=== PATIENT | female | born 1970 | race Caucasian/White ===

== ENCOUNTER 2020-03-24 14:38 | Outpatient (REF) | payer BC, SELFPAY ==
[2020-03-25 08:11] LABS: BV Int Neg Control Negative (Negative); BV Int Pos Control Positive (Positive)
[2020-03-27 08:43] LABS: HPV mRNA E6/E7 rflx Not Detected (Not Detected)
== END 2020-03-24 14:39 | disposition home or self-care (01) ==
LOC: HO.LAB 14:38
PROVIDERS: Visit Provider Advanced Practice Midwife
DX: Z01.419 Encounter for gynecological examination (general) (routine) without abnormal findings (principal); E66.01 Morbid (severe) obesity due to excess calories; I10 Essential (primary) hypertension
CPT/HCPCS: 87480; 87510; 87624; 87625; 87660; 88142

== ENCOUNTER 2020-06-11 15:42 | Outpatient (REF) | payer BC, SELFPAY ==
--- NOTE | ~2020-06-11 | MM_ITS ---
EXAMINATION: MM SCREENING DIGITAL BREAST TOMOSYNTHESIS, BILATERAL CLINICAL INFORMATION: Screening. Asymptomatic. The lifetime risk of breast cancer based on the Tyrer-Cuzick Model is 8.8%. COMPARISON: Mammography: November 19, 2015 and stapes dating back to December 27, 2004 TECHNIQUE: Digital breast tomosynthesis is performed in both the craniocaudal and mediolateral oblique views along with computer-aided detection (CAD). Synthesized 2D images are generated from the tomosynthesis. FINDINGS: There are scattered areas of fibroglandular density (ACR BI-RADS breast composition Category b). There are no significant masses, abnormal calcifications, or other abnormalities. MM/MM tomosynthesis screening BI IMPRESSION: There are no significant changes from prior study. ASSESSMENT: BI-RADS 1: Negative RECOMMENDATION: Routine annual mammography screening. This patient's information was entered into a reminder system with a target due date for their next mammogram.
== END 2020-06-11 15:43 | disposition home or self-care (01) ==
LOC: HO.MAMMO 15:42
PROVIDERS: PCP Internal Medicine; Visit Provider Advanced Practice Midwife
DX: Z12.31 Encounter for screening mammogram for malignant neoplasm of breast (principal)
CPT/HCPCS: 77063; 77067

== ENCOUNTER 2021-04-05 11:01 | Emergency (ER) | payer BC, SELFPAY ==
[2021-04-05 11:28] VITALS: BP 174/86; PULSE 102; RESP 16; TEMP 36.9; O2SAT 100; BMI 39.3
[2021-04-05 11:58] LABS: COVID-19 Test Positive (Negative); IDNOW Serial# 9DD0AD1C
--- NOTE | 2021-04-05 12:21 | ED.URI ---
HPI - URI/Sore Throat General Chief Complaint: Upper Respiratory Symptoms Stated Complaint: fever,earpain,headache Time Seen by Provider: 04/05/21 12:07 Source: patient Mode of arrival: ambulatory Limitations: no limitations History of Present Illness MD elicited complaint: cough, sore throat and rhinorrhea Pertinent past history: other (vaccinated x 2) Onset (ago): day(s) (2) Consistency: constant Severity: moderate Description of mucous: clear Able to tolerate fluids by mouth: Yes Exacerbating factors: nothing Relieving factors: nothing Associated symptoms: fever, chills, myalgias, headache, rhinorrhea, sore throat and cough Treatments prior to arrival: acetaminophen Related Data Home Medications Medication Instructions Recorded Confirmed omeprazole 20 mg capsule,delayed 20 mg PO BID 03/24/20 release Allergies Allergy/AdvReac Type Severity Reaction Status Date / Time No Known Allergies Allergy Verified 03/24/20 14:43 [No Known Allergies*] Review of Systems Review of Systems: Constitutional : positive Fever, positive Chills, positive fatigue, positive Malaise ENT/Mouth : positive sore throat, positive runny nose Eyes: No Discharge Cardiovascular : No Chest Pain, No SOB Respiratory : pos Cough, No Sputum Gastrointestinal : No Nausea, No Vomiting, No Diarrhea Genitourinary : No Dysuria, No Urinary Frequency Musculoskeletal : positive Myalgia Skin : No rash Neuro : No Headache PMFSH Past Medical History Surgical History (Updated 03/24/20 @ 15:15 by Jordon Hopkins) H/O bariatric surgery History of bilateral tubal ligation Hx of section Hx of cholecystectomy Social History Social History Alcohol intake: current Alcohol intake frequency: holidays/special occasions only Advance Directives: No Advance Directives Information Provided: No Patient : No Physical Exam Vital Signs: Vital Signs: Last Vital Signs Temp 98.5 F 04/05/21 11:28 Pulse 102 H 04/05/21 11:28 Resp 16 04/05/21 11:28 BP 174/86 H 04/05/21 11:28 Pulse Ox 100 04/05/21 11:28 BMI result Body Mass Index 39.3 Appearance: Alert. Oriented X3. No acute distress. Eyes: Pupils equal, round and reactive to light. ENT: Pharynx normal. bilateral TMs normal Neck: Normal inspection. Neck supple. CVS: Normal heart rate and rhythm. Pulses normal. Respiratory: No respiratory distress. Breath sounds normal. Abdomen: Soft and non-tender. Skin: Skin warm and dry. Normal skin color. Normal skin turgor. Extremities: No lower extremity edema. Neuro: Oriented X 3. No motor deficit. No sensory deficit. MDM - URI/Sore Throat MDM Narrative Medical decision making narrative: 50 yo female no PMH here with viral like illness, vaccinated x 2, + COVID at this time will need precautions to return does not need mab given lack of medical issues and likely omicron - precautions to return. Lab Data Labs: Lab Results 04/05/21 Range/Units 11:33 COVID-19 ([facility]) Positive A (Negative) COVID-19 Clin Com See Note Discharge Plan Discharge Clinical Impression: COVID-19 Patient Disposition: Home, Self-Care Instructions: COVID-19 (Coronavirus Disease 2019) (ED) Additional Instructions: return to ED for any worsening symptoms or concerns monitor your breathing, if you become so short of breath you cannot walk to your own bathroom please seek medical care wear a mask, quarantine, protect others Prescriptions: No Action omeprazole 20 mg capsule,delayed release(DR/EC) 20 mg PO BID RF: 0 Stand Alone Forms: Work/School Release
== END 2021-04-05 12:50 | disposition home or self-care (01) ==
PROVIDERS: Emergency Provider Emergency Medicine; PCP Internal Medicine
DX: U07.1 COVID-19 (principal)
CPT/HCPCS: 36415; 87635; 99283

== ENCOUNTER → 2021-09-01 13:54 | Outpatient (BNVA) | payer BC, SELFPAY | PROVIDERS: PCP Internal Medicine; Visit Provider Orthopaedic Surgery | DX: M65.4 Radial styloid tenosynovitis [de Quervain] (principal); M77.8 Other enthesopathies, not elsewhere classified | CPT/HCPCS: J1100 ==

== ENCOUNTER 2021-10-25 09:23 | Day surgery (SDC) | payer BC, SELFPAY ==
[2021-10-25 09:42] VITALS: BP 179/88; PULSE 88; RESP 18; TEMP 36.8; O2SAT 99; BMI 37.8
--- NOTE | 2021-10-25 11:39 | MHC.SHP ---
Pre-Procedural Eval Section A Date of Service: 10/25/21 The patient is an INPATIENT: No Changes since office visit: No Cold of Flu in the past 2 weeks, No New Medical Problems, No Changes in Medication and No Patient answered all questions The History & Physical has been completed within 30 days and I have reviewed it.: Yes Section B Chief Complaint: Radial styloid tenosynovitis [de Quervain] Allergies: Allergies Allergy/AdvReac Type Severity Reaction Status Date / Time No Known Allergies Allergy Verified 09/01/21 14:11 [No Known Allergies*] Plan I have reviewed the history and physical and performed a pertinent physical examination on my patient. No changes have occurred unless specified.
--- NOTE | 2021-10-25 11:40 | P.OP_ITS ---
Operative Note Operative Note Date of Service: 10/25/21 Narrative: Operative Note Preop diagnosis: 1. right DeQuervain's tenosynovitis Postop diagnosis: 1. right DeQuervain's tenosynovitis Procedure: 1. right 1st dorsal compartment release Surgeon: Ronit Hudson MD Anesthesia: local block using 1% lidocaine with epinephrine Findings: Thickened 1st dorsal compartment. [ ] EBL: Less than 5 mL Tourniquet time: None Specimens: None Complications: None Disposition: Brought to recovery room in stable condition Plan: Follow-up for 7-10 days for wound check and suture removal Indications: The patient is 51 with years old, with right DeQuervain's tenosynovitis that has been unresponsive to nonoperative management. The risks and benefits of operative treatment including but not limited to risk of damage to blood vessels, nerves, tendons, infection, persistent pain, persistent symptoms, recurrence or possible need for additional surgery were discussed with the patient and the patient wishes to proceed with surgery. Procedure: Once consent was obtained a local block was performed in the preop area using a combination of 1% lidocaine with epinephrine. The patient was then brought back to the operating suite and placed on the operative table in supine position. A tourniquet was applied to the proximal aspect of the right upper extremity and the limb was prepped and draped in a standard surgical fashion. Once assured that we had a good block, a 1.5 cm longitudinal incision was made centered over the 1st dorsal compartment as it passed over the radial styloid of the right wrist. The incision was made through the skin to the subcutaneous tissues using a #15 blade. Careful dissection was made down to the level of the 1st dorsal compartment using tenotomy scissors, with care being taken to protect the nearby branches of the superficial radial nerve. Once the 1st dorsal compartment was exposed, A longitudinal incision was made in the 1st dorsal compartment 1st using a #15 blade, then using tenotomy scissors under direct visualization. The 1st dorsal compartment was noted to be thickened. Following our release, we saw smooth gliding abductor pollicis longus and extensor pollicis brevis tendons. Once satisfied with our 1st dorsal compartment release the wound was copiously irrigated with normal saline and hemostasis was obtained with a brief period of local pressure. The subcutaneous layer was jeremias sed with some 4-0 Vicryl suture, and the skin edges were reapproximated with some 5.0 nylon suture material. A sterile dressing was applied. The patient appears to have tolerated the procedure well and with no complications. All digits were well vascularized at the conclusion of the case.
[2021-10-25 12:12] VITALS: BP 194/88; PULSE 87; RESP 16; TEMP 36.5; O2SAT 98
== END 2021-10-25 12:27 | disposition home or self-care (01) ==
PROVIDERS: PCP Internal Medicine; Visit Provider Orthopaedic Surgery
PROC: (CPT 25000; principal; 2021-10-25 11:10)
DX: M65.4 Radial styloid tenosynovitis [de Quervain] (principal); R20.0 Anesthesia of skin; R20.8 Other disturbances of skin sensation; M77.8 Other enthesopathies, not elsewhere classified; Z87.891 Personal history of nicotine dependence
CPT/HCPCS: 25000; J0171

== ENCOUNTER 2021-11-18 15:50 | Outpatient (REF) | payer BC, SELFPAY ==
[2021-11-19 09:21] LABS: BV Int Neg Control Negative (Negative); BV Int Pos Control Positive (Positive)
== END 2021-11-18 15:51 | disposition home or self-care (01) ==
LOC: HO.LAB 15:50
PROVIDERS: Visit Provider Advanced Practice Midwife
DX: N89.8 Other specified noninflammatory disorders of vagina (principal)
CPT/HCPCS: 87480; 87510; 87660

== ENCOUNTER 2021-11-25 11:42 | Outpatient (REF) | payer BC, SELFPAY ==
--- NOTE | ~2021-11-25 | MM_ITS ---
EXAMINATION: MM SCREENING DIGITAL BREAST TOMOSYNTHESIS, BILATERAL CLINICAL INFORMATION: Screening. Asymptomatic. The lifetime risk of breast cancer based on the Tyrer-Cuzick Model is 9.7%. COMPARISON: Mammography: June 11, 2020 and studies dating back to August 12, 2009 TECHNIQUE: Digital breast tomosynthesis is performed in both the craniocaudal and mediolateral oblique views along with computer-aided detection (CAD). Synthesized 2D images are generated from the tomosynthesis. FINDINGS: There are scattered areas of fibroglandular density (ACR BI-RADS breast composition Category b). There are no significant masses, abnormal calcifications, or other abnormalities. MM/MM tomosynthesis screening BI IMPRESSION: No significant changes from prior exam. ASSESSMENT: BI-RADS 1: Negative RECOMMENDATION: Routine annual mammography screening. This patient's information was entered into a reminder system with a target due date for their next mammogram.
== END 2021-11-25 11:43 | disposition home or self-care (01) ==
LOC: HO.MAMMO 11:42
PROVIDERS: PCP Internal Medicine; Visit Provider Internal Medicine
DX: Z12.31 Encounter for screening mammogram for malignant neoplasm of breast (principal)
CPT/HCPCS: 77063; 77067

== ENCOUNTER 2022-01-06 13:24 | Outpatient (REF) | payer BC, SELFPAY ==
--- NOTE | 2022-01-06 10:15 | EMG_ITS ---
Bilateral median and ulnar motor and sensory studies were performed. Bilateral radial sensory study was performed and paraspinal muscles were tested. 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 MD PABLO Aly/KEN / [id number]
== END 2022-01-06 13:25 | disposition home or self-care (01) ==
LOC: HO.NEURO 13:24
PROVIDERS: Visit Provider Orthopaedic Surgery
DX: R20.0 Anesthesia of skin (principal)
CPT/HCPCS: 95886; 95911

== ENCOUNTER 2022-01-11 14:30 | Outpatient (RCR) | payer BC, SELFPAY ==
--- NOTE | 2022-01-03 16:23 | MHC.OT.OEV ---
[address] [phone] F: [phone] Occupational Therapy Evaluation Diagnosis: S/P right 1 DC release Date of Onset: 10/25/21 Date of Surgery: 10/25/21 Attending Provider: Ronit Hudson MD Prescribed Treatment: Eval and treat, desensitization, ROM, and normalization of activities MD Follow Up Appointment: History of Current Condition: Pt reports light use of her right hand s/p Dequervains release and re injury sleeping on her right hand and bumping her radial wrist putting away a spray bottle Significant Medical History: Precautions/Contraindications: Lifting limit to 2 lb Patient Goals: Less pain Hand Dominance: Left Observations: QuickDASH Score: 70 Prior Level of Function and Occupation Self Care, Employment, Leisure: Indep in all area ( pre Dequervains sx) 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 sleeps on right hand needs to reposition frequently Driving: Vision: Balance: Pain Assessment Pain Score: 7 Pain Scale Used: Numeric (0 - 10) Pain Location and Description: 6-10 burning, ache , stabbing right thumb to elbow Aggravating Factors: Wrist motion, lifting, gripping Alleviating Factors: Heat Skin and Soft Tissue Assessment Skin and Soft Tissue: Swelling Comments: Mild radial hand and wrist swelling Tender at radial wrist scar Nerve assessment Ulnar Nerve: Median Nerve: Radial Nerve: Comments: Sensory Assessment Temperature: Light Touch: WNL Proprioception: Vibration: Comments: Edema Assessment Upper Extremity: Lower Extremity: Comments: WFL Dexterity Assessment Dexterity: WFL Comments: Special Tests Comments: AROM(PROM) Strength Cervical Cervical Flexion: Cervical Extension: Cervical Lateral Flexion: Cervical Rotation: Comments: Shoulder Flexion: Extension: Abduction: Internal Rotation: External Rotation: Comments: Flexion: Extension: Abduction: Internal Rotation: External Rotation: Comments: Elbow Flexion: Extension: Pronation: Supination: Comments: Flexion: Extension: Pronation: Supination: Comments: Wrist Flexion: R 60 L 70 Extension: R 70 L 70 Ulnar Deviation: R 10 L 15 Radial Deviation: R 30 L 25 Comments: Flexion: Extension: Ulnar Deviation: Radial Deviation: Comments: Thumb Thumb CMC Flexion: Thumb MCP Flexion: Thumb IP Flexion: Radial Abduction: Palmar Abduction: [place] ([place] 0-10): 6 Comments: Guarded thumb motion Digits Index MCP: PIP: DIP: Long MCP: PIP: DIP: Ring MCP: PIP: DIP: Small MCP: PIP: DIP: Comments: WNL. 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 Patient demonstrates Patient verbalizes Barriers to Learning: None Readiness for Learning: Accepting Who was educated? 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 Wrist and thumb AROM is guarded but WFL Pt will benefit from OT to address the problems stated STG Duration: 2 wks Short Term Goals: Demo indep with wrist and thumb AROM and light functional activities Demo compliance with lifting limitation at 2 lb Tolerate scar desensitization with moderate pressure Functional Dexterity Test to moderately functional LTG Duration: 4 wks [employer] Goals: Painfree thumb and wrist AROM with daily activities Alum Plant Operator to >40 lb Functional dexterity test to functional Tolerate aggressive scar massage and scar mobilization Quick DASH score < 30 pt Frequency and Duration: The patient will be seen 2x wk x 4 wks Treatment Plan: Therapeutic Exercise Therapeutic Activity Home Exercise Program Patient Education Desensitization/Sensory Re-ed Paraffin Fluidotherapy Soft Tissue Mobilization Electronically Signed By: Tasia Boyd OT CHT CLT Reviewed/agree with student documentation: Therapist: Please sign and return to therapist, Thank you for your referral.
--- NOTE | 2022-01-24 16:18 | MHC.OT.DC ---
[address] [phone] F: [phone] Occupational Therapy Discharge Note Provider: Ronit Hudson Diagnosis: S/P right 1 DC release Date of Surgery: 10/25/21 Date of Evaluation: 01/03/22 Date of Discharge: Treatments to Date: 2 Cancellations to Date: No Shows to Date: Discharge Status: Improved Function Independent with HEP Patient Elected to Stop Discharge Summary: Pt. reports improving with her HEP and concern of high co pay Pt to follow up with Dr. Hudson if needed Electronically Signed By: Tasia Boyd OT CHT CLT Reviewed/agree with student documentation: Therapist: Please Sign and return to therapist, thank you for your referral.
== END 2022-01-24 16:19 | disposition home or self-care (01) ==
LOC: HO.OT 14:30
PROVIDERS: PCP Internal Medicine; Visit Provider Orthopaedic Surgery
DX: M77.8 Other enthesopathies, not elsewhere classified (principal); M65.4 Radial styloid tenosynovitis [de Quervain]
CPT/HCPCS: 97035; 97110; 97166

== ENCOUNTER → 2022-07-06 15:05 | Outpatient (BNVA) | payer BC, SELFPAY | PROVIDERS: PCP Internal Medicine; Visit Provider Orthopaedic Surgery | DX: Z13.89 Encounter for screening for other disorder (principal) ==

== ENCOUNTER 2022-11-01 12:52 | Outpatient (AMB) | payer BC, SELFPAY ==
--- NOTE | 2022-11-01 12:56 | MHC.OFFVIS ---
Intake Vital Signs 11/01/22 12:58 Height 5 ft 2 in Weight 198 lb BMI 36.2 BP 126/80 Intake Visit Reasons: vag inf Intake Note: The patient agreed to use of a medical concierge during this encounter. Scribed for DANA Loja by Joanne Goel medical concierge, on 11/01/2022 at 1:16 pm EST. Silk Blocker: Silk Blocker Present (Yennifer) Allergies No Known Allergies [No Known Allergies*] Allergy (Verified 11/01/22 12:58) HPI HPI Comments History of Present Illness Details She is here today with complaints of urgency/frequent urination, vaginal irritation, itching, burning and discharge. Having monthly menses with occasional pelvic pain. Used tampons in the past with no complaints and used it once in September with results of current symptoms. Reports seen in September at urgent care, and was prescribed RX Diflucan. Denies shaving, any new detergents and is not using soap. Admits to drinking sodas, and drinks with artificial sweeteners. Currently not sexually active in years. 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- [employer] Sexual orientation: Straight/Heterosexual Gender identity: Female Female Reproductive History Menstrual Age of Menarche: 10 control method: permanent sterilization Permanent Sterilization: BTL Total pregnancies: 2 Full term: 2 Number of Living Children: 2 Date of last pap smear: 03/24/20 (neg pap and hpv) Date of Mammogram: 11/25/21 Physical Exam Vital Signs: Last Vital Signs BP 126/80 11/01/22 12:58 BMI result Body Mass Index 36.2 Const General: cooperative, healthy appearing, comfortable, no acute distress, well developed, alert and awake Other: vulvar erythema and edema External Female Exam: normal appearance of the urethra Speculum Exam - Vagina: normal appearance of the vagina and abnormal vaginal discharge white (patchy and adherent) Bimanual Exam- Adnexa, other: normal adnexae and no masses Results AMB Urinalysis, Automated UA Leukoctes 0.5 Kelsie/uL Last Edit by Colleen Andrade Isaiah on 11/01/22 13:36 UA Nitrite Negative Last Edit by Colleen Andrade [facility] on 11/01/22 13:36 UA Urobilinogen 0 mg/dL Last Edit by Colleen Andrade [facility] on 11/01/22 13:36 UA Protein 0.5 mg/dL Last Edit by Colleen Andrade [facility] on 11/01/22 13:36 UA pH 6.0 Last Edit by Colleen Andrade [facility] on 11/01/22 13:36 UA Blood 0 Jeffrey/uL Last Edit by Colleen Andrade [facility] on 11/01/22 13:36 UA Specific [place] 1.025 Last Edit by Colleen Andrade [facility] on 11/01/22 13:36 UA Ketone Negative Last Edit by Colleen Andrade [facility] on 11/01/22 13:36 UA Bilirubin 0 mg/dL Last Edit by Colleen Andrade [facility] on 11/01/22 13:36 UA Glucose 0 mg/dL Last Edit by Colleen Andrade [facility] on 11/01/22 13:36 Results Reviewed Results Reviewed: Laboratory Last Values Urine pH (Auto) 6.0 11/01/22 13:25 Specific [place] (Auto) 1.025 11/01/22 13:25 Urine Protein (Auto) 0.5 mg/dL 11/01/22 13:25 Glucose (UA)(Auto) 0 mg/dL 11/01/22 13:25 Urine Ketones (Auto) Negative 11/01/22 13:25 Urine Blood (Auto) 0 Jeffrey/uL 11/01/22 13:25 Urine Nitrite (Auto) Negative 11/01/22 13:25 Urine Bilirubin (Auto) 0 mg/dL 11/01/22 13:25 Urine Urobilinogen (Auto) 0 mg/dL 11/01/22 13:25 Leukocyte Esterase (Auto) 0.5 Kelsie/uL 11/01/22 13:25 Assessment & Plan Assessment & Plan (1) Vaginal irritation: Code(s): N89.8 - Other specified noninflammatory disorders of vagina Plan: Discussed: Recommend to limit caffeine, one per day, and to stop carbonated, sugared, and artificial sweetened beverages. Hydrate well with water. Advised to clean with water only, no soaps to the area, dry well, apply cool compress and wear cotton underwear. RX sent to pharmacy with instructions. If experience chest pain or irregular heart beat report to ED. BV testing done today. Await results and treat accordingly. All of her questions and concerns were addressed to the best of my ability and shared decision making. She is agreeable to plan of care. (2) Vaginal discharge: Code(s): N89.8 - Other specified noninflammatory disorders of vagina (3) Frequency of urination: Code(s): R35.0 - Frequency of micturition (4) Urinary urgency: Code(s): R39.15 - Urgency of urination (5) Vaginal burning: Code(s): N94.9 - Unspecified condition associated with female genital organs and menstrual cycle (6) Vaginal itching: Code(s): N89.8 - Other specified noninflammatory disorders of vagina Orders: Orders Bacterial Vaginosis Panel Today N89.8 - Other specified noninflammatory disorders of vagina CT NG by PCR Today N89.8 - Other specified noninflammatory disorders of vagina AMB Urinalysis Automated Today R35.0 - Frequency of micturition, R39.15 - Urgency of urination Medications: New clotrimazole-betamethasone 1-0.05 % 1 appl topical BID 7 days 45 grams 1RF fungal rash fluconazole (Diflucan) may repeat dose in one week if symptoms do not resolve 150 mg PO ONCE 1 day 2 tabs 1RF personal Coding Level of Care Code Est Pt Level 3 (10916) Diagnoses Vaginal irritation N89.8 Vaginal discharge N89.8 Frequency of urination R35.0 Urinary urgency R39.15 Vaginal burning N94.9 Vaginal itching N89.8
[2022-11-01 12:58] VITALS: BP 126/80; BMI 36.2
== END 2022-11-01 13:42 | disposition home or self-care (01) ==
LOC: HO.HWS 12:52
PROVIDERS: PCP Hospitalist; Visit Provider Advanced Practice Midwife
DX: N89.8 Other specified noninflammatory disorders of vagina (principal); R35.0 Frequency of micturition; R39.15 Urgency of urination; N94.9 Unspecified condition associated with female genital organs and menstrual cycle
CPT/HCPCS: 99213

== ENCOUNTER 2022-11-01 12:52 | Outpatient (REF) | payer BC, SELFPAY ==
[2022-11-02 04:22] LABS: CT PCR NOT DETECTED (Not Detect.); NG PCR NOT DETECTED (Not Detect.)
[2022-11-02 15:33] LABS: BV Int Neg Control Negative (Negative); BV Int Pos Control Positive (Positive)
== END 2022-11-01 12:53 | disposition home or self-care (01) ==
LOC: HO.LAB 12:52
PROVIDERS: PCP Hospitalist; Visit Provider Advanced Practice Midwife
DX: N89.8 Other specified noninflammatory disorders of vagina (principal); R35.0 Frequency of micturition; R39.15 Urgency of urination
CPT/HCPCS: 0353U; 81003; 87480; 87510; 87660

== ENCOUNTER 2022-11-01 13:25 | Outpatient (REF) | payer BC, SELFPAY | END 2022-11-01 13:26 | disposition home or self-care (01) | LOC: HO.LNP 13:25 | PROVIDERS: Visit Provider Advanced Practice Midwife | DX: Z13.89 Encounter for screening for other disorder (principal) ==

== ENCOUNTER 2023-03-03 13:05 | Outpatient (AMB) | payer BC, SELFPAY ==
--- NOTE | 2023-03-03 13:08 | MHC.OFFVIS ---
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 She is doing well with concerns: incontinent at times, rectal bleeding, and a recent tear vaginally-not sexually active very often, she reports was dry. Attempting to eat a healthy diet with calcium and vitamin D and stays active with exercise. STI testing offered; she delines. Last pap smear; 2019-neg. Last mammogram; UTD. Colonoscopy is UTD. Denies any family history of breast, ovarian or colon cancer. [facility] Medical History Frequency of urination Hiatal hernia Surgical History Hx of hand surgery History of bilateral tubal ligation Hx of cholecystectomy H/O bariatric surgery Hx of section Family History (Updated 03/03/23 @ 13:53 by Ligia Rodriguez CNM) Family/Other History of breast cancer Brother Overdose Mother HTN (hypertension) Father HTN (hypertension) Social History (Updated 03/03/23 @ 13:30 by Noa Landa CMA) Household Members: Spouse and Children Housing: House Alcohol intake: current Alcohol intake frequency: holidays/special occasions only Patient Tobacco Use Status: Former Tobacco user Current occupational status: employed 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- [employer] Sexual orientation: Straight/Heterosexual Gender identity: Female Female Reproductive History Menstrual Age of Menarche: 10 control method: permanent sterilization Total pregnancies: 2 Full term: 2 Number of Living Children: 2 Date of last pap smear: 03/24/20 Date of Mammogram: 11/25/21 Review of Systems Const All systems reviewed & are unremarkable except as noted in HPI and below Reports as per HPI Eyes Reports no additional complaints ENT Reports no additional complaints Card Reports no additional complaints Resp Reports no additional complaints GI Reports as per HPI and Reports no additional complaints Reports as per HPI Musc Reports no additional complaints Skin/Breast Reports as per HPI Neuro Reports no additional complaints Psych Reports no additional complaints Endo Reports no additional complaints Rl/Lymph Reports no additional complaints Aller/Immun Reports no additional complaints Physical Exam Vital Signs: Last Vital Signs BP 146/82 H 03/03/23 13:26 BMI result Body Mass Index 35.3 Const General: cooperative, healthy appearing, no acute distress, well developed and alert Orientation/consciousness: patient oriented x3 HEENT Head: Yes normal to inspection Eyes General: appearance normal, both eyes and all related structures Neck Neck: Yes normal visual inspection Thyroid: Thyroid normal Chest Chest palpation & inspection: normal inspection of the chest and other (no puckering, dimpling, peau de orange, retraction, discharge, masses) Breast/axilla inspection: normal inspection of the breasts Breast/axilla palpation: normal palpation of the breasts Resp Effort & Inspection: normal respiratory effort GI Inspection: Yes normal to inspection Palpation (GI): Soft to palpation Rectal Exam - Female: deferred Other: Small, shallow abrasion at the introitus healing well General: Yes bladder normal to palpation External Female Exam: normal external appearance and normal appearance of the urethra Speculum Exam - Vagina: normal appearance of the vagina, normal palpation and normal vaginal discharge Speculum Exam - Cervix: normal appearance of the cervix and normal palpation Bimanual exam- vagina & uterus: normal bimanual exam, normal palpation, uterine size normal, bladder normal to palpation, normal palpation and non-tender Bimanual Exam- Adnexa, other: no masses Skin General skin exam: no rashes or lesions noted Rashes: no rashes Neuro General: patient oriented x3 Cognition (Neuro): normal cognition Extrem General: Yes normal to inspection Psych Attitude: cooperative Thought process: Normal thought process present Assessment & Plan Assessment & Plan (1) Well woman exam with routine gynecological exam: Code(s): Z01.419 - Encounter for gynecological examination (general) (routine) without abnormal findings (2) Incontinence: Code(s): R32 - Unspecified urinary incontinence Qualifiers: Urinary Incontinence type: unspecified incontinence Plan Discussed: Current recommendations for pap smears per ASCCP guidelines. Breast awareness, periodic self breast exams and yearly mammogram. Maintain a healthy lifestyle, well balanced diet including Calcium 1,200 mg and Vitamin D 600 IU daily, and routine exercise. Contact the office with any abnormal bleeding. Discussed the use of moisturizers and vaginal lubricants such as Replens, Astroglide, [place] jelly. Sign up for the patient portal if not already enrolled. All of her questions and concerns were addressed to the best of my ability. RTO in 1 year for annual precision honer exam. Stressed importance of following up with her primary care as soon as possible further rectal bleeding. Strongly recommended considering having a colonoscopy at this time. Referral to urology for incontinence. Orders: Orders CT NG by PCR Today N89.8 - Other specified noninflammatory disorders of vagina Bacterial Vaginosis Panel Today N89.8 - Other specified noninflammatory disorders of vagina MM tomosynthesis screening BI Today Z12.31 - Encounter for screening mammogram for malignant neoplasm of breast Referrals Urology Referral R32 - Unspecified urinary incontinence Coding Level of Care Code Est Pt Prev Care 40-64y(17104) Diagnoses Well woman exam with routine gynecological exam Z01.419 Incontinence R32 Urinary Incontinence type: unspecified incontinence
[2023-03-03 13:26] VITALS: BP 146/82; BMI 35.3
== END 2023-03-03 14:05 | disposition home or self-care (01) ==
PROVIDERS: PCP Hospitalist; Visit Provider Advanced Practice Midwife
DX: Z01.419 Encounter for gynecological examination (general) (routine) without abnormal findings (principal); R32 Unspecified urinary incontinence
CPT/HCPCS: 99396

== ENCOUNTER 2023-03-03 13:05 | Outpatient (REF) | payer BC, SELFPAY ==
[2023-03-03 18:44] LABS: CT PCR NOT DETECTED (Not Detect.); NG PCR NOT DETECTED (Not Detect.)
[2023-03-05 14:31] LABS: BV Int Neg Control Negative (Negative); BV Int Pos Control Positive (Positive)
== END 2023-03-03 13:06 | disposition home or self-care (01) ==
LOC: HO.LNP 13:05
PROVIDERS: PCP Hospitalist; Visit Provider Advanced Practice Midwife
DX: Z01.419 Encounter for gynecological examination (general) (routine) without abnormal findings (principal); R32 Unspecified urinary incontinence; N89.8 Other specified noninflammatory disorders of vagina
CPT/HCPCS: 0353U; 87480; 87510; 87660

== ENCOUNTER 2023-03-06 10:37 | Outpatient (AMB) | payer BC, SELFPAY ==
[2023-03-06 11:06] VITALS: BP 160/90; PULSE 78; RESP 13; TEMP 36.3; O2SAT 99; BMI 36.5
--- NOTE | 2023-03-06 11:06 | A.OFFPC_ITS ---
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 Patient is having troubles eating and has very strong acid reflux. Bulk Filler Required: No Accompanied by: Self / Same As Patient Allergies No Known Allergies [No Known Allergies*] Allergy (Verified 03/06/23 11:38) Medication List - Last Reviewed 03/06/23 by Valeria Grant MA omeprazole 40 mg PO DAILY Tobacco use date assessed: 03/06/23 Dental Screening Dental Screen Date: 03/06/23 Did you have a dental visit in the last 12 months?: No Did you have a dental problem in the last 6 months where you did not have access to dental care?: No Was dental information given to patient?: Patient has dentist HPI HPI Comments History of Present Illness Details New patient Prior PCP:?Dr. Jasmin Degroot Last office visit/CPE: About 11 years Last routine blood work: About 11 years ago Acute issue(s): Acid reflux -She takes OTC Omeprazole 40mg daily wit h some relief. She reports episodes of severe heartburn. She states that she never followed up on hiatal hernia HTN -She was on Lisinopril which she stopped taking after gastric sleeve procedure 8 years ago. She admits to consuming significant amount of salty popcorns Anxiety/Depression -Denies formal diagnosis or treatment. H owever, she believes she now has anxiety and depression. She notes that she cries a lot and prefers to be in the dark. She also reports poor appetite. She notes that her symptoms started after the of her brother and nephew in 2018 and 2019 respectively. She notes that her symptoms have progressively gotten worse PMHx: Acid reflux, hiatal hernia, hypertension, obesity, dequervain tenosynovitis of both wrist SurgHx: Right 1sr dorsal compartment release, bilateral tubal ligation, cholecystectomy, bariatric surgery, section FHx: Mom: HTN, cardiovascular disease. Dad: HTN, cardiovascular disease. MGM: HTN SocHx: Former smoker. Drinks alcohol occasionally. No drugs. PFSH Medical History (Updated 03/06/23 @ 12:20 by Raciel Hansen CNP) Acid reflux Frequency of urination Hiatal hernia Surgical History Hx of hand surgery History of bilateral tubal ligation Hx of cholecystectomy H/O bariatric surgery Hx of section Family History (Updated 03/06/23 @ 11:22 by Valeria Grant MA) Family/Other History of breast cancer Brother Overdose Cardiovascular disease Mother HTN (hypertension) Cardiovascular disease Father HTN (hypertension) Cardiovascular disease Maternal Grandmother HTN (hypertension) Social History Household Members: Spouse and Children Housing: House Alcohol intake: current Alcohol intake frequency: holidays/special occasions only Patient Tobacco Use Status: Former Tobacco user e-Cigarette/Vaping Use: Never Used service: No Current occupational status: employed 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 1. Little interest or pleasure in doing things: more than half the days 2. Feeling down, depressed, or hopeless: more than half the days 3. Trouble falling or staying asleep, or sleeping too much: more than half the days 4. Feeling tired or having little energy: more than half the days 5. Poor appetite or overeating: more than half the days 6. Feeling bad about yourself - or that you are a failure or have let yourself or your family down: not at all 7. Trouble concentrating on things, such as reading the newspaper or watching television: not at all 8. Moving or speaking so slowly that other people could have noticed. Or the opposite - being so fidgety or restless that you have been moving around a lot more than usual: not at all 9. Thoughts that you would be better off or of hurting yourself in some way: not at all Total score: 10 Depression Screening Interpretation: Positive Depression Screening Follow-up: Existing condition and New Medication prescribed Depression Screening Done: Yes 85544 - PHQ-9 Billing: Yes Source: Developed by Drs. Zhang Persaud, Miroslava Jerome, Tito Reece and colleagues, with an educational nils from [employer]. Thrive Questionnaire Date Thrive assessed: 03/06/23 I am a: Patient What is your living situation today?: I have a steady place to live Within the past 12 months, did the food you bought not last and you didn't have the money to get more?: Never true Within the past 12 months, did you worry whether your food would run out before you got money to buy more?: Never true Do you have trouble paying for medicines?: Yes Do you have trouble getting transportation to medical appointments?: No Do you have trouble paying your heating and electricity bill?: Yes Do you have trouble taking care of your child, family member or friend?: No Do you have trouble with day-to-day activities such as bathing, preparing meals, shopping, managing finances, etc.?: No Are you currently unemployed and looking for a job?: No Are you interested in more education?: No Please select the resources that you would like help with: Paying for medicine and Utilities Currently or been in a relationship where the following occur: no concerns reported AUDIT C Alcohol Use Questionnaire (AUDIT-C) 1. How often do you have a drink containing alcohol?: Monthly or less 2. How many drinks containing alcohol do you have on a typical day when you are drinking?: 1 or 2 3. How often do you have six or more drinks on one occasion?: Never Total Score: 1 KAREEM-7 AMB Questionnaire KAREEM-7 Feeling nervous, anxious, or on edge: 1 = Several days Not being able to stop or control worryin = Several days Worrying too much about different things: 1 = Several days Trouble relaxin = Several days Being so restless that it is hard to sit still: 0 = Not at all Becoming easily annoyed or irritable: 0 = Not at all Feeling afraid as if something awful might happen: 1 = Several days Total KAREEM-7 score (0-4 normal; 5-9 mild; 10-14 moderate; 15-21 severe): 5 Source: Developed by Drs. Zhang Persaud, Miroslava Jerome, Tito Reece and colleagues, with an educational nils from [employer] KAREEM-7 Assessment Billing KAREEM-7 Assessment Tool: KAREEM-7 Assessment 16901 Review of Systems Const Details: Const Denies chills, Denies fatigue, Denies fever(s), Denies headache(s) and Denies weakness ENT Denies dizziness and Denies headache(s) Card Denies chest pain, Denies lightheadedness, Denies dyspnea and Denies other (Palpitations) Resp Denies cough, Denies dyspnea, Denies wheezing and Denies other ( shortness of breath) GI Denies abdominal pain, Denies melena, Denies hematochezia, Denies change in bowel habits, Denies dyspepsia and Denies nausea Denies hematuria and Denies dysuria Musc Denies abnormal gait, Denies myalgias, Denies arthralgias, Denies numbness and Denies tingling Skin/Breast Denies rash, Denies unusual bruising and Denies wounds Neuro Denies abnormal gait, Denies dizziness, Denies headache(s), Denies memory loss, Denies numbness, Denies Sensory deficit (Neuro), Denies tingling and Denies weakness Psych Reports anxiety, Reports depression, Denies memory loss Endo Denies cold intolerance, Denies fatigue, Denies heat intolerance, Denies polydipsia and Denies polyuria Aller/Immun Denies wheezing Physical exam (Primary Care) Vital Signs: Last Vital Signs Temp 97.4 F 03/06/23 11:06 Pulse 78 03/06/23 11:06 Resp 13 03/06/23 11:06 BP 160/90 H 03/06/23 11:06 Pulse Ox 99 03/06/23 11:06 Oxygen Delivery Method Room Air 03/06/23 11:06 BMI result Body Mass Index 36.5 Tobacco/Smoking Status: Tobacco use Status Tobacco use date assessed 03/06/23 03/06/23 11:19 Patient Tobacco Use Status Former Tobacco user 03/06/23 11:19 e-Cigarette/Vaping Use Never Used 03/06/23 11:19 PHQ-9: PHQ-9 Score PHQ-9: Total score 10 03/06/23 11:19 Depression Screening Interpretation: Positive Depression Screening Follow-up: Existing condition and New Medication prescribed Thrive Assessment: Date of Thrive Assessment Date Thrive assessed 03/06/23 03/06/23 11:19 Currently or been in a relationship where the following occur: no concerns reported Const Other: General: no acute distress and well developed Nutritional Appearance: well nourished Orientation/consciousness: patient oriented x3 [facility] Head: Yes normocephalic and Yes atraumatic Eyes General: appearance normal, both eyes and all related structures Pupils: Equal, round and reactive pupils present EOM: EOMs intact bilaterally Resp Effort & Inspection: normal respiratory effort Auscultation: clear to auscultation bilaterally Cardio Rate: regular rate Rhythm: regular rhythm Heart sounds: S1 normal heart sound present, S2 normal heart sound present, no gallops, no murmurs and no rubs GI Palpation (GI): No Abdominal aortic bruit present, Soft to palpation, nontender, No hepatosplenomegaly present and No Rebound tenderness present Auscultation: normal bowel sounds General: Yes no CVA tenderness Back/Spine/Pelvis Back: no CVA tenderness Cervical Spine: cervical ROM normal and No Cervical spine tenderness Thoracic/Lumbar Spine: thoraco-lumbar ROM normal, No pain with thoraco-lumbar ROM, No thoracic spinal tenderness and No lumbar spinal tenderness Extrem General: Yes normal to inspection, No edema and No calf tenderness Skin General: warm and dry. Normal skin color. Normal skin turgor Lesions: no lesions Rashes: no rashes Trauma: no lacerations or abrasions Wounds: no wounds Nails: normal Neuro General: patient oriented x3, gait normal and no focal neuro deficit Cranial nerves: Yes Equal, round and reactive pupils present Cognition (Neuro): normal cognition Gait exam (Neuro): Normal gait present Sensory Exam: No Sensory deficit (Neuro) Psych Appearance: grossly normal Affect: normal affect Attitude: cooperative Thought process: Normal thought process present Assessment and Plan Assessment & Plan (1) Acid reflux: Code(s): K21.9 - Gastro-esophageal reflux disease without esophagitis Plan: She takes OTC Omeprazole 40mg daily with some relief. She reports episodes of severe heartburn. She states that she never followed up on hiatal hernia Advised to avoid greasy or fatty foods Continue to take omeprazole as needed Referred to [facility] gastroenterology Return with worsening or new symptoms Verbalized understanding and agreed with treatment plan (2) Hiatal hernia: Code(s): K44.9 - Diaphragmatic hernia without obstruction or gangrene Plan: As above (3) Hypertension: Code(s): I10 - Essential (primary) hypertension Qualifiers: Hypertension type: primary hypertension Qualified Code(s): I10 - Essential (primary) hypertension Plan: She was on Lisinopril which she stopped taking after gastric sleeve procedure 8 years ago. She admits to consuming significant amount of salty popcorns Resting blood pressure is 180/90, above goal of less than 140/90 Lisinopril ordered. Take as prescribed Low-sodium diet encouraged Follow-up in 4 days or return sooner with symptoms or concerns Verbalized understanding and agreed with treatment plan (4) Anxiety and depression: Code(s): F41.9 - Anxiety disorder, unspecified; F32.A - Depression, unspecified Plan: Denies formal diagnosis or treatment for anxiety or depression. However, she believes she now has anxiety and depression. She notes that she cries a lot and prefers to be in the dark. She also reports poor appetite. She notes that her symptoms started after the of her brother and nephew in 2019 and 2019 respectively. She notes that her symptoms have progressively gotten worse PHQ-9 and KAREEM-7 scores revealed moderate depression and mild anxiety respectively Hydroxyzine ordered. Take as prescribed With psychotherapy referral recommended. However, the patient notes that her workplace provides psychotherapy and she will will seek psychotherapy there Routine exercise encouraged Follow-up with worsening or new symptoms Verbalized understanding and agreed with treatment plan (5) Laboratory tests ordered as part of a complete physical exam (CPE): Code(s): Z00.00 - Encounter for general adult medical examination without abnormal findings Plan: Fasting labs ordered as part of a complete physical exam. Advised to fast for at least 10 hours before getting labs drawn. May drink water Verbalized understanding and agreed with treatment plan. Orders: Orders TSH reflex Free T4 Today Z00.00 - Encounter for general adult medical examination without abnormal findings Complete Blood Count Auto Diff Today Z00.00 - Encounter for general adult medical examination without abnormal findings Comprehensive [place]. Panel Fast Today Z00.00 - Encounter for general adult medical examination without abnormal findings Lipid Panel Today Z00.00 - Encounter for general adult medical examination without abnormal findings UA CC w/rflx Micro + Cult Today Z00.00 - Encounter for general adult medical examination without abnormal findings Referrals Gastroenterology Referral K21.9 - Gastro-esophageal reflux disease without esophagitis, K44.9 - Diaphragmatic hernia without obstruction or gangrene Medications: New hydroxyzine HCl 25 mg PO TID PRN 90 tabs 1RF anxiety 30 days Coding Level of Care Code New Pt Level 4 (95848) Diagnoses Acid reflux K21.9 Hiatal hernia K44.9 Primary hypertension I10 Hypertension type: primary hypertension Anxiety and depression F41.9; F32.A Laboratory tests ordered as part of a complete physical exam (CPE) Z00.00 Additional Codes KAREEM-7 Assessment Billing - KAREEM-7 Assessment Tool: KAREEM-7 Assessment 86271 ([id number])
[2023-03-06 11:58] VITALS: BP 180/90
== END 2023-03-06 12:14 | disposition home or self-care (01) ==
PROVIDERS: PCP Nurse Practitioner Family; Visit Provider Nurse Practitioner Family
DX: K21.9 Gastro-esophageal reflux disease without esophagitis (principal); K44.9 Diaphragmatic hernia without obstruction or gangrene; I10 Essential (primary) hypertension; F41.9 Anxiety disorder, unspecified; F32.A Depression, unspecified
CPT/HCPCS: 96127; 99204

== ENCOUNTER 2023-04-05 14:53 | Outpatient (REF) | payer BC, SELFPAY ==
--- NOTE | ~2023-04-05 | MM_ITS ---
EXAMINATION: MM SCREENING DIGITAL BREAST TOMOSYNTHESIS, BILATERAL CLINICAL INFORMATION: Screening. Asymptomatic. COMPARISON: Mammography: 11/25/2021, 06/11/2020, 11/19/2015, and 08/12/2009. TECHNIQUE: Digital breast tomosynthesis is performed in both the craniocaudal and mediolateral oblique views along with computer-aided detection (CAD). Synthesized 2D images are generated from the tomosynthesis. FINDINGS: There are scattered areas of fibroglandular density (ACR BI-RADS breast composition Category b). There are no suspicious masses, suspicious grouped calcifications, or areas of architectural distortion in either breast. The parenchymal pattern is stable from prior exams. No skin or axillary abnormalities. MM/MM tomosynthesis screening BI IMPRESSION: No mammographic evidence of malignancy. ASSESSMENT: BI-RADS BI-RADS 1 - Negative RECOMMENDATION: Routine annual mammography screening. 1 year F/U This examination should not preclude the clinical evaluation of a suspicious palpable abnormality. This patient's information was entered into a reminder system with a target due date for their next mammogram.
== END 2023-04-05 14:54 | disposition home or self-care (01) ==
LOC: HO.MAMMO 14:53
PROVIDERS: PCP Nurse Practitioner Family; Visit Provider Advanced Practice Midwife
DX: Z12.31 Encounter for screening mammogram for malignant neoplasm of breast (principal)
CPT/HCPCS: 77063; 77067

== ENCOUNTER → 2023-04-05 15:00 | Outpatient (BNV) | payer BC, SELFPAY | PROVIDERS: PCP Nurse Practitioner Family; Visit Provider Radiology Diagnostic Radiology | DX: Z12.31 Encounter for screening mammogram for malignant neoplasm of breast (principal) | CPT/HCPCS: 77063; 77067 ==

== ENCOUNTER 2023-04-20 12:59 | Outpatient (AMB) | payer BC, SELFPAY ==
--- NOTE | 2023-04-20 13:11 | MHC.OFFVIS ---
Intake Intake Visit Reasons: urinary incontinence Intake Note: NEW Patient presents today to established treatment for: urinary incontinence Meds- None Allergies to Antibiotic- No Known Allergies Blood Thinner- None Post Void Residual: 99 ml Plater Helper Required: No Accompanied by: self Allergies No Known Allergies [No Known Allergies*] Allergy (Verified 05/19/23 15:30) HPI HPI Comments History of Present Illness Details Lazara is a 52 year old female who is here for evaluation for urinary incontinence Past Medical history Acid reflux, Hypertension, Anemia, Hiatal hernia The patient complains of daytime urinary frequency every 2 hours, urinary incontinence associated with urge, nocturia 1-3 times. She denies hematuria, dysuria, feeling of incomplete bladder emptying, or history of kidney stones, I have discussed avoiding dietary bladder irritants, including to cut back on caffeine usage I have discussed workup to include evaluation of the upper tracts and consideration for cystoscopy evaluation. UA- Negative, PVR 99 mL Plan: Vesicare 10 mg daily, Renal US, fu in 8 weeks PFSH Medical History Acid reflux Hypertension Anemia Frequency of urination Hiatal hernia Surgical History Hx of hand surgery History of bilateral tubal ligation Hx of cholecystectomy H/O bariatric surgery Hx of section Family History Family/Other History of breast cancer Brother Overdose Cardiovascular disease Mother HTN (hypertension) Cardiovascular disease Father HTN (hypertension) Cardiovascular disease Maternal Grandmother HTN (hypertension) Social History Household Members: Spouse Housing: House Do you presently have visiting nurse or other home services: No Alcohol intake: current Alcohol intake frequency: 0-2 drinks per day Patient Tobacco Use Status: Former Tobacco user e-Cigarette/Vaping Use: Never Used Substance Use Type: Marijuana service: No Current occupational status: employed 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- [employer] Sexual orientation: Straight/Heterosexual Gender identity: Female Cognitive needs: No Hearing needs: No Vision needs: Yes Female Reproductive History Menstrual Age of Menarche: 10 Review of Systems Const All systems reviewed & are unremarkable except as noted in HPI and below Reports no additional complaints Eyes Reports no additional complaints ENT Reports no additional complaints Card Denies dyspnea Resp Denies cough and Denies dyspnea GI Reports no additional complaints Reports no additional complaints Musc Reports no additional complaints Skin/Breast Denies rash and Denies unusual bruising Neuro Reports no additional complaints Psych Reports no additional complaints Endo Reports no additional complaints Rl/Lymph Reports no additional complaints Aller/Immun Reports no additional complaints Physical Exam Const General: cooperative, healthy appearing and no acute distress Orientation/consciousness: patient oriented x3 HEENT Head: Yes normal to inspection, Yes normocephalic and Yes atraumatic Eyes Conjunctivae: conjunctivae normal Neck Neck: Yes normal visual inspection and Yes trachea midline Chest Chest palpation & inspection: normal inspection of the chest Resp Effort & Inspection: normal respiratory effort Cardio Rate: regular rate GI Inspection: Yes normal to inspection Palpation (GI): Soft to palpation Skin General skin exam: no rashes or lesions noted Neuro General: patient oriented x3 Extrem General: No edema Psych Appearance: grossly normal Office Procedures Post Void Residual Post Residual Void Post Void Residual (PVR): 99 [id number] Void Residual by ultrasound Results AMB Urinalysis, Automated UA Leukoctes 0 Kelsie/uL Last Edit by [facility] on 04/20/23 13:46 UA Nitrite Negative Last Edit by [facility] on 04/20/23 13:46 UA Urobilinogen 0.2 mg/dL Last Edit by [facility] on 04/20/23 13:46 UA Protein 30 mg/dL Last Edit by [facility] on 04/20/23 13:46 UA pH 6.0 Last Edit by [facility] on 04/20/23 13:46 UA Blood 0 Jeffrey/uL Last Edit by [facility] on 04/20/23 13:46 UA Specific [place] 1.030 Last Edit by [facility] on 04/20/23 13:46 UA Ketone Negative Last Edit by [facility] on 04/20/23 13:46 UA Bilirubin 0 mg/dL Last Edit by [facility] on 04/20/23 13:46 UA Glucose 0 mg/dL Last Edit by [facility] on 04/20/23 13:46 Results Reviewed Results Reviewed: Laboratory Last Values Urine pH (Auto) 6.0 04/20/23 13:39 Specific [place] (Auto) 1.030 04/20/23 13:39 Urine Protein (Auto) 30 mg/dL 04/20/23 13:39 Glucose (UA)(Auto) 0 mg/dL 04/20/23 13:39 Urine Ketones (Auto) Negative 04/20/23 13:39 Urine Blood (Auto) 0 Jeffrey/uL 04/20/23 13:39 Urine Nitrite (Auto) Negative 04/20/23 13:39 Urine Bilirubin (Auto) 0 mg/dL 04/20/23 13:39 Urine Urobilinogen (Auto) 0.2 mg/dL 04/20/23 13:39 Leukocyte Esterase (Auto) 0 Kelsie/uL 04/20/23 13:39 Assessment & Plan Assessment & Plan (1) Urinary incontinence: Code(s): R32 - Unspecified urinary incontinence (2) Frequency of urination: Code(s): R35.0 - Frequency of micturition Plan Vesicare 10 mg daily, Renal US, fu in 8 weeks Orders: Orders AMB Urinalysis Automated 04/20/23 R33.9 - Retention of urine, unspecified AMB Post Void Residual by ultrasound 04/20/23 R33.9 - Retention of urine, unspecified US renal BI 04/25/23 R39.15 - Urgency of urination, R35.0 - Frequency of micturition Medications: New solifenacin (Vesicare) 10 mg PO DAILY 30 tabs 1RF Coding Level of Care Code New Pt Level 4 (36292) Diagnoses Urinary incontinence R32 Frequency of urination R35.0 CPT Codes Post Residual Void - PVR CPT Code: 90408-Xdil Void Residual by ultrasound ([id number])
== END 2023-04-20 13:54 | disposition home or self-care (01) ==
PROVIDERS: PCP Nurse Practitioner Family; Visit Provider Urology
DX: R32 Unspecified urinary incontinence (principal); R35.0 Frequency of micturition
CPT/HCPCS: 99204

== ENCOUNTER → 2023-04-20 12:59 | Outpatient (BNVA) | payer BC, SELFPAY | PROVIDERS: PCP Nurse Practitioner Family; Visit Provider Urology | DX: R32 Unspecified urinary incontinence (principal); R35.0 Frequency of micturition; R33.9 Retention of urine, unspecified; R39.15 Urgency of urination | CPT/HCPCS: 51798; 81003 ==

== ENCOUNTER 2023-04-20 14:17 | Inpatient (IN) | payer BC, SELFPAY ==
[2023-04-20] VITALS (8 sets, daily range): BP systolic 133–189; BP diastolic 55–87; PULSE 77–96; RESP 14–18; TEMP 36.6–37.1; O2SAT 97–100; BMI 35.8; BMI 36.3
--- NOTE | ~2023-04-20 | CT_ITS ---
EXAMINATION: CT ABDOMEN AND PELVIS WITHOUT CONTRAST CLINICAL INFORMATION: Abdominal pain COMPARISON: CT abdomen pelvis May 13, 2016 TECHNIQUE: Multidetector volumetric imaging was performed from the superior aspect of the liver through the pubic symphysis. Sagittal and coronal reformatted images were obtained on the technologist's workstation. This CT examination was performed using dose optimization techniques as appropriate, variously including the following: *Automated exposure control *Adjustment of mA and/or kV according to patient size (this includes techniques or standardized protocols for targeted exams where dose is matched to indication/reason for exam; i.e. extremities or head) *Use of iterative reconstruction technique DLP: 514 mGy-cm FINDINGS: Visualized lung bases are well aerated The liver is normal in size. The gallbladder is surgically absent. The pancreas, spleen and adrenal glands are unremarkable. Symmetrically sized kidneys. No renal calculi or hydronephrosis of either kidney. Postsurgical changes of the GE junction and stomach. There is mild wall thickening of the distal stomach and duodenal sweep with adjacent mesenteric haziness. Overall, loops of small and large bowel are normal in caliber. Normal appendix. Mild to moderate colonic diverticulosis without CT evidence to suggest active diverticulitis. Normal caliber abdominal aorta demonstrating minimal atherosclerotic disease. No retroperitoneal lymphadenopathy. The bladder is normal in appearance. Unremarkable CT appearance of the uterus. Small to moderate amount of free pelvic fluid, nonspecific. No inguinal lymphadenopathy. Mild to moderate diffuse degenerative changes of the spine. CT/CT abdomen pelvis wo IV con IMPRESSION: 1. Mild wall thickening of the distal stomach and duodenal sweep with adjacent mesenteric haziness. Findings are nonspecific but most suggestive of gastritis/duodenitis. 2. Mild to moderate colonic diverticulosis without CT evidence to suggest active diverticulitis. 3. Small to moderate amount of free pelvic fluid, nonspecific. Fleischner guidelines were followed.
--- NOTE | ~2023-04-20 | CT_ITS ---
EXAMINATION: CT HEAD WITHOUT CONTRAST CLINICAL INFORMATION: Headache COMPARISON: None available. TECHNIQUE: Contiguous axial imaging was performed from the skull base to vertex without intravenous administration of contrast. This CT examination was performed using dose optimization techniques as appropriate, variously including the following: *Automated exposure control *Adjustment of mA and/or kV according to patient size (this includes techniques or standardized protocols for targeted exams where dose is matched to indication/reason for exam; i.e. extremities or head) *Use of iterative reconstruction technique DLP: 724 mGy-cm FINDINGS: The brain parenchyma has normal attenuation. The yang-white matter differentiation is well preserved. No evidence of an acute major vascular territory infarction. No intracranial hemorrhage, extra-axial fluid collection, focal mass effect or midline shift. The ventricles have normal size and configuration; no hydrocephalus. The brainstem and cerebellum have a normal appearance. The cerebellar tonsils are in normal position. The calvarium is intact. Mild mucosal thickening of inferior maxillary sinuses without air-fluid levels. Otherwise, the visualized paranasal sinuses, mastoid air cells and middle ear cavities are well aerated. The orbits and globes are unremarkable. The temporomandibular joints are normal. CT/CT head/brain wo IV con IMPRESSION: No acute intracranial pathology.
--- NOTE | ~2023-04-20 | US_ITS ---
EXAMINATION: US VENOUS ULTRASOUND WITH DOPPLER LOWER EXTREMITY, LEFT CLINICAL INFORMATION: Pain COMPARISON: None available. TECHNIQUE: Ultrasound of the deep veins is performed from the hip to the calf with compression sonography and color and pulse Doppler assessment. Spectral analysis with color-flow imaging is performed. FINDINGS: There is normal venous compression and respiratory variation and augmented flow. The visualized common femoral vein, superficial femoral vein, profunda femoral vein, popliteal vein, and the trifurcation region shows no evidence of deep venous thrombosis. There is no significant popliteal fossa cyst. If the patient's symptoms persist, followup ultrasound in 5 days 7 days might be of value to exclude proximal propagation from a non-visualized calf vein. US/US venous duplex LE LT IMPRESSION: No DVT demonstrated in the left lower extremity.
--- NOTE | 2023-04-20 14:24 | ECG_ITS ---
Test Reason : dizziness Blood Pressure : / mmHG Vent. Rate : 071 BPM Atrial Rate : 071 BPM P-R Int : 126 ms QRS Dur : 100 ms QT Int : 418 ms P-R-T Axes : 025 000 005 degrees QTc Int : 454 ms Normal sinus rhythm Minimal voltage criteria for LVH, may be normal variant ( R in aVL ) Borderline ECG When compared with ECG of 13-MAY-2016 10:22, No significant change was found Referred By: Kendall Mota Electronically Signed By:COLBY GRUBBS
--- NOTE | 2023-04-20 14:24 | ED_ITS ---
HPI - General Adult General Chief complaint: Dizziness Stated complaint: High BP, dizziness, blurry vision Time Seen by Provider: 04/20/23 16:09 Source: patient Mode of arrival: ambulatory Limitations: no limitations History of Present Illness HPI narrative: 52-year-old female came in for evaluation of feeling generalized weakness, dizziness, blurry vision, headache, patient has been monitored by her PCP for newly diagnosed essential hypertension no start on medication yet was supposed to have an appointment with her PCP today but was told to come to the ED for further evaluation. Declined rectal bleed or blood in the urine, no vomiting. Patient also found to be hypertensive in the emergency department. Related Data Home Medications Medication Instructions Recorded Confirmed omeprazole 20 mg capsule,delayed 40 mg PO DAILY 03/06/23 03/06/23 release Previous Rx's Medication Instructions Recorded hydroxyzine HCl 25 mg tablet 25 mg PO TID PRN anxiety 30 days 03/06/23 #90 tabs solifenacin 10 mg tablet (Vesicare) 10 mg PO DAILY #30 tabs 04/20/23 Allergies Allergy/AdvReac Type Severity Reaction Status Date / Time No Known Allergies Allergy Verified 04/20/23 14:23 [No Known Allergies*] Review of Systems 2 Review of Systems: All other systems are reviewed and are negative Constitutional: Reports as per HPI and Reports no additional constitutional complaints Eyes: Reports as per HPI and Reports no additional eye complaints Reports system reviewed and no additional complaints, except as documented Cardiovascular: Reports as per HPI and Reports no additional cardiovascular complaints Respiratory: Reports as per HPI and Reports no additional respiratory complaints Gastrointestinal: Reports as per HPI and Reports no additional gastrointestinal complaints Genitourinary: Reports no additional female genitourinary complaints Musculoskeletal: Reports no additional musculoskeletal complaints Skin/Breast: Reports system reviewed and no additional complaints, except as docu Psychiatric: Reports no additional psychiatric complaints Endocrine: Reports no additional endocrine complaints Hematologic/Lymphatic: Reports no additional hematologic/lymphatic complaints Allergic/Immunologic: Reports no additional allergic/immunologic complaints Reports system reviewed and no additional complaints, except as documented and Reports Abnormal speech present PMFSH Past Medical History Onset Date is defined in the Problem List Problems that require an onset date and time if occurred within 24 hrs of arrival to the ED Aortic Dissection and Rupture; Neurologic impairment; Cardiopulmonary Arrest; Endotracheal Intubation; Insertion or Replacement of Mechanical Circulatory Assist Device Medical History Acid reflux Frequency of urination Hiatal hernia Surgical History Hx of hand surgery History of bilateral tubal ligation Hx of cholecystectomy H/O bariatric surgery Hx of section Family History Family History Family/Other History of breast cancer Brother Overdose Cardiovascular disease Mother HTN (hypertension) Cardiovascular disease Father HTN (hypertension) Cardiovascular disease Maternal Grandmother HTN (hypertension) Social History Social History Household Members: Spouse and Children Housing: House Alcohol intake: current Alcohol intake frequency: holidays/special occasions only Patient Tobacco Use Status: Former Tobacco user Smoked in Last 30 Days: No e-Cigarette/Vaping Use: Never Used Use of substances other than those prescribed or required for medical reasons: No Advance Directives: No service: No Current occupational status: employed 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 Blood pressure elevated. Heart rate normal. Respiratory rate normal. Temperature normal. Oxygen saturation normal. Appearance: Alert. Oriented X3. No acute distress. Head: Normal external exam. Normocephalic. Atraumatic. No Harding signs noted. No raccoon eyes noted Eyes: PERRLA. EOMI. Conjunctiva and sclera normal. Eyelids normal. ENT: TM's Normal. Pharynx normal. Uvula midline. Moist mucous membranes. No trismus noted. No drooling noted. No muffled voice noted. Neck: Normal inspection. Neck supple. FROM. No adenopathy. Thyroid Normal. No meningeal signs. No neck mass noted. CVS: Normal heart rate and rhythm. Heart sound normal. No murmurs noted. Pulses normal throughout. Respiratory: No respiratory distress. Painless inspiration. Breath sounds normal. No wheezes/rales/rhonchi noted. Chest nontender. No accessory muscle usage noted or decreased air movement noted. Abdomen: Soft and nontender. Bowel sounds normal in all 4 quadrants. No distention noted. No organomegaly noted. No visible injury noted. Rectal exam: Brown stool guaiac negative with 1 nonbleeding external hemorrhoid at 09:00 o'clock. Back: No CVA tenderness. Full range of motion noted. Skin: Skin warm and dry. Normal skin color. Normal skin turgor. No rashes/lesions/lacerations noted. Extremities: No lower extremity edema. Extremities exhibit normal range of motion. Extremities nontender. Neuro: Oriented X 3. Cranial nerve exam: II-XII are grossly intact No motor deficit. No sensory deficit. Reflexes normal. Course Course Course Narrative: LUANN- 52-year-old female presents for evaluation of high blood pressure for last few weeks as well as headache. She states that today she had blurry vision and vomiting which is new. She has been unable to get in to see your PCP. Plan for labs, viral swabs, CT scan of the brain Reevaluation(s) Reevaluation #1: Anemia for unclear etiology will transfuse 1 unit of blood. Essential hypertension new diagnosis will start the patient on amlodipine. Time: 17:16 Medications Administered Discontinued Medications Generic Name Dose Route Start Last Admin Trade Name Freq PRN Reason Stop Dose Admin Amlodipine Besylate 2.5 mg 04/20/23 16:16 04/20/23 16:29 Amlodipine Besylate 2.5 Mg Tablet PO 04/20/23 16:17 2.5 mg ONCE ONE Administration Protocol Medical Decision Making Differential Diagnosis Differential Diagnoses: The differential diagnosis associated with the presentation includes (Severe anemia, GI bleed, hematuria, electrolyte abnormality, dehydration, ACS.) Admission/Observation Consideration of admission/observation: Escalation of care including admission/observation considered Consult Healthcare Provider Management of the patient was discussed with: Hospitalist (Dr. Lennon) Lab Data MDM Lab Attestation statement: I reviewed the patient's lab results. 04/20/23 14:50 04/20/23 14:51 Labs: Lab Results 04/20/23 04/20/23 04/20/23 Range/Units 14:46 14:50 14:51 WBC 6.6 (4.8-10.8) X10*3/uL RBC 3.72 L (4.20-5.50) X10*6/uL Hgb 6.0 L* (12.0-16.0) g/dl Hct 22.8 L (37.0-47.0) % MCV 61.3 L (80.0-98.0) fL MCH 16.1 L (27.0-33.0) pg MCHC 26.3 L (31.0-35.0) g/dl RDW 20.1 H (11.0-16.0) % Plt Count 419 H (160-400) X10*3/uL MPV 9.5 (9.4-12.3) fL Immature Gran % (Auto) 0.5 H (0.0-0.4) % Neut % (Auto) 69.8 (45-73) % Lymph % (Auto) 21.8 (20-40) % [place] % (Auto) 7.1 (2-11) % Eos % (Auto) 0.3 (0-4) % Baso % (Auto) 0.5 (0-2) % Lymph # (Auto) 1.5 (1.2-4.9) X10*3/uL [place]linger # (Auto) 0.5 (0.1-1.2) X10*3/uL Eos # (Auto) 0.0 (0.0-0.4) X10*3/uL Baso # (Auto) 0.0 (0.0-0.2) X10*3/uL Abs Immat Gran (auto) 0.03 (0.00-0.03) X10*3/uL Absolute Neuts (auto) 4.6 (2.0-8.3) x10*3/uL Absolute Nucleated RBC 0.000 (0.0-0.012) X10*3/uL Nucleated RBC % (auto) 0.0 (0.0-0.2) /100WBC PT 11.7 (11.1-13.3) SEC INR 1.0 (0.9-1.1) Sodium 138 (135-145) mmol/L Potassium 3.7 (3.3-5.1) mmol/L Chloride 108 (96-108) mmol/L Carbon Dioxide 23 (22-29) mmol/L Anion Gap 11 L (12-20) BUN 11 (9-16) mg/dL Creatinine 0.63 (0.5-1.4) mg/dL Estim Creat Clear Calc 106.9 Estimated GFR > 60 Random Glucose 92 (60-115) mg/dL Calcium 9.7 (8.4-10.2) mg/dL Total Bilirubin 0.3 (0.0-1.0) mg/dL AST 18 (5-31) U/L ALT 15 (0-31) U/L Alkaline Phosphatase 82 (39-117) U/L Troponin I High Sens < 2.7 (<3.5-17.0) ng/L Total Protein 8.5 H (6.5-8.0) g/dL Albumin 4.2 (3.5-5.0) g/dL Lipase 10 (8-78) U/L Urine Color Urine Appearance Urine pH (5.0-9.0) Ur Specific [place] (1.005-1.025) Urine Protein (Neg-Trace) mg/dL Urine Glucose (UA) (Negative) mg/dL Urine Ketones (Negative) mg/dL Urine Blood (Negative) Urine Nitrite (Negative) Ur Leukocyte Esterase (Negative) Urine RBC (0-2) /HPF Urine WBC (0-5) /HPF Ur Squamous Epith Cells (0-2) /HPF Urine Bacteria (None Seen) Hyaline Casts (0-2) /LPF Stool Occult Blood (NEGATIVE) COVID-19 ([facility]) Negative (Negative) COVID-19 Clin Com See Note Influenza Type A ([facility]) Negative (Negative) Influenza Type B ([facility]) Negative (Negative) Influenza A & B Note See Note Blood Type Antibody Screen Crossmatch 04/20/23 04/20/23 04/20/23 Range/Units 16:02 16:30 16:31 WBC (4.8-10.8) X10*3/uL RBC (4.20-5.50) X10*6/uL Hgb (12.0-16.0) g/dl Hct (37.0-47.0) % MCV (80.0-98.0) fL MCH (27.0-33.0) pg MCHC (31.0-35.0) g/dl RDW (11.0-16.0) % Plt Count (160-400) X10*3/uL MPV (9.4-12.3) fL Immature Gran % (Auto) (0.0-0.4) % Neut % (Auto) (45-73) % Lymph % (Auto) (20-40) % [place]linger % (Auto) (2-11) % Eos % (Auto) (0-4) % Baso % (Auto) (0-2) % Lymph # (Auto) (1.2-4.9) X10*3/uL [place] # (Auto) (0.1-1.2) X10*3/uL Eos # (Auto) (0.0-0.4) X10*3/uL Baso # (Auto) (0.0-0.2) X10*3/uL Abs Immat Gran (auto) (0.00-0.03) X10*3/uL Absolute Neuts (auto) (2.0-8.3) x10*3/uL Absolute Nucleated RBC (0.0-0.012) X10*3/uL Nucleated RBC % (auto) (0.0-0.2) /100WBC PT (11.1-13.3) SEC INR (0.9-1.1) Sodium (135-145) mmol/L Potassium (3.3-5.1) mmol/L Chloride (96-108) mmol/L Carbon Dioxide (22-29) mmol/L Anion Gap (12-20) BUN (9-16) mg/dL Creatinine (0.5-1.4) mg/dL Estim Creat Clear Calc Estimated GFR Random Glucose (60-115) mg/dL Calcium (8.4-10.2) mg/dL Total Bilirubin (0.0-1.0) mg/dL AST (5-31) U/L ALT (0-31) U/L Alkaline Phosphatase (39-117) U/L Troponin I High Sens (<3.5-17.0) ng/L Total Protein (6.5-8.0) g/dL Albumin (3.5-5.0) g/dL Lipase (8-78) U/L Urine Color Yellow Urine Appearance Clear Urine pH 6.5 (5.0-9.0) Ur Specific [place] 1.020 (1.005-1.025) Urine Protein Negative (Neg-Trace) mg/dL Urine Glucose (UA) Negative (Negative) mg/dL Urine Ketones Trace (Negative) mg/dL Urine Blood Negative (Negative) Urine Nitrite Negative (Negative) Ur Leukocyte Esterase Negative (Negative) Urine RBC 0-2 (0-2) /HPF Urine WBC 0-5 (0-5) /HPF Ur Squamous Epith Cells 0-2 (0-2) /HPF Urine Bacteria None Seen (None Seen) Hyaline Casts 0-2 (0-2) /LPF Stool Occult Blood NEGATIVE (NEGATIVE) COVID-19 ([facility]) (Negative) COVID-19 Clin Com Influenza Type A ([facility]) (Negative) Influenza Type B ([facility]) (Negative) Influenza A & B Note Blood Type O Positive Antibody Screen NEGATIVE Crossmatch See Detail Independent Interpretation I performed an independent interpretation of an: CT Scan (Head: No acute intracranial pathology) Radiology Impression Discussion of test interpretation with radiology: I have reviewed the radiologist's reading. Discharge Plan Discharge Clinical Impression: Anemia, Hypertension Patient Disposition: Admitted As Inpatient Prescriptions: No Action hydroxyzine HCl 25 mg tablet 25 mg PO TID PRN (Reason: anxiety) 30 Days Qty: 90 1RF omeprazole 20 mg capsule,delayed release(DR/EC) 40 mg PO DAILY solifenacin [Vesicare] 10 mg tablet 10 mg PO DAILY Qty: 30 1RF
[2023-04-20 14:56] LABS: MANUAL DIFF FLAG NO
[2023-04-20 15:08] LABS: Prothrombin Time 11.7 SEC (11.1-13.3)
[2023-04-20 15:11] LABS: Alanine Aminotransferase 15 U/L (0-31); Albumin Level 4.2 g/dL (3.5-5.0); Alkaline Phosphatase 82 U/L (39-117); Anion Gap 11 (12-20); Aspartate Amino Transferase 18 U/L (5-31); Bilirubin Total 0.3 mg/dL (0.0-1.0); Blood Urea Nitrogen 11 mg/dL (9-16); Calcium 9.7 mg/dL (8.4-10.2); Carbon Dioxide 23 mmol/L (22-29); Chloride 108 mmol/L (96-108); Creatinine Clr Calc Pharmacy 106.9; Estimated Glomerular Filt Rate > 60; Glucose Random 92 mg/dL (60-115); Lipase 10 U/L (8-78); Potassium 3.7 mmol/L (3.3-5.1); Sodium 138 mmol/L (135-145); Total Protein 8.5 g/dL (6.5-8.0)
[2023-04-20 15:12] LABS: Basophils Percent Auto 0.5 % (0-2); Eosinophils Percent Auto 0.3 % (0-4); Hematocrit 22.8 % (37.0-47.0); Imm Gran Abs Auto 0.03 X10*3/uL (0.00-0.03); Imm Gran Pct Auto 0.5 % (0.0-0.4); Lymphocytes Absolute Auto 1.5 X10*3/uL (1.2-4.9); Lymphocytes Percent Auto 21.8 % (20-40); Mean Corpuscular HGB Conc 26.3 g/dl (31.0-35.0); Mean Corpuscular Hemoglobin 16.1 pg (27.0-33.0); Mean Corpuscular Volume 61.3 fL (80.0-98.0); Mean Platelet Volume 9.5 fL (9.4-12.3); Monocytes Absolute Auto 0.5 X10*3/uL (0.1-1.2); Monocytes Percent Auto 7.1 % (2-11); Neutrophils Absolute Auto 4.6 x10*3/uL (2.0-8.3); Neutrophils Percent Auto 69.8 % (45-73); Platelet Count 419 X10*3/uL (160-400); Red Blood Count 3.72 X10*6/uL (4.20-5.50); Red Cell Distribution Width 20.1 % (11.0-16.0); White Blood Count 6.6 X10*3/uL (4.8-10.8)
[2023-04-20 15:13] LABS: COVID-19 Test Negative (Negative); IDNOW Serial# 08D9AD1C; IDNOW Serial# 152EDE1D; Influenza A Negative (Negative); Influenza B2 Negative (Negative)
[2023-04-20 15:19] LABS: Troponin-I High Sensitivity < 2.7 ng/L (<3.5-17.0)
[2023-04-20] MEDS: amLODIPine Besylate 2.5 MG TABLET PO (16:29)
[2023-04-20 16:36] LABS: OBS Int Ctl Valid YES; OBS1 NEGATIVE (NEGATIVE)
--- NOTE | 2023-04-20 16:36 | PC.NURSE ---
this rn medicated pt per jun. Urine sample obtained and sent to lab.
[2023-04-20 16:38] LABS: Appearance Urine Clear; Color Urine Yellow; Glucose Urine UA Negative (Negative); Leukocyte Esterase Urine Negative (Negative); Nitrite Urine Negative (Negative); PH 6.5 (5.0-9.0); Urine Blood Negative (Negative); Urine Ketones Trace mg/dL (Negative); Urine Protein Negative (Neg-Trace)
[2023-04-20 16:42] LABS: Bacteria Urine None Seen (None Seen); Hyaline Casts Urine 0-2 /LPF (0-2); RBC Urine 0-2 /HPF (0-2); Squamous Epithelial Cell Urine 0-2 /HPF (0-2); WBC Urine 0-5 /HPF (0-5)
--- NOTE | 2023-04-20 17:51 | PM.IMHP ---
History of Present Illness Date of Service: 04/20/23 Chief Complaint: Dizziness/blurred vision 52-year-old female patient with past medical history significant for obesity, status post bariatric surgery, history of hypertension, acid reflux, hiatal hernia presented to [facility] due to symptoms of gastric burning and nausea every morning of > 1 month duration, generalized tiredness of several days, since yesterday she noted palpitations, dizziness and blurred vision, she feels tired walking upstairs and this morning she vomited x1 bilious, felt very dizzy that prompted her to come to the emergency room, she denies chest pain, no headache, no fevers, no chills she denies hematemesis, no melena, no hematuria she has a former smoker occasionally drinks alcohol denies [id number]-zeb-ejacwps use of NSAIDs, recently started on new medication hydroxyzine for anxiety, in the ED noted to have a hemoglobin of 7 with low MCV, INR 1, stable electrolytes renal function and LFTs, father has history of anemia of unknown cause and receives blood transfusions, patient complained of decreased appetite, will admit patient to medical floor with a diagnosis of symptomatic anemia and transfuse 2 units of packed RBC. Review of Systems Review of Systems: General no headache ,no fever chills. CVS no chest pain, no palpitation. Respiratory no cough no sob. Gastrointestinal positive nausea, vomited x1 this morning no urinary symptoms of urgency frequency Musculoskeletal no pain PMFSH Medical History Acid reflux Frequency of urination Hiatal hernia Family History Family/Other History of breast cancer Brother Overdose Cardiovascular disease Mother HTN (hypertension) Cardiovascular disease Father HTN (hypertension) Cardiovascular disease Maternal Grandmother HTN (hypertension) Surgical History Hx of hand surgery History of bilateral tubal ligation Hx of cholecystectomy H/O bariatric surgery Hx of section Social History Household Members: Spouse Housing: House Do you presently have visiting nurse or other home services: No Alcohol intake: current Alcohol intake frequency: holidays/special occasions only Patient Tobacco Use Status: Former Tobacco user Smoked in Last 30 Days: No e-Cigarette/Vaping Use: Never Used Use of substances other than those prescribed or required for medical reasons: Yes Substance Use Type: Marijuana Substance Use Frequency: Daily Currently Displaying Signs/Symptoms of Drug Intoxication Withdrawal: No Have you been hit, kicked, punched, or otherwise hurt by someone within the past year? 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- [employer] Sexual orientation: Straight/Heterosexual Gender identity: Female Cognitive needs: No Hearing needs: No Vision needs: Yes Meds Allergies Allergy/AdvReac Type Severity Reaction Status Date / Time No Known Allergies Allergy Verified 04/20/23 14:23 [No Known Allergies*] Active Medications: Current Medications Acetaminophen (Acetaminophen 325 Mg Tablet) 650 mg PO Q6H PRN PRN Reason: Pain, Mild (Pain Scale 1-3) Benzonatate (Benzonatate 100 Mg Capsule) 100 mg PO TID PRN PRN Reason: Cough Docusate Sodium (Docusate Sodium 100 Mg Capsule) 100 mg PO DAILY PRN PRN Reason: Constipation Melatonin (Melatonin 3 Mg Tablet) 6 mg PO BEDTIME PRN PRN Reason: Insomnia Ondansetron HCl (Ondansetron Hcl 4 Mg/2 Ml Vial) 4 mg IVPUSH Q8H PRN PRN Reason: Nausea and Vomiting Sodium Chloride (0.9 % Sodium Chloride Flush 3 Ml Syringe) 3 ml IVFLUSH [facility] Home Medications Medication Instructions Recorded Confirmed Last Taken Type omeprazole 20 mg capsule,delayed 40 mg PO DAILY 03/06/23 04/20/23 04/20/23 History release Physical Exam Vital Signs and Narrative: Vital Signs: Last Vital Signs Temp 98.1 F 04/20/23 17:41 Pulse 87 04/20/23 17:41 Resp 18 04/20/23 17:41 BP 183/75 H 04/20/23 16:28 Pulse Ox 100 04/20/23 16:28 BMI result Body Mass Index 35.8 Const: Other: General awake alert x3,resting comfortably in no acute distress. Anicteric sclera Neck supple no JVD. CVS regular rate rhythm, Respiratory lungs clear to auscultation, no respiratory distress, no wheeze, no rhonchi. Gastrointestinal abdomen soft, non tender, bowel sounds audible, no no guarding , no rigidity. Extremities no edema. Neuro nonfocal Skin no rash Psych appropriate affect Results Labs 04/21/23 05:33 04/21/23 05:33 Labs: Laboratory Results - last 24 hr 04/20/23 04/20/23 04/20/23 14:46 14:50 14:51 MCV 61.3 L MCH 16.1 L MCHC 26.3 L RDW 20.1 H Plt Count 419 H MPV 9.5 Immature Gran % (Auto) 0.5 H Neut % (Auto) 69.8 Lymph % (Auto) 21.8 Clinch % (Auto) 7.1 Eos % (Auto) 0.3 Baso % (Auto) 0.5 Lymph # (Auto) 1.5 Clinch # (Auto) 0.5 Eos # (Auto) 0.0 Baso # (Auto) 0.0 Abs Immat Gran (auto) 0.03 Absolute Neuts (auto) 4.6 Absolute Nucleated RBC 0.000 Nucleated RBC % (auto) 0.0 PT 11.7 INR 1.0 Anion Gap 11 L Estim Creat Clear Calc 106.9 Estimated GFR > 60 Random Glucose 92 Calcium 9.7 Total Bilirubin 0.3 AST 18 ALT 15 Alkaline Phosphatase 82 Total Protein 8.5 H Albumin 4.2 Lipase 10 Urine Color Urine Appearance Urine pH Ur Specific Pace Urine Protein Urine Glucose (UA) Urine Ketones Urine Blood Urine Nitrite Ur Leukocyte Esterase Urine RBC Urine WBC Ur Squamous Epith Cells Urine Bacteria Hyaline Casts Stool Occult Blood COVID-19 ([facility]) Negative COVID-19 Clin Com See Note Influenza Type A ([facility]) Negative Influenza Type B ([facility]) Negative Influenza A & B Note See Note Blood Type Antibody Screen Crossmatch 04/20/23 04/20/23 04/20/23 16:02 16:30 16:31 MCV MCH MCHC RDW Plt Count MPV Immature Gran % (Auto) Neut % (Auto) Lymph % (Auto) Clinch % (Auto) Eos % (Auto) Baso % (Auto) Lymph # (Auto) Clinch # (Auto) Eos # (Auto) Baso # (Auto) Abs Immat Gran (auto) Absolute Neuts (auto) Absolute Nucleated RBC Nucleated RBC % (auto) PT INR Anion Gap Estim Creat Clear Calc Estimated GFR Random Glucose Calcium Total Bilirubin AST ALT Alkaline Phosphatase Total Protein Albumin Lipase Urine Color Yellow Urine Appearance Clear Urine pH 6.5 Ur Specific [place] 1.020 Urine Protein Negative Urine Glucose (UA) Negative Urine Ketones Trace Urine Blood Negative Urine Nitrite Negative Ur Leukocyte Esterase Negative Urine RBC 0-2 Urine WBC 0-5 Ur Squamous Epith Cells 0-2 Urine Bacteria None Seen Hyaline Casts 0-2 Stool Occult Blood NEGATIVE COVID-19 ([facility]) COVID-19 Clin Com Influenza Type A ([facility]) Influenza Type B ([facility]) Influenza A & B Note Blood Type O Positive Antibody Screen NEGATIVE Crossmatch See Detail Imaging Radiologist's Impressions: Impressions Head CT 04/20/23 14:40 IMPRESSION: No acute intracranial pathology. Assessment and Plan (1) Hypertension: Status: Acute (2) Anemia: Status: Acute Plan 52-year-old female patient with past medical history significant for acid reflux, hiatal hernia, hypertension, obesity, bariatric surgery presented to [facility] due to symptoms of gastric burning and nausea every month for greater than 1 month, feeling tired for several days,noted to have palpitation, dizziness and blurred vision since yesterday and today patient felt very dizzy and vomited x1 nonbloody that prompted her to come to the hospital patient noted to have hemoglobin of 7 being admitted to [facility] with a diagnosis of symptomatic anemia. Symptomatic microcytic anemia No evidence of active GI bleed, no hematemesis, no melena, no dark-colored stools, no use of NSAIDs. Will obtain iron studies, check stool guaiac Transfuse 2 units of packed RBC follow H&H, IV Protonix b.i.d. GI consult History of anxiety depression being followed by primary care physician and recently started on hydroxyzine, continue home medication. History of hypertension was on Zestril in the past, will place on Norvasc 5 mg follow BP. Obesity recommend low-calorie diet status post bariatric surgery. DVT prophylaxis compression boots due to anemia. Code status full code. In my clinical judgment patient need to night inpatient hospitalization for management and treatment of symptomatic anemia requiring blood transfusion and close hematocrit monitoring and expert consultation. Quality Stroke Does the patient have a stroke diagnosis?: No VTE Prior VTE?: No VTE Risk Level:: Medical - moderate - high VTE Device Contraindication: N/A - Device Ordered VTE Drug Contraindication: Treatment Not Indicated
--- NOTE | 2023-04-20 18:01 | PC.NURSE ---
transfusion going per TAR. LSC, vitals WNL. no complaints of pain. no signs of distress.
[2023-04-20 18:08] LABS: Iron 13 mcg/dL (30-160); Percent Iron Saturation 3 % (15-50); Total Iron Binding Capacity 438 mcg/dL (228-428); Unsaturated Iron Binding 425 ug/dL
[2023-04-20 18:31] LABS: Ferritin 3 ng/mL (10-250)
--- NOTE | 2023-04-20 18:39 | PHA.MEDREC ---
Pharmacy Consult ? Medication Reconciliation Pharmacy has completed the medication reconciliation. Confirmed medications with patient. Did not start solifenacin 10mg yet. Was prescribed today. Madelin Velazquez CPhT
[2023-04-20] MEDS: Acetaminophen 325 MG TABLET 650 MG PO (21:46)
[2023-04-20] MEDS: ondansetron HCL 4 MG/2 ML VIAL IVPUSH (21:46)
--- NOTE | 2023-04-20 22:15 | PC.NURSE ---
1 unit of PRBC infused, patient tolerated well. Patient reports headache, burning pain in her abdomen, and nausea, medicated per MAR with Zofran 4 mg IV push and Tylenol 650 mg, effect pending.
[2023-04-20] MEDS: 0.9 % Sodium Chloride Flush 3 ML SYRINGE IVFLUSH (23:06)
[2023-04-21] VITALS (13 sets, daily range): BP systolic 147–195; BP diastolic 68–90; PULSE 71–84; RESP 16–20; TEMP 36.3–36.8; O2SAT 97–98
[2023-04-21 05:53] LABS: MANUAL DIFF FLAG NO
[2023-04-21] MEDS: Pantoprazole Sodium 40 MG/10 ML VIAL IVPUSH (06:07)
[2023-04-21 06:11] LABS: Basophils Percent Auto 0.7 % (0-2); Eosinophils Absolute Auto 0.1 X10*3/uL (0.0-0.4); Eosinophils Percent Auto 1.2 % (0-4); Hematocrit 21.9 % (37.0-47.0); Imm Gran Abs Auto 0.01 X10*3/uL (0.00-0.03); Imm Gran Pct Auto 0.2 % (0.0-0.4); Lymphocytes Percent Auto 45.7 % (20-40); Mean Corpuscular HGB Conc 27.4 g/dl (31.0-35.0); Mean Corpuscular Hemoglobin 17.8 pg (27.0-33.0); Mean Platelet Volume 9.9 fL (9.4-12.3); Monocytes Absolute Auto 0.5 X10*3/uL (0.1-1.2); Monocytes Percent Auto 10.4 % (2-11); Neutrophils Absolute Auto 1.8 x10*3/uL (2.0-8.3); Neutrophils Percent Auto 41.8 % (45-73); Platelet Count 346 X10*3/uL (160-400); Red Blood Count 3.37 X10*6/uL (4.20-5.50); Red Cell Distribution Width 22.8 % (11.0-16.0); White Blood Count 4.3 X10*3/uL (4.8-10.8)
[2023-04-21] MEDS: Acetaminophen 325 MG TABLET 650 MG PO (06:13)
[2023-04-21 06:23] LABS: Anion Gap 9 (12-20); Blood Urea Nitrogen 11 mg/dL (9-16); Calcium 8.7 mg/dL (8.4-10.2); Carbon Dioxide 23 mmol/L (22-29); Chloride 109 mmol/L (96-108); Estimated Glomerular Filt Rate > 60; Glucose Random 83 mg/dL (60-115); Potassium 3.4 mmol/L (3.3-5.1); Sodium 138 mmol/L (135-145)
[2023-04-21] MEDS: 0.9 % Sodium Chloride Flush 3 ML SYRINGE IVFLUSH ×3 (07:54→19:55)
[2023-04-21] MEDS: amLODIPine Besylate 5 MG TABLET PO (07:54)
[2023-04-21] MEDS: ondansetron HCL 4 MG/2 ML VIAL IVPUSH (08:13)
--- NOTE | 2023-04-21 08:39 | P.CNGI_ITS ---
History of Present Illness Data of Consult Service Date: 04/21/23 Requesting physician: Melany Lennon Primary Care Provider: Raciel MADRID Reason for consult: symptomatic anemia 52 YF with obesity, status post bariatric surgery (Gastric sleeve), history of hypertension, acid reflux, hiatal hernia seen at [facility] on 04/20/23 with symptoms of epigastric burning and nausea for the past several weeks. Pt complains of severe heartburn and has been taking OTC Omeprazole upto three times a day with partial relief of her symptoms. Pt complains of fatigue and noted palpitations, dizziness and blurred vision on 04/19/23. Pt reported feeling tired when climbing stairs and had an episode of bilious vomiting yesterday followed by dizziness. Pt complains of constipation and denies melena or hematochezia. Pt denied chest pain, headache, fevers, chills, hematemesis, melena or hematuria. Pt admits to having regular periods and denies menorrhagia. PT admits to occasional ETOH use and is a former smoker. Patient denies cardiac or pulmonary problems, loud snoring or sleep apnea. She denies having an upper endoscopy or colonoscopy in the past and has not seen an MD in the past 10 years. She use of NSAIDS or aspirin In the ED noted to have a hemoglobin of 7 with low MCV, INR 1, stable electrolytes renal function and LFTs, Patient was admitted and transfused 2 units of packed RBCs. Patient denies known family history of colon polyps or colon cancer. Her dad has prostate problems and has been getting blood transfusions for recurrent anemia of unclear etiology Review of Systems 2 Review of Systems: General no headache ,no fever chills. CVS no chest pain, no palpitation. Respiratory no cough no sob. Gastrointestinal positive nausea, vomited x1 this morning no urinary symptoms of urgency frequency Musculoskeletal no pain PMFSH Past Medical History Medical History Acid reflux Frequency of urination Hiatal hernia Family History Family History Family/Other History of breast cancer Brother Overdose Cardiovascular disease Mother HTN (hypertension) Cardiovascular disease Father HTN (hypertension) Cardiovascular disease Maternal Grandmother HTN (hypertension) Surgical History Surgical History Hx of hand surgery History of bilateral tubal ligation Hx of cholecystectomy H/O bariatric surgery Hx of section Social History Social History Household Members: Spouse Housing: House Do you presently have visiting nurse or other home services: No Alcohol intake: current Alcohol intake frequency: holidays/special occasions only Patient Tobacco Use Status: Former Tobacco user Smoked in Last 30 Days: No e-Cigarette/Vaping Use: Never Used Use of substances other than those prescribed or required for medical reasons: Yes Substance Use Type: Marijuana Substance Use Frequency: Daily Currently Displaying Signs/Symptoms of Drug Intoxication Withdrawal: No Have you been hit, kicked, punched, or otherwise hurt by someone within the past year? 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- [employer] Sexual orientation: Straight/Heterosexual Gender identity: Female Cognitive needs: No Hearing needs: No Vision needs: Yes Meds Allergies Allergy/AdvReac Type Severity Reaction Status Date / Time No Known Allergies Allergy Verified 04/20/23 14:23 [No Known Allergies*] Active Medications: Current Medications Acetaminophen (Acetaminophen 325 Mg Tablet) 650 mg PO Q6H PRN PRN Reason: Pain, Mild (Pain Scale 1-3) Last Admin: 04/21/23 06:13 Dose: 650 mg Amlodipine Besylate (Amlodipine Besylate 5 Mg Tablet) 5 mg PO DAILY SUZANNA; Protocol Last Admin: 04/21/23 07:54 Dose: 5 mg Benzonatate (Benzonatate 100 Mg Capsule) 100 mg PO TID PRN PRN Reason: Cough Docusate Sodium (Docusate Sodium 100 Mg Capsule) 100 mg PO DAILY PRN PRN Reason: Constipation Melatonin (Melatonin 3 Mg Tablet) 6 mg PO BEDTIME PRN PRN Reason: Insomnia Ondansetron HCl (Ondansetron Hcl 4 Mg/2 Ml Vial) 4 mg IVPUSH Q8H PRN PRN Reason: Nausea and Vomiting Last Admin: 04/21/23 08:13 Dose: 4 mg Pantoprazole Sodium (Pantoprazole Sodium 40 Mg/10 Ml Vial) 40 mg IVPUSH BID@0630,1630 [facility] Last Admin: 04/21/23 06:07 Dose: 40 mg Sodium Chloride (0.9 % Sodium Chloride Flush 3 Ml Syringe) 3 ml IVFLUSH QSHIFT [facility] Last Admin: 04/21/23 07:54 Dose: 3 ml Home Medications Medication Instructions Recorded Confirmed Last Taken Type omeprazole 20 mg capsule,delayed 40 mg PO DAILY 03/06/23 04/20/23 04/20/23 History release Physical Exam 2 Vital Signs: Vital Signs: Last Vital Signs Temp 98.0 F 04/21/23 08:07 Pulse 74 04/21/23 08:07 Resp 20 04/21/23 08:07 BP 164/71 H 04/21/23 08:07 Pulse Ox 97 04/21/23 07:27 O2 Del Method Room Air 04/21/23 07:27 BMI result Body Mass Index 36.3 Const: Other: General awake alert x3,resting comfortably in no acute distress. Anicteric sclera Neck supple no JVD. CVS regular rate rhythm, Respiratory lungs clear to auscultation, no respiratory distress, no wheeze, no rhonchi. Gastrointestinal abdomen soft, epigastric tenderness, bowel sounds audible, no guarding , no rigidity. Extremities no edema. Neuro nonfocal Skin no rash Psych appropriate affect Results Labs 04/23/23 05:50 04/21/23 05:33 Labs: Short CBC 04/20/23 04/21/23 Range/Units 14:50 05:33 WBC 6.6 4.3 L (4.8-10.8) X10*3/uL Hgb 6.0 L* 6.0 L* (12.0-16.0) g/dl Hct 22.8 L 21.9 L (37.0-47.0) % Plt Count 419 H 346 (160-400) X10*3/uL BMP 04/20/23 04/21/23 14:51 05:33 Sodium 138 138 Potassium 3.7 3.4 Chloride 108 109 H Carbon Dioxide 23 23 BUN 11 11 Creatinine 0.63 0.58 Calcium 9.7 8.7 D Liver Function 04/20/23 Range/Units 14:51 Total Bilirubin 0.3 (0.0-1.0) mg/dL AST 18 (5-31) U/L ALT 15 (0-31) U/L Alkaline Phosphatase 82 (39-117) U/L Albumin 4.2 (3.5-5.0) g/dL Urine 04/20/23 Range/Units 16:31 Urine Color Yellow Urine Appearance Clear Urine pH 6.5 (5.0-9.0) Ur Specific [place] 1.020 (1.005-1.025) Urine Protein Negative (Neg-Trace) mg/dL Urine Glucose (UA) Negative (Negative) mg/dL Assessment and Plan (1) Anemia: Status: Acute (2) Acid reflux: Status: Acute Plan 52 YF with obesity, status post bariatric surgery (Gastric sleeve), history of hypertension, acid reflux, hiatal hernia seen at [facility] on 04/20/23 with symptoms of epigastric burning and nausea for the past several weeks. Pt complains of severe heartburn and has been taking OTC Omeprazole upto three times a day with partial relief of her symptoms. Worsening GERD symptoms are likely related to sleeve gastrectomy Pt complains of fatigue and noted palpitations, dizziness and blurred vision on 04/19/23. In the ED noted to have a hemoglobin of 7 with low MCV, INR 1, stable electrolytes renal function and LFTs, Patient was admitted and transfused 2 units of packed RBCs. ANTONIETTA likely from UGI (PUD, erosive esophagitis, UGI AVMs) versus LGI source (Colon polyp, mass or AVM) RECOMMENDATIONS: 1. Agree with IV PPI and antiemetics. 2. Monitor CBC daily. 3. Patient is scheduled for an upper endoscopy and colonoscopy on 04/24/23 for evaluation of anemia. Please start her on a clear liquid diet on 04/23/23 and give Golytely prep on 04/23/23 starting at 2 pm Procedures Date of Service Date of Service: 04/24/23
--- NOTE | 2023-04-21 11:08 | HO.PM.IMPN ---
Subjective Subjective Date of Service: 04/21/23 Interval History: Complaining of persistent epigastric discomfort, and lightheadedness, no nausea, no vomiting, no hematemesis, no melena, no fevers no chills, no acute issues overnight. Review of Systems All other system reviewed and negative Physical Exam Vital Signs: Vital Signs: Last Vital Signs Temp 98.2 F 04/21/23 08:23 Pulse 71 04/21/23 08:23 Resp 16 04/21/23 08:23 BP 161/70 H 04/21/23 08:23 Pulse Ox 97 04/21/23 07:27 O2 Del Method Room Air 04/21/23 07:27 BMI result Body Mass Index 36.3 Const: Other: General awake alert x3,resting comfortably in no acute distress. Anicteric sclera Neck supple no JVD. CVS regular rate rhythm, Respiratory lungs clear to auscultation, no respiratory distress, no wheeze, no rhonchi. Gastrointestinal abdomen soft, epigastric tenderness, bowel sounds audible, no guarding , no rigidity. Extremities no edema. Neuro nonfocal Skin no rash Psych appropriate affect Objective Data Active Medications Acetaminophen (Acetaminophen 325 Mg Tablet) 650 mg PO Q6H PRN PRN Reason: Pain, Mild (Pain Scale 1-3) Last Admin: 04/21/23 06:13 Dose: 650 mg Documented By: JANE Amlodipine Besylate (Amlodipine Besylate 5 Mg Tablet) 5 mg PO DAILY [facility]; Protocol Last Admin: 04/21/23 07:54 Dose: 5 mg Documented By: MARY Benzonatate (Benzonatate 100 Mg Capsule) 100 mg PO TID PRN PRN Reason: Cough Docusate Sodium (Docusate Sodium 100 Mg Capsule) 100 mg PO DAILY PRN PRN Reason: Constipation Melatonin (Melatonin 3 Mg Tablet) 6 mg PO BEDTIME PRN PRN Reason: Insomnia Ondansetron HCl (Ondansetron Hcl 4 Mg/2 Ml Vial) 4 mg IVPUSH Q8H PRN PRN Reason: Nausea and Vomiting Last Admin: 04/21/23 08:13 Dose: 4 mg Documented By: MARY Pantoprazole Sodium (Pantoprazole Sodium 40 Mg/10 Ml Vial) 40 mg IVPUSH BID@0630,1630 [facility] Last Admin: 04/21/23 06:07 Dose: 40 mg Documented By: JANE Sodium Chloride (0.9 % Sodium Chloride Flush 3 Ml Syringe) [facility] Last Admin: 04/21/23 07:54 Dose: 3 ml Documented By: MARY Labs 04/21/23 05:33 04/21/23 05:33 Labs: Laboratory Results - last 24 hr 04/20/23 04/20/23 04/20/23 14:46 14:50 14:51 MCV 61.3 L MCH 16.1 L MCHC 26.3 L RDW 20.1 H Plt Count 419 H MPV 9.5 Immature Gran % (Auto) 0.5 H Neut % (Auto) 69.8 Lymph % (Auto) 21.8 [place] % (Auto) 7.1 Eos % (Auto) 0.3 Baso % (Auto) 0.5 Lymph # (Auto) 1.5 [place] # (Auto) 0.5 Eos # (Auto) 0.0 Baso # (Auto) 0.0 Abs Immat Gran (auto) 0.03 Absolute Neuts (auto) 4.6 Absolute Nucleated RBC 0.000 Nucleated RBC % (auto) 0.0 PT 11.7 INR 1.0 Anion Gap 11 L Estim Creat Clear Calc 106.9 Estimated GFR > 60 Random Glucose 92 Calcium 9.7 Iron 13 L TIBC 438 H % Saturation 3 L Unsat Iron Binding 425 Ferritin 3 L Total Bilirubin 0.3 AST 18 ALT 15 Alkaline Phosphatase 82 Total Protein 8.5 H Albumin 4.2 Lipase 10 Urine Color Urine Appearance Urine pH Ur Specific [place] Urine Protein Urine Glucose (UA) Urine Ketones Urine Blood Urine Nitrite Ur Leukocyte Esterase Urine RBC Urine WBC Ur Squamous Epith Cells Urine Bacteria Hyaline Casts Stool Occult Blood COVID-19 ([facility]) Negative COVID-19 Clin Com See Note Influenza Type A ([facility]) Negative Influenza Type B ([facility]) Negative Influenza A & B Note See Note Blood Type Antibody Screen Crossmatch 04/20/23 04/20/23 04/20/23 16:02 16:30 16:31 MCV MCH MCHC RDW Plt Count MPV Immature Gran % (Auto) Neut % (Auto) Lymph % (Auto) [place] % (Auto) Eos % (Auto) Baso % (Auto) Lymph # (Auto) [place] # (Auto) Eos # (Auto) Baso # (Auto) Abs Immat Gran (auto) Absolute Neuts (auto) Absolute Nucleated RBC Nucleated RBC % (auto) PT INR Anion Gap Estim Creat Clear Calc Estimated GFR Random Glucose Calcium Iron TIBC % Saturation Unsat Iron Binding Ferritin Total Bilirubin AST ALT Alkaline Phosphatase Total Protein Albumin Lipase Urine Color Yellow Urine Appearance Clear Urine pH 6.5 Ur Specific [place] 1.020 Urine Protein Negative Urine Glucose (UA) Negative Urine Ketones Trace Urine Blood Negative Urine Nitrite Negative Ur Leukocyte Esterase Negative Urine RBC 0-2 Urine WBC 0-5 Ur Squamous Epith Cells 0-2 Urine Bacteria None Seen Hyaline Casts 0-2 Stool Occult Blood NEGATIVE COVID-19 ([facility]) COVID-19 Clin Com Influenza Type A ([facility]) Influenza Type B ([facility]) Influenza A & B Note Blood Type O Positive Antibody Screen NEGATIVE Crossmatch See Detail 04/21/23 05:33 MCV 65.0 L MCH 17.8 L MCHC 27.4 L RDW 22.8 H Plt Count 346 MPV 9.9 Immature Gran % (Auto) 0.2 Neut % (Auto) 41.8 L Lymph % (Auto) 45.7 H [place] % (Auto) 10.4 Eos % (Auto) 1.2 Baso % (Auto) 0.7 Lymph # (Auto) 2.0 [place] # (Auto) 0.5 Eos # (Auto) 0.1 Baso # (Auto) 0.0 Abs Immat Gran (auto) 0.01 Absolute Neuts (auto) 1.8 L Absolute Nucleated RBC 0.000 Nucleated RBC % (auto) 0.0 PT INR Anion Gap 9 L Estim Creat Clear Calc 117.0 Estimated GFR > 60 Random Glucose 83 Calcium 8.7 D Iron TIBC % Saturation Unsat Iron Binding Ferritin Total Bilirubin AST ALT Alkaline Phosphatase Total Protein Albumin Lipase Urine Color Urine Appearance Urine pH Ur Specific [place] Urine Protein Urine Glucose (UA) Urine Ketones Urine Blood Urine Nitrite Ur Leukocyte Esterase Urine RBC Urine WBC Ur Squamous Epith Cells Urine Bacteria Hyaline Casts Stool Occult Blood COVID-19 ([facility]) COVID-19 Clin Com Influenza Type A ([facility]) Influenza Type B ([facility]) Influenza A & B Note Blood Type Antibody Screen Crossmatch Assessment and Plan (1) Hypertension: Status: Acute (2) Anemia: Status: Acute (3) Hiatal hernia: Status: Acute Plan 52-year-old female patient with past medical history significant for acid reflux, hiatal hernia, hypertension, obesity, bariatric surgery presented to [facility] due to symptoms of gastric burning and nausea every month for greater than 1 month, feeling tired for several days,noted to have palpitation, dizziness and blurred vision since yesterday and today patient felt very dizzy and vomited x1 nonbloody that prompted her to come to the hospital patient noted to have hemoglobin of 7 being admitted to [facility] with a diagnosis of symptomatic anemia. Symptomatic acute iron deficiency anemia No acute blood loss Epigastric discomfort, no hematemesis, no melena, no dark-colored stools status post 1 unit of packed RBC no change in hemoglobin/hct iron studies consistent with iron deficiency anemia, question poor absorption, stool guaiac negative. Transfuse 2 units of packed RBC ,follow H&H, DC IV Protonix placed on by mouth Prilosec, as needed Maalox Case discussed with Dr. Wise patient will undergo upper endoscopy and colonoscopy on Monday. History of anxiety depression being followed by primary care physician and recently started on hydroxyzine, continue home medication. History of hypertension was on Zestril in the past, will place on Norvasc 5 mg follow BP. Obesity recommend low-calorie diet status post bariatric surgery. DVT prophylaxis compression boots due to anemia. Code status full code. In my clinical judgment patient need to continued inpatient hospitalization for management and treatment of symptomatic anemia requiring blood transfusion and close hematocrit monitoring and expert consultation. Quality Stroke Does the patient have a stroke diagnosis?: No VTE Prior VTE?: No VTE Risk Level:: Medical - moderate - high VTE Device Contraindication: N/A - Device Ordered VTE Drug Contraindication: Treatment Not Indicated
--- NOTE | 2023-04-21 11:09 | MHC.CM.PN ---
PT REPORTS SHE LIVES WITH HER AND SON AND IS INDEPENDENT WITH CARE SHE DENIES USE OF DME OR HOME SERVICES PT DECLINES TO COMPLETE A HCP PCP: PILAR SEGAL DCP: HOME NO SERVICES VIA PRIVATE TRANSPORT PER MD ROUNDS, PT WILL REMAIN OVER THE WEEKEND
[2023-04-21] MEDS: Butalb/Acetamin/Caff 50/325/40 TABLET 1 TAB PO ×2 (11:52→19:51)
[2023-04-21] MEDS: Ascorbic Acid 250 MG TABLET PO (16:55)
[2023-04-21] MEDS: Ferrous Sulfate 324 MG TABLET.DR PO (16:55)
[2023-04-22] VITALS (7 sets, daily range): BP systolic 147–184; BP diastolic 66–95; PULSE 66–71; RESP 18–20; TEMP 36–36.6; O2SAT 96–98
[2023-04-22] MEDS: Melatonin 3 MG TABLET 6 MG PO (03:19)
[2023-04-22] MEDS: Butalb/Acetamin/Caff 50/325/40 TABLET 1 TAB PO (03:20)
[2023-04-22] MEDS: ondansetron HCL 4 MG/2 ML VIAL IVPUSH (03:21)
[2023-04-22] MEDS: Labetalol HCL 100 MG/20 ML VIAL 10 MG IVPUSH (05:18)
[2023-04-22 06:18] LABS: Hematocrit 27.7 % (37.0-47.0); Hemoglobin 8.2 g/dl (12.0-16.0); Mean Corpuscular HGB Conc 29.6 g/dl (31.0-35.0); Mean Corpuscular Hemoglobin 19.9 pg (27.0-33.0); Mean Corpuscular Volume 67.2 fL (80.0-98.0); Mean Platelet Volume 9.7 fL (9.4-12.3); Platelet Count 336 X10*3/uL (160-400); Red Blood Count 4.12 X10*6/uL (4.20-5.50); Red Cell Distribution Width 25.1 % (11.0-16.0); White Blood Count 5.6 X10*3/uL (4.8-10.8)
[2023-04-22] MEDS: Ascorbic Acid 250 MG TABLET PO ×2 (09:42→16:55)
[2023-04-22] MEDS: Omeprazole 40 MG CAPSULE.DR PO ×2 (09:42→16:56)
[2023-04-22] MEDS: Ferrous Sulfate 324 MG TABLET.DR PO ×2 (09:43→16:55)
[2023-04-22] MEDS: amLODIPine Besylate 5 MG TABLET PO (09:43)
[2023-04-22] MEDS: 0.9 % Sodium Chloride Flush 3 ML SYRINGE IVFLUSH ×3 (09:43→21:04)
[2023-04-22] MEDS: hydrOXYzine HCL 25 MG TABLET PO (09:48)
[2023-04-22] MEDS: Magnesium Hydrox/Alum Hydrox 30 ML ORAL.SUSP PO (09:48)
[2023-04-22] MEDS: Acetaminophen 325 MG TABLET 650 MG PO ×2 (09:48→21:03)
--- NOTE | 2023-04-22 10:58 | P.PNIM_ITS ---
Subjective Subjective Date of Service: 04/22/23 Interval History: Complaining of persistent epigastric discomfort and lightheadedness, no nausea, no vomiting, no hematemesis, no melena, no fevers no chills, no acute issues overnight. Review of Systems All other system reviewed and negative Physical Exam 2 Vital Signs: Vital Signs: Last Vital Signs Temp 97.8 F 04/22/23 07:18 Pulse 68 04/22/23 07:18 Resp 20 04/22/23 07:18 BP 168/95 H 04/22/23 07:18 Pulse Ox 98 04/22/23 07:18 O2 Del Method Room Air 04/22/23 07:18 BMI result Body Mass Index 36.3 Appearing in no acute distress lung sounds are clear to auscultation heart regular rate rhythm, clear S1, S2 positive bowel sounds, abdomen is soft, nontender neuro patient is alert x3, no focal deficits Objective Data Active Medications Acetaminophen (Acetaminophen 325 Mg Tablet) 650 mg PO Q6H PRN PRN Reason: Pain, Mild (Pain Scale 1-3) Last Admin: 04/22/23 09:48 Dose: 650 mg Documented By: DEVIKA Acetaminophen/Butalbital/Caffeine (Butalb/Acetamin/Caff 50/325/40 Tablet) 1 tab PO Q4H PRN PRN Reason: Headache Last Admin: 04/22/23 03:20 Dose: 1 tab Documented By: ALEJANDRA Al Hydroxide/Mg Hydroxide (Magnesium Hydrox/Alum Hydrox 30 Ml Oral.Susp) 30 ml PO Q6H PRN PRN Reason: dyspepsia Last Admin: 04/22/23 09:48 Dose: 30 ml Documented By: DEVIKA Amlodipine Besylate (Amlodipine Besylate 5 Mg Tablet) 5 mg PO DAILY [facility]; Protocol Last Admin: 04/22/23 09:43 Dose: 5 mg Documented By: DEVIKA Ascorbic Acid (Ascorbic Acid 250 Mg Tablet) 250 mg PO BIDWM [facility] Last Admin: 04/22/23 09:42 Dose: 250 mg Documented By: DEVIKA Benzonatate (Benzonatate 100 Mg Capsule) 100 mg PO TID PRN PRN Reason: Cough Docusate Sodium (Docusate Sodium 100 Mg Capsule) 100 mg PO DAILY PRN PRN Reason: Constipation Ferrous Sulfate (Ferrous Sulfate 324 Mg Tablet.Dr) 324 mg PO BIDWM [facility] Last Admin: 04/22/23 09:43 Dose: 324 mg Documented By: DEVIKA Hydroxyzine HCl (Hydroxyzine Hcl 25 Mg Tablet) 25 mg PO TID PRN PRN Reason: anxiety Last Admin: 04/22/23 09:48 Dose: 25 mg Documented By: DEVIKA Melatonin (Melatonin 3 Mg Tablet) 6 mg PO BEDTIME PRN PRN Reason: Insomnia Last Admin: 04/22/23 03:19 Dose: 6 mg Documented By: ALEJANDRA Omeprazole (Omeprazole 40 Mg Capsule.) 40 mg PO BID [facility] Ondansetron HCl (Ondansetron Hcl 4 Mg/2 Ml Vial) 4 mg IVPUSH Q8H PRN PRN Reason: Nausea and Vomiting Last Admin: 04/22/23 03:21 Dose: 4 mg Documented By: ALEJANDRA Sodium Chloride (0.9 % Sodium Chloride Flush 3 Ml Syringe) [facility] Last Admin: 04/22/23 09:43 Dose: 3 ml Documented By: DEVIKA Labs 04/22/23 05:32 04/21/23 05:33 Labs: Laboratory Results - last 24 hr 04/20/23 04/20/23 04/22/23 14:50 16:02 05:32 MCV 67.2 L MCH 19.9 L MCHC 29.6 L RDW 25.1 H Plt Count 336 MPV 9.7 Absolute Nucleated RBC 0.000 Nucleated RBC % (auto) 0.0 Smear Path Review SEE NOTE Blood Type O Positive Antibody Screen NEGATIVE Crossmatch See Detail Assessment and Plan (1) Hypertension: Status: Acute (2) Anemia: Status: Acute (3) Hiatal hernia: Status: Acute Plan 52-year-old female patient with past medical history significant for acid reflux, hiatal hernia, hypertension, obesity, bariatric surgery presented to [facility] due to symptoms of gastric burning and nausea every month for greater than 1 month, feeling tired for several days,noted to have palpitation, dizziness and blurred vision since yesterday and today patient felt very dizzy and vomited x1 nonbloody that prompted her to come to the hospital patient noted to have hemoglobin of 7 being admitted to [facility] with a diagnosis of symptomatic anemia. Symptomatic acute iron deficiency anemia Epigastric discomfort no hematemesis, no melena, no dark-colored stools s/p 3 units PRBC iron studies consistent with iron deficiency anemia, question poor absorption, stool guaiac negative. PPI BID upper endoscopy and colonoscopy on Monday. Hemorrhoidal pain Hydrocortisone suppository as needed Constipation MiraLax and Colace b.i.d. History of anxiety depression recently started on hydroxyzine, continue home medication. History of hypertension stated that she has not seen a PCP in over 8 years was on Zestril more than 8 years ago, Placed on Norvasc 5 mg, BP still high, will increase to 10mg Obesity. BMI 36.3 Discussed importance of weight management as this may be contributing to worsening of other comorbidities DVT prophylaxis compression boots due to anemia. Attending Dr. Mendoza Code status full code. In my clinical judgment patient need to continued inpatient hospitalization for management and treatment of symptomatic anemia requiring blood transfusion and close hematocrit monitoring and expert consultation. Quality Stroke Does the patient have a stroke diagnosis?: No VTE Prior VTE?: No VTE Risk Level:: Medical - moderate - high VTE Device Contraindication: N/A - Device Ordered VTE Drug Contraindication: Treatment Not Indicated
[2023-04-22] MEDS: Docusate Sodium 100 MG CAPSULE PO ×2 (12:25→21:03)
[2023-04-22] MEDS: polyethylene glycoL 3350 17 GM POWD.PACK PO ×2 (12:25→21:04)
[2023-04-23 03:55] VITALS: BP 169/79; PULSE 68; RESP 18; TEMP 36.5; O2SAT 97
[2023-04-23] MEDS: Omeprazole 40 MG CAPSULE.DR PO ×2 (05:30→16:23)
[2023-04-23 05:56] LABS: MANUAL DIFF FLAG NO
[2023-04-23 06:03] LABS: Basophils Percent Auto 0.5 % (0-2); Eosinophils Absolute Auto 0.1 X10*3/uL (0.0-0.4); Eosinophils Percent Auto 1.1 % (0-4); Hematocrit 28.6 % (37.0-47.0); Hemoglobin 8.4 g/dl (12.0-16.0); Imm Gran Abs Auto 0.01 X10*3/uL (0.00-0.03); Imm Gran Pct Auto 0.2 % (0.0-0.4); Lymphocytes Percent Auto 36.5 % (20-40); Mean Corpuscular HGB Conc 29.4 g/dl (31.0-35.0); Mean Corpuscular Hemoglobin 19.9 pg (27.0-33.0); Mean Corpuscular Volume 67.8 fL (80.0-98.0); Mean Platelet Volume 9.4 fL (9.4-12.3); Monocytes Absolute Auto 0.6 X10*3/uL (0.1-1.2); Monocytes Percent Auto 10.6 % (2-11); Neutrophils Absolute Auto 2.9 x10*3/uL (2.0-8.3); Neutrophils Percent Auto 51.1 % (45-73); Platelet Count 341 X10*3/uL (160-400); Red Blood Count 4.22 X10*6/uL (4.20-5.50); Red Cell Distribution Width 25.9 % (11.0-16.0); White Blood Count 5.6 X10*3/uL (4.8-10.8)
[2023-04-23 07:15] VITALS: BP 147/88; PULSE 68; RESP 17; TEMP 36.6; O2SAT 95
[2023-04-23] MEDS: amLODIPine Besylate 10 MG TABLET PO (08:35)
[2023-04-23] MEDS: Ferrous Sulfate 324 MG TABLET.DR PO ×2 (08:35→16:23)
[2023-04-23] MEDS: Ascorbic Acid 250 MG TABLET PO ×2 (08:36→16:23)
[2023-04-23] MEDS: 0.9 % Sodium Chloride Flush 3 ML SYRINGE IVFLUSH ×2 (08:36→16:59)
[2023-04-23] MEDS: Docusate Sodium 100 MG CAPSULE PO (08:36)
[2023-04-23] MEDS: polyethylene glycoL 3350 17 GM POWD.PACK PO (08:36)
[2023-04-23] MEDS: Acetaminophen 325 MG TABLET 650 MG PO (08:57)
[2023-04-23] MEDS: ondansetron HCL 4 MG/2 ML VIAL IVPUSH (08:57)
[2023-04-23] MEDS: Hydrocortisone 2.5 % Rectal Cr 30 GM TUBE 1 APPL PR (09:08)
--- NOTE | 2023-04-23 10:35 | HO.PM.IMPN ---
Subjective Subjective Date of Service: 04/23/23 Interval History: Complaining of persistent epigastric discomfort and lightheadedness, no nausea, no vomiting, no hematemesis, no melena, no fevers no chills, no acute issues overnight. Review of Systems All other system reviewed and negative Physical Exam Vital Signs: Vital Signs: Last Vital Signs Temp 97.9 F 04/23/23 07:15 Pulse 68 04/23/23 07:15 Resp 17 04/23/23 07:15 BP 147/88 H 04/23/23 07:15 Pulse Ox 95 04/23/23 07:15 O2 Del Method Room Air 04/23/23 07:15 BMI result Body Mass Index 36.3 Appearing in no acute distress lung sounds are clear to auscultation heart regular rate rhythm, clear S1, S2 positive bowel sounds, abdomen is soft, nontender neuro patient is alert x3, no focal deficits Objective Data Active Medications Acetaminophen (Acetaminophen 325 Mg Tablet) 650 mg PO Q6H PRN PRN Reason: Pain, Mild (Pain Scale 1-3) Last Admin: 04/23/23 08:57 Dose: 650 mg Documented By: DEVIKA Acetaminophen/Butalbital/Caffeine (Butalb/Acetamin/Caff 50/325/40 Tablet) 1 tab PO Q4H PRN PRN Reason: Headache Last Admin: 04/22/23 03:20 Dose: 1 tab Documented By: ALEJANDRA Al Hydroxide/Mg Hydroxide (Magnesium Hydrox/Alum Hydrox 30 Ml Oral.Susp) 30 ml PO Q6H PRN PRN Reason: dyspepsia Last Admin: 04/22/23 09:48 Dose: 30 ml Documented By: DEVIKA Amlodipine Besylate (Amlodipine Besylate 10 Mg Tablet) 10 mg PO DAILY [facility]; Protocol Last Admin: 04/23/23 08:35 Dose: 10 mg Documented By: DEVIKA Ascorbic Acid (Ascorbic Acid 250 Mg Tablet) 250 mg PO BIDWM [facility] Last Admin: 04/23/23 08:36 Dose: 250 mg Documented By: DEVIKA Benzonatate (Benzonatate 100 Mg Capsule) 100 mg PO TID PRN PRN Reason: Cough Docusate Sodium (Docusate Sodium 100 Mg Capsule) 100 mg PO DAILY PRN PRN Reason: Constipation Docusate Sodium (Docusate Sodium 100 Mg Capsule) 100 mg PO BID [facility] Last Admin: 04/23/23 08:36 Dose: 100 mg Documented By: DEVIKA Ferrous Sulfate (Ferrous Sulfate 324 Mg Tablet.) 324 mg PO BIDWM [facility] Last Admin: 04/23/23 08:35 Dose: 324 mg Documented By: DEVIKA Hydrocortisone (Hydrocortisone 2.5 % Rectal Cr 30 Gm Tube) 1 appl [place] DAILY PRN PRN Reason: Hemorrhoidal pain Last Admin: 04/23/23 09:08 Dose: 1 appl Documented By: DEVIKA Hydroxyzine HCl (Hydroxyzine Hcl 25 Mg Tablet) 25 mg PO TID PRN PRN Reason: anxiety Last Admin: 04/22/23 09:48 Dose: 25 mg Documented By: DEVIKA Melatonin (Melatonin 3 Mg Tablet) 6 mg PO BEDTIME PRN PRN Reason: Insomnia Last Admin: 04/23/23 00:00 Dose: 6 mg Documented By: ALEJANDRA Omeprazole (Omeprazole 40 Mg Capsule.) 40 mg PO BID@0630,1630 [facility] Last Admin: 04/23/23 05:30 Dose: 40 mg Documented By: ALEJANDRA Ondansetron HCl (Ondansetron Hcl 4 Mg/2 Ml Vial) 4 mg IVPUSH Q8H PRN PRN Reason: Nausea and Vomiting Last Admin: 04/23/23 08:57 Dose: 4 mg Documented By: DEVIKA Polyethylene Glycol (Polyethylene Glycol 3350 17 Gm Powd.Pack) 17 gm PO BID [facility] Last Admin: 04/23/23 08:36 Dose: 17 gm Documented By: DEVIKA Sodium Chloride (0.9 % Sodium Chloride Flush 3 Ml Syringe) 3 ml IVFLUSH QSHIFT [facility] Last Admin: 04/23/23 08:36 Dose: 3 ml Documented By: DEVIKA Labs 04/23/23 05:50 04/21/23 05:33 Labs: Laboratory Results - last 24 hr 04/23/23 05:50 MCV 67.8 L MCH 19.9 L MCHC 29.4 L RDW 25.9 H Plt Count 341 MPV 9.4 Immature Gran % (Auto) 0.2 Neut % (Auto) 51.1 Lymph % (Auto) 36.5 [place] % (Auto) 10.6 Eos % (Auto) 1.1 Baso % (Auto) 0.5 Lymph # (Auto) 2.0 [place] # (Auto) 0.6 Eos # (Auto) 0.1 Baso # (Auto) 0.0 Abs Immat Gran (auto) 0.01 Absolute Neuts (auto) 2.9 Absolute Nucleated RBC 0.000 Nucleated RBC % (auto) 0.0 Assessment and Plan (1) Hypertension: Status: Acute (2) Anemia: Status: Acute (3) Hiatal hernia: Status: Acute Plan 52-year-old female patient with past medical history significant for acid reflux, hiatal hernia, hypertension, obesity, bariatric surgery presented to [facility] due to symptoms of gastric burning and nausea every month for greater than 1 month, feeling tired for several days,noted to have palpitation, dizziness and blurred vision since yesterday and today patient felt very dizzy and vomited x1 nonbloody that prompted her to come to the hospital patient noted to have hemoglobin of 7 being admitted to [facility] with a diagnosis of symptomatic anemia. Left lower extremity cramping nocturnal leg cramping, started about one month ago with some bruising, may correlate with anemia good pedal pulses, reflexes and strength no obvious injury or trauma noted no hx of PVD/PAD, diabetes, normal potassium venous doppler to r/o DVT check TSH, mag, A1C in the am Symptomatic acute iron deficiency anemia Epigastric discomfort no hematemesis, no melena, no dark-colored stools s/p 3 units PRBC iron studies consistent with iron deficiency anemia, question poor absorption, stool guaiac negative. PPI BID upper endoscopy and colonoscopy on Monday clear liquid diet and GoLYTELY prep starting at 14:00 History of hypertension stated that she has not seen a PCP in over 8 years continue Norvasc 10 mg Hemorrhoidal pain Hydrocortisone suppository as needed Constipation +bm today continue MiraLax and Colace b.i.d. History of anxiety depression recently started on hydroxyzine, continue home medication. Obesity. BMI 36.3 Discussed importance of weight management as this may be contributing to worsening of other comorbidities DVT prophylaxis compression boots due to anemia. Attending Dr. Mendoza Code status full code. In my clinical judgment patient need to continued inpatient hospitalization for management and treatment of symptomatic anemia requiring blood transfusion and close hematocrit monitoring and expert consultation. Quality Stroke Does the patient have a stroke diagnosis?: No VTE Prior VTE?: No VTE Risk Level:: Medical - moderate - high VTE Device Contraindication: N/A - Device Ordered VTE Drug Contraindication: Treatment Not Indicated
[2023-04-23 11:31] VITALS: BP 150/64; PULSE 72; RESP 20; TEMP 36.2; O2SAT 99
[2023-04-23] MEDS: PEG 3350/Na Sulf,Bicarb,Cl/KCL 4,000 ML SOLN.RECON 4000 ML PO (14:52)
[2023-04-23 15:42] VITALS: BP 170/79; PULSE 66; RESP 18; TEMP 36.7; O2SAT 98
[2023-04-23 19:15] VITALS: BP 177/82; PULSE 77; RESP 20; TEMP 37.1; O2SAT 99
[2023-04-23 23:41] VITALS: BP 176/79; PULSE 72; RESP 20; TEMP 36.8; O2SAT 97
[2023-04-23] MEDS: Butalb/Acetamin/Caff 50/325/40 TABLET 1 TAB PO (23:56)
[2023-04-23] MEDS: hydrOXYzine HCL 25 MG TABLET PO (23:57)
[2023-04-23] MEDS: Melatonin 3 MG TABLET 6 MG PO ×2 (23:57)
[2023-04-24] VITALS (8 sets, daily range): BP systolic 118–170; BP diastolic 65–85; PULSE 59–83; RESP 12–20; TEMP 36.3–37; O2SAT 96–99
[2023-04-24] MEDS: 0.9 % Sodium Chloride Flush 3 ML SYRINGE IVFLUSH ×4 (00:08→20:08)
[2023-04-24 08:08] LABS: Estimated Average Glucose 88 mg/dL; Hemoglobin A1c % 4.7 % (<6.0)
[2023-04-24 08:11] LABS: Anion Gap 13 (12-20); Blood Urea Nitrogen 8 mg/dL (9-16); Calcium 9.4 mg/dL (8.4-10.2); Carbon Dioxide 23 mmol/L (22-29); Chloride 107 mmol/L (96-108); Creatinine Clr Calc Pharmacy 109.5; Estimated Glomerular Filt Rate > 60; Glucose Random 83 mg/dL (60-115); Magnesium 1.8 mg/dL (1.6-2.6); Potassium 3.5 mmol/L (3.3-5.1); Sodium 139 mmol/L (135-145)
[2023-04-24] MEDS: amLODIPine Besylate 10 MG TABLET PO (08:24)
[2023-04-24] MEDS: Butalb/Acetamin/Caff 50/325/40 TABLET 1 TAB PO (08:24)
[2023-04-24] MEDS: lisinopriL 5 MG TABLET PO (08:24)
[2023-04-24] MEDS: Ascorbic Acid 250 MG TABLET PO ×2 (08:24→18:08)
[2023-04-24] MEDS: Ferrous Sulfate 324 MG TABLET.DR PO ×2 (08:24→18:08)
[2023-04-24 08:25] LABS: Thyroid Stimulating Hormone 1.14 uIU/mL (0.32-4.0)
--- NOTE | 2023-04-24 08:52 | P.CONAN_ITS ---
[facility] Active Problems Active Problems: All Active Problems (Updated 04/20/23 @ 17:22 by Chanel Herron MD) Hypertension (Acute) Anemia (Acute) Hiatal hernia (Acute) Laboratory tests ordered as part of a complete physical exam (CPE) (Acute) Anxiety and depression (Acute) Acid reflux (Acute) Vaginal itching (Acute) Vaginal burning (Acute) Urinary urgency (Acute) Frequency of urination (Acute) Vaginal discharge (Acute) Vaginal irritation (Acute) Right lateral epicondylitis (Acute) Carpal tunnel syndrome of right wrist (Acute) Carpal tunnel syndrome of left wrist (Acute) Bilateral hand numbness (Acute) Right wrist tendinitis (Acute) De Quervain's tenosynovitis, left (Acute) De Quervain's tenosynovitis, right (Acute) COVID-19 (Acute) Hypertension (Acute) Morbid obesity (Acute) Well woman exam with routine gynecological exam (Acute) Past Medical History Medical History Acid reflux Frequency of urination Hiatal hernia Family History Family History Family/Other History of breast cancer Brother Overdose Cardiovascular disease Mother HTN (hypertension) Cardiovascular disease Father HTN (hypertension) Cardiovascular disease Maternal Grandmother HTN (hypertension) Family history of problems with anesthesia: No Surgical History Surgical History Hx of hand surgery History of bilateral tubal ligation Hx of cholecystectomy H/O bariatric surgery Hx of section History of Problems with Anesthesia: No Social History Social History Household Members: Spouse Housing: House Do you presently have visiting nurse or other home services: No Alcohol intake: current Alcohol intake frequency: 0-2 drinks per day Patient Tobacco Use Status: Former Tobacco user Smoked in Last 30 Days: No e-Cigarette/Vaping Use: Never Used Use of substances other than those prescribed or required for medical reasons: Yes Substance Use Type: Marijuana Substance Use Frequency: Daily Currently Displaying Signs/Symptoms of Drug Intoxication Withdrawal: No Have you been hit, kicked, punched, or otherwise hurt by someone within the past year? 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- [employer] Sexual orientation: Straight/Heterosexual Gender identity: Female Cognitive needs: No Hearing needs: No Vision needs: Yes Meds Allergies Allergy/AdvReac Type Severity Reaction Status Date / Time No Known Allergies Allergy Verified 04/20/23 14:23 [No Known Allergies*] Active Medications: Current Medications Acetaminophen (Acetaminophen 325 Mg Tablet) 650 mg PO Q6H PRN PRN Reason: Pain, Mild (Pain Scale 1-3) Last Admin: 04/23/23 08:57 Dose: 650 mg Acetaminophen/Butalbital/Caffeine (Butalb/Acetamin/Caff 50/325/40 Tablet) 1 tab PO Q4H PRN PRN Reason: Headache Last Admin: 04/24/23 08:24 Dose: 1 tab Al Hydroxide/Mg Hydroxide (Magnesium Hydrox/Alum Hydrox 30 Ml Oral.Susp) 30 ml PO Q6H PRN PRN Reason: dyspepsia Last Admin: 04/22/23 09:48 Dose: 30 ml Amlodipine Besylate (Amlodipine Besylate 10 Mg Tablet) 10 mg PO DAILY [facility]; Protocol Last Admin: 04/24/23 08:24 Dose: 10 mg Ascorbic Acid (Ascorbic Acid 250 Mg Tablet) 250 mg PO BIDWM [facility] Last Admin: 04/24/23 08:24 Dose: 250 mg Benzonatate (Benzonatate 100 Mg Capsule) 100 mg PO TID PRN PRN Reason: Cough Docusate Sodium (Docusate Sodium 100 Mg Capsule) 100 mg PO DAILY PRN PRN Reason: Constipation Ferrous Sulfate (Ferrous Sulfate 324 Mg Tablet.Dr) 324 mg PO BIDWM [facility] Last Admin: 04/24/23 08:24 Dose: 324 mg Hydrocortisone (Hydrocortisone 2.5 % Rectal Cr 30 Gm Tube) 1 appl [place] DAILY PRN PRN Reason: Hemorrhoidal pain Last Admin: 04/23/23 09:08 Dose: 1 appl Hydroxyzine HCl (Hydroxyzine Hcl 25 Mg Tablet) 25 mg PO TID PRN PRN Reason: anxiety Last Admin: 04/23/23 23:57 Dose: 25 mg Lisinopril (Lisinopril 5 Mg Tablet) 5 mg PO DAILY [facility]; Protocol Last Admin: 04/24/23 08:24 Dose: 5 mg Melatonin (Melatonin 3 Mg Tablet) 6 mg PO BEDTIME PRN PRN Reason: Insomnia Last Admin: 04/23/23 23:57 Dose: 6 mg Omeprazole (Omeprazole 40 Mg Capsule.Dr) 40 mg PO BID@0630,1630 [facility] Last Admin: 04/24/23 05:29 Dose: Not Given Ondansetron HCl (Ondansetron Hcl 4 Mg/2 Ml Vial) 4 mg IVPUSH Q8H PRN PRN Reason: Nausea and Vomiting Last Admin: 04/23/23 08:57 Dose: 4 mg Polyethylene Glycol (Polyethylene Glycol 3350 17 Gm Powd.Pack) 17 gm PO BID PRN PRN Reason: constipation Sodium Chloride (0.9 % Sodium Chloride Flush 3 Ml Syringe) 3 ml IVFLUSH QSHIFT [facility] Last Admin: 04/24/23 08:25 Dose: 3 ml Home Medications Medication Instructions Recorded Confirmed Last Taken Type omeprazole 20 mg capsule,delayed 40 mg PO DAILY 03/06/23 04/20/23 04/20/23 History release Exam Height,Weight and Vital Signs: Height 5 ft 2 in Weight 90.1 kg Last Vital Signs Temp 98.6 F 04/24/23 03:26 Pulse 83 04/24/23 03:26 Resp 18 04/24/23 03:26 BP 170/76 H 04/24/23 03:26 Pulse Ox 98 04/24/23 03:26 O2 Del Method Room Air 04/24/23 03:26 Pertinent Lab Results Pertinent Lab Results: Laboratory Tests 04/20/23 04/20/23 04/20/23 14:46 14:50 14:51 WBC 6.6 RBC 3.72 L Hgb 6.0 L* Hct 22.8 L MCV 61.3 L MCH 16.1 L MCHC 26.3 L RDW 20.1 H Plt Count 419 H MPV 9.5 Immature Gran % (Auto) 0.5 H Neut % (Auto) 69.8 Lymph % (Auto) 21.8 [place] % (Auto) 7.1 Eos % (Auto) 0.3 Baso % (Auto) 0.5 Lymph # (Auto) 1.5 [place] # (Auto) 0.5 Eos # (Auto) 0.0 Baso # (Auto) 0.0 Abs Immat Gran (auto) 0.03 Absolute Neuts (auto) 4.6 Absolute Nucleated RBC 0.000 Nucleated RBC % (auto) 0.0 Smear Path Review SEE NOTE Hold Purple Top PT 11.7 INR 1.0 Sodium 138 Potassium 3.7 Chloride 108 Carbon Dioxide 23 Anion Gap 11 L BUN 11 Creatinine 0.63 Estim Creat Clear Calc 106.9 Estimated GFR > 60 Random Glucose 92 Estimat Average Glucose Hemoglobin A1c % Calcium 9.7 Magnesium Iron 13 L TIBC 438 H % Saturation 3 L Unsat Iron Binding 425 Ferritin 3 L Total Bilirubin 0.3 AST 18 ALT 15 Alkaline Phosphatase 82 Troponin I High Sens < 2.7 Total Protein 8.5 H Albumin 4.2 Lipase 10 TSH Urine Color Urine Appearance Urine pH Ur Specific [place] Urine Protein Urine Glucose (UA) Urine Ketones Urine Blood Urine Nitrite Ur Leukocyte Esterase Urine RBC Urine WBC Ur Squamous Epith Cells Urine Bacteria Hyaline Casts Stool Occult Blood COVID-19 ([facility]) Negative COVID-19 Clin Com See Note Influenza Type A ([facility]) Negative Influenza Type B ([facility]) Negative Influenza A & B Note See Note Blood Type Antibody Screen Crossmatch 04/20/23 04/20/23 04/20/23 16:02 16:30 16:31 WBC RBC Hgb Hct MCV MCH MCHC RDW Plt Count MPV Immature Gran % (Auto) Neut % (Auto) Lymph % (Auto) [place] % (Auto) Eos % (Auto) Baso % (Auto) Lymph # (Auto) [place] # (Auto) Eos # (Auto) Baso # (Auto) Abs Immat Gran (auto) Absolute Neuts (auto) Absolute Nucleated RBC Nucleated RBC % (auto) Smear Path Review Hold Purple Top PT INR Sodium Potassium Chloride Carbon Dioxide Anion Gap BUN Creatinine Estim Creat Clear Calc Estimated GFR Random Glucose Estimat Average Glucose Hemoglobin A1c % Calcium Magnesium Iron TIBC % Saturation Unsat Iron Binding Ferritin Total Bilirubin AST ALT Alkaline Phosphatase Troponin I High Sens Total Protein Albumin Lipase TSH Urine Color Yellow Urine Appearance Clear Urine pH 6.5 Ur Specific [place] 1.020 Urine Protein Negative Urine Glucose (UA) Negative Urine Ketones Trace Urine Blood Negative Urine Nitrite Negative Ur Leukocyte Esterase Negative Urine RBC 0-2 Urine WBC 0-5 Ur Squamous Epith Cells 0-2 Urine Bacteria None Seen Hyaline Casts 0-2 Stool Occult Blood NEGATIVE COVID-19 ([facility]) COVID-19 Clin Com Influenza Type A ([facility]) Influenza Type B ([facility]) Influenza A & B Note Blood Type O Positive Antibody Screen NEGATIVE Crossmatch See Detail 04/21/23 04/22/23 04/23/23 05:33 05:32 05:50 WBC 4.3 L 5.6 5.6 RBC 3.37 L 4.12 L D 4.22 Hgb 6.0 L* 8.2 L D 8.4 L Hct 21.9 L 27.7 L D 28.6 L MCV 65.0 L 67.2 L 67.8 L MCH 17.8 L 19.9 L 19.9 L MCHC 27.4 L 29.6 L 29.4 L RDW 22.8 H 25.1 H 25.9 H Plt Count 346 336 341 MPV 9.9 9.7 9.4 Immature Gran % (Auto) 0.2 0.2 Neut % (Auto) 41.8 L 51.1 Lymph % (Auto) 45.[address] [place] % (Auto) 10.4 10.6 Eos % (Auto) 1.2 1.1 Baso % (Auto) 0.7 0.5 Lymph # (Auto) 2.[address] [place] # (Auto) 0.5 0.6 Eos # (Auto) 0.1 0.1 Baso # (Auto) 0.0 0.0 Abs Immat Gran (auto) 0.01 0.01 Absolute Neuts (auto) 1.8 L 2.9 Absolute Nucleated RBC 0.000 0.000 0.000 Nucleated RBC % (auto) 0.0 0.0 0.0 Smear Path Review Hold Purple Top PT INR Sodium 138 Potassium 3.4 Chloride 109 H Carbon Dioxide 23 Anion Gap 9 L BUN 11 Creatinine 0.58 Estim Creat Clear Calc 117.0 Estimated GFR > 60 Random Glucose 83 Estimat Average Glucose Hemoglobin A1c % Calcium 8.7 D Magnesium Iron TIBC % Saturation Unsat Iron Binding Ferritin Total Bilirubin AST ALT Alkaline Phosphatase Troponin I High Sens Total Protein Albumin Lipase TSH Urine Color Urine Appearance Urine pH Ur Specific [place] Urine Protein Urine Glucose (UA) Urine Ketones Urine Blood Urine Nitrite Ur Leukocyte Esterase Urine RBC Urine WBC Ur Squamous Epith Cells Urine Bacteria Hyaline Casts Stool Occult Blood COVID-19 ([facility]) COVID-19 Clin Com Influenza Type A ([facility]) Influenza Type B ([facility]) Influenza A & B Note Blood Type Antibody Screen Crossmatch 04/24/23 06:55 WBC RBC Hgb Hct MCV MCH MCHC RDW Plt Count MPV Immature Gran % (Auto) Neut % (Auto) Lymph % (Auto) [place] % (Auto) Eos % (Auto) Baso % (Auto) Lymph # (Auto) [place] # (Auto) Eos # (Auto) Baso # (Auto) Abs Immat Gran (auto) Absolute Neuts (auto) Absolute Nucleated RBC Nucleated RBC % (auto) Smear Path Review Hold Purple Top SEE NOTE PT INR Sodium 139 Potassium 3.5 Chloride 107 Carbon Dioxide 23 Anion Gap 13 BUN 8 L Creatinine 0.62 Estim Creat Clear Calc 109.5 Estimated GFR > 60 Random Glucose 83 Estimat Average Glucose 88 Hemoglobin A1c % 4.7 Calcium 9.4 D Magnesium 1.8 Iron TIBC % Saturation Unsat Iron Binding Ferritin Total Bilirubin AST ALT Alkaline Phosphatase Troponin I High Sens Total Protein Albumin Lipase TSH 1.14 Urine Color Urine Appearance Urine pH Ur Specific [place] Urine Protein Urine Glucose (UA) Urine Ketones Urine Blood Urine Nitrite Ur Leukocyte Esterase Urine RBC Urine WBC Ur Squamous Epith Cells Urine Bacteria Hyaline Casts Stool Occult Blood COVID-19 ([facility]) COVID-19 Clin Com Influenza Type A ([facility]) Influenza Type B ([facility]) Influenza A & B Note Blood Type Antibody Screen Crossmatch Airway Mallampati Class: II TM Dist: >3cm Neck ROM: Full Heart: rrr Lungs: cta Assessment and Plan Assessment Anesthesia Assessment: Anesthesia Plan Discussed and Chart Reviewed Final Anesthetic Review Family History of Problems with Anesthesia: No History of Problems with Anesthesia: No NPO: Yes ASA Class: II Final Preanesthetic Review: No Changes in Pt Med Stat, Meds/Allgs Chart Reviewed and Consent Obtained/Reviewed Patient Risk: Intermediate Procedure Risk: Intermediate Anesthetic Plan Anesthetic Plan: MAC: Disposition: Standard PACU
[2023-04-24] MEDS: ondansetron HCL 4 MG/2 ML VIAL IVPUSH (12:15)
--- NOTE | 2023-04-24 15:43 | P.PNIM_ITS ---
Subjective Subjective Date of Service: 04/24/23 Interval History: Complaining of persistent epigastric discomfort and lightheadedness, no nausea, no vomiting, no hematemesis, no melena, no fevers no chills, no acute issues overnight. Review of Systems All other system reviewed and negative Physical Exam 2 Vital Signs: Vital Signs: Last Vital Signs Temp 98.1 F 04/24/23 15:00 Pulse 74 04/24/23 15:00 Resp 18 04/24/23 15:00 BP 154/72 H 04/24/23 15:00 Pulse Ox 96 04/24/23 15:00 O2 Del Method Room Air 04/24/23 15:00 BMI result Body Mass Index 36.3 Appearing in no acute distress lung sounds are clear to auscultation heart regular rate rhythm, clear S1, S2 positive bowel sounds, abdomen is soft, nontender neuro patient is alert x3, no focal deficits Objective Data Active Medications Acetaminophen (Acetaminophen 325 Mg Tablet) 650 mg PO Q6H PRN PRN Reason: Pain, Mild (Pain Scale 1-3) Last Admin: 04/23/23 08:57 Dose: 650 mg Documented By: DEVIKA Acetaminophen/Butalbital/Caffeine (Butalb/Acetamin/Caff 50/325/40 Tablet) 1 tab PO Q4H PRN PRN Reason: Headache Last Admin: 04/24/23 08:24 Dose: 1 tab Documented By: MARY Al Hydroxide/Mg Hydroxide (Magnesium Hydrox/Alum Hydrox 30 Ml Oral.Susp) 30 ml PO Q6H PRN PRN Reason: dyspepsia Last Admin: 04/22/23 09:48 Dose: 30 ml Documented By: DEVIKA Amlodipine Besylate (Amlodipine Besylate 10 Mg Tablet) 10 mg PO DAILY [facility]; Protocol Last Admin: 04/24/23 08:24 Dose: 10 mg Documented By: MARY Ascorbic Acid (Ascorbic Acid 250 Mg Tablet) 250 mg PO BIDWM [facility] Last Admin: 04/24/23 08:24 Dose: 250 mg Documented By: MARY Benzonatate (Benzonatate 100 Mg Capsule) 100 mg PO TID PRN PRN Reason: Cough Docusate Sodium (Docusate Sodium 100 Mg Capsule) 100 mg PO DAILY PRN PRN Reason: Constipation Ferrous Sulfate (Ferrous Sulfate 324 Mg Tablet.Dr) 324 mg PO BIDWM [facility] Last Admin: 04/24/23 08:24 Dose: 324 mg Documented By: MARY Hydrocortisone (Hydrocortisone 2.5 % Rectal Cr 30 Gm Tube) 1 appl [place] DAILY PRN PRN Reason: Hemorrhoidal pain Last Admin: 04/23/23 09:08 Dose: 1 appl Documented By: DEVIKA Hydroxyzine HCl (Hydroxyzine Hcl 25 Mg Tablet) 25 mg PO TID PRN PRN Reason: anxiety Last Admin: 04/23/23 23:57 Dose: 25 mg Documented By: AJ Lisinopril (Lisinopril 5 Mg Tablet) 5 mg PO DAILY [facility]; Protocol Last Admin: 04/24/23 08:24 Dose: 5 mg Documented By: MARY Melatonin (Melatonin 3 Mg Tablet) 6 mg PO BEDTIME PRN PRN Reason: Insomnia Last Admin: 04/23/23 23:57 Dose: 6 mg Documented By: AJ Omeprazole (Omeprazole 40 Mg Capsule.) 40 mg PO BID@0630,1630 [facility] Last Admin: 04/24/23 05:29 Dose: Not Given Documented By: AJ Non-Admin Reason: NPO Ondansetron HCl (Ondansetron Hcl 4 Mg/2 Ml Vial) 4 mg IVPUSH Q8H PRN PRN Reason: Nausea and Vomiting Last Admin: 04/24/23 12:15 Dose: 4 mg Documented By: MARY Polyethylene Glycol (Polyethylene Glycol 3350 17 Gm Powd.Pack) 17 gm PO BID PRN PRN Reason: constipation Sodium Chloride (0.9 % Sodium Chloride Flush 3 Ml Syringe) 3 ml IVFLUSH QSHIFT [facility] Last Admin: 04/24/23 08:25 Dose: 3 ml Documented By: MARY Labs 04/23/23 05:50 04/24/23 06:55 Labs: Laboratory Results - last 24 hr 04/24/23 06:55 Hold Purple Top SEE NOTE Anion Gap 13 Estim Creat Clear Calc 109.5 Estimated GFR > 60 Random Glucose 83 Estimat Average Glucose 88 Hemoglobin A1c % 4.7 Calcium 9.4 D Magnesium 1.8 TSH 1.14 Assessment and Plan (1) Hypertension: Status: Acute (2) Anemia: Status: Acute (3) Hiatal hernia: Status: Acute Plan 52-year-old female patient with past medical history significant for acid reflux, hiatal hernia, hypertension, obesity, bariatric surgery presented to [facility] due to symptoms of gastric burning and nausea every month for greater than 1 month, feeling tired for several days,noted to have palpitation, dizziness and blurred vision since yesterday and today patient felt very dizzy and vomited x1 nonbloody that prompted her to come to the hospital patient noted to have hemoglobin of 7 being admitted to [facility] with a diagnosis of symptomatic anemia. Left lower extremity cramping nocturnal leg cramping, started about one month ago with some bruising, may correlate with anemia good pedal pulses, reflexes and strength no obvious injury or trauma noted no hx of PVD/PAD, diabetes, normal potassium venous doppler to r/o DVT TSH 1.14, mag 1.8, A1C 4.7 Symptomatic acute iron deficiency anemia Epigastric discomfort no hematemesis, no melena, no dark-colored stools s/p 3 units PRBC iron studies consistent with iron deficiency anemia, question poor absorption, stool guaiac negative. PPI BID upper endoscopy and colonoscopy today History of hypertension stated that she has not seen a PCP in over 8 years continue Norvasc 10 mg Hemorrhoidal pain Hydrocortisone suppository as needed Constipation +bm today continue MiraLax and Colace b.i.d. History of anxiety depression recently started on hydroxyzine, continue home medication. Obesity. BMI 36.3 Discussed importance of weight management as this may be contributing to worsening of other comorbidities DVT prophylaxis compression boots due to anemia. Attending Dr. Mendoza Code status full code. In my clinical judgment patient need to continued inpatient hospitalization for management and treatment of symptomatic anemia requiring blood transfusion and close hematocrit monitoring and expert consultation. Quality Stroke Does the patient have a stroke diagnosis?: No VTE Prior VTE?: No VTE Risk Level:: Medical - moderate - high VTE Device Contraindication: N/A - Device Ordered VTE Drug Contraindication: Treatment Not Indicated
--- NOTE | 2023-04-24 15:46 | MHC.CM.PN ---
Patient is not yet medically cleared for dc (EGD & Colonoscopy today); home is the goal and CM will continue to follow.
--- NOTE | 2023-04-24 16:03 | MHC.SHP ---
Pre-Procedural Eval Section A Date of Service: 04/24/23 The patient is an INPATIENT: Yes Changes since office visit: Yes Patient answered all questions; No Cold of Flu in the past 2 weeks, No New Medical Problems and No Changes in Medication The History & Physical has been completed within 30 days and I have reviewed it.: Yes Section B Chief Complaint: Symptomatic Anemia Allergies: Allergies Allergy/AdvReac Type Severity Reaction Status Date / Time No Known Allergies Allergy Verified 04/20/23 14:23 [No Known Allergies*] Plan Diagnosis/Plan: Unchanged I have reviewed the history and physical and performed a pertinent physical examination on my patient. No changes have occurred unless specified. Time Spent With Patient Time: Total time managing care of this patient today ____ minutes.
--- NOTE | 2023-04-24 16:06 | W.PM.OPN ---
Operative Note Operative Note Date of Service: 04/24/23 Narrative: FLEXIBLE TRANSORAL UPPER GASTROINTESTINAL ENDOSCOPY WITH BIOPSIES AND COLONOSCOPY TILL CECUM Pre-op diagnosis: Iron def anemia. GERD Post-op diagnosis: Hiatal hernia, gastritis, Gastric sleeve anatomy, diverticulosis, hemorrhoids? Endoscopist:? Megan Wise MD Anesthesia:?MAC UPPER ENDOSCOPY Consent: Indications for the procedure and potential complications of bleeding, perforation, reaction to medications and missed diagnosis were discussed with the patient and informed consent was obtained. Instrument: Olympus GIF H 190 mid size upper endoscope Monitoring: Vital signs and clinical assessment, continuous EKG monitoring, Pulse oximetry, Carbon Dioxide monitoring and blood pressure monitoring were done throughout the procedure. Procedure: The patient was placed in the left lateral decubitis position and pre-procedure medications were administered and a bite block was placed. The endoscope was inserted into the mouth and advanced under direct vision to the third part of duodenum. A careful inspection was made as the upper endoscope was withdrawn including a retroflexed examination of the proximal stomach; Findings and interventions are described below. Findings: Larynx: Normal Esophagus: GE junction at 34 cms, small hiatal hernia 34 to 36 cms. No esophagitis or Goyal's. 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 Mild gastric erythema. Biopsies were obtained. Grade 3 flap valve on retroflexed examination of the cardia. Duodenum: A 10 mm benign appearing nodule in the posterior wall of duodenal bulb - biopsied. Normal descending duodenum. Biopsies were obtained from 3rd part of the duodenum to check for celiac sprue Intervention: Biopsies as noted above COLONOSCOPY PROCEDURE NOTE Consent: Indications for the procedure and potential complications of bleeding, perforation, reaction to medications and missed diagnosis were discussed with the patient and informed consent was obtained. Instrument: Olympus PCF H 190 L variable stiffness pediatric colonoscope Monitoring: Vital signs and clinical assessment, intermittent blood pressure monitoring, continuous EKG monitoring, Pulse oximetry and Carbon Dioxide monitoring were done throughout the procedure. Colon withdrawl time was 25 minutes. Procedure: The patient was placed in the left lateral decubitis position and pre-procedure medications were administered. After a digital rectal examination of the ano-rectum, the video colonoscope was inserted into the rectum and advanced through the colon to the cecum. The colonoscope was slowly withdrawn in a retrograde panoramic fashion and the colon mucosa was carefully examined including a retroflexed view of the rectum. Findings and interventions are described below. Procedure Difficulty: Colon was long and tortuous and there was some loop formation Findings: Terminal Ileum: Not evaluated Cecum: Normal Ascending Colon: Normal Transverse Colon: Normal Descending Colon: Moderate diverticulosis Sigmoid Colon: Moderate diverticulosis Rectum: Normal Ano-rectum: Small internal hemorrhoids Colon preparation: Good to fair despite copious irrigation - there was some adherent stool throughout the colon which could not be flushed. 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 Mild gastric erythema. Biopsies were obtained. DUODENUM: A 10 mm benign appearing nodule in the posterior wall of duodenal bulb - biopsied. Normal descending duodenum. Biopsies were obtained from 3rd part of the duodenum to check for celiac sprue Colonoscopy Findings: No polyps were detected. Moderate diverticulosis seen in the left colon Small hemorrhoids on retroflexed exam. No source found for iron def anemia - likely related to sleeve gastrectomy/nutritional Colon preparation: Good to fair despite copious irrigation - there was some adherent stool throughout the colon which could not be flushed. Plan: Pt can be discharged home on Pantoprazole 40 mg twice a day and oral iron replacement. Patient has an appointment on 05/15/23 in the GI Clinic with Dorothy Guadalupe FNP-BC. Further evaluation with Barium swallow with UGI as an outpatient to evaluate gastric sleeve and persistent GERD symptoms. [place] [facility] [place] Colonoscopy interval based on path results - in 3 years due to fair prep. Above findings were reviewed with the patient and diverticulosis handout was given in the discharge area ADDENDUM: Pt had severe abdominal pain a few hours after the procedure after eating. Labs were normal. Abd CT scan showed: 1. Mild wall thickening of the distal stomach and duodenal sweep with adjacent mesenteric haziness. Findings are nonspecific but most suggestive of gastritis/duodenitis. 2. Mild to moderate colonic diverticulosis without CT evidence to suggest active diverticulitis. 3. Small to moderate amount of free pelvic fluid, nonspecific. Pt treated with IV pain medications, IV antibiotics and bowel rest for possible micro-perforation She was discharged home on 04/27/23 BIOPSIES SHOWED: A. Small bowel, biopsy: Small bowel mucosa with preserved villi and no specific change. B. Gastric antrum, biopsy: Gastric antral mucosa with moderate reactive changes and mild chronic inactive gastritis; negative for H pylori, intestinal metaplasia and dysplasia. C. Duodenal bulb, nodule, biopsy: Superficial duodenal mucosa with preserved villi and no specific change
[2023-04-24] MEDS: Omeprazole 40 MG CAPSULE.DR PO (18:08)
[2023-04-24] MEDS: Magnesium Hydrox/Alum Hydrox 30 ML ORAL.SUSP PO (20:06)
[2023-04-25 03:31] VITALS: BP 145/73; PULSE 64; RESP 18; TEMP 36.3; O2SAT 98
[2023-04-25] MEDS: Omeprazole 40 MG CAPSULE.DR PO ×2 (04:26→16:58)
[2023-04-25] MEDS: ondansetron HCL 4 MG/2 ML VIAL IVPUSH ×2 (04:37→19:43)
[2023-04-25 07:22] VITALS: BP 162/80; PULSE 80; RESP 20; TEMP 36.5; O2SAT 98
--- NOTE | 2023-04-25 07:29 | PM.DS ---
DS: Providers Provider Date of Service: 04/25/23 <Jossy James NP - Last Filed: 05/06/23 13:33> Date of admission: 04/20/23 17:45 <Jossy James NP - Last Filed: 05/06/23 13:33> Primary care physician: Raciel Hansen <Jossy James NP - Last Filed: 05/06/23 13:33> Consults: 04/20/23 17:48 Consult to Gastroenterology Routine Consulting Provider: Megan Wise Reason for consultation: symptomatic anemia Has provider been notified: No <Jossy James NP - Last Filed: 05/06/23 13:33> DS: Diagnosis Discharge Diagnosis (1) Hypertension: Status: Inactive <Jossy James NP - Last Filed: 05/06/23 13:33> (2) Anemia: Status: Inactive <Jossy James NP - Last Filed: 05/06/23 13:33> (3) Hiatal hernia: Status: Inactive <Jossy James NP - Last Filed: 05/06/23 13:33> DS: Summary Hospital Course Hospital Course: History and physical as per admitting provider. 52-year-old female patient with past medical history significant for obesity, status post bariatric surgery, history of hypertension, acid reflux, hiatal hernia presented to [facility] due to symptoms of gastric burning and nausea every morning of > 1 month duration, generalized tiredness of several days, since yesterday she noted palpitations, dizziness and blurred vision, she feels tired walking upstairs and this morning she vomited x1 bilious, felt very dizzy that prompted her to come to the emergency room, she denies chest pain, no headache, no fevers, no chills she denies hematemesis, no melena, no hematuria she has a former smoker occasionally drinks alcohol denies [id number] use of NSAIDs, recently started on new medication hydroxyzine for anxiety, in the ED noted to have a hemoglobin of 7 with low MCV, INR 1, stable electrolytes renal function and LFTs, father has history of anemia of unknown cause and receives blood transfusions, patient complained of decreased appetite, will admit patient to medical floor with a diagnosis of symptomatic anemia and transfuse 2 units of packed RBC. 52-year-old woman treated for acute GI bleed secondary to anemia. Her initial H&H on presentation was 6.0/22.8. She required 3 units of packed red blood cells with stabilization in her hemoglobin and hematocrit. During her hospitalization she had no him hematemesis, melena or dark colored stools. Iron studies were consistent with iron deficiency anemia and question of poor absorption with history of gastric sleeve. Stool guaiacs were negative. She was treated for constipation with MiraLax and Colace and also use hydrocortisone suppositories for hemorrhoidal pain and PPI b.i.d for reflux symptoms. EGD and colonoscopy on 04/24/2023 showed no polyps, hiatal hernia, gastritis, diverticulosis in the left colon, small hemorrhoids, no source for iron deficiency anemia was found, anemia likely related to sleeve gastrectomy/nutritional status. Plan is for patient to be discharged on pantoprazole 40 mg twice daily and iron replacement. Pathologies are pending and she can likely follow-up with the results at her follow-up appointment on 05/15/2023 at the GI clinic. If symptoms of acid reflux continue she may require a barium swallow with upper GI series to evaluate gastric sleeve and GERD. Follow-up for colonoscopy scheduled with GI clinic. Postprocedure patient complained of abdominal pain, CT abdomen and pelvis showed no acute abnormality due to concern for micro perforation patient treated with IV antibiotics diet was gradually advanced that patient is tolerating well electrolytes and CBC are unremarkable therefore she is being discharged home on 5 more days of Augmentin empirically. Her blood pressures were elevated during hospitalization she reported that she had not seen a doctor in more than 8 years and at some point had been on blood pressure medications. She is being discharged home on lisinopril 20 mg daily and recommend to follow-up with primary care physician . She had some complaints of left lower extremity cramping reported that had been ongoing for about 30 days mostly happening at night. Likely nocturnal cramping, venous Doppler ultrasound negative for DVT, no obvious edema or erythema to lower extremity. Discussed importance of proper nutrition, stretching. Not appear to be neuropathy as patient has no history of PVD/CAD or diabetes mellitus. If symptoms continue she can follow-up with primary care provider. Anxiety/depression. Continue hydroxyzine at home. <Jossy James NP - Last Filed: 05/06/23 13:33> Time Attestation Discharge coordination time: Greater than 30 minutes <Erick Mendoza MD - Last Filed: 04/25/23 16:05> Quality: Safe Use of Opioids Does Pt have an Active Cancer Diagnosis on the Problem List?: No <Erick Mendoza MD - Last Filed: 04/25/23 16:05> Quality: Stroke Does the patient have a stroke diagnosis?: No <Erick Mendoza MD - Last Filed: 04/25/23 16:05> Physical Exam Vital Signs: Vital Signs: Last Vital Signs Temp 97.7 F 04/25/23 07:22 Pulse 80 04/25/23 07:22 Resp 20 04/25/23 07:22 BP 162/80 H 04/25/23 07:22 Pulse Ox 98 04/25/23 07:22 O2 Del Method Room Air 04/25/23 07:22 BMI result Body Mass Index 36.3 <Jossy James NP - Last Filed: 05/06/23 13:33> Appearing in no acute distress head is normocephalic atraumatic eyes pupils are PERRLA sclera is anicteric mouth throat mucous membranes are intact and moist neck is supple no lymphadenopathy, no JVD noted lung sounds are clear to auscultation heart regular rate rhythm, clear S1, S2 positive bowel sounds, abdomen is soft, nontender neuro patient is alert x3, no focal deficits <Jossy James NP - Last Filed: 05/06/23 13:33> DS: Data Data Completed and Pending Pending studies at discharge: Pending at discharge 04/24/23 16:31 Surgical [PTH] Routine <Jossy James NP - Last Filed: 05/06/23 13:33> Labs on day of discharge: Laboratory Results - last 24 hr 04/24/23 04/24/23 06:55 15:00 Sodium 139 Potassium 3.5 Chloride 107 Carbon Dioxide 23 Anion Gap 13 BUN 8 L Creatinine 0.62 Estim Creat Clear Calc 109.5 Estimated GFR > 60 Random Glucose 83 Estimat Average Glucose 88 Hemoglobin A1c % 4.7 Calcium 9.4 D Magnesium 1.8 TSH 1.14 Blood Type O Positive Antibody Screen NEGATIVE <Jossy James NP - Last Filed: 05/06/23 13:33> Discharge Plan Discharge Anticipated Discharge Date/Time: 04/25/23 07:23 <Jossy James NP - Last Filed: 05/06/23 13:33> Patient Disposition: Home, Self-Care <Jossy James NP - Last Filed: 05/06/23 13:33> Discharge Diagnosis: Symptomatic anemia Hypertension Diverticulosis Hemorrhoids <Jossy James NP - Last Filed: 05/06/23 13:33> Symptomatic anemia Hypertension Diverticulosis Hemorrhoids <Erick Mendoza MD - Last Filed: 04/25/23 16:05> Referrals: Megan Wise MD [Physician] - None (Scheduled appointment 05/15/2023 with Dorothy Guadalupe) Raciel Hansen [Primary Care Provider] - 1 Week <Jossy James NP - Last Filed: 05/06/23 13:33> Discharge Medications: New pantoprazole 40 mg tablet,delayed release (DR/EC) 40 mg PO BID Qty: 60 0RF ferrous sulfate 324 mg (65 mg iron) Tablet,Delayed Release (Dr/Ec) 324 mg PO BIDWM Qty: 60 0RF ascorbic acid (vitamin C) 250 mg Tablet 250 mg PO BIDWM Qty: 60 0RF amoxicillin-pot clavulanate 875-125 mg tablet 1 tab PO BID Qty: 10 0RF Continued hydroxyzine HCl 25 mg tablet 25 mg PO TID PRN (Reason: anxiety) 30 Days Qty: 90 1RF solifenacin [Vesicare] 10 mg tablet 10 mg PO DAILY Qty: 30 1RF Discontinued lisinopril 20 mg tablet 20 mg PO DAILY 30 Days Qty: 30 3RF omeprazole 20 mg capsule,delayed release(DR/EC) 40 mg PO DAILY <Jossy James NP - Last Filed: 05/06/23 13:33> Discharge Orders: Discharge Order (Routine); Ordered 04/27/23 Ordered By: Melany Lennon <Jossy James NP - Last Filed: 05/06/23 13:33> Diet: Advance to usual diet <Jossy James NP - Last Filed: 05/06/23 13:33> Advance to usual diet <Erick Mendoza MD - Last Filed: 04/25/23 16:05> Activity on Discharge: As tolerated <Jossy James NP - Last Filed: 05/06/23 13:33> As tolerated <Erick Mendoza MD - Last Filed: 04/25/23 16:05> Stand Alone Forms: Patient Portal Discharge page, Work/School Release <Jossy James NP - Last Filed: 05/06/23 13:33> Care Plan Goals: You have been started on new medications: Pantoprazole 40 mg twice daily for acid reflux Iron supplement twice daily take Lisinopril 20 mg daily at a.m. for hypertension (disregard the DC order for lisinopril) Take Augmentin 1 tablet twice daily for 5 more days Check blood pressure daily and document to share with your primary care provider for monitoring and management of medication your primary care provider may adjust your medication dependent on your blood pressure readings. <Jossy James NP - Last Filed: 05/06/23 13:33> Health Concerns: Symptomatic anemia Hypertension Diverticulosis Hemorrhoids <Jossy James NP - Last Filed: 05/06/23 13:33> Plan of Treatment: Follow-up with primary care provider as needed Take all medications as prescribed Follow-up with [facility] on 05/15/2023 with Dorothy Guadalupe FNP-EBONY. <Jossy James NP - Last Filed: 05/06/23 13:33> Assessment: See discharge summary <Jossy James NP - Last Filed: 05/06/23 13:33> Discharge Date/Time: 04/27/23 15:45 <Jossy James NP - Last Filed: 05/06/23 13:33>
[2023-04-25] MEDS: amLODIPine Besylate 10 MG TABLET PO (08:28)
[2023-04-25] MEDS: lisinopriL 5 MG TABLET PO (08:28)
[2023-04-25] MEDS: 0.9 % Sodium Chloride Flush 3 ML SYRINGE IVFLUSH ×2 (08:29→17:57)
[2023-04-25] MEDS: Butalb/Acetamin/Caff 50/325/40 TABLET 1 TAB PO ×2 (08:30→16:58)
[2023-04-25 09:35] LABS: Hematocrit 33.6 % (37.0-47.0); Hemoglobin 9.8 g/dl (12.0-16.0); Mean Corpuscular HGB Conc 29.2 g/dl (31.0-35.0); Mean Corpuscular Volume 68.4 fL (80.0-98.0); Mean Platelet Volume 9.3 fL (9.4-12.3); Platelet Count 331 X10*3/uL (160-400); Red Blood Count 4.91 X10*6/uL (4.20-5.50); Red Cell Distribution Width 28.4 % (11.0-16.0)
[2023-04-25 09:47] LABS: Lactic Acid 0.9 mmol/L (0.5-2.0)
[2023-04-25 09:50] LABS: Alanine Aminotransferase 24 U/L (0-31); Albumin Level 3.9 g/dL (3.5-5.0); Alkaline Phosphatase 69 U/L (39-117); Anion Gap 11 (12-20); Aspartate Amino Transferase 33 U/L (5-31); Bilirubin Direct 0.2 mg/dL (0.0-0.5); Bilirubin Total 0.4 mg/dL (0.0-1.0); Blood Urea Nitrogen 10 mg/dL (9-16); Calcium 9.1 mg/dL (8.4-10.2); Carbon Dioxide 22 mmol/L (22-29); Chloride 108 mmol/L (96-108); Estimated Glomerular Filt Rate > 60; Glucose Random 82 mg/dL (60-115); Lipase 18 U/L (8-78); Potassium 3.5 mmol/L (3.3-5.1); Sodium 137 mmol/L (135-145); Total Protein 7.8 g/dL (6.5-8.0)
[2023-04-25] MEDS: Morphine Sulfate 2 MG/ML CARTRIDGE 1 MG IVPUSH ×2 (10:45→16:57)
[2023-04-25 11:14] VITALS: BP 152/67; PULSE 76; RESP 18; TEMP 36.4; O2SAT 97
--- NOTE | 2023-04-25 11:16 | P.PNIM_ITS ---
Subjective Subjective Date of Service: 04/25/23 Interval History: Follow-up GI bleed, epigastric pain This morning having severe epigastric pain with nausea Review of Systems All other system reviewed and negative Physical Exam 2 Vital Signs: Vital Signs: Last Vital Signs Temp 97.5 F 04/25/23 11:14 Pulse 76 04/25/23 11:14 Resp 18 04/25/23 11:14 BP 152/67 H 04/25/23 11:14 Pulse Ox 97 04/25/23 11:14 O2 Del Method Room Air 04/25/23 11:14 BMI result Body Mass Index 36.3 Appearing in no acute distress lung sounds are clear to auscultation heart regular rate rhythm, clear S1, S2 positive bowel sounds, abdomen is soft, nontender neuro patient is alert x3, no focal deficits Objective Data Active Medications Acetaminophen (Acetaminophen 325 Mg Tablet) 650 mg PO Q6H PRN PRN Reason: Pain, Mild (Pain Scale 1-3) Last Admin: 04/23/23 08:57 Dose: 650 mg Documented By: DEVIKA Acetaminophen/Butalbital/Caffeine (Butalb/Acetamin/Caff 50/325/40 Tablet) 1 tab PO Q4H PRN PRN Reason: Headache Last Admin: 04/25/23 08:30 Dose: 1 tab Documented By: MARY Al Hydroxide/Mg Hydroxide (Magnesium Hydrox/Alum Hydrox 30 Ml Oral.Susp) 30 ml PO Q6H PRN PRN Reason: dyspepsia Last Admin: 04/24/23 20:06 Dose: 30 ml Documented By: AJ Amlodipine Besylate (Amlodipine Besylate 10 Mg Tablet) 10 mg PO DAILY [facility]; Protocol Last Admin: 04/25/23 08:28 Dose: 10 mg Documented By: MARY Ascorbic Acid (Ascorbic Acid 250 Mg Tablet) 250 mg PO BIDWM [facility] Last Admin: 04/25/23 08:29 Dose: Not Given Documented By: MARY Non-Admin Reason: PT UNABLE TO TAKE Benzonatate (Benzonatate 100 Mg Capsule) 100 mg PO TID PRN PRN Reason: Cough Docusate Sodium (Docusate Sodium 100 Mg Capsule) 100 mg PO DAILY PRN PRN Reason: Constipation Ferrous Sulfate (Ferrous Sulfate 324 Mg Tablet.Dr) 324 mg PO BIDWM [facility] Last Admin: 04/25/23 08:36 Dose: Not Given Documented By: MARY Non-Admin Reason: PT UNABLE TO TAKE Hydrocortisone (Hydrocortisone 2.5 % Rectal Cr 30 Gm Tube) 1 appl [place] DAILY PRN PRN Reason: Hemorrhoidal pain Last Admin: 04/23/23 09:08 Dose: 1 appl Documented By: DEVIKA Hydroxyzine HCl (Hydroxyzine Hcl 25 Mg Tablet) 25 mg PO TID PRN PRN Reason: anxiety Last Admin: 04/23/23 23:57 Dose: 25 mg Documented By: AJ Piperacillin Sod/Tazobactam (Sod 3.375 gm/ Sodium Chloride) 50 mls @ 100 mls/hr IV Q6H [facility] Lisinopril (Lisinopril 5 Mg Tablet) 5 mg PO DAILY [facility]; Protocol Last Admin: 04/25/23 08:28 Dose: 5 mg Documented By: MARY Melatonin (Melatonin 3 Mg Tablet) 6 mg PO BEDTIME PRN PRN Reason: Insomnia Last Admin: 04/23/23 23:57 Dose: 6 mg Documented By: AJ Morphine Sulfate (Morphine Sulfate 2 Mg/Ml Cartridge) 1 mg IVPUSH Q4H PRN; Protocol PRN Reason: Pain, Severe (Pain Scale 7-10) Last Admin: 04/25/23 10:45 Dose: 1 mg Documented By: MARY Omeprazole (Omeprazole 40 Mg Capsule.Dr) 40 mg PO BID@0630,1630 [facility] Last Admin: 04/25/23 04:26 Dose: 40 mg Documented By: AJ Ondansetron HCl (Ondansetron Hcl 4 Mg/2 Ml Vial) 4 mg IVPUSH Q8H PRN PRN Reason: Nausea and Vomiting Last Admin: 04/25/23 04:37 Dose: 4 mg Documented By: AJ Polyethylene Glycol (Polyethylene Glycol 3350 17 Gm Powd.Pack) 17 gm PO BID PRN PRN Reason: constipation Sodium Chloride (0.9 % Sodium Chloride Flush 3 Ml Syringe) 3 ml IVFLUSH QSHIFT [facility] Last Admin: 04/25/23 08:29 Dose: 3 ml Documented By: MARY Labs 04/25/23 08:50 04/25/23 08:50 Labs: Laboratory Results - last 24 hr 04/24/23 04/25/23 15:00 08:50 MCV 68.4 L MCH 20.0 L MCHC 29.2 L RDW 28.4 H Plt Count 331 MPV 9.3 L Absolute Nucleated RBC 0.000 Nucleated RBC % (auto) 0.0 Anion Gap 11 L Estim Creat Clear Calc 115.0 Estimated GFR > 60 Random Glucose 82 Lactic Acid 0.9 Calcium 9.1 Total Bilirubin 0.4 Direct Bilirubin 0.2 AST 33 H ALT 24 Alkaline Phosphatase 69 Total Protein 7.8 Albumin 3.9 Lipase 18 Blood Type O Positive Antibody Screen NEGATIVE Assessment and Plan (1) Hypertension: Status: Acute (2) Anemia: Status: Acute (3) Hiatal hernia: Status: Acute Plan 52-year-old female patient with past medical history significant for acid reflux, hiatal hernia, hypertension, obesity, bariatric surgery presented to [facility] due to symptoms of gastric burning and nausea every month for greater than 1 month, feeling tired for several days,noted to have palpitation, dizziness and blurred vision since yesterday and today patient felt very dizzy and vomited x1 nonbloody that prompted her to come to the hospital patient noted to have hemoglobin of 7 being admitted to [facility] with a diagnosis of symptomatic anemia. Severe epigastric pain with nausea, no vomiting started after dinner after EGD yesterday abd ct today with no acute abnormalities normal lactic, lipase, LFT discussed with GI> possibly microperf, start [id number]-zosyn and keep NPO for now, advance diet as tolerated continue PPI Left lower extremity cramping nocturnal leg cramping, started about one month ago with some bruising, may correlate with anemia good pedal pulses, reflexes and strength no obvious injury or trauma noted no hx of PVD/PAD, diabetes, normal potassium venous doppler to r/o DVT TSH 1.14, mag 1.8, A1C 4.7 Symptomatic acute iron deficiency anemia Resolved no hematemesis, no melena, no dark-colored stools s/p 3 units PRBC iron studies consistent with iron deficiency anemia, question poor absorption, stool guaiac negative. PPI BID s/p upper endoscopy and colonoscopy showing no polyps, hiatal hemorrhoid, moderate diverticulosis in the left colon, small hemorrhoids, no source for iron deficiency anemia likely related to sleeve gastrectomy/nutritional status. History of hypertension stated that she has not seen a PCP in over 8 years continue Norvasc 10 mg Hemorrhoidal pain Hydrocortisone suppository as needed Constipation. Resolved +bm today continue MiraLax and Colace as needed History of anxiety/depression recently started on hydroxyzine, continue home medication. Obesity. BMI 36.3 Discussed importance of weight management as this may be contributing to worsening of other comorbidities DVT prophylaxis compression boots due to anemia. Attending Dr. Mendoza Code status full code. DISPO plan for dc home when medically clear In my clinical judgment patient need to continued inpatient hospitalization for management and treatment of symptomatic anemia requiring blood transfusion and close hematocrit monitoring and expert consultation. Quality Stroke Does the patient have a stroke diagnosis?: No VTE Prior VTE?: No VTE Risk Level:: Medical - moderate - high VTE Device Contraindication: N/A - Device Ordered VTE Drug Contraindication: Treatment Not Indicated
[2023-04-25] MEDS: Piperacillin Sodium/Tazobactam 3.375 GM in 0.9 % Sodium Chloride 50 ML IV ×3 (12:24→22:49)
--- NOTE | 2023-04-25 14:37 | HO.POSTANES ---
Post Anesthesia Evaluation Post Anesthesia Evaluation Date of Service: 04/25/23 Vital Signs: Vital Signs Temp Pulse Resp BP Pulse Ox O2 Del Method 04/25/23 11:14 97.5 F 76 18 152/67 H 97 Room Air 04/25/23 07:22 97.7 F 80 20 162/80 H 98 Room Air 04/25/23 03:31 97.3 F 64 18 145/73 H 98 Room Air Anesthesia: Monitored Mental Status: Awake Pain Control: Satisfactory Nausea/Vomiting: None Hydration: Adequate Anesthesia-Related Issues: No Anes. Related Issues
[2023-04-25 15:11] VITALS: BP 114/59; PULSE 68; RESP 20; TEMP 36.1; O2SAT 98
[2023-04-25] MEDS: Ferrous Sulfate 324 MG TABLET.DR PO (16:58)
[2023-04-25] MEDS: Ascorbic Acid 250 MG TABLET PO (16:58)
[2023-04-25 19:34] VITALS: BP 137/62; PULSE 66; RESP 18; TEMP 37.1; O2SAT 97
[2023-04-25] MEDS: Melatonin 3 MG TABLET 6 MG PO (22:48)
[2023-04-25 23:40] VITALS: BP 159/72; PULSE 57; RESP 20; TEMP 36.1; O2SAT 98
[2023-04-26] MEDS: ondansetron HCL 4 MG/2 ML VIAL IVPUSH ×2 (00:11→08:08)
[2023-04-26] MEDS: 0.9 % Sodium Chloride Flush 3 ML SYRINGE IVFLUSH ×3 (00:12→15:03)
[2023-04-26 03:39] VITALS: BP 137/65; PULSE 63; RESP 20; TEMP 36.1; O2SAT 98
[2023-04-26] MEDS: Piperacillin Sodium/Tazobactam 3.375 GM in 0.9 % Sodium Chloride 50 ML IV ×4 (04:55→22:19)
[2023-04-26] MEDS: Omeprazole 40 MG CAPSULE.DR PO ×2 (05:57→15:03)
[2023-04-26 07:12] VITALS: BP 148/70; PULSE 64; RESP 18; TEMP 37; O2SAT 97
[2023-04-26] MEDS: Ferrous Sulfate 324 MG TABLET.DR PO ×2 (08:08→15:03)
[2023-04-26] MEDS: Ascorbic Acid 250 MG TABLET PO ×2 (08:08→15:03)
[2023-04-26] MEDS: amLODIPine Besylate 10 MG TABLET PO (08:08)
[2023-04-26] MEDS: lisinopriL 5 MG TABLET PO (08:08)
[2023-04-26] MEDS: Morphine Sulfate 2 MG/ML CARTRIDGE 1 MG IVPUSH ×2 (08:08→22:19)
--- NOTE | 2023-04-26 10:21 | MHC.CM.PN ---
Per ROUNDS discussion, diet advance today is the goal and Patient may be ready for dc. Home is the goal and CM will continue to follow.
[2023-04-26 11:20] VITALS: BP 142/64; PULSE 60; RESP 18; TEMP 36.2; O2SAT 98
[2023-04-26] MEDS: Sucralfate Oral Suspension 1 GM/10 ML ORAL.SUSP PO (11:54)
--- NOTE | 2023-04-26 14:27 | P.PNIM_ITS ---
Subjective Subjective Date of Service: 04/26/23 Interval History: Being followed for epigastric pain, feeling better this morning is still complaining of epigastric discomfort, NPO, denies nausea vomiting, no fevers, no chills, no headache, no dizziness, no acute issues overnight, stable vitals. Review of Systems All other system reviewed and negative. Physical Exam 2 Vital Signs: Vital Signs: Last Vital Signs Temp 97.1 F 04/26/23 11:20 Pulse 60 04/26/23 11:20 Resp 18 04/26/23 11:20 BP 142/64 H 04/26/23 11:20 Pulse Ox 98 04/26/23 11:20 O2 Del Method Room Air 04/26/23 11:20 BMI result Body Mass Index 36.3 Const: Other: General awake alert x3,resting comfortably in no acute distress. Anicteric sclera Neck supple no JVD. CVS regular rate rhythm, Respiratory lungs clear to auscultation, no respiratory distress, no wheeze, no rhonchi. Gastrointestinal abdomen soft, no epigastric tenderness, bowel sounds audible, no guarding , no rigidity. Extremities no edema. Neuro non focal Skin no rash Psych appropriate affect Objective Data Active Medications Acetaminophen (Acetaminophen 325 Mg Tablet) 650 mg PO Q6H PRN PRN Reason: Pain, Mild (Pain Scale 1-3) Last Admin: 04/23/23 08:57 Dose: 650 mg Documented By: DEVIKA Acetaminophen/Butalbital/Caffeine (Butalb/Acetamin/Caff 50/325/40 Tablet) 1 tab PO Q4H PRN PRN Reason: Headache Last Admin: 04/25/23 16:58 Dose: 1 tab Documented By: JIM Al Hydroxide/Mg Hydroxide (Magnesium Hydrox/Alum Hydrox 30 Ml Oral.Susp) 30 ml PO Q6H PRN PRN Reason: dyspepsia Last Admin: 04/24/23 20:06 Dose: 30 ml Documented By: AJ Amlodipine Besylate (Amlodipine Besylate 10 Mg Tablet) 10 mg PO DAILY [facility]; Protocol Last Admin: 04/26/23 08:08 Dose: 10 mg Documented By: MARY Ascorbic Acid (Ascorbic Acid 250 Mg Tablet) 250 mg PO BIDWM [facility] Last Admin: 04/26/23 08:08 Dose: 250 mg Documented By: MARY Benzonatate (Benzonatate 100 Mg Capsule) 100 mg PO TID PRN PRN Reason: Cough Docusate Sodium (Docusate Sodium 100 Mg Capsule) 100 mg PO DAILY PRN PRN Reason: Constipation Ferrous Sulfate (Ferrous Sulfate 324 Mg Tablet.) 324 mg PO BIDWM [facility] Last Admin: 04/26/23 08:08 Dose: 324 mg Documented By: MARY Hydrocortisone (Hydrocortisone 2.5 % Rectal Cr 30 Gm Tube) 1 appl [place] DAILY PRN PRN Reason: Hemorrhoidal pain Last Admin: 04/23/23 09:08 Dose: 1 appl Documented By: DEVIKA Hydroxyzine HCl (Hydroxyzine Hcl 25 Mg Tablet) 25 mg PO TID PRN PRN Reason: anxiety Last Admin: 04/23/23 23:57 Dose: 25 mg Documented By: AJ Piperacillin Sod/Tazobactam (Sod 3.375 gm/ Sodium Chloride) 50 mls @ 100 mls/hr IV Q6H [facility] Last Infusion: 04/26/23 09:19 Dose: Infused Documented By: MARY Lisinopril (Lisinopril 5 Mg Tablet) 5 mg PO DAILY [facility]; Protocol Last Admin: 04/26/23 08:08 Dose: 5 mg Documented By: MARY Melatonin (Melatonin 3 Mg Tablet) 6 mg PO BEDTIME PRN PRN Reason: Insomnia Last Admin: 04/25/23 22:48 Dose: 6 mg Documented By: JIM Morphine Sulfate (Morphine Sulfate 2 Mg/Ml Cartridge) 1 mg IVPUSH Q4H PRN; Protocol PRN Reason: Pain, Severe (Pain Scale 7-10) Last Admin: 04/26/23 08:08 Dose: 1 mg Documented By: MARY Omeprazole (Omeprazole 40 Mg Capsule.) 40 mg PO BID@0630,1630 [facility] Last Admin: 04/26/23 05:57 Dose: 40 mg Documented By: NATHAN Ondansetron HCl (Ondansetron Hcl 4 Mg/2 Ml Vial) 4 mg IVPUSH Q8H PRN PRN Reason: Nausea and Vomiting Last Admin: 04/26/23 08:08 Dose: 4 mg Documented By: MARY Polyethylene Glycol (Polyethylene Glycol 3350 17 Gm Powd.Pack) 17 gm PO BID PRN PRN Reason: constipation Sodium Chloride (0.9 % Sodium Chloride Flush 3 Ml Syringe) 3 ml IVFLUSH QSHIFT [facility] Last Admin: 04/26/23 08:08 Dose: 3 ml Documented By: MARY Labs 04/25/23 08:50 04/25/23 08:50 Assessment and Plan (1) Hypertension: Status: Acute (2) Anemia: Status: Acute (3) Hiatal hernia: Status: Acute Plan 52-year-old female patient with past medical history significant for acid reflux, hiatal hernia, hypertension, obesity, bariatric surgery presented to [facility] due to symptoms of gastric burning and nausea every month for greater than 1 month, feeling tired for several days,noted to have palpitation, dizziness and blurred vision since yesterday and today patient felt very dizzy and vomited x1 nonbloody that prompted her to come to the hospital patient noted to have hemoglobin of 7 being admitted to [facility] with a diagnosis of symptomatic anemia. Severe epigastric pain with nausea, no vomiting started after dinner after EGD , but had pain even prior to EGD abd ct showed no acute abnormalities, normal lactic, lipase, LFT Patient is NPO on IV Zosyn day 2 for possible microperforation , examination is benign will place on clear liquid diet and advance as tolerated continue PPI , add Carafate Left lower extremity cramping No complaints this morning nocturnal leg cramping, started about one month ago with some bruising, may correlate with anemia good pedal pulses, reflexes and strength no obvious injury or trauma noted no hx of PVD/PAD, diabetes, normal potassium venous doppler neg for DVT TSH 1.14, mag 1.8, A1C 4.7 Likely musculoskeletal Tylenol as needed Symptomatic acute iron deficiency anemia Resolved no hematemesis, no melena, no dark-colored stools s/p 3 units PRBC iron studies consistent with iron deficiency anemia, question poor absorption, stool guaiac negative. PPI BID s/p upper endoscopy and colonoscopy showing no polyps, hiatal hemorrhoid, moderate diverticulosis in the left colon, small hemorrhoids, no source for iron deficiency anemia likely related to sleeve gastrectomy/nutritional status. Continue iron supplements. History of hypertension stated that she has not seen a PCP in over 8 years continue Norvasc 10 mg and lisinopril Hemorrhoidal pain Hydrocortisone suppository as needed Constipation. Resolved continue MiraLax and Colace as needed History of anxiety/depression recently started on hydroxyzine, continue home medication. Obesity. BMI 36.3 Discussed importance of weight management as this may be contributing to worsening of other comorbidities DVT prophylaxis compression boots due to anemia. Code status full code. DISPO plan for dc home when medically clear In my clinical judgment patient need to continued inpatient hospitalization for management and treatment of symptomatic anemia and epigastric discomfort, started back on clear liquid diet today, will monitor for tolerance of by mouth intake. Quality Stroke Does the patient have a stroke diagnosis?: No VTE Prior VTE?: No VTE Risk Level:: Medical - moderate - high VTE Device Contraindication: N/A - Device Ordered VTE Drug Contraindication: Treatment Not Indicated
[2023-04-26 15:14] VITALS: BP 135/64; PULSE 75; RESP 18; TEMP 36.2; O2SAT 99
[2023-04-26 19:36] VITALS: BP 148/66; PULSE 77; RESP 20; TEMP 36.2; O2SAT 98
[2023-04-26] MEDS: Melatonin 3 MG TABLET 6 MG PO (22:18)
[2023-04-26 22:52] VITALS: BP 134/60; PULSE 65; RESP 20; TEMP 36.5; O2SAT 99
[2023-04-27] MEDS: 0.9 % Sodium Chloride Flush 3 ML SYRINGE IVFLUSH ×2 (00:51→08:17)
[2023-04-27 03:05] VITALS: BP 136/62; PULSE 55; RESP 20; TEMP 36.1; O2SAT 97
[2023-04-27] MEDS: Piperacillin Sodium/Tazobactam 3.375 GM in 0.9 % Sodium Chloride 50 ML IV ×2 (05:26→12:21)
[2023-04-27] MEDS: Omeprazole 40 MG CAPSULE.DR PO (05:29)
[2023-04-27 07:56] VITALS: BP 169/74; PULSE 66; RESP 20; TEMP 36.8; O2SAT 97
[2023-04-27] MEDS: lisinopriL 5 MG TABLET PO (08:15)
[2023-04-27] MEDS: Ferrous Sulfate 324 MG TABLET.DR PO (08:15)
[2023-04-27] MEDS: Ascorbic Acid 250 MG TABLET PO (08:15)
[2023-04-27] MEDS: amLODIPine Besylate 10 MG TABLET PO (08:15)
--- NOTE | 2023-04-27 10:26 | MHC.CM.PN ---
Per ROUNDS discussion, Patient is medically cleared for dc to home today, self care.
[2023-04-27 11:57] VITALS: BP 142/67; PULSE 66; RESP 20; TEMP 36.1; O2SAT 99
[2023-04-27 14:10] LABS: Hematocrit 32.4 % (37.0-47.0); Hemoglobin 9.4 g/dl (12.0-16.0); Mean Corpuscular Hemoglobin 20.2 pg (27.0-33.0); Mean Corpuscular Volume 69.7 fL (80.0-98.0); Mean Platelet Volume 9.3 fL (9.4-12.3); Platelet Count 346 X10*3/uL (160-400); Red Blood Count 4.65 X10*6/uL (4.20-5.50); Red Cell Distribution Width 28.5 % (11.0-16.0); White Blood Count 5.6 X10*3/uL (4.8-10.8)
[2023-04-27 14:20] LABS: Anion Gap 12 (12-20); Blood Urea Nitrogen 14 mg/dL (9-16); Calcium 9.7 mg/dL (8.4-10.2); Carbon Dioxide 22 mmol/L (22-29); Chloride 109 mmol/L (96-108); Creatinine Clr Calc Pharmacy 107.7; Estimated Glomerular Filt Rate > 60; Glucose Random 110 mg/dL (60-115); Potassium 4.2 mmol/L (3.3-5.1); Sodium 139 mmol/L (135-145)
--- NOTE | 2023-04-27 15:01 | P.DS_ITS ---
DS: Providers Provider Date of Service: 04/27/23 Date of admission: 04/20/23 17:45 Primary care physician: Raciel Hansen Consults: 04/20/23 17:48 Consult to Gastroenterology Routine Consulting Provider: Megan Wise Reason for consultation: symptomatic anemia Has provider been notified: No DS: Diagnosis Discharge Diagnosis (1) Hypertension: Status: Acute (2) Anemia: Status: Acute (3) Hiatal hernia: Status: Acute DS: Summary Hospital Course Hospital Course: History and physical as per admitting provider. 52-year-old female patient with past medical history significant for obesity, status post bariatric surgery, history of hypertension, acid reflux, hiatal hernia presented to [facility] due to symptoms of gastric burning and nausea every morning of > 1 month duration, generalized tiredness of several days, since yesterday she noted palpitations, dizziness and blurred vision, she feels tired walking upstairs and this morning she vomited x1 bilious, felt very dizzy that prompted her to come to the emergency room, she denies chest pain, no headache, no fevers, no chills she denies hematemesis, no melena, no hematuria she has a former smoker occasionally drinks alcohol denies [id number] use of NSAIDs, recently started on new medication hydroxyzine for anxiety, in the ED noted to have a hemoglobin of 7 with low MCV, INR 1, stable electrolytes renal function and LFTs, father has history of anemia of unknown cause and receives blood transfusions, patient complained of decreased appetite, will admit patient to medical floor with a diagnosis of symptomatic anemia and transfuse 2 units of packed RBC. 52-year-old woman treated for acute GI bleed secondary to anemia. Her initial H &H on presentation was 6.0/22.8. She required 3 units of packed red blood cells with stabilization in her hemoglobin and hematocrit. During her hospitalization she had no him hematemesis, melena or dark colored stools. Iron studies were consistent with iron deficiency anemia and question of poor absorption with history of gastric sleeve. Stool guaiacs were negative. She was treated for constipation with MiraLax and Colace and also use hydrocortisone suppositories for hemorrhoidal pain and PPI b.i.d for reflux symptoms. EGD and colonoscopy on 04/24/2023 showed no polyps, hiatal hernia, gastritis, diverticulosis in the left colon, small hemorrhoids, no source for iron deficiency anemia was found, anemia likely related to sleeve gastrectomy/nutritional status. Plan is for patient to be discharged on pantoprazole 40 mg twice daily and iron replacement. Pathologies are pending and she can likely follow-up with the results at her follow-up appointment on 05/15/2023 at the GI clinic. If symptoms of acid reflux continue she may require a barium swallow with upper GI series to evaluate gastric sleeve and GERD. Follow-up for colonoscopy scheduled with GI clinic. Postprocedure patient complained of abdominal pain, CT abdomen and pelvis showed no acute abnormality due to concern for micro perforation patient treated with IV antibiotics diet was gradually advanced that patient is tolerating well electrolytes and CBC are unremarkable therefore she is being discharged home on 5 more days of Augmentin empirically. Her blood pressures were elevated during hospitalization she reported that she had not seen a doctor in more than 8 years and at some point had been on blood pressure medications. She is being discharged home on lisinopril 20 mg daily and recommend to follow-up with primary care physician . She had some complaints of left lower extremity cramping reported that had been ongoing for about 30 days mostly happening at night. Likely nocturnal cramping, venous Doppler ultrasound negative for DVT, no obvious edema or erythema to lower extremity. Discussed importance of proper nutrition, stretching. Not appear to be neuropathy as patient has no history of PVD/CAD or diabetes mellitus. If symptoms continue she can follow-up with primary care provider. Anxiety/depression. Continue hydroxyzine at home. Time Attestation Discharge coordination time: Greater than 30 minutes Quality: Safe Use of Opioids Does Pt have an Active Cancer Diagnosis on the Problem List?: No Quality: Stroke Does the patient have a stroke diagnosis?: No Physical Exam Vital Signs: Vital Signs: Last Vital Signs Temp 97.0 F 04/27/23 11:57 Pulse 66 04/27/23 11:57 Resp 20 04/27/23 11:57 BP 142/67 H 04/27/23 11:57 Pulse Ox 99 04/27/23 11:57 O2 Del Method Room Air 04/27/23 11:57 BMI result Body Mass Index 36.3 Const: Other: General awake alert x3,resting comfortably in no acute distress. Anicteric sclera Neck supple no JVD. CVS regular rate rhythm, Respiratory lungs clear to auscultation, no respiratory distress, no wheeze, no rhonchi. Gastrointestinal abdomen soft, no epigastric tenderness, bowel sounds audible, no guarding , no rigidity. Extremities no edema. Neuro non focal Skin no rash Psych appropriate affect DS: Data Data Completed and Pending Completed studies during hospitalization [Text1]: Pending at discharge 04/24/23 16:36 Surgical [PTH] Routine Labs on day of discharge: Laboratory Results - last 24 hr 04/27/23 13:57 WBC 5.6 RBC 4.65 Hgb 9.4 L Hct 32.4 L MCV 69.7 L MCH 20.2 L MCHC 29.0 L RDW 28.5 H Plt Count 346 MPV 9.3 L Absolute Nucleated RBC 0.000 Nucleated RBC % (auto) 0.0 Sodium 139 Potassium 4.2 Chloride 109 H Carbon Dioxide 22 Anion Gap 12 BUN 14 Creatinine 0.63 Estim Creat Clear Calc 107.7 Estimated GFR > 60 Random Glucose 110 Calcium 9.7 D Discharge Plan Discharge Anticipated Discharge Date/Time: 04/25/23 07:23 Patient Disposition: Home, Self-Care Discharge Diagnosis: Symptomatic anemia Hypertension Diverticulosis Hemorrhoids Referrals: Megan Wise MD [Physician] - None (Scheduled appointment 05/15/2023 with Dorothy Guadalupe) Raciel Hansen [Primary Care Provider] - 1 Week Discharge Medications: New pantoprazole 40 mg tablet,delayed release (DR/EC) 40 mg PO BID Qty: 60 0RF ferrous sulfate 324 mg (65 mg iron) Tablet,Delayed Release (Dr/Ec) 324 mg PO BIDWM Qty: 60 0RF ascorbic acid (vitamin C) 250 mg Tablet 250 mg PO BIDWM Qty: 60 0RF amoxicillin-pot clavulanate 875-125 mg tablet 1 tab PO BID Qty: 10 0RF Continued hydroxyzine HCl 25 mg tablet 25 mg PO TID PRN (Reason: anxiety) 30 Days Qty: 90 1RF solifenacin [Vesicare] 10 mg tablet 10 mg PO DAILY Qty: 30 1RF Discontinued lisinopril 20 mg tablet 20 mg PO DAILY 30 Days Qty: 30 3RF omeprazole 20 mg capsule,delayed release(DR/EC) 40 mg PO DAILY Discharge Orders: Discharge Order (Routine); Ordered 04/27/23 Ordered By: Melany Lennon Diet: Advance to usual diet Activity on Discharge: As tolerated Stand Alone Forms: Patient Portal Discharge page Care Plan Goals: You have been started on new medications: Pantoprazole 40 mg twice daily for acid reflux Iron supplement twice daily take Lisinopril 20 mg daily at a.m. for hypertension (disregard the DC order for lisinopril) Take Augmentin 1 tablet twice daily for 5 more days Check blood pressure daily and document to share with your primary care provider for monitoring and management of medication your primary care provider may adjust your medication dependent on your blood pressure readings. Health Concerns: Symptomatic anemia Hypertension Diverticulosis Hemorrhoids Plan of Treatment: Follow-up with primary care provider as needed Take all medications as prescribed Follow-up with professional services specialist on 05/15/2023 with Dorothy Guadalupe, [facility]. Assessment: See discharge summary
[2023-04-27 15:14] VITALS: BP 151/71; PULSE 65; RESP 18; TEMP 37; O2SAT 96
== END 2023-04-27 15:45 | disposition home or self-care (01) | DRG 663 ==
LOC: HO.ED 17:22 → HO.EDOVER 18:10 → HO.IMC 20:31
PROVIDERS: Internal Medicine Gastroenterology; Nurse Practitioner Acute Care; Physician Assistant; Admitting Provider Hospitalist; Emergency Provider Emergency Medicine; Visit Provider Hospitalist
PROC: 0DB98ZX Excision of Duodenum, Via Natural or Artificial Opening Endoscopic, Diagnostic (ICD-10-PCS; principal; 2023-04-24 15:20)
DX: D50.9 Iron deficiency anemia, unspecified (principal); K91.2 Postsurgical malabsorption, not elsewhere classified; I10 Essential (primary) hypertension; F32.A Depression, unspecified; F41.9 Anxiety disorder, unspecified; K29.50 Unspecified chronic gastritis without bleeding; K44.9 Diaphragmatic hernia without obstruction or gangrene; K57.30 Diverticulosis of large intestine without perforation or abscess without bleeding; K59.00 Constipation, unspecified; K64.9 Unspecified hemorrhoids; E66.9 Obesity, unspecified; Z68.36 Body mass index [BMI] 36.0-36.9, adult; Z20.822 Contact with and (suspected) exposure to COVID-19; Z98.84 Bariatric surgery status; Z79.899 Other long term (current) drug therapy
CPT/HCPCS: 36415; 70450; 74176; 80048; 80053; 80076; 81001; 82272; 82728; 83036; 83540; 83605; 83690; 83735; 84443; 84484; 85025; 85027; 85610; 86850; 86900; 86901; 86923; 87502; 87635; 88305; 88342; 90686; 93005; 93971; 99285; C9113; J1920; J2270; J2371; J2405; J2543; J2704; J3010; P9016

== ENCOUNTER → 2023-04-20 14:24 | Outpatient (BNV) | payer BC, SELFPAY | PROVIDERS: Emergency Provider Emergency Medicine; Visit Provider Internal Medicine | DX: I10 Essential (primary) hypertension (principal) | CPT/HCPCS: 93010 ==

== ENCOUNTER → 2023-04-20 17:45 | Outpatient (BNV) | payer BC, SELFPAY | PROVIDERS: Admitting Provider Hospitalist; Emergency Provider Emergency Medicine; Visit Provider Internal Medicine Gastroenterology | DX: D50.9 Iron deficiency anemia, unspecified (principal); K21.9 Gastro-esophageal reflux disease without esophagitis; K29.70 Gastritis, unspecified, without bleeding; K31.7 Polyp of stomach and duodenum; K57.90 Diverticulosis of intestine, part unspecified, without perforation or abscess without bleeding; K64.8 Other hemorrhoids | CPT/HCPCS: 43239; 45378; 99222 ==

== ENCOUNTER → 2023-04-20 17:45 | Outpatient (BNV) | payer BC, SELFPAY | PROVIDERS: Admitting Provider Hospitalist; Emergency Provider Emergency Medicine; Visit Provider Hospitalist | DX: I10 Essential (primary) hypertension (principal); D64.9 Anemia, unspecified; K44.9 Diaphragmatic hernia without obstruction or gangrene; Z98.84 Bariatric surgery status | CPT/HCPCS: 99223; 99232; 99233; 99239 ==

== ENCOUNTER 2023-05-15 15:09 | Outpatient (AMB) | payer BC, SELFPAY ==
--- NOTE | 2023-05-15 15:15 | MHC.OFFVIS ---
Intake Vital Signs 05/15/23 15:17 Height 5 ft 2 in Weight 183 lb BMI 33.5 BP 176/77 H Blood Pressure Location Lt brachial Position Sitting Pulse 73 Intake Visit Reasons: Gastroesophageal reflux disease (GERD) Intake Note: Patient new consult for GERD. Patient cc: Nauseas, abdominal pain with bloating, heartburn with burning sensation, and constipation due the Iron and some blood. 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 MCCOY 04/21/2023 HPI HPI Reason for consult: symptomatic anemia 52 YF with obesity, status post bariatric surgery (Gastric sleeve), history of hypertension, acid reflux, hiatal hernia seen at [facility] ED on 04/20/23 with symptoms of epigastric burning and nausea for the past several weeks. Pt complains of severe heartburn and has been taking OTC Omeprazole upto three times a day with partial relief of her symptoms. Pt complains of fatigue and noted palpitations, dizziness and blurred vision on 04/19/23. Pt reported feeling tired when climbing stairs and had an episode of bilious vomiting yesterday followed by dizziness. Pt complains of constipation and denies melena or hematochezia. Pt denied chest pain, headache, fevers, chills, hematemesis, melena or hematuria. Pt admits to having regular periods and denies menorrhagia. PT admits to occasional ETOH use and is a former smoker. Patient denies cardiac or pulmonary problems, loud snoring or sleep apnea. She denies having an upper endoscopy or colonoscopy in the past and has not seen an MD in the past 10 years. She use of NSAIDS or aspirin In the ED noted to have a hemoglobin of 7 with low MCV, INR 1, stable electrolytes renal function and LFTs, Patient was admitted and transfused 2 units of packed RBCs. Patient denies known family history of colon polyps or colon cancer. Her dad has prostate problems and has been getting blood transfusions for recurrent anemia of unclear etiology RECOMMENDATIONS RECOMMENDATIONS: 1. Agree with IV PPI and antiemetics. 2. Monitor CBC daily. 3. Patient is scheduled for an upper endoscopy and colonoscopy on 04/24/23 for evaluation of anemia. Please start her on a clear liquid diet on 04/23/23 and give Golytely prep on 04/23/23 starting at 2 pm COLONOSCOPY AND UPPER ENDOSCOPY Findings: Larynx: Normal Esophagus: GE junction at 34 cms, small hiatal hernia 34 to 36 cms. No esophagitis or Goyal's. 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 Mild gastric erythema. Biopsies were obtained. Grade 3 flap valve on retroflexed examination of the cardia. Duodenum: A 10 mm benign appearing nodule in the posterior wall of duodenal bulb - biopsied. Normal descending duodenum. Biopsies were obtained from 3rd part of the duodenum to check for celiac sprue Intervention: Biopsies as noted above Procedure Difficulty: Colon was long and tortuous and there was some loop formation Findings: Terminal Ileum: Not evaluated Cecum: Normal Ascending Colon: Normal Transverse Colon: Normal Descending Colon: Moderate diverticulosis Sigmoid Colon: Moderate diverticulosis Rectum: Normal Ano-rectum: Small internal hemorrhoids Colon preparation: Good to fair despite copious irrigation - there was some adherent stool throughout the colon which could not be flushed. 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 Mild gastric erythema. Biopsies were obtained. DUODENUM: A 10 mm benign appearing nodule in the posterior wall of duodenal bulb - biopsied. Normal descending duodenum. Biopsies were obtained from 3rd part of the duodenum to check for celiac sprue Colonoscopy Findings: No polyps were detected. Moderate diverticulosis seen in the left colon Small hemorrhoids on retroflexed exam. No source found for iron def anemia - likely related to sleeve gastrectomy/nutritional Colon preparation: Good to fair despite copious irrigation - there was some adherent stool throughout the colon which could not be flushed. Plan: Pt can be discharged home on Pantoprazole 40 mg twice a day and oral iron replacement. Patient has an appointment on 05/15/23 in the GI Clinic with Dorothy Guadalupe FNP-BC. Further evaluation with Barium swallow with UGI as an outpatient to evaluate gastric sleeve and persistent GERD symptoms. FU with bariatric surgery at [facility]. Repeat Colonoscopy interval based on path results - in 3 years due to fair prep. Above findings were reviewed with the patient and diverticulosis handout was given in the discharge area ADDENDUM: Pt had severe abdominal pain a few hours after the procedure after eating. Labs were normal. Abd CT scan showed: 1. Mild wall thickening of the distal stomach and duodenal sweep with adjacent mesenteric haziness. Findings are nonspecific but most suggestive of gastritis/duodenitis. 2. Mild to moderate colonic diverticulosis without CT evidence to suggest active diverticulitis. 3. Small to moderate amount of free pelvic fluid, nonspecific. Pt treated with IV pain medications, IV antibiotics and bowel rest for possible micro-perforation She was discharged home on 04/27/23 BIOPSIES SHOWED: A. Small bowel, biopsy: Small bowel mucosa with preserved villi and no specific change. B. Gastric antrum, biopsy: Gastric antral mucosa with moderate reactive changes and mild chronic inactive gastritis; negative for H pylori, intestinal metaplasia and dysplasia. C. Duodenal bulb, nodule, biopsy: Superficial duodenal mucosa with preserved villi and no specific change TODAY'S VISIT: Patient is here today for initial consultation. As mentioned above patient was hospitalized for severe anemia. See above notes. Currently patient is taking iron supplements. Reports that she is having epigastric discomfort, was given pantoprazole after discharge, however she no longer has any left. Patient is buying [id number] and takes 2-3 tablets a day. Patient reports that she does not feel like it is helping. Patient denies any melena, hematochezia, unintentional weight loss or ribbon like stools. Patient reports dyspepsia without dysphagia or odynophagia. Patient denies any nausea or vomiting. Patient reports that she has not seen PCP for almost 11 years till last March. Patient reports that she has been under a lot of stress caring for her parents. Patient reports nausea without vomiting. Patient reports because of iron she is constipated. Occasionally when she wipes she will see blood when wiping after bowel movement. Patient reports that since she started taking iron she also has darker stools. Patient reports that she is very bloated after eating. [facility] Medical History (Updated 05/16/23 @ 11:50 by Dorothy Guadalupe DECKHAND [employer]YSTER DREDGE-BC) Acid reflux Hypertension Anemia Frequency of urination Hiatal hernia Surgical History Hx of hand surgery History of bilateral tubal ligation Hx of cholecystectomy H/O bariatric surgery Hx of section Family History Family/Other History of breast cancer Brother Overdose Cardiovascular disease Mother HTN (hypertension) Cardiovascular disease Father HTN (hypertension) Cardiovascular disease Maternal Grandmother HTN (hypertension) Social History Household Members: Spouse Housing: House Do you presently have visiting nurse or other home services: No Alcohol intake: current Alcohol intake frequency: 0-2 drinks per day Patient Tobacco Use Status: Former Tobacco user e-Cigarette/Vaping Use: Never Used Substance Use Type: Marijuana service: No Current occupational status: employed 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- [employer] Sexual orientation: Straight/Heterosexual Gender identity: Female Cognitive needs: No Hearing needs: No Vision needs: Yes Female Reproductive History Menstrual Age of Menarche: 10 Review of Systems Const Denies weight gain and Denies weight loss ENT Reports no additional complaints, Denies dysphagia and Denies odynophagia Card Reports no additional complaints Resp Reports no additional complaints GI Reports abdominal pain (Epigastric), Denies belching, Denies melena, Reports bloating, Denies change in bowel habits, Reports constipation, Denies dysphagia, Denies excessive flatus, Reports dyspepsia, Reports heartburn, Denies diarrhea, Denies loose stools, Reports nausea, Denies odynophagia and Denies vomiting Reports no additional complaints Musc Reports no additional complaints Neuro Reports no additional complaints Psych Reports no additional complaints Endo Reports no additional complaints Physical Exam Vital Signs: Last Vital Signs Pulse 73 05/15/23 15:17 BP 176/77 H 05/15/23 15:17 BMI result Body Mass Index 33.5 Const General: healthy appearing, no acute distress and well developed Nutritional Appearance: well nourished Orientation/consciousness: patient oriented x3 Resp Effort & Inspection: normal respiratory effort, able to speak in complete sentences, no tracheal deviation and symmetric chest movement Auscultation: clear to auscultation bilaterally Cardio Rate: regular rate GI Inspection: Yes normal to inspection and No distended Palpation (GI): Soft to palpation, not firm, nontender and No hepatosplenomegaly present Auscultation: normal bowel sounds General: Yes no CVA tenderness Back/Spine/Pelvis Back: no CVA tenderness Skin General skin exam: elasticity normal, turgor normal and dry skin Neuro General: patient oriented x3 Psych Appearance: grossly normal Mental Status: mental status grossly normal Assessment & Plan Assessment & Plan (1) Anemia: Code(s): D64.9 - Anemia, unspecified Qualifiers: Anemia type: iron deficiency Iron deficiency anemia type: inadequate dietary iron intake Qualified Code(s): D50.8 - Other iron deficiency anemias (2) S/P gastric sleeve procedure: Code(s): Z90.3 - Acquired absence of stomach [part of] (3) Acid reflux: Code(s): K21.9 - Gastro-esophageal reflux disease without esophagitis Qualifiers: Esophagitis presence: esophagitis presence not specified Qualified Code(s): K21.9 - Gastro-esophageal reflux disease without esophagitis (4) Postprandial epigastric pain: Code(s): R10.13 - Epigastric pain (5) Dyspepsia: Code(s): R10.13 - Epigastric pain (6) Nausea: Code(s): R11.0 - Nausea (7) Postprandial abdominal bloating: Code(s): R14.0 - Abdominal distension (gaseous) (8) Constipation: Code(s): K59.00 - Constipation, unspecified Qualifiers: Constipation type: drug induced constipation Qualified Code(s): K59.03 - Drug induced constipation Plan Will order CBC, ferritin, iron profile, vitamin a, B12, folate, vitamin B3, vitamin-D. Patient will be referred to Hematology for possible iron infusion. Patient will take stool softeners and will call us if she will continue to be constipated. Patient was encouraged to increase fluid intake and activity to promote better bowel motility. Patient will start taking omeprazole twice a day and famotidine at bedtime. Discussed with patient avoiding dietary triggers and late night snacking. Staying upright for minimum 3 hours after meals discussed with patient. List of food recommended as well as list of food to avoid given to patient. I will see patient in 3 months, sooner on as needed basis. Patient is agreeable to this plan and verbalizes understanding of instructions. She was given the opportunity to ask questions and all questions answered. Thank you for allowing me to participate in her care Orders: Orders Complete Blood Count no Diff 05/15/23 K21.9 - Gastro-esophageal reflux disease without esophagitis Ferritin 05/15/23 R74.8 - Abnormal levels of other serum enzymes Magnesium 05/15/23 N18.9 - Chronic kidney disease, unspecified IRON PROFILE 05/15/23 D64.9 - Anemia, unspecified Vitamin A 05/15/23 K86.89 - Other specified diseases of pancreas Vitamin B12 and Folate 05/15/23 R19.7 - Diarrhea, unspecified Vitamin B3 (Niacin) 05/15/23 K86.89 - Other specified diseases of pancreas Vitamin D 25-OH (D2 and D3) 05/15/23 E55.9 - Vitamin D deficiency, unspecified Referrals Hematology & Oncology Referral D64.9 - Anemia, unspecified Medications: New docusate sodium 200 mg (2 x 100 mg) PO BEDTIME 180 caps 3RF K59.00 - Constipation, unspecified omeprazole 40 mg PO BID 60 caps 2RF K21.9 - Gastro-esophageal reflux disease without esophagitis hydrocortisone 2.5% (Proctosol HC) 1 appl MS BID-QID PRN 30 grams 2RF hemorrhoids K64.9 - Unspecified hemorrhoids famotidine 40 mg PO BEDTIME 30 tabs 3RF K21.9 - Gastro-esophageal reflux disease without esophagitis Discontinued pantoprazole Discontinued Reason: Duplicate 40 mg PO BID 60 tabs 0RF Coding Level of Care Code New Pt Level 4 (31149) Diagnoses Iron deficiency anemia secondary to inadequate dietary iron intake D50.8 Anemia type: iron deficiency Iron deficiency anemia type: inadequate dietary iron intake S/P gastric sleeve procedure Z90.3 Gastroesophageal reflux disease, unspecified whether esophagitis present K21.9 Esophagitis presence: esophagitis presence not specified Postprandial epigastric pain R10.13 Dyspepsia R10.13 Nausea R11.0 Postprandial abdominal bloating R14.0 Drug-induced constipation K59.03 Constipation type: drug induced constipation Time Spent (min) 50 Comment 30 minutes spent with patient and additional 20 minutes spent reviewing her records
[2023-05-15 15:17] VITALS: BP 176/77; PULSE 73; BMI 33.5
== END 2023-05-15 16:01 | disposition home or self-care (01) ==
PROVIDERS: PCP Nurse Practitioner Family; Visit Provider Nurse Practitioner Family
DX: D50.8 Other iron deficiency anemias (principal); Z90.3 Acquired absence of stomach [part of]; K21.9 Gastro-esophageal reflux disease without esophagitis; R10.13 Epigastric pain; R11.0 Nausea; R14.0 Abdominal distension (gaseous); K59.03 Drug induced constipation
CPT/HCPCS: 99204; 99214

== ENCOUNTER → 2023-05-15 15:09 | Outpatient (BNVA) | payer BC, SELFPAY | PROVIDERS: PCP Nurse Practitioner Family; Visit Provider Nurse Practitioner Family ==

== ENCOUNTER 2023-05-19 15:07 | Outpatient (AMB) | payer BC, SELFPAY ==
[2023-05-19 15:13] VITALS: BP 144/80; PULSE 67; RESP 13; TEMP 36.4; O2SAT 99; BMI 34.7
--- NOTE | 2023-05-19 15:13 | A.OFFPC_ITS ---
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 Required: No Accompanied by: Self / Same As Patient Allergies No Known Allergies [No Known Allergies*] Allergy (Verified 05/19/23 15:30) Medication List - Last Reconciled 05/19/23 by Raciel Hansen CNP ascorbic acid (vitamin C) 250 mg PO BIDWM docusate sodium 200 mg (2 x 100 mg) PO BEDTIME famotidine 40 mg PO BEDTIME ferrous sulfate 324 mg PO BIDWM hydrocortisone 2.5% (Proctosol HC) 1 appl [place] BID-QID PRN hydroxyzine HCl 25 mg PO TID PRN 30 days lisinopril 20 mg PO DAILY omeprazole 40 mg PO BID solifenacin (Vesicare) 10 mg PO DAILY Tobacco use date assessed: 05/19/23 Dental Screening Dental Screen Date: 05/19/23 Did you have a dental visit in the last 12 months?: No Did you have a dental problem in the last 6 months where you did not have access to dental care?: No Was dental information given to patient?: Patient has dentist HPI HPI Comments History of Present Illness Details 52-year-old female presents for a follow -up visit She was evaluated and treated at [facility] on 04/20/2023 for generalized weakness, dizziness, blurry vision, headache, and elevated blood pressure. She was admitted and discharged on 04/27/2023. Labs revealed anemia. CT abdomen revealed diverticulosis. Head CT was normal. Endoscopy and colonoscopy will performed. Colonoscopy revealed diverticulosis and hemorrhoids. She received 1 unit blood. She was discharged home on pantoprazole, ferrous sulfate, vitamin-C, lisinopril, and Augmentin. She reports continued heartburn. She notes that she has been taking Famotidine 40mg QHS and otc Omeprazole 40mg QAM. She notes that she is unaware she also has an other for Omeprazole 40mg BID from her GI specialist She notes that she was checking her blood pressure daily, average readings between 150-/170s/80s She is followed up by [facility] and has a follow up appointment in August [facility] Medical History Acid reflux Hypertension Anemia Frequency of urination Hiatal hernia Surgical History Hx of hand surgery History of bilateral tubal ligation Hx of cholecystectomy H/O bariatric surgery Hx of section Family History Family/Other History of breast cancer Brother Overdose Cardiovascular disease Mother HTN (hypertension) Cardiovascular disease Father HTN (hypertension) Cardiovascular disease Maternal Grandmother HTN (hypertension) Social History Household Members: Spouse Housing: House Do you presently have visiting nurse or other home services: No Alcohol intake: current Alcohol intake frequency: 0-2 drinks per day Patient Tobacco Use Status: Former Tobacco user e-Cigarette/Vaping Use: Never Used Substance Use Type: Marijuana service: No Current occupational status: employed 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- [employer] Sexual orientation: Straight/Heterosexual Gender identity: Female Cognitive needs: No Hearing needs: No Vision needs: Yes Female Reproductive History Menstrual Age of Menarche: 10 Questionnaire Thrive Questionnaire Date Thrive assessed: 04/21/23 Review of Systems Const Details: Const Denies chills, Denies fatigue, Denies fever(s), Denies headache(s) and Denies weakness ENT Denies dizziness and Denies headache(s) Card Denies chest pain, Denies lightheadedness, Denies dyspnea and Denies other (Palpitations) Resp Denies cough, Denies dyspnea, Denies wheezing and Denies other ( shortness of breath) GI Reports heartburn, Denies melena, Denies hematochezia, Denies change in bowel habits, Denies dyspepsia and Denies nausea Denies hematuria and Denies dysuria Musc Denies abnormal gait, Denies myalgias, Denies arthralgias, Denies numbness and Denies tingling Skin/Breast Denies rash, Denies unusual bruising and Denies wounds Neuro Denies abnormal gait, Denies dizziness, Denies headache(s), Denies memory loss, Denies numbness, Denies Sensory deficit (Neuro), Denies tingling and Denies weakness Psych Denies anxiety, Denies depression, Denies memory loss Endo Denies cold intolerance, Denies fatigue, Denies heat intolerance, Denies polydipsia and Denies polyuria Aller/Immun Denies wheezing Physical exam (Primary Care) Vital Signs: Last Vital Signs Temp 97.6 F 05/19/23 15:13 Pulse 67 05/19/23 15:13 Resp 13 05/19/23 15:13 BP 144/80 H 05/19/23 15:13 Pulse Ox 99 05/19/23 15:13 Oxygen Delivery Method Room Air 05/19/23 15:13 BMI result Body Mass Index 34.7 Tobacco/Smoking Status: Tobacco use Status Tobacco use date assessed 05/19/23 05/19/23 15:23 Patient Tobacco Use Status Former Tobacco user 05/19/23 15:23 e-Cigarette/Vaping Use Never Used 05/19/23 15:23 Thrive Assessment: Date of Thrive Assessment Date Thrive assessed 04/21/23 05/19/23 15:23 Const Other: General: no acute distress and well developed Nutritional Appearance: well nourished Orientation/consciousness: patient oriented x3 HENMT Head: Yes normocephalic and Yes atraumatic Eyes General: appearance normal, both eyes and all related structures Pupils: Equal, round and reactive pupils present EOM: EOMs intact bilaterally Resp Effort & Inspection: normal respiratory effort Auscultation: clear to auscultation bilaterally Cardio Rate: regular rate Rhythm: regular rhythm Heart sounds: S1 normal heart sound present, S2 normal heart sound present, no gallops, no murmurs and no rubs GI Palpation (GI): No Abdominal aortic bruit present, Soft to palpation, nontender, No hepatosplenomegaly present and No Rebound tenderness present Auscultation: normal bowel sounds General: Yes no CVA tenderness Back/Spine/Pelvis Back: no CVA tenderness Cervical Spine: cervical ROM normal and No Cervical spine tenderness Thoracic/Lumbar Spine: thoraco-lumbar ROM normal, No pain with thoraco-lumbar ROM, No thoracic spinal tenderness and No lumbar spinal tenderness Extrem General: Yes normal to inspection, No edema and No calf tenderness Skin General: warm and dry. Normal skin color. Normal skin turgor Neuro General: patient oriented x3, gait normal and no focal neuro deficit Cranial nerves: Yes Equal, round and reactive pupils present Cognition (Neuro): normal cognition Gait exam (Neuro): Normal gait present Sensory Exam: No Sensory deficit (Neuro) Psych Appearance: grossly normal Affect: normal affect Attitude: cooperative Thought process: Normal thought process present Assessment and Plan Assessment & Plan (1) Iron deficiency anemia: Code(s): D50.9 - Iron deficiency anemia, unspecified Plan: Recent H&H on 04/26/2023 is 9.4/32.4 respectively, MCV 69.7 Continue to take ferrous sulfate 324 mg twice daily Will recheck CBC and iron studies. Advised to get blood work done before next visit Follow-up in 1 week or return sooner with symptoms or concerns Verbalized understanding and agreed with treatment plan (2) Acid reflux: Code(s): K21.9 - Gastro-esophageal reflux disease without esophagitis Qualifiers: Esophagitis presence: esophagitis presence not specified Qualified Code(s): K21.9 - Gastro-esophageal reflux disease without esophagitis Plan: Reports persistent heartburn Advised to take famotidine at bedtime and omeprazole twice daily as prescribed Avoid fatty or greasy foods Follow-up with GI as planned or return sooner with worsening or new symptoms Verbalized understanding and agreed with treatment plan (3) Hypertension: Code(s): I10 - Essential (primary) hypertension Qualifiers: Hypertension type: primary hypertension Qualified Code(s): I10 - Essential (primary) hypertension Plan: Reports elevated home blood pressure readings Resting blood pressure is 144/80 Will increase lisinopril to 40 mg daily. Take as prescribed Low-sodium diet and routine exercise encouraged Follow-up in 1 week or return sooner with symptoms or concerns Verbalized understanding and agreed with treatment plan Orders: Orders Complete Blood Count no Diff 1 Week D64.9 - Anemia, unspecified IRON PROFILE 1 Week D64.9 - Anemia, unspecified Ferritin 1 Week D64.9 - Anemia, unspecified Medications: New lisinopril 40 mg PO DAILY 30 days 30 tabs 3RF Coding Level of Care Code Est Pt Level 4 (79302) Diagnoses Iron deficiency anemia D50.9 Gastroesophageal reflux disease, unspecified whether esophagitis present K21.9 Esophagitis presence: esophagitis presence not specified Primary hypertension I10 Hypertension type: primary hypertension
== END 2023-05-19 17:08 | disposition home or self-care (01) ==
PROVIDERS: Visit Provider Nurse Practitioner Family
DX: D50.9 Iron deficiency anemia, unspecified (principal); K21.9 Gastro-esophageal reflux disease without esophagitis; I10 Essential (primary) hypertension
CPT/HCPCS: 99214

== ENCOUNTER 2023-05-24 15:00 | Outpatient (REF) | payer BC, SELFPAY | END 2023-05-24 15:01 | disposition home or self-care (01) | LOC: HO.US 15:00 | PROVIDERS: PCP Nurse Practitioner Family; Visit Provider Urology | DX: Z13.89 Encounter for screening for other disorder (principal) ==

== ENCOUNTER 2023-05-26 13:47 | Outpatient (AMB) | payer BC, SELFPAY ==
[2023-05-26 13:53] VITALS: BP 144/80; PULSE 66; RESP 13; TEMP 36.4; O2SAT 99; BMI 35.4
--- NOTE | 2023-05-26 13:53 | MHC.PC.OV ---
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 Required: No Accompanied by: Self / Same As Patient Allergies No Known Allergies [No Known Allergies*] Allergy (Verified 05/26/23 14:05) Medication List - Last Reconciled 05/26/23 by Raciel Hansen CNP ascorbic acid (vitamin C) 250 mg PO BIDWM docusate sodium 200 mg (2 x 100 mg) PO BEDTIME famotidine 40 mg PO BEDTIME ferrous sulfate 324 mg PO BIDWM hydrocortisone 2.5% (Proctosol HC) 1 appl [place] BID-QID PRN hydroxyzine HCl 25 mg PO TID PRN 30 days lisinopril 40 mg PO DAILY 30 days omeprazole 40 mg PO BID solifenacin (Vesicare) 10 mg PO DAILY Tobacco use date assessed: 05/19/23 Dental Screening Dental Screen Date: 05/26/23 Did you have a dental visit in the last 12 months?: No Did you have a dental problem in the last 6 months where you did not have access to dental care?: No Was dental information given to patient?: Patient has dentist HPI HPI Comments History of Present Illness Details 52-year-old female presents for hypertension and iron-deficiency anemia follow-up She admits to taking her medications as prescribed without adverse reactions At her last visit a week ago, she was advised to get blood work done before next visit. However, she has not gotten CBC and iron studies blood work done. She notes that she forgot to get blood work done She reports intermittent dizziness with was severe yesterday and lasted longer, almost all day. Her dizziness is less severe today. She also reports intermittent nausea and blurry vision. Her symptoms have been ongoing before she was hospitalized for same 3 months ago. No headache or chest pain. She report increased anxiety and depression symptoms and notes that her symptoms are refractory to Hydroxyzine. No SI/HI/AVH PFSH Medical History Acid reflux Hypertension Anemia Frequency of urination Hiatal hernia Surgical History Hx of hand surgery History of bilateral tubal ligation Hx of cholecystectomy H/O bariatric surgery Hx of section Family History (Updated 05/26/23 @ 14:02 by Valeria Grant MA) Family/Other History of breast cancer Brother Overdose Cardiovascular disease Mother HTN (hypertension) Cardiovascular disease Father HTN (hypertension) Cardiovascular disease Maternal Grandmother HTN (hypertension) Other Mental health disorder Substance abuse Social History Household Members: Spouse Housing: House Do you presently have visiting nurse or other home services: No Alcohol intake: current Alcohol intake frequency: 0-2 drinks per day Patient Tobacco Use Status: Former Tobacco user e-Cigarette/Vaping Use: Never Used Substance Use Type: Marijuana service: No Current occupational status: employed 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 1. Little interest or pleasure in doing things: nearly every day 2. Feeling down, depressed, or hopeless: nearly every day 3. Trouble falling or staying asleep, or sleeping too much: nearly every day (staying asleep) 4. Feeling tired or having little energy: nearly every day 5. Poor appetite or overeating: nearly every day (poor appetite) 6. Feeling bad about yourself - or that you are a failure or have let yourself or your family down: not at all 7. Trouble concentrating on things, such as reading the newspaper or watching television: not at all 8. Moving or speaking so slowly that other people could have noticed. Or the opposite - being so fidgety or restless that you have been moving around a lot more than usual: not at all 9. Thoughts that you would be better off or of hurting yourself in some way: not at all Total score: 15 Depression Screening Interpretation: Positive Depression Screening Follow-up: Existing condition and New Medication prescribed Depression Screening Done: Yes 41612 - PHQ-9 Billing: Yes Source: Developed by Drs. Zhang Persaud, Tito Wilhelm and colleagues, with an educational nils from [employer]. Thrive Questionnaire Date Thrive assessed: 04/21/23 KAREEM-7 AMB Questionnaire KAREEM-7 Date KAREEM - 7 assessed: 05/26/23 Feeling nervous, anxious, or on edge: 3 = Nearly every day Not being able to stop or control worryin = Nearly every day Worrying too much about different things: 3 = Nearly every day Trouble relaxin = Not at all Being so restless that it is hard to sit still: 1 = Several days Becoming easily annoyed or irritable: 0 = Not at all Feeling afraid as if something awful might happen: 3 = Nearly every day Total KAREEM-7 score (0-4 normal; 5-9 mild; 10-14 moderate; 15-21 severe): 13 Source: Developed by Drs. Zhang Persaud, Miroslava Jerome, Tito Reece and colleagues, with an educational nils from [employer]. KAREEM-7 Assessment Billing KAREEM-7 Assessment Tool: KAREEM-7 Assessment 15766 Review of Systems Const Details: Const Denies chills, Denies fatigue, Denies fever(s), Denies headache(s) and Denies weakness ENT Denies dizziness and Denies headache(s) Card Denies chest pain, Denies lightheadedness, Denies dyspnea and Denies other (Palpitations) Resp Denies cough, Denies dyspnea, Denies wheezing and Denies other ( shortness of breath) GI Denies abdominal pain, Denies melena, Denies hematochezia, Denies change in bowel habits, Denies dyspepsia and Denies nausea Denies hematuria and Denies dysuria Musc Denies abnormal gait, Denies myalgias, Denies arthralgias, Denies numbness and Denies tingling Skin/Breast Denies rash, Denies unusual bruising and Denies wounds Neuro Denies abnormal gait, Denies dizziness, Denies headache(s), Denies memory loss, Denies numbness, Denies Sensory deficit (Neuro), Denies tingling and Denies weakness Psych Reports anxiety, Reports depression, Denies memory loss Endo Denies cold intolerance, Denies fatigue, Denies heat intolerance, Denies polydipsia and Denies polyuria Aller/Immun Denies wheezing Physical exam (Primary Care) Vital Signs: Last Vital Signs Temp 97.6 F 05/26/23 13:53 Pulse 66 05/26/23 13:53 Resp 13 05/26/23 13:53 BP 144/80 H 05/26/23 13:53 Pulse Ox 99 05/26/23 13:53 Oxygen Delivery Method Room Air 05/26/23 13:53 BMI result Body Mass Index 35.4 Tobacco/Smoking Status: Tobacco use Status Tobacco use date assessed 05/19/23 05/26/23 14:00 Patient Tobacco Use Status Former Tobacco user 05/26/23 14:00 e-Cigarette/Vaping Use Never Used 05/26/23 14:00 Depression Screening Interpretation: Positive Depression Screening Follow-up: Existing condition and New Medication prescribed Thrive Assessment: Date of Thrive Assessment Date Thrive assessed 04/21/23 05/26/23 14:00 Const Other: General: no acute distress and well developed Nutritional Appearance: well nourished Orientation/consciousness: patient oriented x3 HENMT Head: Yes normocephalic and Yes atraumatic Eyes General: appearance normal, both eyes and all related structures Pupils: Equal, round and reactive pupils present EOM: EOMs intact bilaterally Resp Effort & Inspection: normal respiratory effort Auscultation: clear to auscultation bilaterally Cardio Rate: regular rate Rhythm: regular rhythm Heart sounds: S1 normal heart sound present, S2 normal heart sound present, no gallops, no murmurs and no rubs GI Palpation (GI): No Abdominal aortic bruit present, Soft to palpation, nontender, No hepatosplenomegaly present and No Rebound tenderness present Auscultation: normal bowel sounds General: Yes no CVA tenderness Back/Spine/Pelvis Back: no CVA tenderness Cervical Spine: cervical ROM normal and No Cervical spine tenderness Thoracic/Lumbar Spine: thoraco-lumbar ROM normal, No pain with thoraco-lumbar ROM, No thoracic spinal tenderness and No lumbar spinal tenderness Extrem General: Yes normal to inspection, No edema and No calf tenderness Skin General: warm and dry. Normal skin color. Normal skin turgor Neuro General: patient oriented x3, gait normal and no focal neuro deficit Cranial nerves: Yes Equal, round and reactive pupils present Cognition (Neuro): normal cognition Gait exam (Neuro): Normal gait present Sensory Exam: No Sensory deficit (Neuro) Psych Appearance: grossly normal Affect: normal affect Attitude: cooperative Thought process: Normal thought process present Assessment and Plan Assessment & Plan (1) Hypertension: Code(s): I10 - Essential (primary) hypertension Qualifiers: Hypertension type: primary hypertension Qualified Code(s): I10 - Essential (primary) hypertension Plan: Resting blood pressure is 144/90, above goal of less than 140/90, heart rate is 76 Amlodipine 2.5 mg ordered. Take as prescribed Continue to take lisinopril 40 mg daily Low-sodium diet and routine exercise encouraged Follow-up in 1 week or return sooner with symptoms or concerns Verbalized understanding and agreed with treatment plan (2) Iron deficiency anemia: Code(s): D50.9 - Iron deficiency anemia, unspecified Plan: She forgot to get blood work done Advised to get blood work done before next visit Follow-up in 1 week Verbalized understanding and agreed with the plan (3) Dizziness: Code(s): R42 - Dizziness and giddiness Plan: Reports intermittent dizziness, blurred vision, and nausea x3 months. Her symptoms started before she was hospitalized for same symptoms 3 months ago Likely attributed to elevated blood pressure and anxiety Advised to take blood pressure medications as prescribed Ondansetron as prescribed for nausea Encouraged to go to the ED with worsening or new symptoms Verbalized understanding and agreed with treatment plan (4) Blurry vision, bilateral: Code(s): H53.8 - Other visual disturbances Plan: As above (5) Nausea: Code(s): R11.0 - Nausea Plan: As above (6) Anxiety and depression: Code(s): F41.9 - Anxiety disorder, unspecified; F32.A - Depression, unspecified Plan: Reports increased anxiety and depression symptoms refractory to hydroxyzine PHQ-9 and KAREEM-7 scores revealed moderately severe depression and moderate anxiety respectively Escitalopram ordered. Take as prescribed Continue to take hydroxyzine as prescribed Routine exercise encouraged She notes the psychotherapy is offered at her place of employment and she will seek therapy through there Follow-up in 1 week or return sooner with worsening or new symptoms Verbalized understanding and agreed with treatment plan Medications: New amlodipine 2.5 mg PO DAILY 30 days 30 tabs 2RF ondansetron 4 mg PO Q8H PRN 14 tabs 0RF nausea and vomiting Coding Level of Care Code Est Pt Level 4 (80119) Diagnoses Primary hypertension I10 Hypertension type: primary hypertension Iron deficiency anemia D50.9 Dizziness R42 Blurry vision, bilateral H53.8 Nausea R11.0 Anxiety and depression F41.9; F32.A Additional Codes KAREEM-7 Assessment Billing - KAREEM-7 Assessment Tool: KAREEM-7 Assessment [id number] ([id number])
[2023-05-26 14:11] VITALS: BP 144/90; PULSE 76
== END 2023-05-26 15:30 | disposition home or self-care (01) ==
PROVIDERS: PCP Nurse Practitioner Family; Visit Provider Nurse Practitioner Family
DX: I10 Essential (primary) hypertension (principal); D50.9 Iron deficiency anemia, unspecified; R42 Dizziness and giddiness; F41.9 Anxiety disorder, unspecified; F32.A Depression, unspecified; H53.8 Other visual disturbances; R11.0 Nausea
CPT/HCPCS: 96127; 99214

== ENCOUNTER 2023-05-31 08:38 | Outpatient (REF) | payer BC, SELFPAY ==
[2023-05-31 08:50] LABS: MANUAL DIFF FLAG NO
[2023-05-31 09:18] LABS: Basophils Percent Auto 0.2 % (0-2); Eosinophils Absolute Auto 0.1 X10*3/uL (0.0-0.4); Eosinophils Percent Auto 0.9 % (0-4); Hematocrit 32.9 % (37.0-47.0); Hemoglobin 10.5 g/dl (12.0-16.0); Imm Gran Abs Auto 0.01 X10*3/uL (0.00-0.03); Imm Gran Pct Auto 0.2 % (0.0-0.4); Lymphocytes Absolute Auto 1.5 X10*3/uL (1.2-4.9); Mean Corpuscular HGB Conc 31.9 g/dl (31.0-35.0); Mean Corpuscular Hemoglobin 24.2 pg (27.0-33.0); Mean Corpuscular Volume 75.8 fL (80.0-98.0); Mean Platelet Volume 9.9 fL (9.4-12.3); Monocytes Absolute Auto 0.4 X10*3/uL (0.1-1.2); Monocytes Percent Auto 8.2 % (2-11); Neutrophils Absolute Auto 3.3 x10*3/uL (2.0-8.3); Neutrophils Percent Auto 62.5 % (45-73); Platelet Count 266 X10*3/uL (160-400); Red Blood Count 4.34 X10*6/uL (4.20-5.50); White Blood Count 5.4 X10*3/uL (4.8-10.8)
[2023-05-31 09:54] LABS: Appearance Urine Cloudy; Color Urine Yellow; Glucose Urine UA Negative (Negative); Leukocyte Esterase Urine Small (1+) (Negative); Nitrite Urine Negative (Negative); UMIC TRIGGER UACC YES; Urine Blood Negative (Negative); Urine Ketones Negative (Negative); Urine Protein Negative (Neg-Trace)
[2023-05-31 09:56] LABS: Alanine Aminotransferase 14 U/L (0-31); Albumin Level 3.8 g/dL (3.5-5.0); Alkaline Phosphatase 60 U/L (39-117); Anion Gap 11 (12-20); Aspartate Amino Transferase 18 U/L (5-31); Bilirubin Total 0.4 mg/dL (0.0-1.0); Blood Urea Nitrogen 12 mg/dL (9-16); Calcium 9.3 mg/dL (8.4-10.2); Carbon Dioxide 24 mmol/L (22-29); Chloride 106 mmol/L (96-108); Cholesterol 180 mg/dL (<200); Estimated Glomerular Filt Rate > 60; Glucose Fasting 93 mg/dL (60-99); HDL Cholesterol 60 mg/dL (>40); Iron 36 mcg/dL (30-160); LDL Cholesterol Calculated 95 mg/dL (<100); Percent Iron Saturation 11 % (15-50); Potassium 4.3 mmol/L (3.3-5.1); Sodium 137 mmol/L (135-145); Total Iron Binding Capacity 331 mcg/dL (228-428); Total Protein 7.6 g/dL (6.5-8.0); Triglycerides 126 mg/dL (<150); Unsaturated Iron Binding 295 ug/dL
[2023-05-31 10:08] LABS: Bacteria Urine 4+ (None Seen); Hyaline Casts Urine 0-2 /LPF (0-2); RBC Urine 0-2 /HPF (0-2); Squamous Epithelial Cell Urine >20 /HPF (0-2); UACC Culture Trigger YES
[2023-05-31 10:17] LABS: Ferritin 8 ng/mL (10-250); TSH reflex Free T4 1.13 uIU/mL (0.32-4.0)
== END 2023-05-31 08:39 | disposition home or self-care (01) ==
LOC: HO.LAB 08:38
PROVIDERS: PCP Nurse Practitioner Family; Visit Provider Nurse Practitioner Family
DX: Z00.00 Encounter for general adult medical examination without abnormal findings (principal); Z13.6 Encounter for screening for cardiovascular disorders; D64.9 Anemia, unspecified; R82.90 Unspecified abnormal findings in urine
CPT/HCPCS: 36415; 80053; 80061; 81001; 82728; 83540; 84443; 85025; 85027; 87086

== ENCOUNTER 2023-06-02 15:48 | Outpatient (AMB) | payer BC, SELFPAY ==
--- NOTE | 2023-06-02 15:55 | A.OFFPC_ITS ---
Vital Signs 06/02/23 15:56 Height 5 ft 2 in Weight 192 lb 8 oz BMI 35.2 BP 154/78 H Blood Pressure Location Rt brachial Position Sitting Respiration 13 Pulse 67 Pulse Source Pulse Oximeter Temp 97.2 F Temp Source Temporal Artery Scan Pulse Oximetry (%) 98 Oxygen Delivery Method Room Air Intake Visit Reasons: htn,labs Surgical Coordinator Required: No Accompanied by: Self / Same As Patient Allergies No Known Allergies [No Known Allergies*] Allergy (Verified 06/02/23 16:00) Tobacco use date assessed: 05/19/23 Dental Screening Dental Screen Date: 06/02/23 Did you have a dental visit in the last 12 months?: Yes Did you have a dental problem in the last 6 months where you did not have access to dental care?: No Was dental information given to patient?: Patient has dentist HPI HPI Comments History of Present Illness0 Details 52-year-old female presents for hyperten rupinder and review of recent blood work She admits to taking her medications as prescribed without adverse reactions She reports heavy menstrual bleeding restarted 2-3 days ago. She missed her period for 2 months prior to her current menstrual cycle. She reports abdominal cramping. She denies dizziness, weakness, fatigue Recent H&H and MCV levels are low but shows marked improvement, 10.5/32.9 and 75.8 respectively Iron level improved to 36 from 13; ferritin level improved to 8 from 3 PFSH Medical History Acid reflux Hypertension Anemia Frequency of urination Hiatal hernia Surgical History Hx of hand surgery History of bilateral tubal ligation Hx of cholecystectomy H/O bariatric surgery Hx of section Family History (Updated 05/26/23 @ 14:02 by Valeria Grant MA) Family/Other History of breast cancer Brother Overdose Cardiovascular disease Mother HTN (hypertension) Cardiovascular disease Father HTN (hypertension) Cardiovascular disease Maternal Grandmother HTN (hypertension) Other Mental health disorder Substance abuse Social History Household Members: Spouse Housing: House Do you presently have visiting nurse or other home services: No Alcohol intake: current Alcohol intake frequency: 0-2 drinks per day Patient Tobacco Use Status: Former Tobacco user e-Cigarette/Vaping Use: Never Used Substance Use Type: Marijuana service: No Current occupational status: employed 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 Zhang Persaud, Miroslava Jerome, Tito Reece and colleagues, with an educational nils from [employer]. Review of Systems Const Details: Const Denies chills, Denies fatigue, Denies fever(s), Denies headache(s) and Denies weakness ENT Denies dizziness and Denies headache(s) Card Denies chest pain, Denies lightheadedness, Denies dyspnea and Denies other (Palpitations) Resp Denies cough, Denies dyspnea, Denies wheezing and Denies other ( shortness of breath) GI Denies abdominal pain, Denies melena, Denies hematochezia, Denies change in bowel habits, Denies dyspepsia and Denies nausea Denies hematuria and Denies dysuria Musc Denies abnormal gait, Denies myalgias, Denies arthralgias, Denies numbness and Denies tingling Skin/Breast Denies rash, Denies unusual bruising and Denies wounds Neuro Denies abnormal gait, Denies dizziness, Denies headache(s), Denies memory loss, Denies numbness, Denies Sensory deficit (Neuro), Denies tingling and Denies weakness Psych Denies anxiety, Denies depression, Denies memory loss Endo Denies cold intolerance, Denies fatigue, Denies heat intolerance, Denies polydipsia and Denies polyuria Aller/Immun Denies wheezing Physical exam (Primary Care) Tobacco/Smoking Status: Tobacco use Status Tobacco use date assessed 05/19/23 05/26/23 14:00 Patient Tobacco Use Status Former Tobacco user 05/26/23 14:00 e-Cigarette/Vaping Use Never Used 05/26/23 14:00 Thrive Assessment: Date of Thrive Assessment Date Thrive assessed 01/19/24 02/23/24 14:00 Const Other: General: no acute distress and well developed Nutritional Appearance: well nourished Orientation/consciousness: patient oriented x3 HENMT Head: Yes normocephalic and Yes atraumatic Eyes General: appearance normal, both eyes and all related structures Pupils: Equal, round and reactive pupils present EOM: EOMs intact bilaterally Resp Effort & Inspection: normal respiratory effort Auscultation: clear to auscultation bilaterally Cardio Rate: regular rate Rhythm: regular rhythm Heart sounds: S1 normal heart sound present, S2 normal heart sound present, no gallops, no murmurs and no rubs GI Palpation (GI): No Abdominal aortic bruit present, Soft to palpation, nontender, No hepatosplenomegaly present and No Rebound tenderness present Auscultation: normal bowel sounds General: Yes no CVA tenderness Back/Spine/Pelvis Back: no CVA tenderness Cervical Spine: cervical ROM normal and No Cervical spine tenderness Thoracic/Lumbar Spine: thoraco-lumbar ROM normal, No pain with thoraco-lumbar ROM, No thoracic spinal tenderness and No lumbar spinal tenderness Extrem General: Yes normal to inspection, No edema and No calf tenderness Skin General: warm and dry. Normal skin color. Normal skin turgor Neuro General: patient oriented x3, gait normal and no focal neuro deficit Cranial nerves: Yes Equal, round and reactive pupils present Cognition (Neuro): normal cognition Gait exam (Neuro): Normal gait present Sensory Exam: No Sensory deficit (Neuro) Psych Appearance: grossly normal Affect: normal affect Attitude: cooperative Thought process: Normal thought process present Assessment and Plan Assessment & Plan (1) Hypertension: Code(s): I10 - Essential (primary) hypertension Qualifiers: Hypertension type: primary hypertension Qualified Code(s): I10 - Essential (primary) hypertension Plan: Resting BP is 154/78, above goal of less than 140/90 Will increase amlodipine to 5mg daily. Take as prescribed Continue to take Lisinopril as prescribed Low sodium diet encouraged Follow up in 1 week with the nurse for blood pressure check in 2 weeks with PCP Return sooner with symptoms or concerns Verbalized understanding and agreed with the plan (2) Iron deficiency anemia: Code(s): D50.9 - Iron deficiency anemia, unspecified Plan: Recent labs reviewed with the patient; unremarkable findings except for the following: H&H and MCV levels are low but shows marked improvement, 10.5/32.9 and 75.8 respectively Iron level improved to 36 from 13; ferritin level improved to 8 from 3 Continue to take ferrous sulfate 324 mg twice daily with meal Will recheck CBC and iron studies in 1 month Follow-up in 1 month or return sooner with symptoms or concerns Verbalized understanding and agreed with treatment plan (3) Heavy menstrual bleeding: Code(s): N92.0 - Excessive and frequent menstruation with regular cycle Plan: Reports heavy menstrual bleeding x 2-3 days. She missed her period for 2 months prior to her current menstrual cycle. She reports abdominal cramping. No other associated symptoms May take Tylenol ibuprofen for abdominal cramping Advised to go to the ED with continued heavy bleeding with associated dizziness, lightheadedness, fatigue, weakness, or difficulty breathing Verbalized understanding and agreed with the plan (4) Abdominal cramping: Code(s): R10.9 - Unspecified abdominal pain (5) Anxiety and depression: Code(s): F41.9 - Anxiety disorder, unspecified; F32.A - Depression, unspecified Plan: Lexapro was not prescribed as planned during the last visit Lexapro ordered at this time. Take as prescribed Follow-up in 2 weeks or return sooner with worsening or new symptoms Verbalized understanding and agreed with treatment Medications: New escitalopram oxalate 10 mg PO DAILY 30 days 30 tabs 3RF Coding Level of Care Code Est Pt Level 4 (39468) Diagnoses Primary hypertension I10 Hypertension type: primary hypertension Iron deficiency anemia D50.9 Heavy menstrual bleeding N92.0 Abdominal cramping R10.9 Anxiety and depression F41.9; F32.A
[2023-06-02 15:56] VITALS: BP 154/78; PULSE 67; RESP 13; TEMP 36.2; O2SAT 98; BMI 35.2
== END 2023-06-02 16:39 | disposition home or self-care (01) ==
PROVIDERS: PCP Nurse Practitioner Family; Visit Provider Nurse Practitioner Family
DX: I10 Essential (primary) hypertension (principal); D50.9 Iron deficiency anemia, unspecified; N92.0 Excessive and frequent menstruation with regular cycle; R10.9 Unspecified abdominal pain; F41.9 Anxiety disorder, unspecified; F32.A Depression, unspecified
CPT/HCPCS: 99214

== ENCOUNTER 2023-06-13 14:54 | Outpatient (REF) | payer BC, SELFPAY ==
--- NOTE | ~2023-06-13 | US_ITS ---
EXAMINATION: US RETROPERITONEAL LIMITED (RENAL ONLY) CLINICAL INFORMATION: Urgency of urination. COMPARISON: CT abdomen and pelvis 04/25/2023. Ultrasound abdomen complete 08/06/2015 and 07/12/2014. TECHNIQUE: Real-time imaging of the kidneys. FINDINGS: RIGHT KIDNEY: 13.5 x 4.6 x 5.9 cm (SAG x AP x TRV). The kidney is normal in size, contour, and echogenicity. Renal cortical thickness is normal. No calculi or focal parenchymal lesions. No hydronephrosis. LEFT KIDNEY: 12.8 x 7.3 x 6.3 cm (SAG x AP x TRV). The kidney is normal in size, contour, and echogenicity. Renal cortical thickness is normal. No calculi or focal parenchymal lesions. Extrarenal pelvis without hydronephrosis. US/US renal BI IMPRESSION: No nephrolithiasis. Left extrarenal pelvis without overt hydronephrosis.
== END 2023-06-13 14:55 | disposition home or self-care (01) ==
LOC: HO.US 14:54
PROVIDERS: PCP Nurse Practitioner Family; Visit Provider Urology
DX: R39.15 Urgency of urination (principal); R35.0 Frequency of micturition
CPT/HCPCS: 76775

== ENCOUNTER → 2023-06-14 14:10 | Outpatient (BNVA) | payer BC, SELFPAY | PROVIDERS: PCP Nurse Practitioner Family; Visit Provider Urology ==

== ENCOUNTER 2023-06-16 15:49 | Outpatient (AMB) | payer BC, SELFPAY ==
--- NOTE | 2023-06-16 15:48 | MHC.PC.OV ---
Vital Signs 06/16/23 15:49 06/16/23 16:12 Height 5 ft 2 in Weight 185 lb 6 oz BMI 33.9 BP 140/84 H 130/84 Blood Pressure Location Rt brachial Rt brachial Position Sitting Sitting Respiration 13 Pulse 87 Pulse Source Pulse Oximeter Temp 97 F Temp Source Temporal Artery Scan Pulse Oximetry (%) 99 Oxygen Delivery Method Room Air Intake Visit Reasons: bp check Supervisor Building Maintenance Required: No Accompanied by: Self / Same As Patient Allergies No Known Allergies [No Known Allergies*] Allergy (Verified 06/16/23 16:07) Medication List - Last Reconciled 06/16/23 by Raciel Hansen CNP amlodipine 2.5 mg PO DAILY 30 days ascorbic acid (vitamin C) 250 mg PO BIDWM docusate sodium 200 mg (2 x 100 mg) PO BEDTIME escitalopram oxalate 10 mg PO DAILY 30 days famotidine 40 mg PO BEDTIME ferrous sulfate 324 mg PO BIDWM hydrocortisone 2.5% (Proctosol HC) 1 appl [place] BID-QID PRN hydroxyzine HCl 25 mg PO TID PRN 30 days lisinopril 40 mg PO DAILY 30 days omeprazole 40 mg PO BID ondansetron 4 mg PO Q8H PRN solifenacin (Vesicare) 10 mg PO DAILY Tobacco use date assessed: 05/19/23 Dental Screening Dental Screen Date: 06/16/23 Did you have a dental visit in the last 12 months?: No Did you have a dental problem in the last 6 months where you did not have access to dental care?: No Was dental information given to patient?: Patient has dentist HPI HPI Comments History of Present Illness Details 52-year-old female presents for hypertension follow-up Amlodipine was increased to 5 mg daily at her last visit She admits to taking her medication except for ferrous sulfate as prescribed without adverse reactions. She states that she has not been consistent with taking ferrous sulfate due to constipation despite taking docusate She reports improvement of anxiety and depression symptoms since starting Lexapro PFSH Medical History Acid reflux Hypertension Anemia Frequency of urination Hiatal hernia Surgical History Hx of hand surgery History of bilateral tubal ligation Hx of cholecystectomy H/O bariatric surgery Hx of section Family History Family/Other History of breast cancer Brother Overdose Cardiovascular disease Mother HTN (hypertension) Cardiovascular disease Father HTN (hypertension) Cardiovascular disease Maternal Grandmother HTN (hypertension) Other Mental health disorder Substance abuse Social History Household Members: Spouse Housing: House Do you presently have visiting nurse or other home services: No Alcohol intake: current Alcohol intake frequency: 0-2 drinks per day Patient Tobacco Use Status: Former Tobacco user e-Cigarette/Vaping Use: Never Used Substance Use Type: Marijuana service: No Current occupational status: employed 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 Zhang Persaud, Miroslava Jerome, Tito Reece and colleagues, with an educational nils from [employer]. Review of Systems Const Details: Const Denies chills, Denies fatigue, Denies fever(s), Denies headache(s) and Denies weakness ENT Denies dizziness and Denies headache(s) Card Denies chest pain, Denies lightheadedness, Denies dyspnea and Denies other (Palpitations) Resp Denies cough, Denies dyspnea, Denies wheezing and Denies other ( shortness of breath) GI Denies abdominal pain, Denies melena, Denies hematochezia, Denies change in bowel habits, Denies dyspepsia and Denies nausea Denies hematuria and Denies dysuria Musc Denies abnormal gait, Denies myalgias, Denies arthralgias, Denies numbness and Denies tingling Skin/Breast Denies rash, Denies unusual bruising and Denies wounds Neuro Denies abnormal gait, Denies dizziness, Denies headache(s), Denies memory loss, Denies numbness, Denies Sensory deficit (Neuro), Denies tingling and Denies weakness Psych Denies anxiety, Denies depression, Denies memory loss Endo Denies cold intolerance, Denies fatigue, Denies heat intolerance, Denies polydipsia and Denies polyuria Aller/Immun Denies wheezing Physical exam (Primary Care) Vital Signs: Last Vital Signs Temp 97 F 06/16/23 15:49 Pulse 87 06/16/23 15:49 Resp 13 06/16/23 15:49 BP 140/84 H 06/16/23 15:49 Pulse Ox 99 06/16/23 15:49 Oxygen Delivery Method Room Air 06/16/23 15:49 BMI result Body Mass Index 33.9 Tobacco/Smoking Status: Tobacco use Status Tobacco use date assessed 05/19/23 06/16/23 15:59 Patient Tobacco Use Status Former Tobacco user 06/16/23 15:59 e-Cigarette/Vaping Use Never Used 06/16/23 15:59 Thrive Assessment: Date of Thrive Assessment Date Thrive assessed 04/21/23 06/16/23 15:59 Const Other: General: no acute distress and well developed Nutritional Appearance: well nourished Orientation/consciousness: patient oriented x3 HENMT Head: Yes normocephalic and Yes atraumatic Eyes General: appearance normal, both eyes and all related structures Pupils: Equal, round and reactive pupils present EOM: EOMs intact bilaterally Resp Effort & Inspection: normal respiratory effort Auscultation: clear to auscultation bilaterally Cardio Rate: regular rate Rhythm: regular rhythm Heart sounds: S1 normal heart sound present, S2 normal heart sound present, no gallops, no murmurs and no rubs GI Palpation (GI): No Abdominal aortic bruit present, Soft to palpation, nontender, No hepatosplenomegaly present and No Rebound tenderness present Auscultation: normal bowel sounds General: Yes no CVA tenderness Back/Spine/Pelvis Back: no CVA tenderness Cervical Spine: cervical ROM normal and No Cervical spine tenderness Thoracic/Lumbar Spine: thoraco-lumbar ROM normal, No pain with thoraco-lumbar ROM, No thoracic spinal tenderness and No lumbar spinal tenderness Extrem General: Yes normal to inspection, No edema and No calf tenderness Skin General: warm and dry. Normal skin color. Normal skin turgor Neuro General: patient oriented x3, gait normal and no focal neuro deficit Cranial nerves: Yes Equal, round and reactive pupils present Cognition (Neuro): normal cognition Gait exam (Neuro): Normal gait present Sensory Exam: No Sensory deficit (Neuro) Psych Appearance: grossly normal Affect: normal affect Attitude: cooperative Thought process: Normal thought process present Assessment and Plan Assessment & Plan (1) Hypertension: Code(s): I10 - Essential (primary) hypertension Qualifiers: Hypertension type: primary hypertension Qualified Code(s): I10 - Essential (primary) hypertension Plan: Resting blood pressure is 130/84, within goal of less than 140/90 Continue to take amlodipine 5 mg daily and lisinopril 40 mg daily Low-sodium diet encouraged Follow-up in 2 weeks for hypertension, anemia, anxiety, and depression Return sooner with symptoms or concerns Verbalized understanding and agreed with treatment plan (2) Iron deficiency anemia: Code(s): D50.9 - Iron deficiency anemia, unspecified Plan: She does not take ferrous sulfate as prescribed due to constipation. Docusate does not provide relief Encouraged to take ferrous sulfate as prescribed Magnesium oxide ordered for constipation Healthy diet, including fruits and vegetables encouraged Adequate hydration encouraged Advised to get CBC, iron studies, folate/B12 levels drawn before her next visit Follow-up in 2 weeks Verbalized understanding and agreed with treatment plan Orders: Orders Ferritin Today D50.9 - Iron deficiency anemia, unspecified Vitamin B12 and Folate Today D50.9 - Iron deficiency anemia, unspecified Complete Blood Count no Diff Today D50.9 - Iron deficiency anemia, unspecified IRON PROFILE Today D50.9 - Iron deficiency anemia, unspecified Medications: New amlodipine 5 mg PO DAILY 30 days 30 tabs 3RF magnesium oxide 400 mg PO DAILY 30 days 30 tabs 3RF Refilled ferrous sulfate 324 mg PO BIDWM 60 tabs 0RF Discontinued amlodipine Discontinued Reason: Doctor's Order 2.5 mg PO DAILY 30 days 30 tabs 2RF Coding Level of Care Code Est Pt Level 3 (40480) Diagnoses Primary hypertension I10 Hypertension type: primary hypertension Iron deficiency anemia D50.9
[2023-06-16 15:49] VITALS: BP 140/84; PULSE 87; RESP 13; TEMP 36.1; O2SAT 99; BMI 33.9
[2023-06-16 16:12] VITALS: BP 130/84
== END 2023-06-16 16:19 | disposition home or self-care (01) ==
PROVIDERS: PCP Nurse Practitioner Family; Visit Provider Nurse Practitioner Family
DX: I10 Essential (primary) hypertension (principal); D50.9 Iron deficiency anemia, unspecified
CPT/HCPCS: 99213

== ENCOUNTER 2023-06-27 08:30 | Outpatient (REF) | payer BC, SELFPAY ==
--- NOTE | ~2023-06-27 | FL_ITS ---
EXAMINATION: XR FLUOROSCOPY UPPER GI WITH AIR CLINICAL INFORMATION: Reflux. History of sleeve gastrectomy 8 years ago COMPARISON: None TECHNIQUE: Fluoroscopic air contrast upper GI examination was performed utilizing standard techniques with thin and thick barium and effervescent granules. Numerous spot images were obtained. FINDINGS: Dual and single contrast images of the esophagus demonstrate normal caliber, contour, and mucosal pattern. No evidence of stricture, mass, or ulcerations identified. Esophageal motility is mildly disorganized. A moderate-sized type I hiatal hernia is present. There is a filling defect in the anterior wall of the hiatal hernia with irregular borders that may represent a polypoid mass (RF 1-3; image 10 of 10). This could also possibly represent postsurgical change. No significant gastroesophageal reflux was seen during the course of the examination and on reflux views. Dual contrast and single contrast images of the stomach demonstrated a contour consistent with prior history of sleeve gastrectomy. The gastric rugal folds appear thickened, likely due to gastritis. Contrast freely passed into the gastric antrum and duodenal bulb without delay. Single and air-contrast images of the duodenal bulb demonstrate no abnormality. The duodenal sweep has a normal appearance, course, and mucosal fold appearance. The imaged proximal jejunum has a normal fold pattern and caliber. FLUOROSCOPY TIME: 3 minutes 7 seconds Number of Spot Images: 10 Number of Cine: 6 DOSE AREA PRODUCT: 1668 uGy-m2 (microgray-meter squared) FL/FL upper GI w air w Ba Swallow IMPRESSION: 1. Mildly disorganized esophageal peristalsis. 2. Moderate-sized type I hiatal hernia. There is a filling defect in the anterior wall of the hiatal hernia that has irregular appearing borders. This may represent a polypoid mass. Cannot exclude postsurgical change. Recommend endoscopic evaluation. 3. Postoperative changes consistent with prior history of sleeve gastrectomy. 4. Thickened gastric rugal folds that likely represent gastritis. This procedure was performed by Kendall Hernandez PA-C, and supervised by Dr. Thomas
== END 2023-06-27 08:31 | disposition home or self-care (01) ==
LOC: HO.XRAY 08:30
PROVIDERS: PCP Nurse Practitioner Family; Visit Provider Internal Medicine Gastroenterology
DX: K21.9 Gastro-esophageal reflux disease without esophagitis (principal); Z90.3 Acquired absence of stomach [part of]
CPT/HCPCS: 74246

== ENCOUNTER → 2023-06-27 08:32 | Outpatient (BNV) | payer BC, SELFPAY | PROVIDERS: PCP Nurse Practitioner Family; Visit Provider Physician Assistant Surgical | DX: K21.9 Gastro-esophageal reflux disease without esophagitis (principal); Z90.3 Acquired absence of stomach [part of] | CPT/HCPCS: 74246 ==

== ENCOUNTER 2023-07-03 16:14 | Outpatient (REF) | payer BC, SELFPAY ==
[2023-07-03 17:54] LABS: Appearance Urine Clear; Color Urine Yellow; Glucose Urine UA Negative (Negative); Leukocyte Esterase Urine Negative (Negative); Nitrite Urine Negative (Negative); PH 7.5 (5.0-9.0); Specific Gravity - Urine 1.025 (1.005-1.025); Urine Blood Negative (Negative); Urine Ketones Negative (Negative); Urine Protein Negative (Neg-Trace)
[2023-07-03 18:00] LABS: Hematocrit 33.8 % (37.0-47.0); Hemoglobin 10.6 g/dl (12.0-16.0); Mean Corpuscular HGB Conc 31.4 g/dl (31.0-35.0); Mean Corpuscular Hemoglobin 25.1 pg (27.0-33.0); Mean Corpuscular Volume 80.1 fL (80.0-98.0); Mean Platelet Volume 9.9 fL (9.4-12.3); Platelet Count 353 X10*3/uL (160-400); Red Blood Count 4.22 X10*6/uL (4.20-5.50); Red Cell Distribution Width 19.2 % (11.0-16.0); White Blood Count 6.2 X10*3/uL (4.8-10.8)
[2023-07-03 18:11] LABS: Iron 172 mcg/dL (30-160); Magnesium 1.9 mg/dL (1.6-2.6); Percent Iron Saturation 45 % (15-50); Total Iron Binding Capacity 386 mcg/dL (228-428); Unsaturated Iron Binding 214 ug/dL
[2023-07-03 18:26] LABS: Ferritin 11 ng/mL (10-250)
[2023-07-03 18:51] LABS: Folate 9.4 ng/mL (> or = 4.0)
[2023-07-03 19:13] LABS: Vitamin B12 226 pg/mL (200-900)
[2023-07-07 15:53] LABS: Vitamin D 25-OH, D2 <4 ng/mL; Vitamin D 25-OH, D3 10 ng/mL; Vitamin D 25-OH, Total 10 ng/mL (30-100)
[2023-07-08 20:18] LABS: Nicotinamide 20 ng/mL; Vit B3 - Nicotinic Acid <20 ng/mL
[2023-07-10 08:10] LABS: Vitamin A 49
== END 2023-07-03 16:15 | disposition home or self-care (01) ==
LOC: HO.LAB 16:14
PROVIDERS: Absent Provider Nurse Practitioner Family; PCP Nurse Practitioner Family; Visit Provider Nurse Practitioner Family
DX: Z00.00 Encounter for general adult medical examination without abnormal findings (principal); R74.8 Abnormal levels of other serum enzymes; N18.9 Chronic kidney disease, unspecified; K86.89 Other specified diseases of pancreas; R19.7 Diarrhea, unspecified; D50.9 Iron deficiency anemia, unspecified; E55.9 Vitamin D deficiency, unspecified
CPT/HCPCS: 36415; 81003; 82306; 82607; 82728; 82746; 83540; 83735; 84590; 84591; 85027

== ENCOUNTER 2023-07-04 16:25 | Outpatient (AMB) | payer BC, SELFPAY ==
[2023-07-04 16:37] VITALS: BP 136/80; PULSE 72; RESP 13; TEMP 36.6; O2SAT 98; BMI 34.8
--- NOTE | 2023-07-04 16:37 | A.OFFPC_ITS ---
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 Accompanied by: Self / Same As Patient Allergies No Known Allergies [No Known Allergies*] Allergy (Verified 07/04/23 17:06) Medication List - Last Reconciled 07/04/23 by Raciel Hansen CNP amlodipine 5 mg PO DAILY 30 days ascorbic acid (vitamin C) 250 mg PO BIDWM docusate sodium 200 mg (2 x 100 mg) PO BEDTIME escitalopram oxalate 10 mg PO DAILY 30 days famotidine 40 mg PO BEDTIME ferrous sulfate 324 mg PO BIDWM hydrocortisone 2.5% (Proctosol HC) 1 appl [place] BID-QID PRN hydroxyzine HCl 25 mg PO TID PRN 30 days lisinopril 40 mg PO DAILY 30 days magnesium oxide 400 mg PO DAILY 30 days omeprazole 40 mg PO BID ondansetron 4 mg PO Q8H PRN solifenacin 10 mg PO DAILY Tobacco use date assessed: 05/19/23 Dental Screening Dental Screen Date: 06/16/23 HPI HPI Comments History of Present Illness Details 52-year-old female presents for hyperten rupinder, anemia, anxiety, and depression follow-up She admits to taking her medications as prescribed without adverse reactions She notes that she is very anxious in the morning. She worries about the health of her parents. She also worries about the welfare of her children. She notes that she often thinks younger brother overdosed on drugs 3 years, and her nephew in his sleep 2 years ago possibly due to mental illness. She reports multiple in the family which she is sad about. She became tearful as she explains in her family She is interested psychotherapy. She notes that her employer provides psychotherapy and intends to schedule an appointment to start therapy She has an appointment later this month with Hematology/Oncology for iron- deficiency anemia [facility] Medical History Acid reflux Hypertension Anemia Frequency of urination Hiatal hernia Surgical History Hx of hand surgery History of bilateral tubal ligation Hx of cholecystectomy H/O bariatric surgery Hx of section Family History Family/Other History of breast cancer Brother Overdose Cardiovascular disease Mother HTN (hypertension) Cardiovascular disease Father HTN (hypertension) Cardiovascular disease Maternal Grandmother HTN (hypertension) Other Mental health disorder Substance abuse Social History Household Members: Spouse Housing: House Do you presently have visiting nurse or other home services: No Alcohol intake: current Alcohol intake frequency: 0-2 drinks per day Patient Tobacco Use Status: Former Tobacco user e-Cigarette/Vaping Use: Never Used Substance Use Type: Marijuana service: No Current occupational status: employed 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 1. Little interest or pleasure in doing things: more than half the days 2. Feeling down, depressed, or hopeless: several days 3. Trouble falling or staying asleep, or sleeping too much: several days 4. Feeling tired or having little energy: not at all 5. Poor appetite or overeating: nearly every day (poor appetite) 6. Feeling bad about yourself - or that you are a failure or have let yourself or your family down: not at all 7. Trouble concentrating on things, such as reading the newspaper or watching television: not at all 8. Moving or speaking so slowly that other people could have noticed. Or the opposite - being so fidgety or restless that you have been moving around a lot more than usual: several days 9. Thoughts that you would be better off or of hurting yourself in some way: not at all Total score: 8 Depression Screening Interpretation: Positive Depression Screening Follow-up: Existing condition, In treatment and New Medication prescribed Depression Screening Done: Yes 11168 - PHQ-9 Billing: Yes Source: Developed by Drs. Zhang LMiroslava Gonzalez, Tito Reece and colleagues, with an educational nils from [employer]. Thrive Questionnaire Date Thrive assessed: 04/21/23 KAREEM-7 AMB Questionnaire KAREEM-7 Date KAREEM - 7 assessed: 07/04/23 Feeling nervous, anxious, or on edge: 3 = Nearly every day Not being able to stop or control worryin = Nearly every day Worrying too much about different things: 3 = Nearly every day Trouble relaxin = Several days Being so restless that it is hard to sit still: 1 = Several days Becoming easily annoyed or irritable: 0 = Not at all Feeling afraid as if something awful might happen: 3 = Nearly every day Total KAREEM-7 score (0-4 normal; 5-9 mild; 10-14 moderate; 15-21 severe): 14 Source: Developed by Drs. Zhang Persaud, Tito Wilhelm and colleagues, with an educational nils from [employer]. KAREEM-7 Assessment Billing KAREEM-7 Assessment Tool: KAREEM-7 Assessment 99198 Review of Systems Const Details: Const Denies chills, Denies fatigue, Denies fever(s), Denies headache(s) and Denies weakness ENT Denies dizziness and Denies headache(s) Card Denies chest pain, Denies lightheadedness, Denies dyspnea and Denies other (Palpitations) Resp Denies cough, Denies dyspnea, Denies wheezing and Denies other ( shortness of breath) GI Denies abdominal pain, Denies melena, Denies hematochezia, Denies change in bowel habits, Denies dyspepsia and Denies nausea Denies hematuria and Denies dysuria Musc Denies abnormal gait, Denies myalgias, Denies arthralgias, Denies numbness and Denies tingling Skin/Breast Denies rash, Denies unusual bruising and Denies wounds Neuro Denies abnormal gait, Denies dizziness, Denies headache(s), Denies memory loss, Denies numbness, Denies Sensory deficit (Neuro), Denies tingling and Denies weakness Psych Reports anxiety, Denies depression, Denies memory loss Endo Denies cold intolerance, Denies fatigue, Denies heat intolerance, Denies polydipsia and Denies polyuria Aller/Immun Denies wheezing Physical exam (Primary Care) Vital Signs: Last Vital Signs Temp 97.8 F 07/04/23 16:37 Pulse 72 07/04/23 16:37 Resp 13 07/04/23 16:37 BP 136/80 07/04/23 16:37 Pulse Ox 98 07/04/23 16:37 Oxygen Delivery Method Room Air 07/04/23 16:37 BMI result Body Mass Index 34.8 Tobacco/Smoking Status: Tobacco use Status Tobacco use date assessed 05/19/23 07/04/23 16:37 Patient Tobacco Use Status Former Tobacco user 07/04/23 16:37 e-Cigarette/Vaping Use Never Used 07/04/23 16:37 Depression Screening Interpretation: Positive Depression Screening Follow-up: Existing condition, In treatment and New Medication prescribed Thrive Assessment: Date of Thrive Assessment Date Thrive assessed 04/21/23 07/04/23 16:37 Const Other: General: no acute distress and well developed Nutritional Appearance: well nourished Orientation/consciousness: patient oriented x3 HENMT Head: Yes normocephalic and Yes atraumatic Eyes General: appearance normal, both eyes and all related structures Pupils: Equal, round and reactive pupils present EOM: EOMs intact bilaterally Resp Effort & Inspection: normal respiratory effort Auscultation: clear to auscultation bilaterally Cardio Rate: regular rate Rhythm: regular rhythm Heart sounds: S1 normal heart sound present, S2 normal heart sound present, no gallops, no murmurs and no rubs GI Palpation (GI): No Abdominal aortic bruit present, Soft to palpation, nontender, No hepatosplenomegaly present and No Rebound tenderness present Auscultation: normal bowel sounds General: Yes no CVA tenderness Back/Spine/Pelvis Back: no CVA tenderness Cervical Spine: cervical ROM normal and No Cervical spine tenderness Thoracic/Lumbar Spine: thoraco-lumbar ROM normal, No pain with thoraco-lumbar ROM, No thoracic spinal tenderness and No lumbar spinal tenderness Extrem General: Yes normal to inspection, No edema and No calf tenderness Skin General: warm and dry. Normal skin color. Normal skin turgor Neuro General: patient oriented x3, gait normal and no focal neuro deficit Cranial nerves: Yes Equal, round and reactive pupils present Cognition (Neuro): normal cognition Gait exam (Neuro): Normal gait present Sensory Exam: No Sensory deficit (Neuro) Psych Appearance: grossly normal Affect: normal affect Attitude: cooperative Thought process: Normal thought process present Assessment and Plan Assessment & Plan (1) Hypertension: Code(s): I10 - Essential (primary) hypertension Qualifiers: Hypertension type: primary hypertension Qualified Code(s): I10 - Essential (primary) hypertension Plan: Blood pressure is 136/80, within goal of less than 140/90 Continue current treatment regimen Low-sodium diet encouraged Will continue to monitor Verbalized understanding and agreed with treatment plan (2) Anxiety and depression: Code(s): F41.9 - Anxiety disorder, unspecified; F32.A - Depression, unspecified Plan: Reports increased anxiety symptoms which she attributes to family issues PHQ-9 and KAREEM-7 scores revealed mild depression and moderate anxiety respectively Will increase escitalopram to 20 mg daily. Take as prescribed Will start buspirone 7.5 mg twice daily. Take as prescribed Will discontinue hydroxyzine Instructed on deep breathing/relaxation techniques Routine exercise encouraged Encouraged to connect with a therapist that her employer provides Follow-up in 2 weeks or return sooner with worsening or new symptoms Verbalized understanding and agreed with treatment plan (3) Iron deficiency anemia: Code(s): D50.9 - Iron deficiency anemia, unspecified Plan: Recent H&H level showed some improvement from previous, 10.6/33.8; MCV is normal; iron level is elevated, 172; ferritin level is normal Will decrease ferrous sulfate to 324 mg daily. Advised to take as prescribed Follow up with hematology as scheduled later this month Return with symptoms or concerns Verbalized understanding and agreed with treatment plan Medications: New escitalopram oxalate 20 mg PO DAILY 30 days 30 tabs 0RF buspirone 7.5 mg PO BID 30 days 60 tabs 3RF Changed From ferrous sulfate 324 mg PO BIDWM 60 tabs 0RF To ferrous sulfate 324 mg PO DAILY 60 tabs 0RF Discontinued hydroxyzine HCl Discontinued Reason: Doctor's Order 25 mg PO TID 30 days PRN 90 tabs 1RF anxiety escitalopram oxalate Discontinued Reason: Doctor's Order 10 mg PO DAILY 30 days 30 tabs 3RF Coding Level of Care Code Est Pt Level 4 (91351) Diagnoses Primary hypertension I10 Hypertension type: primary hypertension Anxiety and depression F41.9; F32.A Iron deficiency anemia D50.9 Additional Codes KAREEM-7 Assessment Billing - KAREEM-7 Assessment Tool: KAREEM-7 Assessment 23413 ([id number])
== END 2023-07-04 17:31 | disposition home or self-care (01) ==
PROVIDERS: PCP Nurse Practitioner Family; Visit Provider Nurse Practitioner Family
DX: I10 Essential (primary) hypertension (principal); F41.9 Anxiety disorder, unspecified; F32.A Depression, unspecified; D50.9 Iron deficiency anemia, unspecified
CPT/HCPCS: 96127; 99214

== ENCOUNTER 2023-07-05 13:58 | Emergency (ER) | payer BC, SELFPAY ==
[2023-07-05] VITALS (8 sets, daily range): BP systolic 138–157; BP diastolic 63–78; PULSE 65–118; RESP 16–20; TEMP 36.3–36.8; O2SAT 98–100; BMI 33.3
--- NOTE | 2023-07-05 15:06 | ED.GENADULT ---
HPI - General Adult General Chief complaint: Nausea/Vomiting/Diarrhea Stated complaint: Vomiting, weakness, blurry vision Time Seen by Provider: 07/05/23 20:46 Source: patient Mode of arrival: ambulatory Limitations: no limitations History of Present Illness HPI narrative: Patient's history of vertigo in the past noticed dizziness since early today had severe anemia 2 months ago requiring blood transfusion patient fell same kind of feeling scared that patient might be having severe anemia denied any black stool late does have hemorrhoids and constipation with bright red blood in the stool Related Data Previous Rx's Medication Instructions Recorded ascorbic acid (vitamin C) 250 mg 250 mg PO BIDWM #60 tabs 04/27/23 tablet docusate sodium 100 mg capsule 200 mg (2 x 100 mg) PO BEDTIME 05/15/23 #180 caps famotidine 40 mg tablet 40 mg PO BEDTIME #30 tabs 05/15/23 hydrocortisone 2.5 % topical cream 1 appl [place] BID-QID PRN hemorrhoids 05/15/23 with perineal applicator #30 grams (Proctosol HC) omeprazole 40 mg capsule,delayed 40 mg PO BID #60 caps 05/15/23 release lisinopril 40 mg tablet 40 mg PO DAILY 30 days #30 tabs 05/19/23 ondansetron 4 mg disintegrating 4 mg PO Q8H PRN nausea and 05/26/23 tablet vomiting #14 tabs amlodipine 5 mg tablet 5 mg PO DAILY 30 days #30 tabs 06/16/23 magnesium oxide 400 mg PO DAILY 30 days #30 tabs 06/16/23 solifenacin 10 mg tablet 10 mg PO DAILY #30 tabs 07/02/23 buspirone 7.5 mg tablet 7.5 mg PO BID 30 days #60 tabs 07/04/23 escitalopram oxalate 20 mg tablet 20 mg PO DAILY 30 days #30 tabs 07/04/23 ferrous sulfate 324 mg (65 mg 324 mg PO DAILY #60 tabs 07/04/23 iron) tablet,delayed release meclizine 25 mg tablet 25 mg PO TID PRN dizziness #20 tabs 07/05/23 Allergies Allergy/AdvReac Type Severity Reaction Status Date / Time No Known Allergies Allergy Verified 07/04/23 17:06 [No Known Allergies*] Review of Systems Review of Systems: Yes all other systems are reviewed and are negative PMFSH Past Medical History Medical History Acid reflux Hypertension Anemia Frequency of urination Hiatal hernia Surgical History Hx of hand surgery History of bilateral tubal ligation Hx of cholecystectomy H/O bariatric surgery Hx of section Family History Family History Family/Other History of breast cancer Brother Overdose Cardiovascular disease Mother HTN (hypertension) Cardiovascular disease Father HTN (hypertension) Cardiovascular disease Maternal Grandmother HTN (hypertension) Other Mental health disorder Substance abuse Social History Social History Household Members: Spouse Housing: House Do you presently have visiting nurse or other home services: No Alcohol intake: current Alcohol intake frequency: 0-2 drinks per day Patient Tobacco Use Status: Former Tobacco user Smoked in Last 30 Days: No e-Cigarette/Vaping Use: Never Used Use of substances other than those prescribed or required for medical reasons: No Substance Use Type: Marijuana Advance Directives: No Advance Directives Information Provided: No Patient : No service: No Current occupational status: employed 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- [employer] Sexual orientation: Straight/Heterosexual Gender identity: Female Cognitive needs: No Hearing needs: No Vision needs: Yes Physical Exam ED Vital Signs: Vital Signs - 24 hr 07/05/23 15:07 07/05/23 20:05 07/05/23 20:55 Temperature 97.6 F 97.3 F 97.9 F Pulse Rate 69 118 H 65 Respiratory Rate 20 18 16 Blood Pressure 145/73 H 154/71 H 153/75 H Pulse Oximetry 100 98 Oxygen Delivery Method Room Air Room Air Room Air 07/05/23 21:46 07/05/23 21:48 07/05/23 21:50 Temperature Pulse Rate 65 65 70 Respiratory Rate Blood Pressure 150/76 H 157/63 H 138/78 Pulse Oximetry Oxygen Delivery Method 07/05/23 22:59 07/05/23 23:06 Temperature 98.2 F 98.2 F Pulse Rate 70 70 Respiratory Rate 16 16 Blood Pressure 145/68 H 145/68 H Pulse Oximetry 98 98 Oxygen Delivery Method Room Air Room Air BMI result Body Mass Index 33.3 Appearance: Alert. Oriented X3. No acute distress. Eyes: PERRLA, No Nystagmus ENT: Pharynx normal. Oral Mucosa moist Neck: Normal inspection. Neck supple. CVS: Normal heart rate and rhythm. Pulses normal. Respiratory: No respiratory distress. Equal air entry bilateral, no wheezing/rales/rhonchi Abdomen: Soft and nontender. Bowel sounds are present, no mass palpable, no CVA tenderness Skin: Skin warm and dry. Normal skin color. Normal skin turgor. Extremities: No lower extremity edema. No calf tenderness Neuro: Oriented X 3. No motor deficit. No sensory deficit.No cerebellar signs , cranial nerves II-XII intact Course Course Course Narrative: This is an RME: Additional HPI, ROS, PE not included below will be deferred to primary provider. This is a 84-rooc-fyg-female, with a hx of GI bleed requiring blood transfusion during hospital admission from 04/20/2023 through 04/27/2023, here with complaints of nausea, vomiting, and dizziness since this AM. She states that 3 days ago she noticed bright red blood in her stool. States that she vomited 5 times today, no hematemesis. +Chills. No sick contacts. CT abdomen and pelvis during April admission was concerning for microperforation. Plan: Labs, EKG, viral swabs Medications Administered Discontinued Medications Generic Name Dose Route Start Last Admin Trade Name Freq PRN Reason Stop Dose Admin Meclizine HCl 25 mg 07/05/23 21:32 07/05/23 21:44 Meclizine Hcl 25 Mg Tablet PO 07/05/23 21:33 25 mg ONCE ONE Administration Medical Decision Making Medical Decision Making [facility] Narrative: Patient with acute vertiginous feeling specially on moving the head to the left side improved after given meclizine in the ER labs are stable patient advised to continue meclizine and rest as advised Differential Diagnosis Differential Diagnoses: The differential diagnosis associated with the presentation includes Benign positional vertigo/anemia Lab Data [facility] Lab Attestation statement: I reviewed the patient's lab results. 07/05/23 15:34 07/05/23 15:34 Labs: Lab Results 07/05/23 Range/Units 15:34 WBC 11.5 H (4.8-10.8) X10*3/uL RBC 4.07 L (4.20-5.50) X10*6/uL Hgb 10.3 L (12.0-16.0) g/dl Hct 33.2 L (37.0-47.0) % MCV 81.6 (80.0-98.0) fL MCH 25.3 L (27.0-33.0) pg MCHC 31.0 (31.0-35.0) g/dl RDW 18.5 H (11.0-16.0) % Plt Count 312 (160-400) X10*3/uL MPV 9.1 L (9.4-12.3) fL Immature Gran % (Auto) 0.4 (0.0-0.4) % Neut % (Auto) 86.9 H (45-73) % Lymph % (Auto) 8.1 L (20-40) % Tripp % (Auto) 4.3 (2-11) % Eos % (Auto) 0.1 (0-4) % Baso % (Auto) 0.2 (0-2) % Lymph # (Auto) 0.9 L (1.2-4.9) X10*3/uL Tripp # (Auto) 0.5 (0.1-1.2) X10*3/uL Eos # (Auto) 0.0 (0.0-0.4) X10*3/uL Baso # (Auto) 0.0 (0.0-0.2) X10*3/uL Abs Immat Gran (auto) 0.05 H (0.00-0.03) X10*3/uL Absolute Neuts (auto) 10.0 H (2.0-8.3) x10*3/uL Absolute Nucleated RBC 0.000 (0.0-0.012) X10*3/uL Nucleated RBC % (auto) 0.0 (0.0-0.2) /100WBC PT 10.9 L (11.1-13.3) SEC INR 0.9 (0.9-1.1) APTT 26.0 (26.0-36.8) SEC Sodium 140 (135-145) mmol/L Potassium 4.4 (3.3-5.1) mmol/L Chloride 109 H (96-108) mmol/L Carbon Dioxide 24 (22-29) mmol/L Anion Gap 11 L (12-20) BUN 16 (9-16) mg/dL Creatinine 0.65 (0.5-1.4) mg/dL Estim Creat Clear Calc 98.5 Estimated GFR > 60 Random Glucose 109 (60-115) mg/dL Calcium 9.4 (8.4-10.2) mg/dL Magnesium 1.8 (1.6-2.6) mg/dL Total Bilirubin 0.3 (0.0-1.0) mg/dL Direct Bilirubin 0.2 (0.0-0.5) mg/dL AST 25 (5-31) U/L ALT 22 (0-31) U/L Alkaline Phosphatase 67 (39-117) U/L Troponin I High Sens < 2.7 (<3.5-17.0) ng/L Total Protein 8.0 (6.5-8.0) g/dL Albumin 3.9 (3.5-5.0) g/dL Lipase 15 (8-78) U/L Influenza Type A (PCR) NEGATIVE (Negative) Influenza Type B (PCR) NEGATIVE (Negative) RSV RNA Qual (PCR) NEGATIVE (Negative) SARS-CoV-2 RNA (RT-PCR) NEGATIVE (Negative) Discharge Plan Discharge Clinical Impression: Benign paroxysmal positional vertigo Patient Disposition: Home, Self-Care Instructions: Benign Paroxysmal Positional Vertigo (ED) Additional Instructions: Medication for dizziness as prescribed Care and cautions as advised Continue your medication and iron tablets Prescriptions: New meclizine 25 mg tablet 25 mg PO TID PRN (Reason: dizziness) Qty: 20 0RF No Action solifenacin 10 mg tablet 10 mg PO DAILY Qty: 30 5RF ascorbic acid (vitamin C) 250 mg Tablet 250 mg PO BIDWM Qty: 60 0RF ondansetron 4 mg tablet,disintegrating 4 mg PO Q8H PRN (Reason: nausea and vomiting) Qty: 14 0RF amlodipine 5 mg tablet 5 mg PO DAILY 30 Days Qty: 30 3RF magnesium oxide 400 mg magnesium tablet 400 mg PO DAILY 30 Days Qty: 30 3RF buspirone 7.5 mg tablet 7.5 mg PO BID 30 Days Qty: 60 3RF escitalopram oxalate 20 mg tablet 20 mg PO DAILY 30 Days Qty: 30 0RF ferrous sulfate 324 mg (65 mg iron) tablet,delayed release (DR/EC) 324 mg PO DAILY Qty: 60 0RF lisinopril 40 mg tablet 40 mg PO DAILY 30 Days Qty: 30 3RF docusate sodium 100 mg capsule 200 mg PO BEDTIME Qty: 180 3RF omeprazole 40 mg capsule,delayed release(DR/EC) 40 mg PO BID Qty: 60 2RF famotidine 40 mg tablet 40 mg PO BEDTIME Qty: 30 3RF hydrocortisone [Proctosol HC] 2.5 % cream with perineal applicator 1 appl [place] BID-QID PRN (Reason: hemorrhoids) Qty: 30 2RF Interventions: ED Discharge Assessment Last Done: 07/05/23 23:06 Discharge Date/Time: 07/05/23 23:08
--- NOTE | 2023-07-05 15:09 | ECG_ITS ---
Test Reason : dizziness Blood Pressure : / mmHG Vent. Rate : 065 BPM Atrial Rate : 065 BPM P-R Int : 114 ms QRS Dur : 098 ms QT Int : 444 ms P-R-T Axes : -04 004 004 degrees QTc Int : 461 ms Normal sinus rhythm Normal ECG When compared with ECG of 20-APR-2023 14:45, No significant change was found Referred By: Cleo De La Rosa Electronically Signed By:DANILO YEE MD
[2023-07-05 15:40] LABS: MANUAL DIFF FLAG NO
[2023-07-05 15:42] LABS: Basophils Percent Auto 0.2 % (0-2); Eosinophils Percent Auto 0.1 % (0-4); Hematocrit 33.2 % (37.0-47.0); Hemoglobin 10.3 g/dl (12.0-16.0); Imm Gran Abs Auto 0.05 X10*3/uL (0.00-0.03); Imm Gran Pct Auto 0.4 % (0.0-0.4); Lymphocytes Absolute Auto 0.9 X10*3/uL (1.2-4.9); Lymphocytes Percent Auto 8.1 % (20-40); Mean Corpuscular Hemoglobin 25.3 pg (27.0-33.0); Mean Corpuscular Volume 81.6 fL (80.0-98.0); Mean Platelet Volume 9.1 fL (9.4-12.3); Monocytes Absolute Auto 0.5 X10*3/uL (0.1-1.2); Monocytes Percent Auto 4.3 % (2-11); Neutrophils Percent Auto 86.9 % (45-73); Platelet Count 312 X10*3/uL (160-400); Red Blood Count 4.07 X10*6/uL (4.20-5.50); Red Cell Distribution Width 18.5 % (11.0-16.0); White Blood Count 11.5 X10*3/uL (4.8-10.8)
[2023-07-05 15:49] LABS: INTERNATIONAL NORM RATIO 0.9 (0.9-1.1); Prothrombin Time 10.9 SEC (11.1-13.3)
[2023-07-05 15:56] LABS: Alanine Aminotransferase 22 U/L (0-31); Albumin Level 3.9 g/dL (3.5-5.0); Alkaline Phosphatase 67 U/L (39-117); Anion Gap 11 (12-20); Aspartate Amino Transferase 25 U/L (5-31); Bilirubin Direct 0.2 mg/dL (0.0-0.5); Bilirubin Total 0.3 mg/dL (0.0-1.0); Blood Urea Nitrogen 16 mg/dL (9-16); Calcium 9.4 mg/dL (8.4-10.2); Carbon Dioxide 24 mmol/L (22-29); Chloride 109 mmol/L (96-108); Creatinine Clr Calc Pharmacy 98.5; Estimated Glomerular Filt Rate > 60; Glucose Random 109 mg/dL (60-115); Lipase 15 U/L (8-78); Magnesium 1.8 mg/dL (1.6-2.6); Potassium 4.4 mmol/L (3.3-5.1); Sodium 140 mmol/L (135-145)
[2023-07-05 16:07] LABS: Troponin-I High Sensitivity < 2.7 ng/L (<3.5-17.0)
[2023-07-05 16:23] LABS: Influenza A PCR NEGATIVE (Negative); Influenza B PCR NEGATIVE (Negative); Resp Syncy Virus RNA Qual PCR NEGATIVE (Negative); SARS COV2 PCR INHOUSE NEGATIVE (Negative)
--- NOTE | 2023-07-05 20:57 | MHC.EDTECH ---
THIS PCT JUST ASSUMED CARE OF PATIENT ,VITALS TAKEN ,PT RESTING QUIETLY IN BED .
[2023-07-05] MEDS: Meclizine HCl 25 MG TABLET PO (21:44)
== END 2023-07-05 23:08 | disposition home or self-care (01) ==
PROVIDERS: Physician Assistant Medical; Emergency Provider Internal Medicine
DX: H81.10 Benign paroxysmal vertigo, unspecified ear (principal); I10 Essential (primary) hypertension; D64.9 Anemia, unspecified; Z79.899 Other long term (current) drug therapy; Z03.818 Encounter for observation for suspected exposure to other biological agents ruled out
CPT/HCPCS: 0241U; 36415; 80048; 80076; 83690; 83735; 84484; 85025; 85610; 85730; 93005; 99283; 99284

== ENCOUNTER → 2023-07-05 15:09 | Outpatient (BNV) | payer BC, SELFPAY | PROVIDERS: Emergency Provider Internal Medicine; Visit Provider Internal Medicine Cardiovascular Disease | DX: R42 Dizziness and giddiness (principal) | CPT/HCPCS: 93010 ==

== ENCOUNTER 2023-07-07 14:58 | Outpatient (AMB) | payer BC, SELFPAY ==
--- NOTE | 2023-07-07 15:16 | A.OFFVIS_ITS ---
Intake Visit Reasons: 8weeks/ US Intake Note: Patient presents today for US Results: Meds- Solifenacin Allergies to Antibiotic- No Known Allergies Blood Thinner- None Greenhouse Assistant Required: No Accompanied by: self Allergies No Known Allergies [No Known Allergies*] Allergy (Verified 07/24/23 15:43) HPI Comments Details: Lazara is a 52 year old female who is here for evaluation for urinary incontinence, she was last evaluated on 04/20/2023. Past Medical history Acid reflux, Hypertension, Anemia, Hiatal hernia. History of nicotine use The patient complains of daytime urinary frequency every 2 hours, urinary incontinence associated with urge, nocturia 1-3 times. I have discussed avoiding dietary bladder irritants, including to cut back on caffeine usage. I have discussed workup to include evaluation of the upper tracts and consideration for cystoscopy evaluation. She was started on VESIcare 10 mg. I have reviewed renal ultrasound--06/13/2023, kidneys negative for kidney stones. Plan: Schedule follow-up office cystoscopy [facility] Medical History Acid reflux Hypertension Anemia Frequency of urination Hiatal hernia Surgical History Hx of hand surgery History of bilateral tubal ligation Hx of cholecystectomy H/O bariatric surgery Hx of section Family History Family/Other History of breast cancer Brother Overdose Cardiovascular disease Mother HTN (hypertension) Cardiovascular disease Father HTN (hypertension) Cardiovascular disease Maternal Grandmother HTN (hypertension) Other Mental health disorder Substance abuse Social History (Updated 07/25/23 @ 14:36 by Khurram Bailey) Household Members: Spouse Housing: House Do you presently have visiting nurse or other home services: No Alcohol intake: current Alcohol intake frequency: 0-2 drinks per day Patient Tobacco Use Status: Former Tobacco user e-Cigarette/Vaping Use: Never Used Substance Use Type: Marijuana service: No Current occupational status: employed 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- [employer] Sexual orientation: Straight/Heterosexual Gender identity: Female Cognitive needs: No Hearing needs: No Vision needs: Yes Female Reproductive History Menstrual Age of Menarche: 10 Review of Systems Const All systems reviewed & are unremarkable except as noted in HPI and below Reports no additional complaints Eyes Reports no additional complaints ENT Reports no additional complaints Card Reports no additional complaints Resp Reports no additional complaints GI Reports no additional complaints Reports as per HPI Musc Reports no additional complaints Skin/Breast Reports system reviewed and no additional complaints, except as documented Neuro Reports no additional complaints Psych Reports no additional complaints Endo Reports no additional complaints Rl/Lymph Reports no additional complaints Aller/Immun Reports no additional complaints Results Reviewed Results Reviewed: Date of Service: 06/13/23 EXAMINATION: US RETROPERITONEAL LIMITED (RENAL ONLY) CLINICAL INFORMATION: Urgency of urination. COMPARISON: CT abdomen and pelvis 04/25/2023. Ultrasound abdomen complete 08/06/2015 and 07/12/2014. TECHNIQUE: Real-time imaging of the kidneys. FINDINGS: RIGHT KIDNEY: 13.5 x 4.6 x 5.9 cm (SAG x AP x TRV). The kidney is normal in size, contour, and echogenicity. Renal cortical thickness is normal. No calculi or focal parenchymal lesions. No hydronephrosis. LEFT KIDNEY: 12.8 x 7.3 x 6.3 cm (SAG x AP x TRV). The kidney is normal in size, contour, and echogenicity. Renal cortical thickness is normal. No calculi or focal parenchymal lesions. Extrarenal pelvis without hydronephrosis. IMPRESSION: No nephrolithiasis. Left extrarenal pelvis without overt hydronephrosis. Assessment & Plan Assessment & Plan (1) Urinary incontinence: Code(s): R32 - Unspecified urinary incontinence Category: Medical (2) Frequency of urination: Code(s): R35.0 - Frequency of micturition Category: Medical Plan Schedule follow-up office cystoscopy Orders: Orders AMB Urinalysis Automated 07/07/23 Z13.9 - Encounter for screening, unspecified Patient Instructions: The patient had an opportunity to ask questions regarding treatment plan. The patient expressed understanding and agreement with the above treatment plan. The patient is aware they should contact our office by phone for worsening of their current condition or the appearance of new symptoms. Compliance is encouraged with any medications and followup testing that is ordered. It is a privilege to be allowed the opportunity to participate in the urologic care of your patient. If you have any questions or concerns regarding treatment for the above conditions please do not hesitate to contact me. The office telephone contact is [phone]. This note is constructed in part using voice recognition software. While every effort has been made to ensure accuracy bus mechanic errors may have been included. Yours sincerely, Jihan Foley MD Coding Level of Care Code Est Pt Level 3 (16924) Diagnoses Urinary incontinence R32 Frequency of urination R35.0
== END 2023-07-07 15:59 | disposition home or self-care (01) ==
PROVIDERS: PCP Nurse Practitioner Family; Visit Provider Urology
DX: R32 Unspecified urinary incontinence (principal); R35.0 Frequency of micturition
CPT/HCPCS: 99213

== ENCOUNTER → 2023-07-07 14:58 | Outpatient (BNVA) | payer BC, SELFPAY | PROVIDERS: PCP Nurse Practitioner Family; Visit Provider Urology ==

== ENCOUNTER 2023-07-24 15:24 | Outpatient (AMB) | payer BC, SELFPAY ==
--- NOTE | 2023-07-24 15:28 | A.OFFPC_ITS ---
Vital Signs 07/24/23 15:29 Height 5 ft 2 in Weight 190 lb 4 oz BMI 34.8 BP 136/80 Blood Pressure Location Rt brachial Position Sitting Respiration 13 Pulse 75 Pulse Source Pulse Oximeter Temp 97.1 F Temp Source Temporal Artery Scan Pulse Oximetry (%) 98 Oxygen Delivery Method Room Air Intake Visit Reasons: f/u Anxiety and Depression Data Virtualization Consultant Required: No Accompanied by: Self / Same As Patient Allergies No Known Allergies [No Known Allergies*] Allergy (Verified 07/24/23 15:43) Medication List - Last Reconciled 07/24/23 by Raciel Hansen CNP amlodipine 5 mg PO DAILY 30 days ascorbic acid (vitamin C) 250 mg PO BIDWM buspirone 7.5 mg PO BID 30 days cholecalciferol (vitamin D3) 100 mcg (2 x 50 mcg (2,000 unit)) PO DAILY docusate sodium 200 mg (2 x 100 mg) PO BEDTIME escitalopram oxalate 20 mg PO DAILY 30 days famotidine 40 mg PO BEDTIME ferrous sulfate 324 mg PO DAILY hydrocortisone 2.5% (Proctosol HC) 1 appl [place] BID-QID PRN lisinopril 40 mg PO DAILY 30 days magnesium oxide 400 mg PO DAILY 30 days meclizine 25 mg PO TID PRN omeprazole 40 mg PO BID ondansetron 4 mg PO Q8H PRN solifenacin 10 mg PO DAILY Tobacco use date assessed: 07/24/23 Dental Screening Dental Screen Date: 06/16/23 HPI HPI Comments History of Present Illness Details 53-year-old female presents for hyperten rupinder, anemia, anxiety, and depression follow-up She admits to taking her medications as prescribed without adverse reactions She was seen at [facility] [place] 07/09/2023 for Benign paroxysmal positional vertigo She reports increased anxiety and depression symptoms which she attributes to her father being recently diagnosed of leukemia. She notes that she wakes up in the morning anxious to to the point where here hands are shaking. She reports adequate night sleep but sometimes wake up tired She has an appointment with Dr. Edward, hematology tomorrow [facility] Medical History Acid reflux Hypertension Anemia Frequency of urination Hiatal hernia Surgical History Hx of hand surgery History of bilateral tubal ligation Hx of cholecystectomy H/O bariatric surgery Hx of section Family History Family/Other History of breast cancer Brother Overdose Cardiovascular disease Mother HTN (hypertension) Cardiovascular disease Father HTN (hypertension) Cardiovascular disease Maternal Grandmother HTN (hypertension) Other Mental health disorder Substance abuse Social History Household Members: Spouse Housing: House Do you presently have visiting nurse or other home services: No Alcohol intake: current Alcohol intake frequency: 0-2 drinks per day Patient Tobacco Use Status: Former Tobacco user e-Cigarette/Vaping Use: Never Used Substance Use Type: Marijuana service: No Current occupational status: employed 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 1. Little interest or pleasure in doing things: more than half the days 2. Feeling down, depressed, or hopeless: nearly every day 3. Trouble falling or staying asleep, or sleeping too much: more than half the days 4. Feeling tired or having little energy: more than half the days 5. Poor appetite or overeating: nearly every day 6. Feeling bad about yourself - or that you are a failure or have let yourself or your family down: more than half the days 7. Trouble concentrating on things, such as reading the newspaper or watching television: more than half the days 8. Moving or speaking so slowly that other people could have noticed. Or the opposite - being so fidgety or restless that you have been moving around a lot more than usual: nearly every day 9. Thoughts that you would be better off or of hurting yourself in some way: not at all Total score: 19 Depression Screening Interpretation: Positive Depression Screening Follow-up: Existing condition and In treatment Depression Screening Done: Yes 49349 - PHQ-9 Billing: Yes Source: Developed by Drs. Zhang Persaud, MiroslavaTito Gonzalez and colleagues, with an educational nils from [employer]. Thrive Questionnaire Date Thrive assessed: 04/21/23 KAREEM-7 AMB Questionnaire KAREEM-7 Date KAREEM - 7 assessed: 07/24/23 Feeling nervous, anxious, or on edge: 3 = Nearly every day Not being able to stop or control worryin = Nearly every day Worrying too much about different things: 3 = Nearly every day Trouble relaxin = Nearly every day Being so restless that it is hard to sit still: 3 = Nearly every day Becoming easily annoyed or irritable: 0 = Not at all Feeling afraid as if something awful might happen: 3 = Nearly every day Total KAREEM-7 score (0-4 normal; 5-9 mild; 10-14 moderate; 15-21 severe): 18 Source: Developed by Drs. Zhang Persaud, Miroslava Jerome, Tito Reece and colleagues, with an educational nils from [employer]. KAREEM-7 Assessment Billing KAREEM-7 Assessment Tool: KAREEM-7 Assessment 96603 Review of Systems Const Details: Const Denies chills, Denies fatigue, Denies fever(s), Denies headache(s) and Denies weakness ENT Denies dizziness and Denies headache(s) Card Denies chest pain, Denies lightheadedness, Denies dyspnea and Denies other (Palpitations) Resp Denies cough, Denies dyspnea, Denies wheezing and Denies other ( shortness of breath) GI Denies abdominal pain, Denies melena, Denies hematochezia, Denies change in bowel habits, Denies dyspepsia and Denies nausea Denies hematuria and Denies dysuria Musc Denies abnormal gait, Denies myalgias, Denies arthralgias, Denies numbness and Denies tingling Skin/Breast Denies rash, Denies unusual bruising and Denies wounds Neuro Denies abnormal gait, Denies dizziness, Denies headache(s), Denies memory loss, Denies numbness, Denies Sensory deficit (Neuro), Denies tingling and Denies weakness Psych Reports anxiety, Reports depression, Denies memory loss Endo Denies cold intolerance, Denies fatigue, Denies heat intolerance, Denies polydipsia and Denies polyuria Aller/Immun Denies wheezing Physical exam (Primary Care) Vital Signs: Last Vital Signs Temp 97.1 F 07/24/23 15:29 Pulse 75 07/24/23 15:29 Resp 13 07/24/23 15:29 BP 136/80 07/24/23 15:29 Pulse Ox 98 07/24/23 15:29 Oxygen Delivery Method Room Air 07/24/23 15:29 BMI result Body Mass Index 34.8 Tobacco/Smoking Status: Tobacco use Status Tobacco use date assessed 07/24/23 07/24/23 15:37 Patient Tobacco Use Status Former Tobacco user 07/24/23 15:37 e-Cigarette/Vaping Use Never Used 07/24/23 15:37 PHQ-9: PHQ-9 Score PHQ-9: Total score 07/24/23 15:37 Depression Screening Interpretation: Positive Depression Screening Follow-up: Existing condition and In treatment Thrive Assessment: Date of Thrive Assessment Date Thrive assessed 04/21/23 07/24/23 15:37 Const Other: General: no acute distress and well developed Nutritional Appearance: well nourished Orientation/consciousness: patient oriented x3 HENMT Head: Yes normocephalic and Yes atraumatic Eyes General: appearance normal, both eyes and all related structures Pupils: Equal, round and reactive pupils present EOM: EOMs intact bilaterally Resp Effort & Inspection: normal respiratory effort Auscultation: clear to auscultation bilaterally Cardio Rate: regular rate Rhythm: regular rhythm Heart sounds: S1 normal heart sound present, S2 normal heart sound present, no gallops, no murmurs and no rubs GI Palpation (GI): No Abdominal aortic bruit present, Soft to palpation, nontender, No hepatosplenomegaly present and No Rebound tenderness present Auscultation: normal bowel sounds General: Yes no CVA tenderness Back/Spine/Pelvis Back: no CVA tenderness Cervical Spine: cervical ROM normal and No Cervical spine tenderness Thoracic/Lumbar Spine: thoraco-lumbar ROM normal, No pain with thoraco-lumbar ROM, No thoracic spinal tenderness and No lumbar spinal tenderness Extrem General: Yes normal to inspection, No edema and No calf tenderness Skin General: warm and dry. Normal skin color. Normal skin turgor Neuro General: patient oriented x3, gait normal and no focal neuro deficit Cranial nerves: Yes Equal, round and reactive pupils present Cognition (Neuro): normal cognition Gait exam (Neuro): Normal gait present Sensory Exam: No Sensory deficit (Neuro) Psych Appearance: grossly normal Affect: normal affect Attitude: cooperative Thought process: Normal thought process present Assessment and Plan Assessment & Plan (1) Hypertension: Code(s): I10 - Essential (primary) hypertension Qualifiers: Hypertension type: primary hypertension Qualified Code(s): I10 - Essential (primary) hypertension Plan: Blood pressure is 136/80, within goal of less than 140/90 Continue current treatment regimen Low-sodium diet encouraged Will continue to monitor Verbalized understanding and agreed with the treatment plan (2) Iron deficiency anemia: Code(s): D50.9 - Iron deficiency anemia, unspecified Plan: She admits to taking ferrous sulfate as prescribed Recent H&H is low, 10.3/33.2, MCV is normal, 81.6 Iron is elevated, 172, ferritin was normal, folate/B12 normal Ferrous sulfate was decreased from 324 mg twice daily to 324 mg daily Continue current treatment regimen Follow-up with Hematology as planned Return with symptoms or concerns Verbalized understanding and agreed with treatment plan (3) Anxiety and depression: Code(s): F41.9 - Anxiety disorder, unspecified; F32.A - Depression, unspecified Plan: Reports increased anxiety and depression symptoms which she attributes to new diagnosis of his father with leukemia PHQ-9 and KAREEM-7 scores revealed moderately severe depression and severe anxiety respectively Will increase buspirone to 10 mg 3 times daily. Advised to take as prescribed Continue to take escitalopram as prescribed Routine exercise encouraged Take vitamin D3 as prescribed as vitamin D deficiency may cause fatigue Follow-up in 2 weeks or return sooner with worsening or new symptoms Verbalized understanding and agreed with treatment plan Medications: New buspirone 10 mg PO TID 30 days 90 tabs 3RF Discontinued buspirone Discontinued Reason: Doctor's Order 7.5 mg PO BID 30 days 60 tabs 3RF Coding Level of Care Code Est Pt Level 4 (68571) Diagnoses Primary hypertension I10 Hypertension type: primary hypertension Iron deficiency anemia D50.9 Anxiety and depression F41.9; F32.A Additional Codes KAREEM-7 Assessment Billing - KAREEM-7 Assessment Tool: KAREEM-7 Assessment 82147 ([id number])
[2023-07-24 15:29] VITALS: BP 136/80; PULSE 75; RESP 13; TEMP 36.2; O2SAT 98; BMI 34.8
== END 2023-07-24 16:00 | disposition home or self-care (01) ==
LOC: HO.HMGFM 15:26
PROVIDERS: PCP Nurse Practitioner Family; Visit Provider Nurse Practitioner Family
DX: I10 Essential (primary) hypertension (principal); D50.9 Iron deficiency anemia, unspecified; F41.9 Anxiety disorder, unspecified; F32.A Depression, unspecified
CPT/HCPCS: 99214

== ENCOUNTER → 2023-07-25 14:13 | Outpatient (BNV) | payer BC, SELFPAY | PROVIDERS: Visit Provider Internal Medicine Medical Oncology | DX: D50.9 Iron deficiency anemia, unspecified (principal) | CPT/HCPCS: 99204; 99213 ==

== ENCOUNTER 2023-08-14 14:33 | Outpatient (AMB) | payer BC, SELFPAY ==
--- NOTE | 2023-08-14 14:37 | MHC.OFFVIS ---
Vital Signs 08/14/23 14:38 Height 5 ft 2 in Weight 186 lb 1.122 oz BMI 34.0 BP 120/89 Blood Pressure Location Lt brachial Position Sitting Pulse 85 Intake Visit Reasons: 3 month follow up Intake Note: Patient returns to in office follow up of labs. CC: Patient states she continues to have nausea, abdominal pain, abdominal bloating, heartburn, with burning sensation, and constipation. She states she is now getting weekly IV iron infusions. Cilnical Scientist Required: No Accompanied by: Self / Same As Patient Allergies No Known Allergies [No Known Allergies*] Allergy (Verified 08/14/23 14:42) HPI HPI 3 month follow up: Details: LAST VISIT Anemia S/P gastric sleeve procedure Acid reflux Postprandial epigastric pain Dyspepsia Nausea Postprandial abdominal bloating Constipation Plan Will order CBC, ferritin, iron profile, vitamin a, B12, folate, vitamin B3, vitamin-D. Patient will be referred to Hematology for possible iron infusion. Patient will take stool softeners and will call us if she will continue to be constipated. Patient was encouraged to increase fluid intake and activity to promote better bowel motility. Patient will start taking omeprazole twice a day and famotidine at bedtime. Discussed with patient avoiding dietary triggers and late night snacking. Staying upright for minimum 3 hours after meals discussed with patient. List of food recommended as well as list of food to avoid given to patient. I will see patient in 3 months, sooner on as needed basis. Patient is agreeable to this plan and verbalizes understanding of instructions. She was given the opportunity to ask questions and all questions answered. ? Thank you for allowing me to participate in her care Orders Orders Complete Blood Count no Diff 05/15/23 K21.9 Ferritin 05/15/23 R74.8 Magnesium 05/15/23 N18.9 IRON PROFILE 05/15/23 D64.9 Vitamin A 05/15/23 K86.89 Vitamin B12 and Folate 05/15/23 R19.7 Vitamin B3 (Niacin) 05/15/23 K86.89 Vitamin D 25-OH (D2 and D3) 05/15/23 E55.9 Referrals Hematology & Oncology Referral D64.9 Medications New docusate sodium 200 mg (2 x 100 mg) PO BEDTIME 180 caps 3RF K59.00 omeprazole 40 mg PO BID 60 caps 2RF K21.9 hydrocortisone 2.5% (Proctosol HC) 1 appl MT BID-QID PRN 30 grams 2RF hemorrhoids K64.9 famotidine 40 mg PO BEDTIME 30 tabs 3RF K21.9 Discontinued pantoprazole Discontinued Reason: Duplicate 40 mg PO BID 60 tabs 0RF TODAY'S VISIT: Patient is here today for follow-up. Patient reports that she has been under a lot of stress in the past couple of months. Her father was diagnosed with leukemia and sent home on hospice on . Patient states that he early Monday morning. Patient is in the middle of arranging . Forgot to take her omeprazole. Continues to have epigastric discomfort. However patient does admit that her symptoms are much better when she takes the medication. Famotidine helps her what symptoms during the night. Patient avoids eating late at night. Patient no longer is taking p.o. iron, IV iron administered and patient states that she is feeling better. Only uses Colace on as needed basis. Patient denies melena, hematochezia, unintentional weight loss or ribbon like stools. Continues to see her reel hooker for iron infusion and blood work. We ruled out celiac, patient had normal lipase. Patient reports occasional postprandial abdominal bloating and epigastric pain. Patient understands that in the last couple months she has been going through lot of stress and not always have been eating well. Has not had an appointment with bariatric services. Patient reports that she lost her cell phone. When looking in her chart several attempts were made from bariatric office to make an appointment. [facility] Medical History Acid reflux Hypertension Anemia Frequency of urination Hiatal hernia Surgical History Hx of hand surgery History of bilateral tubal ligation Hx of cholecystectomy H/O bariatric surgery Hx of section Family History Family/Other History of breast cancer Brother Overdose Cardiovascular disease Mother HTN (hypertension) Cardiovascular disease Father HTN (hypertension) Cardiovascular disease Maternal Grandmother HTN (hypertension) Other Mental health disorder Substance abuse Social History (Updated 07/25/23 @ 14:36 by Khurram Bailey) Household Members: Spouse Housing: House Do you presently have visiting nurse or other home services: No Alcohol intake: current Alcohol intake frequency: 0-2 drinks per day Patient Tobacco Use Status: Former Tobacco user e-Cigarette/Vaping Use: Never Used Substance Use Type: Marijuana service: No Current occupational status: employed 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- [employer] Sexual orientation: Straight/Heterosexual Gender identity: Female Cognitive needs: No Hearing needs: No Vision needs: Yes Female Reproductive History Menstrual Age of Menarche: 10 Review of Systems Const Denies weight gain and Denies weight loss ENT Reports no additional complaints, Denies dysphagia and Denies odynophagia Card Reports no additional complaints Resp Reports no additional complaints GI Reports abdominal pain (Epigastric postprandially), Denies belching, Denies melena, Reports bloating, Reports constipation (Occasional), Denies dysphagia, Denies excessive flatus, Denies dyspepsia, Reports heartburn, Denies diarrhea, Denies loose stools, Denies nausea, Denies odynophagia and Denies vomiting Reports no additional complaints Musc Reports no additional complaints Neuro Reports no additional complaints Psych Reports no additional complaints Endo Reports no additional complaints Physical Exam Vital Signs: Last Vital Signs Pulse 85 08/14/23 14:38 BP 120/89 08/14/23 14:38 BMI result Body Mass Index 34.0 Const General: healthy appearing, no acute distress and well developed Nutritional Appearance: well nourished Orientation/consciousness: patient oriented x3 Resp Effort & Inspection: normal respiratory effort, able to speak in complete sentences, no tracheal deviation and symmetric chest movement Auscultation: clear to auscultation bilaterally Cardio Rate: regular rate GI Inspection: Yes normal to inspection and No distended Palpation (GI): Soft to palpation, not firm, nontender and No hepatosplenomegaly present Auscultation: normal bowel sounds General: Yes no CVA tenderness Back/Spine/Pelvis Back: no CVA tenderness Skin General skin exam: elasticity normal, turgor normal and dry skin Neuro General: patient oriented x3 Psych Appearance: grossly normal Mental Status: mental status grossly normal Results Reviewed Results Reviewed: Laboratory Tests 07/05/23 07/25/23 15:34 15:01 Magnesium 1.8 Ferritin 6 L AST 23 ALT 20 Lipase 15 Tiss Transglutamin IgA <1.0 Assessment & Plan Assessment & Plan (1) S/P gastric sleeve procedure: Code(s): Z90.3 - Acquired absence of stomach [part of] Category: Surgical (2) Acid reflux: Code(s): K21.9 - Gastro-esophageal reflux disease without esophagitis Category: Medical Qualifiers: Esophagitis presence: esophagitis presence not specified Qualified Code(s): K21.9 - Gastro-esophageal reflux disease without esophagitis (3) Anemia: Code(s): D64.9 - Anemia, unspecified Qualifiers: Anemia type: iron deficiency Iron deficiency anemia type: other iron deficiency Qualified Code(s): D50.8 - Other iron deficiency anemias (4) Postprandial epigastric pain: Code(s): R10.13 - Epigastric pain (5) Dyspepsia: Code(s): R10.13 - Epigastric pain (6) Nausea: Code(s): R11.0 - Nausea (7) Postprandial abdominal bloating: Code(s): R14.0 - Abdominal distension (gaseous) (8) Constipation: Code(s): K59.00 - Constipation, unspecified Qualifiers: Constipation type: slow transit constipation Qualified Code(s): K59.01 - Slow transit constipation Plan Continue omeprazole twice a day. Patient will continue taking famotidine at bedtime. Avoid dietary triggers in late night snacking. Stress reduction advised. Patient will walk over to bariatric office to make an appointment. Continue Colace on as needed basis for constipation. Patient will follow-up in our office in 4 months, sooner on as needed basis. Patient is agreeable to this plan and verbalizes understanding of instructions. She was given the opportunity to ask questions and all questions answered. Thank you for allowing me to participate in her care Coding Level of Care Code Est Pt Level 4 (43062) Diagnoses S/P gastric sleeve procedure Z90.3 Gastroesophageal reflux disease, unspecified whether esophagitis present K21.9 Esophagitis presence: esophagitis presence not specified Other iron deficiency anemia D50.8 Anemia type: iron deficiency Iron deficiency anemia type: other iron deficiency Postprandial epigastric pain R10.13 Dyspepsia R10.13 Nausea R11.0 Postprandial abdominal bloating R14.0 Slow transit constipation K59.01 Constipation type: slow transit constipation Time Spent (min) 35 Comment 20 minutes spent with patient and additional 15 minutes spent reviewing her records
[2023-08-14 14:38] VITALS: BP 120/89; PULSE 85; BMI 34.0
== END 2023-08-14 15:09 | disposition home or self-care (01) ==
PROVIDERS: PCP Nurse Practitioner Family; Visit Provider Nurse Practitioner Family
DX: Z90.3 Acquired absence of stomach [part of] (principal); K21.9 Gastro-esophageal reflux disease without esophagitis; D50.8 Other iron deficiency anemias; R10.13 Epigastric pain; R11.0 Nausea; R14.0 Abdominal distension (gaseous); K59.01 Slow transit constipation
CPT/HCPCS: 99214

== ENCOUNTER → 2023-08-14 14:33 | Outpatient (BNVA) | payer BC, SELFPAY | PROVIDERS: PCP Nurse Practitioner Family; Visit Provider Nurse Practitioner Family ==

== ENCOUNTER 2023-08-21 08:23 | Outpatient (AMB) | payer BC, SELFPAY ==
--- NOTE | 2023-08-21 11:50 | MHC.OFFVISWM ---
Intake Visit Reasons: TV Hiatal Hernia-Dr. Wise Ref. *[phone]* Allergies No Known Allergies [No Known Allergies*] Allergy (Verified 08/21/23 11:50) Medication List - Last Reconciled 08/21/23 by Jarad Kraft MD amlodipine 5 mg PO DAILY 30 days buspirone 10 mg PO TID 30 days cholecalciferol (vitamin D3) 100 mcg (2 x 50 mcg (2,000 unit)) PO DAILY escitalopram oxalate 20 mg PO DAILY 30 days famotidine 40 mg PO BEDTIME hydrocortisone 2.5% (Proctosol HC) 1 appl ME BID-QID PRN iron sucrose (Venofer) 200 mg (10 mL) IV QWEEK lisinopril 40 mg PO DAILY 30 days magnesium oxide 400 mg PO DAILY 30 days meclizine 25 mg PO TID PRN omeprazole 40 mg PO BID ondansetron 4 mg PO Q8H PRN solifenacin 10 mg PO DAILY HPI HPI TV Hiatal Hernia-Dr. Wise Ref. *[phone]*: Details: Start time: 3.30pm, End time: 4.30pm ?I spent 45 minutes speaking with the patient on the phone plus an additional 15 minutes reviewing and updating records for a total of 60 minutes HPI Comments Details: Patient was diagnosed with a moderate size hiatal hernia based on CT, UGI and recent EGD. Has significant symptoms even if she misses one dose of Omperazole of Famotidine. She needs to be on two medications to control the symptoms. Additionally she has persistent anemia that is resistant despite IV iron infusion therapy and is probably related to the fixed diaphragmatic hernia. UGI also shows technical issues with her sleeve gastrectomy that contribute to her reflux: uneven caliber of the sleeve with a larger proximal chamber and a more narrow distal chamber Wakes up: 6.30am, sleeps: 11pm Exercise: none PFSH Medical History (Updated 08/21/23 @ 11:59 by Jarad Kraft MD) Acid reflux Hiatal hernia Vertigo Knee pain BMI 33.0-33.9,adult Obesity Hypertension Anemia Frequency of urination Surgical History (Updated 07/25/23 @ 15:15 by Cachorro Edward MD) Hx of hand surgery History of bilateral tubal ligation Hx of cholecystectomy H/O bariatric surgery Hx of section Family History Family/Other History of breast cancer Brother Overdose Cardiovascular disease Mother HTN (hypertension) Cardiovascular disease Father HTN (hypertension) Cardiovascular disease Maternal Grandmother HTN (hypertension) Other Mental health disorder Substance abuse Social History (Updated 07/25/23 @ 14:36 by Khurram Bailey) Household Members: Spouse Housing: House Do you presently have visiting nurse or other home services: No Alcohol intake: current Alcohol intake frequency: 0-2 drinks per day Patient Tobacco Use Status: Former Tobacco user e-Cigarette/Vaping Use: Never Used Substance Use Type: Marijuana service: No Current occupational status: employed 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- [employer] Sexual orientation: Straight/Heterosexual Gender identity: Female Cognitive needs: No Hearing needs: No Vision needs: Yes Female Reproductive History Menstrual Age of Menarche: 10 Telehealth Telehealth Telehealth Platform: Telephone Location of provider rendering services: practice address Location of patient: address on file Patient Identification confirmed using: Name, : Yes Telehealth method: voice only Patient verbally consented to treatment: Yes Patient verbally consented to billing insurance company: Yes Patient informed of any privacy concerns related to visit: Yes Minutes spent on Phone/Video with Pt.: 60 Assessment & Plan Assessment & Plan (1) Hiatal hernia: Code(s): K44.9 - Diaphragmatic hernia without obstruction or gangrene Category: Medical Plan: 1. We discussed the potential etiology of the hernia that could be of traumatic etiology worsened by the technical isses of the sleeve and her weight. We discussed the details of the diaphragmatic hernia repair and the potential technical challenges such as being able to achieve enough mobilization of the esophagus back in the abdomen and being able to close the diaphragmatic muscle (crura) primarily with sutures. We also discussed the possibility of using a biologic mesh to close the hernia defect if the crura cannot be adequately re-approximated primarily with sutures. We also discussed the option of doing a gastropexy to prevent postoperative reflux and prevent hernia recurrence. We also discussed to do an EGD to see if she would benefited from a limited additional resection of the proximal sleeve to make the sleeve of a more even caliber that will also improve the GERD. Also we discussed the complexity of a potential hernia recurrence in association with a hernia recurrence. 2. Nutritional counseling. Start with 2 CELEBRATE REBUILD protein (buy at [facility]) shakes (HALF scoop EACH in 8oz low fat unsweetened almond milk each) at 7am-9am and 10am-12pm, 2 protein bars (CELEBRATE protein bars, buy at [facility]) at 1pm-3pm and 4p-6pm, dinner at 7pm (6 forks of protein and 6 forks of salad/vegetables) AND one more protein bar after dinner at 9pm-11pm. So you do 2 protein shakes, 3 protein bars and one meal per day. Meal to include lean meat (beef, fish, pork, turkey, chicken), or mongolian yogurt, or egg whites, or beans with a salad with olive oil and fruits (berries, pears, apples, kiwi). Avoid salt, breads, potatoes, rice, pasta, desserts. 3. Each shake would be drunk slowly, like coffee in a period of 2 hours. 4. Cut each bar in 4 pieces and eat each piece in 30min ?to make each bar last 2 hours. 5. I emphasized the importance of measuring accurately the food portion and measure it when serving the food in plate 6. The meal portions include 6 full-size forks of meat and 6 full-size forks of salad. You always eat the meat portion but you can replace up to 3 forks for salad/vegetables with rice, potatoes or pasta, or a fruit ?if you like. The less you do it the better weight loss will be. 7. One full-size fork is what it can be scooped on the fork without falling aside and not what can be bit with the fork. Use regular forks like those you find in a typical restaurant. 8.? Please send me weight measurements as soon as possible and then once a week. Always include your diet and exercise plan. 9. Start treadmill with an incline of 4.0 and speed of 3.0. Increase incline by 1 every 3 min to a max incline of 10.0, stay 3min at 10.0 and then return to 4.0 and repeat same steps until calorie goal is met. Goal is to burn 2000 calories per week on exercise, which means either 300 calories daily. 10. Goal is to lose at least 1.5-2lbs per week 11. Please follow the diet plan exactly without any change. If you don't like something about the plan or you feel hungry you need to communicate with me so I can help you revise the plan. You should not change the plan yourself. 12. To be scheduled for EGD due to history of GERD. The possibility of biopsies was discussed. Patient needs to avoid use of NSAIDs and aspirin for 1 week prior to EGD. Risks of perforation and? bleeding was discussed with the patient. This will be an outpatient procedure with IV sedation.
== END 2023-08-21 16:26 | disposition home or self-care (01) ==
LOC: HO.HBS 08:23
PROVIDERS: PCP Nurse Practitioner Family; Visit Provider Surgery
DX: K44.9 Diaphragmatic hernia without obstruction or gangrene (principal)
CPT/HCPCS: 99443

== ENCOUNTER → 2023-08-21 08:23 | Outpatient (BNVA) | payer BC, SELFPAY | PROVIDERS: PCP Nurse Practitioner Family; Visit Provider Surgery ==

== ENCOUNTER 2023-08-25 15:24 | Outpatient (AMB) | payer BC, SELFPAY ==
[2023-08-25 15:26] VITALS: BP 142/74; PULSE 68; RESP 14; TEMP 36.1; O2SAT 99; BMI 34.4
--- NOTE | 2023-08-25 15:26 | MHC.PC.OV ---
Vital Signs 08/25/23 15:26 08/25/23 15:51 Height 5 ft 2 in Weight 188 lb 4 oz BMI 34.4 BP 142/74 H 130/80 Blood Pressure Location Rt brachial Lt brachial Position Sitting Sitting Respiration 14 Pulse 68 Pulse Source Pulse Oximeter Temp 97 F Temp Source Temporal Artery Scan Pulse Oximetry (%) 99 Oxygen Delivery Method Room Air Intake Visit Reasons: f/u Anxiety/depression Intake Note: Patient needs refill on amlodipine. Knife Cutter Required: No Accompanied by: Self / Same As Patient Allergies No Known Allergies [No Known Allergies*] Allergy (Verified 08/25/23 15:38) Medication List - Last Reconciled 08/25/23 by Raciel Hansen CNP amlodipine 5 mg PO DAILY 30 days buspirone 10 mg PO TID 30 days cholecalciferol (vitamin D3) 100 mcg (2 x 50 mcg (2,000 unit)) PO DAILY escitalopram oxalate 20 mg PO DAILY 30 days famotidine 40 mg PO BEDTIME hydrocortisone 2.5% (Proctosol HC) 1 appl AR BID-QID PRN iron sucrose (Venofer) 200 mg (10 mL) IV QWEEK lisinopril 40 mg PO DAILY 30 days magnesium oxide 400 mg PO DAILY 30 days meclizine 25 mg PO TID PRN omeprazole 40 mg PO BID ondansetron 4 mg PO Q8H PRN solifenacin 10 mg PO DAILY Tobacco use date assessed: 07/24/23 Dental Screening Dental Screen Date: 06/16/23 HPI HPI Comments History of Present Illness Details 53-year-old female presents for anxiety and depression follow-up. She admits to taking her medications as prescribed without adverse reactions. She notes that her anxiety and depressive symptoms are much improved since her last visit. She does not have trouble sleeping. She reports constant worry about multiple things. She exercise on the treadmill at least once daily but has not done so since her father . She is worried about acquiring funs for her father's which is next month. She notes that her father from acute leukemia a week ago. She notes that she cries a lot for her father but she is still functional and able to work. She notes that she has been receiving weekly counseling from the the hospice services her father was receiving. She is interested in receiving weekly therapy for her mood and grieving process. She notes that she woke up this morning with with dizziness, nausea, and non-blood vomiting x 5. She took her PRN Ondansetron and meclizine once and most of her symptoms resolved. Her only symptoms a this time is nausea. She reports an itchy lesion to her right upper chest which has been present for a while. She notes that she has been receiving weekly Venofer. She is followed by [facility] [place] [facility] hematology/oncology. [facility] Medical History (Updated 08/25/23 @ 16:11 by Raciel Hansen CNP) Acid reflux Hiatal hernia Vertigo Knee pain BMI 33.0-33.9,adult Obesity Hypertension Anemia Frequency of urination Surgical History (Updated 07/25/23 @ 15:15 by Cachorro Edward MD) Hx of hand surgery History of bilateral tubal ligation Hx of cholecystectomy H/O bariatric surgery Hx of section Family History Family/Other History of breast cancer Brother Overdose Cardiovascular disease Mother HTN (hypertension) Cardiovascular disease Father HTN (hypertension) Cardiovascular disease Maternal Grandmother HTN (hypertension) Other Mental health disorder Substance abuse Social History (Updated 07/25/23 @ 14:36 by Khurram Bailey) Household Members: Spouse Housing: House Do you presently have visiting nurse or other home services: No Alcohol intake: current Alcohol intake frequency: 0-2 drinks per day Patient Tobacco Use Status: Former Tobacco user e-Cigarette/Vaping Use: Never Used Substance Use Type: Marijuana service: No Current occupational status: employed 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 1. Little interest or pleasure in doing things: several days 2. Feeling down, depressed, or hopeless: more than half the days 3. Trouble falling or staying asleep, or sleeping too much: nearly every day 4. Feeling tired or having little energy: nearly every day 5. Poor appetite or overeating: nearly every day 6. Feeling bad about yourself - or that you are a failure or have let yourself or your family down: several days 7. Trouble concentrating on things, such as reading the newspaper or watching television: not at all 8. Moving or speaking so slowly that other people could have noticed. Or the opposite - being so fidgety or restless that you have been moving around a lot more than usual: not at all 9. Thoughts that you would be better off or of hurting yourself in some way: not at all Total score: 13 Depression Screening Interpretation: Positive Depression Screening Follow-up: Existing condition, In treatment and Community Mental Health Worker F/U Depression Screening Done: Yes 93664 - PHQ-9 Billing: Yes Source: Developed by Drs. Zhang Persaud, Tito Wilhelm and colleagues, with an educational nils from [employer]. Thrive Questionnaire Date Thrive assessed: 04/21/23 KAREEM-7 AMB Questionnaire KAREEM-7 Date KAREEM - 7 assessed: 08/25/23 Feeling nervous, anxious, or on edge: 3 = Nearly every day Not being able to stop or control worryin = Nearly every day Worrying too much about different things: 3 = Nearly every day Trouble relaxin = More than half the days Being so restless that it is hard to sit still: 1 = Several days Becoming easily annoyed or irritable: 0 = Not at all Feeling afraid as if something awful might happen: 0 = Not at all Total KAREEM-7 score (0-4 normal; 5-9 mild; 10-14 moderate; 15-21 severe): 12 Source: Developed by Drs. Zhang Persaud, Tito Wilhelm and colleagues, with an educational nils from [employer]. KAREEM-7 Assessment Billing KAREEM-7 Assessment Tool: KAREEM-7 Assessment 09245 Review of Systems Const Details: Const Denies chills, Denies fatigue, Denies fever(s), Denies headache(s) and Denies weakness ENT Denies dizziness and Denies headache(s) Card Denies chest pain, Denies lightheadedness, Denies dyspnea and Denies other (Palpitations) Resp Denies cough, Denies dyspnea, Denies wheezing and Denies other ( shortness of breath) GI Denies abdominal pain, Denies melena, Denies hematochezia, Denies change in bowel habits, Denies dyspepsia and Denies nausea Denies hematuria and Denies dysuria Musc Denies abnormal gait, Denies myalgias, Denies arthralgias, Denies numbness and Denies tingling Skin/Breast Denies rash, Denies unusual bruising and Denies wounds Neuro Reports skin lesion, Denies abnormal gait, Denies dizziness, Denies headache(s), Denies memory loss, Denies numbness, Denies Sensory deficit (Neuro), Denies tingling and Denies weakness Psych Reports anxiety, Reports depression, Denies memory loss Endo Denies cold intolerance, Denies fatigue, Denies heat intolerance, Denies polydipsia and Denies polyuria Aller/Immun Denies wheezing Physical exam (Primary Care) Vital Signs: Last Vital Signs Temp 97 F 08/25/23 15:26 Pulse 68 08/25/23 15:26 Resp 14 08/25/23 15:26 BP 142/74 H 08/25/23 15:26 Pulse Ox 99 08/25/23 15:26 Oxygen Delivery Method Room Air 08/25/23 15:26 BMI result Body Mass Index 34.4 Tobacco/Smoking Status: Tobacco use Status Tobacco use date assessed 07/24/23 08/25/23 15:36 Patient Tobacco Use Status Former Tobacco user 08/25/23 15:36 e-Cigarette/Vaping Use Never Used 08/25/23 15:36 Depression Screening Interpretation: Positive Depression Screening Follow-up: Existing condition, In treatment and Community Mental Health Worker F/U Thrive Assessment: Date of Thrive Assessment Date Thrive assessed 04/21/23 08/25/23 15:36 Const Other: General: no acute distress and well developed Nutritional Appearance: well nourished Orientation/consciousness: patient oriented x3 HENMT Head: Yes normocephalic and Yes atraumatic Eyes General: appearance normal, both eyes and all related structures Pupils: Equal, round and reactive pupils present EOM: EOMs intact bilaterally Resp Effort & Inspection: normal respiratory effort Auscultation: clear to auscultation bilaterally Cardio Rate: regular rate Rhythm: regular rhythm Heart sounds: S1 normal heart sound present, S2 normal heart sound present, no gallops, no murmurs and no rubs GI Palpation (GI): No Abdominal aortic bruit present, Soft to palpation, nontender, No hepatosplenomegaly present and No Rebound tenderness present Auscultation: normal bowel sounds General: Yes no CVA tenderness Back/Spine/Pelvis Back: no CVA tenderness Cervical Spine: cervical ROM normal and No Cervical spine tenderness Thoracic/Lumbar Spine: thoraco-lumbar ROM normal, No pain with thoraco-lumbar ROM, No thoracic spinal tenderness and No lumbar spinal tenderness Extrem General: Yes normal to inspection, No edema and No calf tenderness Skin General: warm and dry. Normal skin color. Normal skin turgor Lesions: Small, brown, raised, round, dry lesion noted to the right upper chest proximal to the clavicle Rashes: no rashes Trauma: no lacerations or abrasions Wounds: no wounds Nails: normal Neuro General: patient oriented x3, gait normal and no focal neuro deficit Cranial nerves: Yes Equal, round and reactive pupils present Cognition (Neuro): normal cognition Gait exam (Neuro): Normal gait present Sensory Exam: No Sensory deficit (Neuro) Psych Appearance: grossly normal Affect: normal affect Attitude: cooperative Thought process: Normal thought process present Assessment and Plan Assessment & Plan (1) Anxiety and depression: Code(s): F41.9 - Anxiety disorder, unspecified; F32.A - Depression, unspecified Plan: Improved anxiety and depressive symptoms. She continues to worry about multiple things. She is grieving her father who from leukemia a week ago; she cries a lot but is able to function and continues to work PHQ-9 and KAREEM-7 scores revealed moderate depression and anxiety respectively Continue current treatment regimen Routine exercise, deep breathing/relaxation encouraged Continue follow-up with therapist as planned Message sent to the [facility] to help connect the patient to a therapy for long-term treatment of anxiety, depression, and grieving Follow-up in 1 month or return sooner with worsening or new symptoms Verbalized understanding and agreed with treatment plan (2) Grieving: Code(s): F43.21 - Adjustment disorder with depressed mood Plan: She is grieving her father who from leukemia a week ago; she cries a lot but is able to function and continues to work Plan as above (3) Hypertension: Code(s): I10 - Essential (primary) hypertension Qualifiers: Hypertension type: primary hypertension Qualified Code(s): I10 - Essential (primary) hypertension Plan: Resting blood pressure is 130/80, within goal of less than 140/90 Continue current treatment regimen Low-sodium diet encouraged Follow-up in 1 month Verbalized understanding and agreed with treatment plan (4) Skin lesion: Code(s): L98.9 - Disorder of the skin and subcutaneous tissue, unspecified Plan: Small, brown, raised, round, dry lesion noted to the right upper chest proximal to the clavicle Referred to dermatology (5) Nausea: Code(s): R11.0 - Nausea Plan: Ondansetron as prescribed Follow-up with worsening or new symptoms Verbalized understanding and agreed with treatment plan Orders: Referrals Dermatology Referral L98.9 - Disorder of the skin and subcutaneous tissue, unspecified Medications: Refilled amlodipine 5 mg PO DAILY 30 days 30 tabs 3RF Coding Level of Care Code Est Pt Level 4 (41809) Complex EM visit Add On G2211 Diagnoses Anxiety and depression F41.9; F32.A Grieving F43.21 Primary hypertension I10 Hypertension type: primary hypertension Skin lesion L98.9 Nausea R11.0 Additional Codes KAREEM-7 Assessment Billing - KAREEM-7 Assessment Tool: KAREEM-7 Assessment 55474 ([id number])
[2023-08-25 15:51] VITALS: BP 130/80
== END 2023-08-25 16:18 | disposition home or self-care (01) ==
PROVIDERS: PCP Nurse Practitioner Family; Visit Provider Nurse Practitioner Family
DX: I10 Essential (primary) hypertension (principal); F41.9 Anxiety disorder, unspecified; F32.A Depression, unspecified; F43.21 Adjustment disorder with depressed mood; L98.9 Disorder of the skin and subcutaneous tissue, unspecified; R11.0 Nausea
CPT/HCPCS: 99214

== ENCOUNTER 2023-09-19 14:30 | Outpatient (RCR) | payer BC, SELFPAY ==
[2023-07-31 14:30] VITALS: BP 127/54; PULSE 90; RESP 18; TEMP 36.5; O2SAT 99
[2023-07-31] MEDS: 0.9 % Sodium Chloride Flush 10 ML SYRINGE 5 ML IVFLUSH (14:30)
[2023-07-31 14:39] VITALS: BMI 32.9
[2023-07-31] MEDS: Iron Sucrose Complex 200 MG in 0.9 % Sodium Chloride 100 ML 440 MG IV (14:41)
[2023-08-07 14:26] VITALS: BP 114/56; PULSE 69; RESP 16; TEMP 36.2; O2SAT 98
[2023-08-07] MEDS: Iron Sucrose Complex 200 MG in 0.9 % Sodium Chloride 100 ML 440 MG IV (14:38)
[2023-08-07] MEDS: 0.9 % Sodium Chloride Flush 10 ML SYRINGE 5 ML IVFLUSH (14:59)
[2023-08-15 14:42] VITALS: BP 147/72; PULSE 76; RESP 18; TEMP 36.7; O2SAT 97
[2023-08-15] MEDS: Iron Sucrose Complex 200 MG in 0.9 % Sodium Chloride 100 ML 440 MG IV (14:58)
[2023-08-15] MEDS: 0.9 % Sodium Chloride Flush 10 ML SYRINGE 5 ML IVFLUSH (15:21)
[2023-08-22 14:18] VITALS: BP 134/52; PULSE 74; RESP 16; TEMP 37; O2SAT 98
[2023-08-22] MEDS: Iron Sucrose Complex 200 MG in 0.9 % Sodium Chloride 100 ML 440 MG IV (14:27)
[2023-08-22 15:16] LABS: MANUAL DIFF FLAG NO
[2023-08-22 15:23] LABS: Basophils Percent Auto 0.1 % (0-2); Eosinophils Percent Auto 0.5 % (0-4); Hematocrit 34.4 % (37.0-47.0); Imm Gran Abs Auto 0.02 X10*3/uL (0.00-0.03); Imm Gran Pct Auto 0.3 % (0.0-0.4); Lymphocytes Absolute Auto 2.2 X10*3/uL (1.2-4.9); Mean Corpuscular Volume 84.5 fL (80.0-98.0); Mean Platelet Volume 10.1 fL (9.4-12.3); Monocytes Absolute Auto 0.6 X10*3/uL (0.1-1.2); Monocytes Percent Auto 7.2 % (2-11); Neutrophils Percent Auto 63.9 % (45-73); Platelet Count 375 X10*3/uL (160-400); Red Blood Count 4.07 X10*6/uL (4.20-5.50); Red Cell Distribution Width 19.4 % (11.0-16.0); White Blood Count 7.8 X10*3/uL (4.8-10.8)
[2023-08-22 15:55] LABS: Ferritin 107 ng/mL (10-250)
[2023-08-29 14:21] VITALS: BP 138/59; PULSE 63; RESP 18; TEMP 36.6; O2SAT 100
[2023-08-29] MEDS: Iron Sucrose Complex 200 MG in 0.9 % Sodium Chloride 100 ML 440 MG IV (14:29)
[2023-09-05 14:23] VITALS: BP 154/76; PULSE 71; RESP 18; TEMP 37.2; O2SAT 99
[2023-09-05] MEDS: Iron Sucrose Complex 200 MG in 0.9 % Sodium Chloride 100 ML 440 MG IV (14:32)
[2023-09-12] MEDS: Iron Sucrose Complex 200 MG in 0.9 % Sodium Chloride 100 ML 440 MG IV (14:11)
[2023-09-12 14:13] VITALS: BP 145/72; PULSE 76; RESP 20; TEMP 36.6; O2SAT 97
[2023-09-19 14:29] VITALS: BP 152/69; PULSE 73; RESP 18; TEMP 36.7; O2SAT 98
[2023-09-19] MEDS: Iron Sucrose Complex 200 MG in 0.9 % Sodium Chloride 100 ML 440 MG IV (14:48)
[2023-09-19] MEDS: 0.9 % Sodium Chloride Flush 10 ML SYRINGE 5 ML IVFLUSH (15:08)
[2023-09-19 15:16] LABS: MANUAL DIFF FLAG NO
[2023-09-19 15:20] LABS: Basophils Percent Auto 0.4 % (0-2); Eosinophils Percent Auto 0.1 % (0-4); Hematocrit 36.1 % (37.0-47.0); Hemoglobin 12.5 g/dl (12.0-16.0); Imm Gran Abs Auto 0.01 X10*3/uL (0.00-0.03); Imm Gran Pct Auto 0.1 % (0.0-0.4); Lymphocytes Absolute Auto 2.3 X10*3/uL (1.2-4.9); Lymphocytes Percent Auto 33.7 % (20-40); Mean Corpuscular HGB Conc 34.6 g/dl (31.0-35.0); Mean Corpuscular Hemoglobin 29.4 pg (27.0-33.0); Mean Corpuscular Volume 84.9 fL (80.0-98.0); Mean Platelet Volume 9.5 fL (9.4-12.3); Monocytes Absolute Auto 0.5 X10*3/uL (0.1-1.2); Monocytes Percent Auto 6.8 % (2-11); Neutrophils Percent Auto 58.9 % (45-73); Platelet Count 294 X10*3/uL (160-400); Red Blood Count 4.25 X10*6/uL (4.20-5.50); White Blood Count 6.9 X10*3/uL (4.8-10.8)
[2023-09-19 15:53] LABS: Ferritin 206 ng/mL (10-250)
== END 2023-09-19 15:22 | disposition home or self-care (01) ==
LOC: HO.INF 14:30
PROVIDERS: PCP Nurse Practitioner Family; Visit Provider Internal Medicine Medical Oncology
DX: D50.9 Iron deficiency anemia, unspecified (principal)
CPT/HCPCS: 36415; 82728; 85025; 96365; 96374; J1756

== ENCOUNTER 2023-10-11 13:59 | Day surgery (SDC) | payer BC, SELFPAY ==
--- NOTE | 2023-09-04 13:04 | HO.ANESPROP2 ---
HPI - Anesthesia Eval Consult details Narrative: 53yo F for Upper Endoscopy PMFSH Active Problems Active Problems: All Active Problems Skin lesion (Acute) Grieving (Acute) Vertigo (Acute) Acid reflux (Acute) Hiatal hernia (Acute) Knee pain (Acute) BMI 33.0-33.9,adult (Acute) Obesity (Acute) Abdominal cramping (Acute) Heavy menstrual bleeding (Acute) Nausea (Acute) Blurry vision, bilateral (Acute) Dizziness (Acute) Urinary incontinence (Acute) Iron deficiency anemia (Acute) Anemia (Acute) S/P gastric sleeve procedure (Acute) Laboratory tests ordered as part of a complete physical exam (CPE) (Acute) Anxiety and depression (Acute) Vaginal itching (Acute) Vaginal burning (Acute) Urinary urgency (Acute) Frequency of urination (Acute) Vaginal discharge (Acute) Vaginal irritation (Acute) Right lateral epicondylitis (Acute) Carpal tunnel syndrome of right wrist (Acute) Carpal tunnel syndrome of left wrist (Acute) Bilateral hand numbness (Acute) Right wrist tendinitis (Acute) De Quervain's tenosynovitis, left (Acute) De Quervain's tenosynovitis, right (Acute) COVID-19 (Acute) Hypertension (Acute) Morbid obesity (Acute) Well woman exam with routine gynecological exam (Acute) Past Medical History Medical History Acid reflux Hiatal hernia Vertigo Knee pain BMI 33.0-33.9,adult Obesity Hypertension Anemia Frequency of urination Family History Family History Family/Other History of breast cancer Brother Overdose Cardiovascular disease Mother HTN (hypertension) Cardiovascular disease Father HTN (hypertension) Cardiovascular disease Maternal Grandmother HTN (hypertension) Other Mental health disorder Substance abuse Family history of problems with anesthesia: No Surgical History Surgical History Hx of hand surgery History of bilateral tubal ligation Hx of cholecystectomy H/O bariatric surgery Hx of section History of Problems with Anesthesia: No Social History Social History Household Members: Spouse Housing: House Do you presently have visiting nurse or other home services: No Alcohol intake: current Alcohol intake frequency: 0-2 drinks per day Patient Tobacco Use Status: Former Tobacco user e-Cigarette/Vaping Use: Never Used Substance Use Type: Marijuana service: No Current occupational status: employed 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 Rate : 065 BPM Atrial Rate : 065 BPM P-R Int : 114 ms QRS Dur : 098 ms QT Int : 444 ms P-R-T Axes : -04 004 004 degrees QTc Int : 461 ms Normal sinus rhythm Normal ECG When compared with ECG of 20-APR-2023 14:45, No significant change was found Assessment and Plan Assessment Anesthesia Assessment: Chart Reviewed Final Anesthetic Review Family History of Problems with Anesthesia: No History of Problems with Anesthesia: No
[2023-10-11 15:05] VITALS: BMI 33.3
[2023-10-11 15:06] VITALS: BP 159/67; PULSE 67; RESP 16; TEMP 36.8; O2SAT 99
--- NOTE | 2023-10-11 15:32 | MHC.SHP ---
Pre-Procedural Eval Section A - 24 Hr Update-Section A only Date of Service: 10/11/23 The patient is an INPATIENT: No The patient has been examined within 24 hours of the surgical procedure. The History & Physical has been completed within 30 days and I have reviewed it.: Yes Section B - Complete if H&P > 30 days Chief Complaint: gerd, Relevant Family History (Specify if Yes): No Relevant Social History: None Present Medications: None Medical History: No relevant PMH History of Previous Operations: Relevant previous surgery/procedure and date(s) (s/p sleeve gastrectomy (Dr. Manrique)) Allergies: Allergies Allergy/AdvReac Type Severity Reaction Status Date / Time No Known Allergies Allergy Verified 08/25/23 15:38 [No Known Allergies*] Review of Systems Sugical H&P ROS: Negative: Constitution, Cardiovascular, Respiratory, Neurological, Psychiatric, Hem-Onc, Allergic/Immunologic, Gastrointestinal, Genitourinary, Musculoskeletal, Integumentary, Endocrine and Eyes/Ears/Nose/Throat Exam Surgical H&P Exam: Normal: HEENT, Normal: Heart, Normal: Lungs, Normal: Extremities, Normal: Abdomen, Normal: Skin and Normal: Neurological Plan Diagnosis/Plan: Unchanged (EGD to assess etiology of GERD, the hiatal hernia and the anatomy of the sleeve gastrectomy. Risks of bleeding and perforation were discussed with the patient and she is in agreement with the plan.) I have reviewed the history and physical and performed a pertinent physical examination on my patient. No changes have occurred unless specified. Time Spent With Patient Time: Total time managing care of this patient today ____ minutes.
--- NOTE | 2023-10-11 15:42 | PC.NURSE ---
pt moved to pacu 14 and report given to Marcelo Carroll RN to continue care.
--- NOTE | 2023-10-11 16:00 | P.BOP_ITS ---
Brief Operative Note Date of Service: 10/11/23 Pre-op diagnosis: GERD, s/p sleeve gastrectomy Post-op diagnosis: same (& diaphragmatic hernia and redundant proximal sleeve) Procedure: PROCEDURE DATE: 10/11/2023 PREOPERATIVE DIAGNOSIS: GERD, s/p sleeve gastrectomy POSTOPERATIVE DIAGNOSIS: ?Same as above. 1) small hiatal hernia, 2) distal gastritis PROCEDURE: Aolezcxp-dpnnve-mwtyoftkmael with biopsies Surgeon: ?Cuong Kraft M.D.. Ph.D. Gaming Department Head: None ? Anesthesia: IV sedation Estimated blood loss: ?Minimal FINDINGS AND PROCEDURE: ? OPERATIVE INDICATIONS: ?The patient is a 53 year old female known to me who underwent a laparoscopic sleeve gastrectomy by Dr. Manrique. The patient had inadequate weight loss. The patient has been complaining of GERD. Based on this information I recommended an upper endoscopy to evaluate the patient's symptoms. Risks and complications of the surgery were discussed with the patient in advance particularly the possibility of perforation or bleeding that may require surgical intervention. The patient understood the risks and was in agreement with the plan. ? PROCEDURE: After informed consent was obtained by the patient, the patient was ?transferred to the Operating Room and was placed in the supine position.? After successful induction of IV sedation, a mouth block was inserted and the patient was placed in the left lateral decubitus position. An upper endoscopy was performed next, the oropharynx and esophagus appeared within the normal limits. There was a 4cm fixed hiatal hernia. Within the hernia the proximal sleeve was incarcerated in supra-diaphragmatic position and there was redundancy within that segment of the sleeve. The z-line was smooth. Two biopsies were obtained from the distal esophagus 2-3 cm proximal to the GE junction and two additional biopsies from the GE junction. The distal sleeve, below the crura was entered and it appeared to be of normal size. There was no gastritis. There was no stricture or ulcer. Biopsies were obtained from the proximal sleeve as well as the antrum. No significant bleeding was noted from any of the biopsy sites. The scope was then advanced into the duodenum which appeared to be normal as well. At that point the duodenum ?and the sleeve were decompressed and the scope was withdrawn from the patient's mouth. The patient extubated and was transferred in stable condition to the Recovery Room for further care. I was present and performed all steps of the procedure. There were no residents to assist with this case. Cuong Kraft M.D., Ph.D. Surgeon: Jarad Kraft MD Anesthesia: MAC Was an Gaming Department Head used for this Procedure?: No Estimated blood loss (mL): 0 IV fluids (mL): 400 Urine output (mL): 0 (No mccoy to record output) Pathology: other (1) antrum x1, 2) proximal sleeve/gastric fundus x1, 3) EGJ x2, 4) distal esophagus x2) Condition: stable Disposition: PACU
--- NOTE | 2023-10-11 16:06 | HO.ANESPROP2 ---
[facility] Active Problems Active Problems: All Active Problems Skin lesion (Acute) Grieving (Acute) Vertigo (Acute) Acid reflux (Acute) Hiatal hernia (Acute) Knee pain (Acute) BMI 33.0-33.9,adult (Acute) Obesity (Acute) Abdominal cramping (Acute) Heavy menstrual bleeding (Acute) Nausea (Acute) Blurry vision, bilateral (Acute) Dizziness (Acute) Urinary incontinence (Acute) Iron deficiency anemia (Acute) Anemia (Acute) S/P gastric sleeve procedure (Acute) Laboratory tests ordered as part of a complete physical exam (CPE) (Acute) Anxiety and depression (Acute) Vaginal itching (Acute) Vaginal burning (Acute) Urinary urgency (Acute) Frequency of urination (Acute) Vaginal discharge (Acute) Vaginal irritation (Acute) Right lateral epicondylitis (Acute) Carpal tunnel syndrome of right wrist (Acute) Carpal tunnel syndrome of left wrist (Acute) Bilateral hand numbness (Acute) Right wrist tendinitis (Acute) De Quervain's tenosynovitis, left (Acute) De Quervain's tenosynovitis, right (Acute) COVID-19 (Acute) Hypertension (Acute) Morbid obesity (Acute) Well woman exam with routine gynecological exam (Acute) Past Medical History Medical History Acid reflux Hiatal hernia Vertigo Knee pain BMI 33.0-33.9,adult Obesity Hypertension Anemia Frequency of urination Family History Family History Family/Other History of breast cancer Brother Overdose Cardiovascular disease Mother HTN (hypertension) Cardiovascular disease Father HTN (hypertension) Cardiovascular disease Maternal Grandmother HTN (hypertension) Other Mental health disorder Substance abuse Family history of problems with anesthesia: No Surgical History Surgical History Hx of hand surgery History of bilateral tubal ligation Hx of cholecystectomy H/O bariatric surgery Hx of section History of Problems with Anesthesia: No Social History Social History Household Members: Spouse Housing: House Do you presently have visiting nurse or other home services: No Alcohol intake: current Alcohol intake frequency: 0-2 drinks per day Patient Tobacco Use Status: Former Tobacco user e-Cigarette/Vaping Use: Never Used Use of substances other than those prescribed or required for medical reasons: Yes Substance Use Type: Marijuana Substance Use Type Other:: CBD/THC for sleep nightly Substance Use Frequency: Daily Are you DNR?: No Advance Directives: No Advance Directives Information Provided: Yes service: No Current occupational status: employed 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[employer] Sexual orientation: Straight/Heterosexual Gender identity: Female Cognitive needs: No Hearing needs: No Vision needs: Yes Meds Allergies Allergy/AdvReac Type Severity Reaction Status Date / Time No Known Allergies Allergy Verified 08/25/23 15:38 [No Known Allergies*] Active Medications: Current Medications Lactated Ringer's (Lr) 1,000 mls @ 80 mls/hr IVCONT .[id number] SUZANNA Exam Height,Weight and Vital Signs: Height 5 ft 2 in Weight 82.554 kg Last Vital Signs Temp 98.3 F 10/11/23 15:06 Pulse 67 10/11/23 15:06 Resp 16 10/11/23 15:06 BP 159/67 H 10/11/23 15:06 Pulse Ox 99 10/11/23 15:06 O2 Del Method Room Air 10/11/23 15:06 Airway Mallampati Class: II TM Dist: >3cm Neck ROM: Full Heart: RRR Lungs: CTA Assessment and Plan Assessment Anesthesia Assessment: Anesthesia Plan Discussed and Smoking Cess. Discussed Final Anesthetic Review Family History of Problems with Anesthesia: No History of Problems with Anesthesia: No NPO: Yes ASA Class: II Final Preanesthetic Review: Meds/Allgs Chart Reviewed, Consent Obtained/Reviewed and Anes Risks/Benef Reviewed Patient Risk: Low Procedure Risk: Low Anesthetic Plan Anesthetic Plan: MAC: Disposition: Standard PACU
[2023-10-11 16:22] VITALS: BP 142/78; PULSE 84; RESP 16; TEMP 36.3; O2SAT 97
--- NOTE | 2023-10-11 16:27 | HO.POSTANES ---
Post Anesthesia Evaluation Post Anesthesia Evaluation Date of Service: 10/11/23 Vital Signs: Vital Signs Temp Pulse Resp BP Pulse Ox O2 Del Method 10/11/23 16:22 97.3 F 84 16 142/78 H 97 Room Air 10/11/23 15:06 98.3 F 67 16 159/67 H 99 Room Air Anesthesia: Monitored Mental Status: Awake Pain Control: Satisfactory Nausea/Vomiting: None Hydration: Adequate Anesthesia-Related Issues: No Anes. Related Issues
[2023-10-11 16:37] VITALS: BP 151/70; PULSE 73; RESP 15; O2SAT 98
[2023-10-11 16:52] VITALS: BP 143/77; PULSE 70; RESP 16; TEMP 36.2; O2SAT 99
== END 2023-10-11 17:02 | disposition home or self-care (01) ==
PROVIDERS: PCP Nurse Practitioner Family; Visit Provider Surgery
PROC: 0DJ08ZZ Inspection of Upper Intestinal Tract, Via Natural or Artificial Opening Endoscopic (ICD-10-PCS; CPT 43235; principal; 2023-10-11 17:10)
DX: K95.89 Other complications of other bariatric procedure (principal); K21.9 Gastro-esophageal reflux disease without esophagitis; K44.9 Diaphragmatic hernia without obstruction or gangrene; K29.60 Other gastritis without bleeding; Z98.84 Bariatric surgery status; Z90.3 Acquired absence of stomach [part of]; E66.9 Obesity, unspecified; Z68.33 Body mass index [BMI] 33.0-33.9, adult; I10 Essential (primary) hypertension; D64.9 Anemia, unspecified; R35.0 Frequency of micturition; Z79.899 Other long term (current) drug therapy; Z98.890 Other specified postprocedural states; Z87.891 Personal history of nicotine dependence
CPT/HCPCS: 43239; 88305; 88313; 88342; J2704

== ENCOUNTER → 2023-10-11 13:59 | Outpatient (BNV) | payer BC, SELFPAY | PROVIDERS: PCP Nurse Practitioner Family; Visit Provider Surgery | DX: K44.0 Diaphragmatic hernia with obstruction, without gangrene (principal); Z90.3 Acquired absence of stomach [part of]; Z98.84 Bariatric surgery status | CPT/HCPCS: 43239 ==

== ENCOUNTER 2023-12-19 14:42 | Outpatient (AMB) | payer BC, SELFPAY ==
[2023-12-19 14:43] VITALS: BP 142/66; PULSE 68; O2SAT 99; BMI 34.5
--- NOTE | 2023-12-19 14:43 | A.OFFVIS_ITS ---
Vital Signs 12/19/23 14:43 Height 5 ft 2 in Weight 188 lb 11.451 oz BMI 34.5 BP 142/66 H Blood Pressure Location Rt brachial Position Sitting Pulse 68 Pulse Source Pulse Oximeter Pulse Oximetry (%) 99 Oxygen Delivery Method Room Air Intake Visit Reasons: 4 month follow up Intake Note: Lazara presents in office today for a scheduled 4 mos FUV. CC; Pt reports that they have remained stable for the most part since their last visit. Pt does report having some worsening reflux however which she believes the omeprazole is not having a therapeutic response to. Pt also has concerns regarding the hiatal hernia they were diagnosed with as well as some digestive issues. Pt would also like to discuss their most recent EGD. Combination Technician Required: No Allergies No Known Allergies [No Known Allergies*] Allergy (Verified 12/19/23 14:44) HPI HPI 4 month follow up: Details: LAST VISIT: S/P gastric sleeve procedure Acid reflux Anemia Postprandial epigastric pain Dyspepsia Nausea Postprandial abdominal bloating Constipation Plan Continue omeprazole twice a day. Patient will continue taking famotidine at bedtime. Avoid dietary triggers in late night snacking. Stress reduction advised. Patient will walk over to bariatric office to make an appointment. Continue Colace on as needed basis for constipation. Patient will follow-up in our office in 4 months, sooner on as needed basis. Patient is agreeable to this plan and verbalizes understanding of instructions. She was given the opportunity to ask questions and all questions answered. TODAY'S VISIT Patient is here today for follow-up. Patient reports that she continues to have epigastric pain. Patient reports that she had upper endoscopy done by bariatric surgeon October and has not had follow-up appointment. Patient will walk over to bariatric services and make follow-up appointment. Patient reports that omeprazole is not working. Patient's sometimes takes 2 capsules in the morning and she continues to have epigastric burning even when not eating. Patient was on famotidine at bedtime in the past. Currently not taking anything at night time. Patient denies eating late at night. Patient was grieving when she lost her father in August. Currently is under stress. Patient reports dyspepsia without dysphagia or odynophagia. Patient is moving her bowels better. Continues to have occasional postprandial abdominal bloating. Patient denies melena, hematochezia. ? PFSH Medical History Acid reflux Hiatal hernia Vertigo Knee pain BMI 33.0-33.9,adult Obesity Hypertension Anemia Frequency of urination Surgical History Hx of hand surgery History of bilateral tubal ligation Hx of cholecystectomy H/O bariatric surgery Hx of section Family History Family/Other History of breast cancer Brother Overdose Cardiovascular disease Mother HTN (hypertension) Cardiovascular disease Father HTN (hypertension) Cardiovascular disease Maternal Grandmother HTN (hypertension) Other Mental health disorder Substance abuse Social History Household Members: Spouse Housing: House Do you presently have visiting nurse or other home services: No Alcohol intake: current Alcohol intake frequency: 0-2 drinks per day Patient Tobacco Use Status: Former Tobacco user e-Cigarette/Vaping Use: Never Used Substance Use Type: Marijuana service: No Current occupational status: employed 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- [employer] Sexual orientation: Straight/Heterosexual Gender identity: Female Cognitive needs: No Hearing needs: No Vision needs: Yes Female Reproductive History Menstrual Age of Menarche: 10 Review of Systems Const Denies weight gain and Denies weight loss ENT Reports no additional complaints, Denies dysphagia and Denies odynophagia Card Reports no additional complaints Resp Reports no additional complaints GI Reports abdominal pain (Epigastric), Denies belching, Denies melena, Reports bloating, Denies change in bowel habits, Denies dysphagia, Denies excessive flatus, Reports dyspepsia, Reports heartburn, Denies diarrhea, Denies loose stools, Denies nausea, Denies odynophagia and Denies vomiting Reports no additional complaints Musc Reports no additional complaints Neuro Reports no additional complaints Psych Reports no additional complaints Endo Reports no additional complaints Physical Exam Vital Signs: Last Vital Signs Pulse 68 12/19/23 14:43 BP 142/66 H 12/19/23 14:43 Pulse Ox 99 12/19/23 14:43 Oxygen Delivery Method Room Air 12/19/23 14:43 BMI result Body Mass Index 34.5 Assessment & Plan Assessment & Plan (1) Hiatal hernia: Code(s): K44.9 - Diaphragmatic hernia without obstruction or gangrene Category: Medical (2) Abdominal cramping: Code(s): R10.9 - Unspecified abdominal pain Category: Medical (3) Nausea: Code(s): R11.0 - Nausea Category: Medical (4) S/P gastric sleeve procedure: Code(s): Z90.3 - Acquired absence of stomach [part of] Category: Surgical (5) Acid reflux: Code(s): K21.9 - Gastro-esophageal reflux disease without esophagitis Category: Medical Qualifiers: Esophagitis presence: esophagitis presence not specified Qualified Code(s): K21.9 - Gastro-esophageal reflux disease without esophagitis (6) Postprandial epigastric pain: Code(s): R10.13 - Epigastric pain (7) Nausea: Code(s): R11.0 - Nausea (8) Postprandial abdominal bloating: Code(s): R14.0 - Abdominal distension (gaseous) Plan Patient will follow-up with bariatric surgery. Will change PPI to omeprazole. Patient will try sucralfate at bedtime. Avoid dietary triggers and late night snacking. Staying upright for minimum 3 hours after meals discussed with patient. Follow-up in 6 months, sooner on as needed basis. She is agreeable to this plan and verbalizes understanding of instructions. She was given the opportunity to ask questions and all questions answered. Thank you for allowing me to participate in her care Medications: New esomeprazole magnesium (Nexium) 40 mg PO DAILY 30 caps 5RF K21.9 - Gastro- esophageal reflux disease without esophagitis sucralfate 1 g PO BEDTIME 90 tabs 1RF K21.9 - Gastro-esophageal reflux disease without esophagitis, K29.81 - Duodenitis with bleeding Discontinued omeprazole Discontinued Reason: Doctor's Order 40 mg PO BID 60 caps 2RF K21.9 - Gastro-esophageal reflux disease without esophagitis Coding Level of Care Code Est Pt Level 4 (62057) Diagnoses Hiatal hernia K44.9 Abdominal cramping R10.9 Nausea R11.0 S/P gastric sleeve procedure Z90.3 Gastroesophageal reflux disease, unspecified whether esophagitis present K21.9 Esophagitis presence: esophagitis presence not specified Postprandial epigastric pain R10.13 Postprandial abdominal bloating R14.0 Time Spent (min) 35 Comment 20 minutes spent with patient and additional 15 minutes spent reviewing her records
== END 2023-12-19 15:31 | disposition home or self-care (01) ==
PROVIDERS: PCP Nurse Practitioner Family; Visit Provider Nurse Practitioner Family
DX: K44.9 Diaphragmatic hernia without obstruction or gangrene (principal); R10.9 Unspecified abdominal pain; R11.0 Nausea; Z90.3 Acquired absence of stomach [part of]; K21.9 Gastro-esophageal reflux disease without esophagitis; R10.13 Epigastric pain; R14.0 Abdominal distension (gaseous)
CPT/HCPCS: 99214

== ENCOUNTER → 2023-12-19 14:42 | Outpatient (BNVA) | payer BC, SELFPAY | PROVIDERS: PCP Nurse Practitioner Family; Visit Provider Nurse Practitioner Family ==

== ENCOUNTER → 2023-12-26 13:51 | Outpatient (BNVA) | payer BC, SELFPAY | PROVIDERS: PCP Nurse Practitioner Family; Visit Provider Physician Assistant Surgical ==

== ENCOUNTER 2024-01-11 15:13 | Outpatient (AMB) | payer BC, SELFPAY ==
--- NOTE | 2024-01-11 15:15 | A.OFFPC_ITS ---
Vital Signs 01/11/24 15:21 01/11/24 15:52 Height 5 ft 2 in Weight 182 lb 8 oz BMI 33.4 BP 150/86 H 130/90 H Blood Pressure Location Rt brachial Lt brachial Position Sitting Respiration 16 Pulse 62 Pulse Source Pulse Oximeter Temp 97.7 F Temp Source Oral Pulse Oximetry (%) 99 Oxygen Delivery Method Room Air Oxygen Flow Rate 99 Intake Visit Reasons: High BP f/u Intake Note: patient here for BP follow up. Deputy County Counsel Required: No Is last menstrual period known: Yes (spotting) Last menstrual period: 01/11/24 Post menopausal: No Patient : No Allergies No Known Allergies [No Known Allergies*] Allergy (Verified 01/11/24 15:34) Medication List - Last Reconciled 01/11/24 by Raciel Hansen CNP amlodipine 5 mg PO DAILY 30 days buspirone 10 mg PO TID 30 days esomeprazole magnesium (Nexium) 40 mg PO DAILY lisinopril 40 mg PO DAILY 30 days meclizine 25 mg PO TID PRN solifenacin 10 mg PO DAILY sucralfate 1 g PO BEDTIME Tobacco use date assessed: 01/11/24 Dental Screening Dental Screen Date: 06/16/23 HPI HPI Comments History of Present Illness Details 53-year-old female presents for hyperten rupinder, anxiety, and depression follow-up She was last seen in August and advised to follow-up in a month She admits to taking amlodipine, buspirone, and lisinopril as prescribed without adverse reactions She notes that she is currently exposed to multiple stressors, including the passing away of her dad 5 months ago and the recent passing of her cousin. She also has significant financial issues. Sleep has been an issue; she sleeps an average of 6 hours but has difficulty falling and staying asleep. she also reports crying spells. She notes that she stopped taking escitalopram due to feeling of daytime sleepiness (at work) on the medication; she only took the medication once She states that she has been exercising routinely and maintaining a low sodium diet [facility] Medical History Acid reflux Hiatal hernia Vertigo Knee pain BMI 33.0-33.9,adult Obesity Hypertension Anemia Frequency of urination Surgical History Hx of hand surgery History of bilateral tubal ligation Hx of cholecystectomy H/O bariatric surgery Hx of section Family History Family/Other History of breast cancer Brother Overdose Cardiovascular disease Mother HTN (hypertension) Cardiovascular disease Father HTN (hypertension) Cardiovascular disease Maternal Grandmother HTN (hypertension) Other Mental health disorder Substance abuse Social History Household Members: Spouse Housing: House Do you presently have visiting nurse or other home services: No Alcohol intake: current Alcohol intake frequency: 0-2 drinks per day Patient Tobacco Use Status: Former Tobacco user e-Cigarette/Vaping Use: Never Used Substance Use Type: Marijuana service: No Current occupational status: employed 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 1. Little interest or pleasure in doing things: several days 2. Feeling down, depressed, or hopeless: several days 3. Trouble falling or staying asleep, or sleeping too much: nearly every day 4. Feeling tired or having little energy: several days 5. Poor appetite or overeating: nearly every day 6. Feeling bad about yourself - or that you are a failure or have let yourself or your family down: not at all 7. Trouble concentrating on things, such as reading the newspaper or watching television: not at all 8. Moving or speaking so slowly that other people could have noticed. Or the opposite - being so fidgety or restless that you have been moving around a lot more than usual: not at all 9. Thoughts that you would be better off or of hurting yourself in some way: not at all Total score: 9 Depression Screening Interpretation: Positive Depression Screening Follow-up: Existing condition and In treatment Depression Screening Done: Yes 56115 - PHQ-9 Billing: Yes Source: Developed by Drs. Zhang Persaud, Miroslava Jerome, Tito Reece and colleagues, with an educational nils from [employer]. Thrive Questionnaire Date Thrive assessed: 04/21/23 KAREEM-7 AMB Questionnaire KAREEM-7 Date KAREEM - 7 assessed: 01/11/24 Feeling nervous, anxious, or on edge: 3 = Nearly every day Not being able to stop or control worryin = Nearly every day Worrying too much about different things: 3 = Nearly every day Trouble relaxin = Several days Being so restless that it is hard to sit still: 0 = Not at all Becoming easily annoyed or irritable: 0 = Not at all Feeling afraid as if something awful might happen: 3 = Nearly every day Total KAREEM-7 score (0-4 normal; 5-9 mild; 10-14 moderate; 15-21 severe): 13 Source: Developed by Drs. Zhang Persaud, Miroslava Jerome, Tito Reece and colleagues, with an educational nils from [employer]. KAREEM-7 Assessment Billing KAREEM-7 Assessment Tool: KAREEM-7 Assessment 36457 Review of Systems Const Details: Const Denies chills, Denies fatigue, Denies fever(s), Denies headache(s) and Denies weakness ENT Denies dizziness and Denies headache(s) Card Denies chest pain, Denies lightheadedness, Denies dyspnea and Denies other (Palpitations) Resp Denies cough, Denies dyspnea, Denies wheezing and Denies other ( shortness of breath) GI Denies abdominal pain, Denies melena, Denies hematochezia, Denies change in bowel habits, Denies dyspepsia and Denies nausea Denies hematuria and Denies dysuria Musc Denies abnormal gait, Denies myalgias, Denies arthralgias, Denies numbness and Denies tingling Skin/Breast Denies rash, Denies unusual bruising and Denies wounds Neuro Denies abnormal gait, Denies dizziness, Denies headache(s), Denies memory loss, Denies numbness, Denies Sensory deficit (Neuro), Denies tingling and Denies weakness Psych Reports anxiety, Reports depression, Denies memory loss Endo Denies cold intolerance, Denies fatigue, Denies heat intolerance, Denies polydipsia and Denies polyuria Aller/Immun Denies wheezing Physical exam (Primary Care) Vital Signs: Last Vital Signs Temp 97.7 F 01/11/24 15:21 Pulse 62 01/11/24 15:21 Resp 16 01/11/24 15:21 BP 150/86 H 01/11/24 15:21 Pulse Ox 99 01/11/24 15:21 Oxygen Delivery Method Room Air 01/11/24 15:21 Oxygen Flow Rate 99 01/11/24 15:21 BMI result Body Mass Index 33.4 Tobacco/Smoking Status: Tobacco use Status Tobacco use date assessed 01/11/24 01/11/24 15:29 Patient Tobacco Use Status Former Tobacco user 01/11/24 15:29 e-Cigarette/Vaping Use Never Used 01/11/24 15:29 Depression Screening Interpretation: Positive Depression Screening Follow-up: Existing condition and In treatment Thrive Assessment: Date of Thrive Assessment Date Thrive assessed 04/21/23 01/11/24 15:29 Const Other: General: no acute distress and well developed Nutritional Appearance: well nourished Orientation/consciousness: patient oriented x3 HENMT Head: Yes normocephalic and Yes atraumatic Eyes General: appearance normal, both eyes and all related structures Pupils: Equal, round and reactive pupils present EOM: EOMs intact bilaterally Resp Effort & Inspection: normal respiratory effort Auscultation: clear to auscultation bilaterally Cardio Rate: regular rate Rhythm: regular rhythm Heart sounds: S1 normal heart sound present, S2 normal heart sound present, no gallops, no murmurs and no rubs GI Palpation (GI): No Abdominal aortic bruit present, Soft to palpation, nontender, No hepatosplenomegaly present and No Rebound tenderness present Auscultation: normal bowel sounds General: Yes no CVA tenderness Back/Spine/Pelvis Back: no CVA tenderness Cervical Spine: cervical ROM normal and No Cervical spine tenderness Thoracic/Lumbar Spine: thoraco-lumbar ROM normal, No pain with thoraco-lumbar ROM, No thoracic spinal tenderness and No lumbar spinal tenderness Extrem General: Yes normal to inspection, No edema and No calf tenderness Skin General: warm and dry. Normal skin color. Normal skin turgor Neuro General: patient oriented x3, gait normal and no focal neuro deficit Cranial nerves: Yes Equal, round and reactive pupils present Cognition (Neuro): normal cognition Gait exam (Neuro): Normal gait present Sensory Exam: No Sensory deficit (Neuro) Psych Appearance: grossly normal Affect: normal affect Attitude: cooperative Thought process: Normal thought process present Coding Level of Care Code Est Pt Level 4 (94660) Diagnoses Primary hypertension I10 Hypertension type: primary hypertension Anxiety and depression F41.9; F32.A Additional Codes KAREEM-7 Assessment Billing - KAREEM-7 Assessment Tool: KAREEM-7 Assessment 56610 ([id number]) Assessment & Plan Assessment & Plan (1) Hypertension: Code(s): I10 - Essential (primary) hypertension Category: Medical Qualifiers: Hypertension type: primary hypertension Qualified Code(s): I10 - Essential (primary) hypertension Plan: Resting blood pressure is 130/90, slightly above goal of less than 140/90 Continue current treatment regimen Low-sodium diet encouraged Will continue to monitor Verbalized understanding and agreed with treatment plan (2) Anxiety and depression: Code(s): F41.9 - Anxiety disorder, unspecified; F32.A - Depression, unspecified Category: Medical Plan: Reports stressors due to of family members and financial issues. She has crying spells and trouble falling or staying asleep. She stopped taking escitalopram due to daytime sleepiness at work after 1 dose PHQ-9 and KAREEM-7 scores revealed mild depression and moderate anxiety respectively Informed that takes approximately 4-6 week for SSRI such as escitalopram to take effect; encouraged to restart the medication. Continue to take buspirone as prescribed Routine exercise encouraged Follow-up in 2 weeks or sooner with worsening or new symptoms Verbalized understanding and agreed with the treatment plan Medications: Refilled escitalopram oxalate 20 mg PO DAILY 30 days 30 tabs 3RF
[2024-01-11 15:21] VITALS: BP 150/86; PULSE 62; RESP 16; TEMP 36.5; O2SAT 99; BMI 33.4
[2024-01-11 15:52] VITALS: BP 130/90
== END 2024-01-11 16:04 | disposition home or self-care (01) ==
PROVIDERS: PCP Nurse Practitioner Family; Visit Provider Nurse Practitioner Family
DX: I10 Essential (primary) hypertension (principal); F41.9 Anxiety disorder, unspecified; F32.A Depression, unspecified

== ENCOUNTER → 2024-01-11 15:13 | Outpatient (BNVA) | payer BC, SELFPAY | PROVIDERS: PCP Nurse Practitioner Family; Visit Provider Nurse Practitioner Family | DX: I10 Essential (primary) hypertension (principal); F41.9 Anxiety disorder, unspecified; F32.A Depression, unspecified; Z79.899 Other long term (current) drug therapy | CPT/HCPCS: 96127 ==

== ENCOUNTER 2024-01-24 15:08 | Outpatient (AMB) | payer BC, SELFPAY ==
--- NOTE | 2024-01-24 15:12 | A.OFFPC_ITS ---
Vital Signs 01/24/24 15:17 Height 5 ft 2 in Weight 182 lb 4 oz BMI 33.3 BP 146/84 H Blood Pressure Location Lt brachial Position Sitting Respiration 16 Pulse 60 Pulse Source Pulse Oximeter Temp 97.9 F Temp Source Oral Pulse Oximetry (%) 96 Oxygen Delivery Method Room Air Intake Visit Reasons: 2 wks anxiety, depression Intake Note: patient here for 2wk follow up on anxiety and depression Collection Technician Required: No Is last menstrual period known: No Post menopausal: No Patient : No Allergies No Known Allergies [No Known Allergies*] Allergy (Verified 01/24/24 15:29) Medication List - Last Reconciled 01/24/24 by Raciel Hansen CNP amlodipine 5 mg PO DAILY 30 days buspirone 10 mg PO TID 30 days escitalopram oxalate 20 mg PO DAILY 30 days esomeprazole magnesium (Nexium) 40 mg PO DAILY lisinopril 40 mg PO DAILY 30 days meclizine 25 mg PO TID PRN solifenacin 10 mg PO DAILY sucralfate 1 g PO BEDTIME Tobacco use date assessed: 01/24/24 Dental Screening Dental Screen Date: 01/24/24 Did you have a dental visit in the last 12 months?: No Did you have a dental problem in the last 6 months where you did not have access to dental care?: No Was dental information given to patient?: Patient declined HPI HPI Comments History of Present Illness Details 53-year-old female presents for anxiety and depression follow-up She admits to taking her medications as prescribed without adverse reactions She reports controlled anxiety and depressive symptoms She has been making healthy lifestyle changes, including diet and exercise. She sleeps well She offers no complaints and denies acute symptoms at this time [facility] Medical History Acid reflux Hiatal hernia Vertigo Knee pain BMI 33.0-33.9,adult Obesity Hypertension Anemia Frequency of urination Surgical History Hx of hand surgery History of bilateral tubal ligation Hx of cholecystectomy H/O bariatric surgery Hx of section Family History Family/Other History of breast cancer Brother Overdose Cardiovascular disease Mother HTN (hypertension) Cardiovascular disease Father HTN (hypertension) Cardiovascular disease Maternal Grandmother HTN (hypertension) Other Mental health disorder Substance abuse Social History (Reviewed 12/19/23 @ 14:44 by John Noel [facility]) Household Members: Spouse Housing: House Do you presently have visiting nurse or other home services: No Alcohol intake: current Alcohol intake frequency: 0-2 drinks per day Patient Tobacco Use Status: Former Tobacco user e-Cigarette/Vaping Use: Never Used Substance Use Type: Marijuana service: No Current occupational status: employed 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 1. Little interest or pleasure in doing things: several days 2. Feeling down, depressed, or hopeless: several days 3. Trouble falling or staying asleep, or sleeping too much: several days 4. Feeling tired or having little energy: several days 5. Poor appetite or overeating: several days 6. Feeling bad about yourself - or that you are a failure or have let yourself or your family down: not at all 7. Trouble concentrating on things, such as reading the newspaper or watching television: not at all 8. Moving or speaking so slowly that other people could have noticed. Or the opposite - being so fidgety or restless that you have been moving around a lot more than usual: not at all 9. Thoughts that you would be better off or of hurting yourself in some way: not at all Total score: 5 Depression Screening Interpretation: Positive Depression Screening Follow-up: Existing condition and In treatment Depression Screening Done: Yes Source: Developed by Drs. Zhang Persaud, Miroslava Jerome, Tito Reece and colleagues, with an educational nils from [employer]. Thrive Questionnaire Date Thrive assessed: 01/24/24 I am a: Patient What is your living situation today?: I have a steady place to live Within the past 12 months, did the food you bought not last and you didn't have the money to get more?: Never true Within the past 12 months, did you worry whether your food would run out before you got money to buy more?: Never true Do you have trouble paying for medicines?: Yes Do you have trouble getting transportation to medical appointments?: No Do you have trouble paying your heating and electricity bill?: No Do you have trouble taking care of your child, family member or friend?: No Do you have trouble with day-to-day activities such as bathing, preparing meals, shopping, managing finances, etc.?: No Are you currently unemployed and looking for a job?: No Are you interested in more education?: No Please select the resources that you would like help with: None Currently or been in a relationship where the following occur: No concerns reported THRIVE Score: 0 AUDIT C Alcohol Use Questionnaire (AUDIT-C) 1. How often do you have a drink containing alcohol?: Monthly or less 2. How many drinks containing alcohol do you have on a typical day when you are drinking?: 1 or 2 3. How often do you have six or more drinks on one occasion?: Less than monthly Total Score: 2 KAREEM-7 AMB Questionnaire KAREEM-7 Date KAREEM - 7 assessed: 01/24/24 Feeling nervous, anxious, or on edge: 1 = Several days Not being able to stop or control worryin = Several days Worrying too much about different things: 1 = Several days Trouble relaxin = Not at all Being so restless that it is hard to sit still: 0 = Not at all Becoming easily annoyed or irritable: 0 = Not at all Feeling afraid as if something awful might happen: 1 = Several days Total KAREEM-7 score (0-4 normal; 5-9 mild; 10-14 moderate; 15-21 severe): 4 Source: Developed by Drs. Zhang Persaud, Miroslava Jerome, Tito Reece and colleagues, with an educational nils from [employer]. KAREEM-7 Assessment Billing KAREEM-7 Assessment Tool: KAREEM-7 Assessment 26433 Review of Systems Const Details: Const Denies chills, Denies fatigue, Denies fever(s), Denies headache(s) and Denies weakness ENT Denies dizziness and Denies headache(s) Card Denies chest pain, Denies lightheadedness, Denies dyspnea and Denies other (Palpitations) Resp Denies cough, Denies dyspnea, Denies wheezing and Denies other ( shortness of breath) GI Denies abdominal pain, Denies melena, Denies hematochezia, Denies change in bowel habits, Denies dyspepsia and Denies nausea Denies hematuria and Denies dysuria Musc Denies abnormal gait, Denies myalgias, Denies arthralgias, Denies numbness and Denies tingling Skin/Breast Denies rash, Denies unusual bruising and Denies wounds Neuro Denies abnormal gait, Denies dizziness, Denies headache(s), Denies memory loss, Denies numbness, Denies Sensory deficit (Neuro), Denies tingling and Denies weakness Psych Denies anxiety, Denies depression, Denies memory loss Endo Denies cold intolerance, Denies fatigue, Denies heat intolerance, Denies polydipsia and Denies polyuria Aller/Immun Denies wheezing Physical exam (Primary Care) Tobacco/Smoking Status: Tobacco use Status Tobacco use date assessed 01/11/24 01/11/24 15:29 Patient Tobacco Use Status Former Tobacco user 01/11/24 15:29 e-Cigarette/Vaping Use Never Used 01/11/24 15:29 Depression Screening Interpretation: Positive Depression Screening Follow-up: Existing condition and In treatment Thrive Assessment: Date of Thrive Assessment Date Thrive assessed 04/21/23 01/11/24 15:29 Currently or been in a relationship where the following occur: No concerns reported Const Other: General: no acute distress and well developed Nutritional Appearance: well nourished Orientation/consciousness: patient oriented x3 HENMT Head: Yes normocephalic and Yes atraumatic Eyes General: appearance normal, both eyes and all related structures Pupils: Equal, round and reactive pupils present EOM: EOMs intact bilaterally Resp Effort & Inspection: normal respiratory effort Auscultation: clear to auscultation bilaterally Cardio Rate: regular rate Rhythm: regular rhythm Heart sounds: S1 normal heart sound present, S2 normal heart sound present, no gallops, no murmurs and no rubs GI Palpation (GI): No Abdominal aortic bruit present, Soft to palpation, nontender, No hepatosplenomegaly present and No Rebound tenderness present Auscultation: normal bowel sounds General: Yes no CVA tenderness Back/Spine/Pelvis Back: no CVA tenderness Cervical Spine: cervical ROM normal and No Cervical spine tenderness Thoracic/Lumbar Spine: thoraco-lumbar ROM normal, No pain with thoraco-lumbar RO M, No thoracic spinal tenderness and No lumbar spinal tenderness Extrem General: Yes normal to inspection, No edema and No calf tenderness Skin General: warm and dry. Normal skin color. Normal skin turgor Neuro General: patient oriented x3, gait normal and no focal neuro deficit Cranial nerves: Yes Equal, round and reactive pupils present Cognition (Neuro): normal cognition Gait exam (Neuro): Normal gait present Sensory Exam: No Sensory deficit (Neuro) Psych Appearance: grossly normal Affect: normal affect Attitude: cooperative Thought process: Normal thought process present Coding Level of Care Code Est Pt Level 4 (19785) Diagnoses Anxiety and depression F41.9; F32.A Primary hypertension I10 Hypertension type: primary hypertension Additional Codes KAREEM-7 Assessment Billing - KAREEM-7 Assessment Tool: KAREEM-7 Assessment 23550 ([id number]) Assessment & Plan Assessment & Plan (1) Anxiety and depression: Code(s): F41.9 - Anxiety disorder, unspecified; F32.A - Depression, unspecified Category: Medical Plan: Reports controlled anxiety and depressive symptoms PHQ-9 score reveals mild depression. KAREEM-7 score is normal Continue current treatment regimen Routine exercise encouraged Follow-up in 1 month or sooner with symptoms or concerns Verbalized understanding and agreed with the plan (2) Hypertension: Code(s): I10 - Essential (primary) hypertension Category: Medical Qualifiers: Hypertension type: primary hypertension Qualified Code(s): I10 - Essential (primary) hypertension Plan: Resting blood pressure is 146/84, above goal of less than 140/90 Will increase amlodipine to 10 mg daily. Advised to take as prescribed Continue to take lisinopril 40 mg daily Low-sodium diet encouraged Follow-up in 1 month Verbalized understanding and agreed with the treatment plan Medications: New amlodipine 10 mg PO DAILY 30 days 30 tabs 3RF Discontinued amlodipine Discontinued Reason: Doctor's Order 5 mg PO DAILY 30 days 30 tabs 3RF
[2024-01-24 15:17] VITALS: BP 146/84; PULSE 60; RESP 16; TEMP 36.6; O2SAT 96; BMI 33.3
== END 2024-01-24 15:43 | disposition home or self-care (01) ==
PROVIDERS: PCP Nurse Practitioner Family; Visit Provider Nurse Practitioner Family
DX: F41.9 Anxiety disorder, unspecified (principal); F32.A Depression, unspecified; I10 Essential (primary) hypertension

== ENCOUNTER → 2024-01-24 15:08 | Outpatient (BNVA) | payer BC, SELFPAY | PROVIDERS: PCP Nurse Practitioner Family; Visit Provider Nurse Practitioner Family | DX: F41.9 Anxiety disorder, unspecified (principal); F32.A Depression, unspecified; I10 Essential (primary) hypertension; Z79.899 Other long term (current) drug therapy | CPT/HCPCS: 96127 ==

== ENCOUNTER 2024-02-28 13:06 | Outpatient (AMB) | payer BC, SELFPAY ==
--- NOTE | 2024-02-28 13:11 | A.OFFPC_ITS ---
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 Is last menstrual period known: No Post menopausal: No Patient : No Allergies No Known Allergies [No Known Allergies*] Allergy (Verified 02/28/24 13:15) Tobacco use date assessed: 02/28/24 Dental Screening Dental Screen Date: 02/28/24 Did you have a dental visit in the last 12 months?: No Did you have a dental problem in the last 6 months where you did not have access to dental care?: No Was dental information given to patient?: Patient has dentist HPI HPI Comments History of Present Illness Details The patient is a 53-year-old female presenting with a follow-up for hypertension, anxiety, and depression management. She reports recent difficulty during the holiday season, exacerbated by the absence of her father this year. The patient experiences moderate depressive symptoms and mild anxiety as indicated by recent scores of PHQ-9 and KAREEM-7, respectively. She notes a recent episode last month where she experienced disorientation after a fall, requiring assistance to work and an inability to speak properly, which resolved spontan eously. The patient also describes increased tiredness and fatigue, often falling asleep unexpectedly. While she mentions ongoing management with citalopram, she admits to missing a dose of meclizine during the above episode. Her hypertension medication is taken as prescribed, evidenced by a recent blood pressure reading of 123/60 mmHg. The patient also shares her intention to start therapy sessions soon. [facility] Medical History Acid reflux Hiatal hernia Vertigo Knee pain BMI 33.0-33.9,adult Obesity Hypertension Anemia Frequency of urination Surgical History Hx of hand surgery History of bilateral tubal ligation Hx of cholecystectomy H/O bariatric surgery Hx of section Family History Family/Other History of breast cancer Brother Overdose Cardiovascular disease Mother HTN (hypertension) Cardiovascular disease Father HTN (hypertension) Cardiovascular disease Maternal Grandmother HTN (hypertension) Other Mental health disorder Substance abuse Social History Household Members: Spouse Housing: House Do you presently have visiting nurse or other home services: No Alcohol intake: current Alcohol intake frequency: 0-2 drinks per day Patient Tobacco Use Status: Former Tobacco user e-Cigarette/Vaping Use: Never Used Substance Use Type: Marijuana service: No Current occupational status: employed 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 1. Little interest or pleasure in doing things: several days 2. Feeling down, depressed, or hopeless: several days 3. Trouble falling or staying asleep, or sleeping too much: nearly every day 4. Feeling tired or having little energy: nearly every day 5. Poor appetite or overeating: nearly every day (poor appetite) 6. Feeling bad about yourself - or that you are a failure or have let yourself or your family down: not at all 7. Trouble concentrating on things, such as reading the newspaper or watching television: not at all 8. Moving or speaking so slowly that other people could have noticed. Or the opposite - being so fidgety or restless that you have been moving around a lot more than usual: not at all 9. Thoughts that you would be better off or of hurting yourself in some way: not at all Total score: 11 Depression Screening Interpretation: Positive Depression Screening Follow-up: Existing condition and In treatment Depression Screening Done: Yes 74423 - PHQ-9 Billing: Yes Source: Developed by Drs. Zhang Persaud, Miroslava Jerome, Tito Reece and colleagues, with an educational nils from [employer]. Thrive Questionnaire Date Thrive assessed: 02/28/24 I am a: Patient What is your living situation today?: I have a steady place to live Within the past 12 months, did the food you bought not last and you didn't have the money to get more?: Never true Within the past 12 months, did you worry whether your food would run out before you got money to buy more?: Never true Do you have trouble paying for medicines?: Yes Do you have trouble getting transportation to medical appointments?: No Do you have trouble paying your heating and electricity bill?: No Do you have trouble taking care of your child, family member or friend?: No Do you have trouble with day-to-day activities such as bathing, preparing meals, shopping, managing finances, etc.?: No Are you currently unemployed and looking for a job?: No Are you interested in more education?: No Please select the resources that you would like help with: None Currently or been in a relationship where the following occur: No concerns rep orted THRIVE Score: 0 AUDIT C Alcohol Use Questionnaire (AUDIT-C) 1. How often do you have a drink containing alcohol?: 2-4 times a month 2. How many drinks containing alcohol do you have on a typical day when you are drinking?: 3 or 4 3. How often do you have six or more drinks on one occasion?: Less than monthly Total Score: 4 KAREEM-7 AMB Questionnaire KAREEM-7 Date KAREEM - 7 assessed: 02/28/24 Feeling nervous, anxious, or on edge: 3 = Nearly every day Not being able to stop or control worryin = Several days Worrying too much about different things: 3 = Nearly every day Trouble relaxin = Not at all Being so restless that it is hard to sit still: 0 = Not at all Becoming easily annoyed or irritable: 0 = Not at all Feeling afraid as if something awful might happen: 1 = Several days Total KAREEM-7 score (0-4 normal; 5-9 mild; 10-14 moderate; 15-21 severe): 8 Source: Developed by Drs. Zhang Persaud, Miroslava Jerome, Tito Reece and colleagues, with an educational nils from [employer] KAREEM-7 Assessment Billing KAREEM-7 Assessment Tool: KAREEM-7 Assessment 99481 Review of Systems Const Details: Const Denies chills, Denies fatigue, Denies fever(s), Denies headache(s) and Denies weakness ENT Denies dizziness and Denies headache(s) Card Denies chest pain, Denies lightheadedness, Denies dyspnea and Denies other (Palpitations) Resp Denies cough, Denies dyspnea, Denies wheezing and Denies other ( shortness of breath) GI Denies abdominal pain, Denies melena, Denies hematochezia, Denies change in bowel habits, Denies dyspepsia and Denies nausea Denies hematuria and Denies dysuria Musc Denies abnormal gait, Denies myalgias, Denies arthralgias, Denies numbness and Denies tingling Skin/Breast Denies rash, Denies unusual bruising and Denies wounds Neuro Denies abnormal gait, Denies dizziness, Denies headache(s), Denies memory loss, Denies numbness, Denies Sensory deficit (Neuro), Denies tingling and Denies weakness Psych Denies anxiety, Denies depression, Denies memory loss Endo Denies cold intolerance, Denies fatigue, Denies heat intolerance, Denies polydipsia and Denies polyuria Aller/Immun Denies wheezing Physical exam (Primary Care) Tobacco/Smoking Status: Tobacco use Status Tobacco use date assessed 01/24/24 02/28/24 13:14 Patient Tobacco Use Status Former Tobacco user 02/28/24 13:14 e-Cigarette/Vaping Use Never Used 02/28/24 13:14 Depression Screening Interpretation: Positive Depression Screening Follow-up: Existing condition and In treatment Thrive Assessment: Date of Thrive Assessment Date Thrive assessed 01/24/24 02/28/24 13:14 Currently or been in a relationship where the following occur: No concerns reported Const Other: General: no acute distress and well developed Nutritional Appearance: well nourished Orientation/consciousness: patient oriented x3 HENMT Head: Yes normocephalic and Yes atraumatic Eyes General: appearance normal, both eyes and all related structures Pupils: Equal, round and reactive pupils present EOM: EOMs intact bilaterally Resp Effort & Inspection: normal respiratory effort Auscultation: clear to auscultation bilaterally Cardio Rate: regular rate Rhythm: regular rhythm Heart sounds: S1 normal heart sound present, S2 normal heart sound present, no gallops, no murmurs and no rubs GI Palpation (GI): No Abdominal aortic bruit present, Soft to palpation, nontender, No hepatosplenomegaly present and No Rebound tenderness present Auscultation: normal bowel sounds General: Yes no CVA tenderness Back/Spine/Pelvis Back: no CVA tenderness Extrem General: Yes normal to inspection, No edema and No calf tenderness Skin General: warm and dry. Normal skin color. Normal skin turgor Neuro General: patient oriented x3, gait normal and no focal neuro deficit Cranial nerves: Yes Equal, round and reactive pupils present Cognition (Neuro): normal cognition Gait exam (Neuro): Normal gait present Sensory Exam: No Sensory deficit (Neuro) Psych Appearance: grossly normal Affect: normal affect Attitude: cooperative Thought process: Normal thought process present Coding Level of Care Code Est Pt Level 4 (11479) Diagnoses Primary hypertension I10 Hypertension type: primary hypertension Anxiety and depression F41.9; F32.A Fatigue R53.83 Additional Codes KAREEM-7 Assessment Billing - KAREEM-7 Assessment Tool: KAREEM-7 Assessment 69042 ([id number]) PHQ-9 - 73336 - PHQ-9 Billing: Yes ([id number]) Assessment & Plan Assessment & Plan (1) Hypertension: Code(s): I10 - Essential (primary) hypertension Category: Medical Qualifiers: Hypertension type: primary hypertension Qualified Code(s): I10 - Essential (primary) hypertension Plan: Maintain current antihypertensive regimen. Regular monitoring is advised. (2) Anxiety and depression: Code(s): F41.9 - Anxiety disorder, unspecified; F32.A - Depression, unspecified Category: Medical Plan: Continue monitoring and manage with baseline medications. Initiate therapy sessions post-holidays as planned. (3) Fatigue: Code(s): R53.83 - Other fatigue Category: Medical Plan: Order blood work to assess thyroid function and vitamin D levels to rule out potential contributors to fatigue. Will also check CBC. Plan During the consultation, I discussed with the patient the management of her anxiety and depression. We reviewed her current treatment with citalopram and emphasized the importance of medication adherence. The patient expressed her intent to begin therapy, and I encouraged her to follow through with scheduling her sessions. We discussed her recent episode of disorientation and planned a proactive approach by exploring potential physiological contributors through blood tests. Additionally, we addressed her hypertension management, confirming compliance with her current medication. I assured the patient that her current blood pressure readings are within optimal range. I outlined the plan to check her thyroid function, vitamin D and CBC levels to investigate the cause of her fatigue, and advised her of the importance of consistent follow-up and medication adherence for overall health management. We scheduled a follow-up appointment in one month for a comprehensive physical examination and reiterated the option to reach out should any changes occur. Orders: Orders TSH reflex Free T4 Today R53.83 - Other fatigue Microalbumin, Random (w Creat) Today Z00.00 - Encounter for general adult medical examination without abnormal findings Vitamin D 25-OH Total Today R53.83 - Other fatigue Patient Instructions: - Continue taking prescribed medications for anxiety and depression. - Adhere to the hypertension medication regimen as prescribed. - Schedule and attend therapy sessions shortly after the holidays. - Complete blood tests for thyroid function, CBC, and vitamin D assessment as discussed. - Follow up in one month for a complete physical examination. - Contact the clinic if there are any changes in symptoms or immediate concerns.
[2024-02-28 13:21] VITALS: BP 123/60; PULSE 62; RESP 16; TEMP 36; O2SAT 95; BMI 33.1
== END 2024-02-28 13:52 | disposition home or self-care (01) ==
PROVIDERS: PCP Nurse Practitioner Family; Visit Provider Nurse Practitioner Family
DX: I10 Essential (primary) hypertension (principal); F41.9 Anxiety disorder, unspecified; F32.A Depression, unspecified; R53.83 Other fatigue

== ENCOUNTER → 2024-02-28 13:06 | Outpatient (BNVA) | payer BC, SELFPAY | PROVIDERS: PCP Nurse Practitioner Family; Visit Provider Nurse Practitioner Family | DX: I10 Essential (primary) hypertension (principal); F41.9 Anxiety disorder, unspecified; F32.A Depression, unspecified; R53.83 Other fatigue | CPT/HCPCS: 96127 ==

== ENCOUNTER 2024-02-28 13:42 | Outpatient (REF) | payer BC, SELFPAY ==
[2024-02-28 14:41] LABS: Hematocrit 38.5 % (37.0-47.0); Hemoglobin 13.1 g/dl (12.0-16.0); Mean Corpuscular Hemoglobin 31.7 pg (27.0-33.0); Mean Corpuscular Volume 93.2 fL (80.0-98.0); Mean Platelet Volume 10.1 fL (9.4-12.3); Platelet Count 350 X10*3/uL (160-400); Red Blood Count 4.13 X10*6/uL (4.20-5.50); Red Cell Distribution Width 12.4 % (11.0-16.0); White Blood Count 5.9 X10*3/uL (4.8-10.8)
[2024-02-28 14:53] LABS: Iron 97 mcg/dL (30-160); Percent Iron Saturation 34 % (15-50); Total Iron Binding Capacity 286 mcg/dL (228-428); Unsaturated Iron Binding 189 ug/dL
[2024-02-28 15:09] LABS: Ferritin 59 ng/mL (10-250); TSH reflex Free T4 1.27 uIU/mL (0.32-4.0); Vitamin D 25-OH Total 20.4 ng/mL (>30)
[2024-02-28 15:20] LABS: Folate 8.7 ng/mL (> or = 4.0); Vitamin B12 329 pg/mL (200-900)
== END 2024-02-28 13:43 | disposition home or self-care (01) ==
LOC: HO.WFDLDS 13:42
PROVIDERS: Referring Provider Nurse Practitioner Family; Visit Provider Nurse Practitioner Family
DX: Z00.00 Encounter for general adult medical examination without abnormal findings (principal); D50.9 Iron deficiency anemia, unspecified; R53.83 Other fatigue; K21.9 Gastro-esophageal reflux disease without esophagitis
CPT/HCPCS: 36415; 82043; 82306; 82570; 82607; 82728; 82746; 83540; 84443; 85027

== ENCOUNTER 2024-03-06 12:54 | Outpatient (AMB) | payer BC, SELFPAY ==
[2024-03-06 13:10] VITALS: BMI 32.9
--- NOTE | 2024-03-06 13:10 | A.OFFVIS_ITS ---
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 Allergies No Known Allergies [No Known Allergies*] Allergy (Verified 03/06/24 13:15) Medication List - Last Reconciled 03/06/24 by Lois Matt LPN amlodipine 10 mg PO DAILY 30 days buspirone 10 mg PO TID 30 days cholecalciferol (vitamin D3) (Vitamin D3) 50 mcg PO DAILY 90 days escitalopram oxalate 20 mg PO DAILY 30 days lisinopril 40 mg PO DAILY 30 days meclizine 25 mg PO TID PRN solifenacin 10 mg PO DAILY sucralfate 1 g PO BEDTIME Is last menstrual period known: Yes Last menstrual period: 01/29/24 Post menopausal: No HPI Comments Details: She is a postmenopausal woman presenting for her annual gyn physician examination. She is doing well with concerns Skipping cycles up to two months, LMP 12/2023-HMB x2/5-7d in this 1 cycle only. She discussed her recent loss of her father brother and nephew with the additional other family members, is planning to start counseling soon for her grief and depression. Currently sexually active. Denies any irritation. STI testing offered; she declined. Admits to vaginal dryness at times. Attempting to eat a healthy diet with calcium and vitamin D and stays active with exercise. Last pap smear; 2019. Last mammogram; 2023. Colonoscopy is UTD. Denies any family history of ovarian or colon cancer. FH- breast cancer. [facility] Medical History Acid reflux Hiatal hernia Vertigo Knee pain BMI 33.0-33.9,adult Obesity Hypertension Anemia Frequency of urination Surgical History Hx of hand surgery History of bilateral tubal ligation Hx of cholecystectomy H/O bariatric surgery Hx of section Family History (Updated 03/06/24 @ 13:20 by Lois Matt LPN) Family/Other History of breast cancer Brother Overdose Cardiovascular disease Mother HTN (hypertension) Cardiovascular disease Father Leukemia Maternal Grandmother HTN (hypertension) Other Mental health disorder Substance abuse Social History Household Members: Spouse Housing: House Do you presently have visiting nurse or other home services: No Alcohol intake: current Alcohol intake frequency: 0-2 drinks per day Patient Tobacco Use Status: Former Tobacco user e-Cigarette/Vaping Use: Never Used Substance Use Type: Marijuana service: No Current occupational status: employed 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- [employer] Sexual orientation: Straight/Heterosexual Gender identity: Female Cognitive needs: No Hearing needs: No Vision needs: Yes Female Reproductive History Menstrual Age of Menarche: 10 Duration of menses: 6-7 days Date of last menstrual period: 01/29/24 control method: permanent sterilization Date of last pap smear: 03/24/20 History of abnormal pap smear: No History of STI: No Date of Mammogram: 04/05/23 History of abnormal mammogram: No Review of Systems Const All systems reviewed & are unremarkable except as noted in HPI and below Reports as per HPI Eyes Reports no additional complaints ENT Reports no additional complaints Card Reports no additional complaints Resp Reports no additional complaints GI Reports as per HPI and Reports no additional complaints Reports as per HPI Musc Reports no additional complaints Skin/Breast Reports as per HPI Neuro Reports no additional complaints Psych Reports no additional complaints Endo Reports no additional complaints Rl/Lymph Reports no additional complaints Aller/Immun Reports no additional complaints Physical Exam Vital Signs: BMI result Body Mass Index 32.9 Const General: cooperative, healthy appearing, no acute distress, well developed and alert Orientation/consciousness: patient oriented x3 HEENT Head: Yes normal to inspection Eyes General: appearance normal, both eyes and all related structures Neck Neck: Yes normal visual inspection Thyroid: Thyroid normal Chest Chest palpation & inspection: normal inspection of the chest and other (no puckering, dimpling, peau de orange, retraction, discharge, masses) Breast/axilla inspection: normal inspection of the breasts Breast/axilla palpation: normal palpation of the breasts Resp Effort & Inspection: normal respiratory effort GI Inspection: Yes normal to inspection Palpation (GI): Soft to palpation Rectal Exam - Female: deferred General: Yes bladder normal to palpation External Female Exam: normal external appearance and normal appearance of the urethra Speculum Exam - Vagina: normal appearance of the vagina, normal palpation and normal vaginal discharge Speculum Exam - Cervix: normal appearance of the cervix and normal palpation Bimanual exam- vagina & uterus: normal bimanual exam, normal palpation, uterine size normal, bladder normal to palpation, normal palpation and non-tender Bimanual Exam- Adnexa, other: no masses Skin General skin exam: no rashes or lesions noted Rashes: no rashes Neuro General: patient oriented x3 Cognition (Neuro): normal cognition Extrem General: Yes normal to inspection Psych Attitude: cooperative Thought process: Normal thought process present Assessment & Plan Assessment & Plan (1) Well woman exam with routine gynecological exam: Code(s): Z01.419 - Encounter for gynecological examination (general) (routine) without abnormal findings Category: Medical Plan Discussed: Current recommendations for pap smears per ASCCP guidelines. Breast awareness, periodic self breast exams and yearly mammogram. Maintain a healthy lifestyle, well balanced diet including Calcium 1,200 mg and Vitamin D 600 IU daily, and routine exercise. Menopause verses perimenopause. Menopause is definitive of 1 year of no menses or 12 months in succession. Report any abnormal uterine bleeding in example prolonged episodes, or short intervals less than 24 days. Grief support and healing process. Patient verbalizes understanding and agrees to the plan of care-to call if the menstrual cycle is prolonged or heavy. She was given opportunity to ask questions and all questions were answered to the best of my ability. RTO in 1 year for annual gyn physician exam. This note is constructed using voice recognition software. While every effort has been made to ensure accuracy, adventure education teacher errors may have been included. Coding Level of Care Code Est Pt Prev Care 40-64y(79889) Diagnoses Well woman exam with routine gynecological exam Z01.419
== END 2024-03-06 13:56 | disposition home or self-care (01) ==
LOC: HO.HWS 12:54
PROVIDERS: PCP Nurse Practitioner Family; Visit Provider Advanced Practice Midwife
DX: Z01.419 Encounter for gynecological examination (general) (routine) without abnormal findings (principal)
CPT/HCPCS: 99396

== ENCOUNTER → 2024-03-06 12:54 | Outpatient (BNVA) | payer BC, SELFPAY | PROVIDERS: PCP Nurse Practitioner Family; Visit Provider Advanced Practice Midwife ==

== ENCOUNTER 2024-04-10 14:56 | Outpatient (REF) | payer BC, SELFPAY ==
--- NOTE | ~2024-04-10 | MM_ITS ---
EXAMINATION: MM SCREENING DIGITAL BREAST TOMOSYNTHESIS, BILATERAL CLINICAL INFORMATION: Screening. Asymptomatic. COMPARISON: Mammography: Comparison is made with available priors TECHNIQUE: Digital breast mammography with tomosynthesis is performed in both the craniocaudal and mediolateral oblique views along with computer-aided detection (CAD). FINDINGS: There are scattered areas of fibroglandular density (ACR BI-RADS breast composition Category b). There are no significant masses, abnormal calcifications, or other abnormalities. MM/MM tomosynthesis screening BI IMPRESSION: No mammographic evidence of malignancy. ASSESSMENT: BI-RADS BI-RADS 1 - Negative RECOMMENDATION: Routine annual mammography screening. 1 year F/U This examination should not preclude the clinical evaluation of a suspicious palpable abnormality. This patient's information was entered into a reminder system with a target due date for their next mammogram. Electronically signed by: Paulette Babcock DO 04/17/2024 01:16 PM JAMILA
== END 2024-04-10 14:57 | disposition home or self-care (01) ==
LOC: HO.MAMMO 14:56
PROVIDERS: PCP Nurse Practitioner Family
DX: Z12.31 Encounter for screening mammogram for malignant neoplasm of breast (principal)
CPT/HCPCS: 77063; 77067

== ENCOUNTER → 2024-04-10 15:00 | Outpatient (BNV) | payer BC, SELFPAY | PROVIDERS: PCP Nurse Practitioner Family; Visit Provider Internal Medicine | DX: Z12.31 Encounter for screening mammogram for malignant neoplasm of breast (principal) | CPT/HCPCS: 77063; 77067 ==

== ENCOUNTER 2024-06-17 14:47 | Outpatient (AMB) | payer BC, SELFPAY ==
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
[2024-06-17 15:25] VITALS: BP 145/67; PULSE 68; RESP 16; TEMP 36.6; O2SAT 99; BMI 34.6
[2024-06-17 16:09] VITALS: BP 140/80
== END 2024-06-17 16:27 | disposition home or self-care (01) ==
LOC: HO.HMCFM 14:48
PROVIDERS: PCP Nurse Practitioner Family; Visit Provider Nurse Practitioner Family
DX: Z00.00 Encounter for general adult medical examination without abnormal findings (principal); I10 Essential (primary) hypertension; E66.01 Morbid (severe) obesity due to excess calories; Z68.34 Body mass index [BMI] 34.0-34.9, adult; E55.9 Vitamin D deficiency, unspecified; F41.9 Anxiety disorder, unspecified; F32.A Depression, unspecified; G47.9 Sleep disorder, unspecified; M25.561 Pain in right knee; G89.29 Other chronic pain; H52.10 Myopia, unspecified eye; Z23 Encounter for immunization

== ENCOUNTER → 2024-06-17 14:47 | Outpatient (BNVA) | payer BC, SELFPAY | PROVIDERS: PCP Nurse Practitioner Family; Visit Provider Nurse Practitioner Family | DX: Z00.00 Encounter for general adult medical examination without abnormal findings (principal); Z23 Encounter for immunization; I10 Essential (primary) hypertension; E55.9 Vitamin D deficiency, unspecified; E66.01 Morbid (severe) obesity due to excess calories; Z68.34 Body mass index [BMI] 34.0-34.9, adult; F41.9 Anxiety disorder, unspecified; F32.A Depression, unspecified; G47.9 Sleep disorder, unspecified; G89.29 Other chronic pain; M25.561 Pain in right knee; H52.10 Myopia, unspecified eye | CPT/HCPCS: 90471; 90715; 96127 ==

== ENCOUNTER 2024-11-26 15:02 | Outpatient (REF) | payer BC, SELFPAY ==
--- OUTSIDE RECORDS SUMMARY | 2024-11-26 16:46 | XMS_ITS ---
Author Name [facility] Organization Unknown Care Team Organization Name Specialty Phone Email Start Date End Da te [facility] Kelsy Castellanos Primary Care 04/11/202211/01 [facility] Ashlyn, PROVIDER Primary Care 02/08/202211/01
== END 2024-11-26 15:03 | disposition home or self-care (01) ==
LOC: HO.WFDLDS 15:02
PROVIDERS: PCP Family Medicine; Visit Provider Nurse Practitioner Family
DX: E55.9 Vitamin D deficiency, unspecified (principal); I10 Essential (primary) hypertension; F41.9 Anxiety disorder, unspecified; F32.A Depression, unspecified; M54.9 Dorsalgia, unspecified; M54.2 Cervicalgia
CPT/HCPCS: 36415; 81003; 82306; 96127

== ENCOUNTER 2024-11-26 15:02 | Outpatient (AMB) | payer BC, SELFPAY ==
--- NOTE | 2024-11-26 15:03 | MHC.PC.OV ---
Vital Signs 11/26/24 15:14 11/26/24 15:21 Height 5 ft 2 in Weight 186 lb 4 oz BMI 34.1 BP 140/63 H 126/74 Blood Pressure Location Rt brachial Rt brachial Position Sitting Sitting Respiration 16 Pulse 97 Pulse Source Pulse Oximeter Temp 98.0 F Temp Source Oral Pulse Oximetry (%) 95 Oxygen Delivery Method Room Air Intake Visit Reasons: 1 mos HTN, vit d deficiency Intake Note: patient here for 1month follow up on HTN and vit D deficiency. patient is c/o pain in left ear she was cleaning them and blood came out, and pain in her lower back for more then 1 month with frequent urination. 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 Required: No Is last menstrual period known: Yes Last menstrual period: 11/18/24 Post menopausal: No Patient : No Allergies No Known Allergies (No Known Allergies*) Allergy (Verified 11/26/24 15:18) Medication List - Last Reviewed 11/26/24 by Loretta Yancey MA amlodipine 10 mg PO DAILY 30 days buspirone 10 mg PO TID 30 days diclofenac sodium 1% 2 grams topical QID PRN escitalopram oxalate 20 mg PO DAILY 30 days hydroxyzine pamoate 25 mg PO DAILY PRN lisinopril 40 mg PO DAILY 30 days lorazepam 0.5 mg PO meclizine 25 mg PO TID PRN mirtazapine 15 - 30 mg PO BEDTIME Tobacco use date assessed: 11/26/24 Dental Screening Dental Screen Date: 11/26/24 Did you have a dental visit in the last 12 months?: No Did you have a dental problem in the last 6 months where you did not have access to dental care?: No Was dental information given to patient?: Patient has dentist HPI HPI Comments History of Present Illness Details 54-year-old female presents for hypertension and vitamin-D deficiency follow-up. She admits to taking her medications as prescribed without adverse reactions. Vitamin D3 50 mcg daily was prescribed but she has has not taken the medication. She notes that she has been making healthy lifestyle choices, including low salt. She reports left-sided low back pain which radiates to her left flank for the past 1 month. She describes the pain as pressure. She denies fall, injury, trauma. She denies urinary frequency, urgency, dysuria, hematuria. She also reports pain to her left lateral neck adjacent the left ear for the past 4 days. Her symptoms started after she noticed bleeding from the ear while cleaning the inside. She reports severe depressive symptoms and moderate anxiety symptoms. She is followed by a psychiatrist and therapist. She did not perform vitamin-D level blood work for this visit as planned. [facility] Medical History (Updated 11/26/24 @ 15:41 by Raciel Hansen CNP) Acid reflux Hiatal hernia Vertigo Knee pain BMI 33.0-33.9,adult Obesity Hypertension Anemia Frequency of urination Surgical History Hx of hand surgery History of bilateral tubal ligation Hx of cholecystectomy H/O bariatric surgery Hx of section Family History Family/Other History of breast cancer Brother Overdose Cardiovascular disease Mother HTN (hypertension) Cardiovascular disease Father Leukemia Maternal Grandmother HTN (hypertension) Other Mental health disorder Substance abuse Social History Household Members: Spouse Housing: House Do you presently have visiting nurse or other home services: No Alcohol intake: current Alcohol intake frequency: 0-2 drinks per day Patient Tobacco Use Status: Former Tobacco user e-Cigarette/Vaping Use: Never Used Second Hand Smoke Exposure: Yes Substance Use Type: Marijuana service: No Current occupational status: employed 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 1. Little interest or pleasure in doing things: not at all 2. Feeling down, depressed, or hopeless: nearly every day 3. Trouble falling or staying asleep, or sleeping too much: nearly every day 4. Feeling tired or having little energy: more than half the days 5. Poor appetite or overeating: nearly every day 6. Feeling bad about yourself - or that you are a failure or have let yourself or your family down: not at all 7. Trouble concentrating on things, such as reading the newspaper or watching television: not at all 8. Moving or speaking so slowly that other people could have noticed. Or the opposite - being so fidgety or restless that you have been moving around a lot more than usual: not at all 9. Thoughts that you would be better off or of hurting yourself in some way: not at all Total score: 11 Depression Screening Interpretation: Positive Depression Screening Follow-up: Existing condition and In treatment Depression Screening Done: Yes 78916 - PHQ-9 Billing: Yes Source: Developed by Drs. Zhang Persaud, Miroslava Jerome, Tito Reece and colleagues, with an educational nils from [employer]. Thrive Questionnaire Date Thrive assessed: 06/14/24 I am a: Patient What is your living situation today?: I have a steady place to live Within the past 12 months, did the food you bought not last and you didn't have the money to get more?: Never true Within the past 12 months, did you worry whether your food would run out before you got money to buy more?: I choose not to answer this question Do you have trouble paying for medicines?: I choose not to answer this question Do you have trouble getting transportation to medical appointments?: No Do you have trouble paying your heating and electricity bill?: Yes Do you have trouble taking care of your child, family member or friend?: No Do you have trouble with day-to-day activities such as bathing, preparing meals, shopping, managing finances, etc.?: No Are you currently unemployed and looking for a job?: No Are you interested in more education?: I choose not to answer this question Please select the resources that you would like help with: None THRIVE Score: 1 KAREEM-7 AMB Questionnaire KAREEM-7 Date KAREEM - 7 assessed: 11/26/24 Feeling nervous, anxious, or on edge: 3 = Nearly every day Not being able to stop or control worryin = Nearly every day Worrying too much about different things: 3 = Nearly every day Trouble relaxin = More than half the days Being so restless that it is hard to sit still: 2 = More than half the days Becoming easily annoyed or irritable: 1 = Several days Feeling afraid as if something awful might happen: 2 = More than half the days Total KAREEM-7 score (0-4 normal; 5-9 mild; 10-14 moderate; 15-21 severe): 16 Source: Developed by Drs. Zhang Persaud, Miroslava Jerome, Tito Reece and colleagues, with an educational nils from [employer]. KAREEM-7 Assessment Billing KAREEM-7 Assessment Tool: KAREEM-7 Assessment 08364 Review of Systems Const Details: Const Denies chills, Denies fatigue, Denies fever(s), Denies headache(s) and Denies weakness ENT Denies dizziness and Denies headache(s) Card Denies chest pain, Denies lightheadedness, Denies dyspnea and Denies other (Palpitations) Resp Denies cough, Denies dyspnea, Denies wheezing and Denies other ( shortness of breath) GI Denies abdominal pain, Denies melena, Denies hematochezia, Denies change in bowel habits, Denies dyspepsia and Denies nausea Denies hematuria and Denies dysuria Musc Reports as per HPI Skin/Breast Denies rash, Denies unusual bruising and Denies wounds Neuro Denies abnormal gait, Denies dizziness, Denies headache(s), Denies memory loss, Denies numbness, Denies Sensory deficit (Neuro), Denies tingling and Denies weakness Psych Reports anxiety, Reports depression, Denies memory loss Endo Denies cold intolerance, Denies fatigue, Denies heat intolerance, Denies polydipsia and Denies polyuria Aller/Immun Denies wheezing Physical exam (Primary Care) Vital Signs: Last Vital Signs Temp 98.0 F 11/26/24 15:14 Pulse 97 11/26/24 15:14 Resp 16 11/26/24 15:14 BP 126/74 11/26/24 15:21 Pulse Ox 95 11/26/24 15:14 Oxygen Delivery Method Room Air 11/26/24 15:14 BMI result Body Mass Index 34.1 Tobacco/Smoking Status: Tobacco use Status Tobacco use date assessed 11/26/24 11/26/24 15:17 Patient Tobacco Use Status Former Tobacco user 11/26/24 15:06 e-Cigarette/Vaping Use Never Used 11/26/24 15:06 PHQ-9: PHQ-9 Score PHQ-9: Total score 11 11/26/24 15:17 Depression Screening Interpretation: Positive Depression Screening Follow-up: Existing condition and In treatment Thrive Assessment: Date of Thrive Assessment Date Thrive assessed 06/14/24 11/26/24 15:06 Const Other: General: no acute distress and well developed Nutritional Appearance: well nourished Orientation/consciousness: patient oriented x3 HENMT Head: Yes normocephalic and Yes atraumatic Eyes General: appearance normal, both eyes and all related structures Pupils: Equal, round and reactive pupils present EOM: EOMs intact bilaterally Resp Effort & Inspection: normal respiratory effort Auscultation: clear to auscultation bilaterally Cardio Rate: regular rate Rhythm: regular rhythm Heart sounds: S1 normal heart sound present, S2 normal heart sound present, no gallops, no murmurs and no rubs GI Palpation (GI): No Abdominal aortic bruit present, Soft to palpation, nontender, No hepatosplenomegaly present and No Rebound tenderness present Auscultation: normal bowel sounds General: Yes no CVA tenderness Back/Spine/Pelvis Back: no CVA tenderness Cervical Spine: cervical ROM normal and No Cervical spine tenderness Thoracic/Lumbar Spine: thoraco-lumbar ROM normal, No pain with thoraco-lumbar ROM, No thoracic spinal tenderness and No lumbar spinal tenderness Extrem General: Yes normal to inspection, No edema and No calf tenderness Skin General: warm and dry. Normal skin color. Normal skin turgor Neuro General: patient oriented x3, gait normal and no focal neuro deficit Cranial nerves: Yes Equal, round and reactive pupils present Cognition (Neuro): normal cognition Gait exam (Neuro): Normal gait present Sensory Exam: No Sensory deficit (Neuro) Psych Appearance: grossly normal Affect: normal affect Attitude: cooperative Thought process: Normal thought process present Results AMB Urinalysis, Automated UA Leukoctes 15 Kelsie/uL Last Edit by Loretta Yancey MA on 11/26/24 15:56 UA Nitrite Negative Last Edit by Loretta Yancey MA on 11/26/24 15:56 UA Urobilinogen 17 mg/dL Last Edit by Loretta Yancey MA on 11/26/24 15:56 UA Protein 03 mg/dL Last Edit by Loretta Yancey MA on 11/26/24 15:56 UA pH 5.5 Last Edit by Loretta Yancey MA on 11/26/24 15:56 UA Blood 200 Jeffrey/uL Last Edit by Loretta Yancey MA on 11/26/24 15:56 UA Specific [place] 1.020 Last Edit by Loretta Yancey MA on 11/26/24 15:56 UA Ketone Positive Last Edit by Loretta Yancey MA on 11/26/24 15:56 UA Bilirubin 17 mg/dL Last Edit by Loretta Yancey MA on 11/26/24 15:56 UA Glucose 0 mg/dL Last Edit by Loretta Yancey MA on 11/26/24 15:56 Results Reviewed Results Reviewed: Laboratory Last Values Urine pH (Auto) 5.5 11/26/24 15:39 Specific [place] (Auto) 1.020 11/26/24 15:39 Urine Protein (Auto) 03 mg/dL 11/26/24 15:39 Glucose (UA)(Auto) 0 mg/dL 11/26/24 15:39 Urine Ketones (Auto) Positive 11/26/24 15:39 Urine Blood (Auto) 200 Jeffrey/uL 11/26/24 15:39 Urine Nitrite (Auto) Negative 11/26/24 15:39 Urine Bilirubin (Auto) 17 mg/dL 11/26/24 15:39 Urine Urobilinogen (Auto) 17 mg/dL 11/26/24 15:39 Leukocyte Esterase (Auto) 15 Kelsie/uL 11/26/24 15:39 Coding Level of Care Code Est Pt Level 4 (47803) Complex EM visit Add On G2211 Diagnoses Primary hypertension I10 Hypertension type: primary hypertension Vitamin D deficiency E55.9 Anxiety and depression F41.9; F32.A Back pain M54.9 Neck pain on left side M54.2 Additional Codes PHQ-9 - 25205 - PHQ-9 Billing: Yes ([id number]) KAREEM-7 Assessment Billing - KAREEM-7 Assessment Tool: KAREEM-7 Assessment 12935 ([id number]) Assessment & Plan Assessment & Plan (1) Hypertension: Code(s): I10 - Essential (primary) hypertension Category: Medical Qualifiers: Hypertension type: primary hypertension Qualified Code(s): I10 - Essential (primary) hypertension Plan: Resting blood pressure is 126/74, within goal of less than 140/90. Continue current treatment regimen. Low-sodium diet encouraged. Follow-up in 3 months or sooner with symptoms or concerns. Verbalized understanding and agreed with the plan. (2) Vitamin D deficiency: Code(s): E55.9 - Vitamin D deficiency, unspecified Category: Medical Plan: She has not taken vitamin D3 50 mcg that was prescribed. Encouraged to take the medication as prescribed. She did not perform vitamin-D level blood work for this visit as planned. Continue current treatment regimen. Encouraged to perform vitamin-D blood work. Verbalized understanding and agreed with the plan. (3) Anxiety and depression: Code(s): F41.9 - Anxiety disorder, unspecified; F32.A - Depression, unspecified Category: Medical Plan: Reports severe depressive symptoms and moderate anxiety symptoms. She is followed by a psychiatrist and therapist. Continue current treatment regimen. Routine exercise encouraged. Follow-up with psychiatrist and therapist as planned. Verbalized understanding and agreed with the plan. (4) Back pain: Code(s): M54.9 - Dorsalgia, unspecified Category: Medical Plan: She reports left-sided low back pain which radiates to her left flank for the past 1 month. She describes the pain as pressure. She denies fall, injury, trauma. She denies urinary frequency, urgency, dysuria, hematuria. Left CVA tenderness to palpation. Likely UTI old musculoskeletal pain. Diclofenac cream as prescribed. May take Tylenol or ibuprofen as needed. Warm/cool compresses encouraged. Urine dip positive, including leukocytes, protein, blood, ketones Will send urine to the lab for UA/culture. Follow-up with worsening or new symptoms. Verbalized understanding and agreed with the plan. (5) Neck pain on left side: Code(s): M54.2 - Cervicalgia Category: Medical Plan: Reports pain to her left lateral neck adjacent the left ear for the past 4 days. Her symptoms started after she noticed bleeding from the ear while cleaning the inside. Old dried blood noted to the opening of the left ear canal. Otherwise normal ear exam. May take Tylenol ibuprofen as needed. Encouraged to avoid inserting objects in her ears. Verbalized understanding and agreed with the plan. Orders: Orders AMB Urinalysis Automated Today Z13.9 - Encounter for screening, unspecified UA CC w/rflx Micro + Cult Today M54.9 - Dorsalgia, unspecified Medications: New diclofenac sodium 1% Blood to rule back as prescribed 2 grams topical QID PRN 50 grams 0RF pain, mild Refilled cholecalciferol (vitamin D3) (Vitamin D3) 50 mcg PO DAILY 90 tabs 3RF 90 days
[2024-11-26 15:14] VITALS: BP 140/63; PULSE 97; RESP 16; TEMP 36.7; O2SAT 95; BMI 34.1
[2024-11-26 15:21] VITALS: BP 126/74
--- OUTSIDE RECORDS SUMMARY | 2024-11-26 15:55 | XMS_ITS | Encounter Summary ---
Author Organization [facility] Address [address] [place] [address] Care Team Providers Care Special Delivery Carrier Name Role Phone Kelsy Castellanos MD Primary Care Provider Venita Calzada, Pcp Primary Care Provider Juvenal narvaez Encounter Details Date Type Department Care Team Description 02/28/2018 Telephone General Surgery - [address] [place] [address] Pedro Jiang MD [address] [place] [address] [address] [place] [address] Social History Tobacco Use Types Packs/Day Years Used Date Smoking Tobacco: Former Cigarettes 24 Q uit: 04/20/2012 Smokeless Tobacco: Never Alcohol Use Standard Drinks/Week Comments Yes 0 (1 standard drink = 0.6 oz pure alcohol) social, holiday/special occasions Sex Assigned at Date Recorded Not on file documented as of this encounter Miscellaneous Notes * Telephone Encounter - Matilde Maguire - 02/28/2018 2:50 PM EST Pt called to get a refill on her omeprazole (PRILOSEC) 20 MG capsule -- pharm- [facility] in [facility] 1 left and wont make it to the next appt with him documented in this encounter Plan of Treatment Not on file documented as of this encounter Visit Diagnoses Not on filedocumented in this encounter Care Teams Special Delivery Carrier Relationship Specialty Start Date End Date Kelsy Castellanos MD PCP - General Internal Medicine 12/28/12 04/02/18 [facility], Pcp PCP - General Internal Medicine 04/03/18 documented as of this encounter
--- OUTSIDE RECORDS SUMMARY | 2024-11-26 15:55 | XMS_ITS | Encounter Summary ---
Author Organization [facility] Address [address] [place] [address] Care Team Providers Care Top Trimmer Name Role Phone Community, Pcp Primary Care Provider Unavailabl e Reason for Visit * Reason Onset Date Comments Patient Outreach 01/06/2022 [facility] I nitiative Encounter Details Date Type Department Care Team Description 01/06/2022 Telephone Adult Medicine [address] [address] Kelsy Castellanos MD Patient Outreach ([facility] ) Social History Tobacco Use Types Packs/Day Years Used Date Smoking Tobacco: Former Cigarettes 24 Q uit: 04/20/2012 Smokeless Tobacco: Never Alcohol Use Standard Drinks/Week Comments Yes 0 (1 standard drink = 0.6 oz pure alcohol) social, holiday/special occasions Sex Assigned at Date Recorded Not on file documented as of this encounter Miscellaneous Notes * Telephone Encounter - Meg Answer - 01/06/2022 5:39 PM EDT 1st OB call to contact Pt to schedule colon cancer screen. There was no answer, so I left a HIPAA compliant message with my contact details on the VM. documented in this encounter Plan of Treatment Not on file documented as of this encounter Visit Diagnoses Not on filedocumented in this encounter Care Teams Top Trimmer Relationship Specialty Start Date End Date Community, Pcp PCP - General Internal Medicine 04/03/18 documented as of this encounter
--- OUTSIDE RECORDS SUMMARY | 2024-11-26 15:55 | XMS_ITS | Encounter Summary ---
Author Organization [facility] Address [address] [place] [address] Care Team Providers Care Speech Correction Consultant Name Role Phone Kelsy Castellanos MD Primary Care Provider Venita Calzada, Pcp Primary Care Provider Juvenal narvaez Encounter Details Date Type Department Care Team Description 09/15/2017 Orders Only General Surgery - [address] [place] [address] Pedro Jiang MD [address] [place] [address] [address] [place] [address] Gastroesophageal reflux disease, esophagitis presence not specified Social History Tobacco Use Types Packs/Day Years Used Date Smoking Tobacco: Former Cigarettes 24 Q uit: 04/20/2012 Smokeless Tobacco: Never Alcohol Use Standard Drinks/Week Comments Yes 0 (1 standard drink = 0.6 oz pure alcohol) social, holiday/special occasions Sex Assigned at Date Recorded Not on file documented as of this encounter Plan of Treatment Not on file documented as of this encounter Procedures Procedure Name Priority Date/Time Associated Diagnosis Comments CHG RADIOLOGIC EXAM UPR GI TRC DOUBLE CONTRAST STUDY Routine 09/12/2017 Gastroesophageal reflux disease, esophagitis presence not specified documented in this encounter Results * (UGI) CONTRAST X-RAY OF UPPER GI TRACT (09/12/2017) Pedro Jiang MD OUTSIDE RADIOLOGY documented in this encounter Visit Diagnoses Diagnosis Gastroesophageal reflux disease, esophagitis presence not specified documented in this encounter Care Teams Speech Correction Consultant Relationship Specialty Start Date End Date Kelsy Castellanos MD PCP - General Internal Medicine 12/28/12 04/02/18 [facility], Pcp PCP - General Internal Medicine 04/03/18 documented as of this encounter
--- OUTSIDE RECORDS SUMMARY | 2024-11-26 15:55 | XMS_ITS | Encounter Summary ---
Author Organization [facility] Address [address] [place] [address] Care Team Providers Care Opto Mechanical Engineer Name Role Phone Kelsy Castellanos MD Primary Care Provider Venita Calzada, Pcp Primary Care Provider Juvenal narvaez Encounter Details Date Type Department Care Team Description 08/09/2015 Hospital Medical Records [address] [place] [address] Jake Poe MD Social History Tobacco Use Types Packs/Day Years [...] on filedocumented in this encounter Care Teams Opto Mechanical Engineer Relationship Specialty Start Date End Date Kelsy Castellanos MD PCP - General Internal Medicine 12/28/12 04/02/18 [facility] Pcp PCP - General Internal Medicine 04/03/18 documented as of this encounter
--- OUTSIDE RECORDS SUMMARY | 2024-11-26 15:55 | XMS_ITS | Encounter Summary ---
Author Organization [facility] Address [address] [place] [address] Care Team Providers Care Radio Sportscaster Name Role Phone Kelsy Castellanos MD Primary Care Provider Venita Calzada, Pcp Primary Care Provider Juvenal narvaez Encounter Details Date Type Department Care Team Description 06/24/2015 Release of Information Medical Records [address] [place] [id number] Abstract, Provider Social History Tobacco Use Types Packs/Day Years Used Date Smoking Tobacco: Former Smokeless Tobacco: Never Alcohol Use Standard Drinks/Week Comments Not Asked 0 (1 standard drink = 0.6 oz pur e alcohol) Sex Assigned at Date Recorded Not on file documented as of this encounter Plan of Treatment Not on file documented as of this encounter Visit Diagnoses Not on filedocumented in this encounter Care Teams Radio Sportscaster Relationship Specialty Start Date End Date Kelsy Castellanos MD PCP - General Internal Medicine 12/28/12 04/02/18 [facility], Pcp PCP - General Internal Medicine 04/03/18 documented as of this encounter
--- OUTSIDE RECORDS SUMMARY | 2024-11-26 15:55 | XMS_ITS | Encounter Summary ---
Author Organization [facility] Address [address] [place] [address] Care Team Providers Care Netbackup Administrator Name Role Phone Kelsy Castellanos MD Primary Care Provider Venita Calzada, Pcp Primary Care Provider Juvenal narvaez Encounter Details Date Type Department Care Team Description 03/22/2018 Transfer Records Medical Records [address] [place] [address] Abstract, Provider Social History Tobacco Use Types [...] on filedocumented in this encounter Care Teams Netbackup Administrator Relationship Specialty Start Date End Date Kelsy Castellanos MD PCP - General Internal Medicine 12/28/12 04/02/18 [facility], Pcp PCP - General Internal Medicine 04/03/18 documented as of this encounter
--- OUTSIDE RECORDS SUMMARY | 2024-11-26 15:56 | XMS_ITS | Clinical Summary ---
Author Organization [facility] it Address [address] [place] [address] Care Team Providers Care Production Control Clerk Name Role Phone Unavailable Primary Care Provider Unavailabl e Surgical History Surgery Date Site/Laterality Comments OTHER SURGICAL HISTORY PROCEDURE: ANALGESIA FOR LABOR/ CHOLECYSTECTOMY July 2014 PROCEDURE: HISTORICAL CHOLECYSTECTOMY Medical History Medical History Date Comments Obesity DX:Obesity History of tobacco abuse DX:Hist ory of tobacco abuse Family History Medical History Relation Name Comments Other: osteoarthritis Father dyslip idemia, HTN Asthma Mother RLS, anxiety, d epression, RA, OA, HTN Crohn's disease Sister 1 Relation Name Status Comments Brother Alive Father Alive Mother Alive Sister 1 Sister 2 Alive Social History Tobacco Use Types Packs/Day Years Used Date Smoking Tobacco: Former Cigarettes Q uit: 04/20/2012 Smokeless Tobacco: Never Alcohol Use Standard Drinks/Week Comments Yes 0 (1 standard drink = 0.6 oz pur e alcohol) Comments Unknown Sex and Gender Information Value Date Recorded Sex Assigned at Not on file Legal Sex Female 4:55 AM EST Gender Identity Not on file Sexual Orientation Not on file Obstetrics History Plan of Treatment Health Maintenance Due Date Last Done Comments Breast Cancer Screening 1969 Hepatitis B Vaccines (1 of 3 - 19+ 3-dose series) 1988 Cervical Cancer Screening: P ap Smear 1990 Pneumococcal Vaccine: 50+ Ye ars (1 of 1 - PCV) 07/05/2019 Zoster Vaccines (1 of 2) 07/05/2019 Cholesterol Screening (Lipid Panel) 03/06/2022 Colorectal Cancer Screening: Colonoscopy 03/06/2022 HIV Screening 03/06/2022 Hepatitis C Screening 03/06/2022 Social Influencers of Health Screening 03/06/2022 Hypertension/CHF/CAD Annual BMP Blood Test 03/19/2022 DTaP,Tdap,and Td Vaccines (2 - Td or Tdap) 11/08/2023 11/07/2013 COVID-19 Vaccine (1 - 2023-2 5 season) 2023 Depression Screening 04/03/2024 Influenza Vaccine (#1) 2024 01/18/2013 HIB Vaccines Aged Out No longer eligi ble based on patient's age to complete this topic HPV Vaccines Aged Out No longer eligi ble based on patient's age to complete this topic Hepatitis A Vaccines Aged Out No long er eligible based on patient's age to complete this topic IPV Vaccines Aged Out No longer eligi ble based on patient's age to complete this topic MMR Vaccines Aged Out No longer eligi ble based on patient's age to complete this topic Meningococcal ACWY Vaccine Aged Out N o longer eligible based on patient's age to complete this topic Meningococcal B Vaccine Aged Out No l onger eligible based on patient's age to complete this topic RSV Immunization Patients Un elaine 20 months Aged Out No longer eligible b ased on patient's age to complete this topic Varicella Vaccines Aged Out No longer eligible based on patient's age to complete this topic
--- OUTSIDE RECORDS SUMMARY | 2024-11-26 15:56 | XMS_ITS | Encounter Summary ---
Author Organization [facility] Address [address] [place] [address] Care Team Providers Care Vamp Stitcher Name Role Phone Kelsy Castellanos MD Primary Care Provider Venita Calzada, Pcp Primary Care Provider Juvenal narvaez Reason for Visit * Reason Onset Date Comments TEST RESULTS 11/12/2013 Encounter Details Date Type Department Care Team Description 11/12/2013 Telephone Adult [address] [address] Kaylen Win APRN TEST RESULTS Social History Tobacco Use Types Packs/Day Years Used Date Smoking Tobacco: Former Alcohol Use Standard Drinks/Week Comments Not Asked 0 (1 standard drink = 0.6 oz pur e alcohol) Sex Assigned at Date Recorded Not on file documented as of this encounter Miscellaneous Notes * Telephone Encounter - Esmer Ye M.A. - 11/12/2013 11:07 AM EDT Lm to call me back (msg in result notes) Message Please let patient know vitamin D level is mildly low, will send rx for daily 1000 units of vitamind to pharmacy documented in this encounter Plan of Treatment Not on file documented as of this encounter Visit Diagnoses Not on filedocumented in this encounter Care Teams Vamp Stitcher Relationship Specialty Start Date End Date Kelsy Castellanos MD PCP - General Internal Medicine 12/28/12 04/02/18 [facility], Pcp PCP - General Internal Medicine 04/03/18 documented as of this encounter
== END 2024-11-26 16:14 | disposition home or self-care (01) ==
LOC: HO.HMCFM 15:02
PROVIDERS: PCP Family Medicine; Visit Provider Nurse Practitioner Family
DX: I10 Essential (primary) hypertension (principal); E55.9 Vitamin D deficiency, unspecified; F41.9 Anxiety disorder, unspecified; F32.A Depression, unspecified; M54.9 Dorsalgia, unspecified; M54.2 Cervicalgia; Z13.9 Encounter for screening, unspecified

== ENCOUNTER 2024-11-26 15:39 | Outpatient (REF) | payer BC, SELFPAY ==
[2024-11-26 18:33] LABS: Appearance Urine Clear; Glucose Urine UA Negative (Negative); PH 5.5 (5.0-9.0); Specific Gravity - Urine 1.025 (1.005-1.025); UMIC TRIGGER UACC YES
[2024-11-26 19:41] LABS: UACC Culture Trigger YES
== END 2024-11-26 15:40 | disposition home or self-care (01) ==
LOC: HO.LAB 15:39
PROVIDERS: Visit Provider Nurse Practitioner Family
DX: M54.9 Dorsalgia, unspecified (principal); Z13.89 Encounter for screening for other disorder
CPT/HCPCS: 81001; 87086; 87147

== ENCOUNTER 2025-03-10 11:40 | Outpatient (REF) | payer BC, SELFPAY ==
[2025-03-10 15:56] LABS: Resp Syncy Virus RNA Qual PCR NEGATIVE (Negative); SARS COV2 PCR INHOUSE NEGATIVE (Negative)
== END 2025-03-10 11:41 | disposition home or self-care (01) ==
LOC: HO.LAB 11:40
PROVIDERS: PCP Nurse Practitioner Family; Visit Provider Nurse Practitioner Family
DX: I10 Essential (primary) hypertension (principal); J06.9 Acute upper respiratory infection, unspecified; E55.9 Vitamin D deficiency, unspecified
CPT/HCPCS: 87637

== ENCOUNTER 2025-03-10 11:40 | Outpatient (AMB) | payer BC, SELFPAY ==
--- NOTE | 2025-03-10 11:52 | MHC.PC.OV ---
Vital Signs 03/10/25 12:04 03/10/25 12:26 Height 5 ft 2 in Weight 195 lb BMI 35.7 BP 150/62 H 140/80 H Blood Pressure Location Lt brachial Lt brachial Position Sitting Sitting Respiration 16 Pulse 62 Pulse Source Pulse Oximeter Temp 98.1 F Temp Source Oral Pulse Oximetry (%) 100 Oxygen Delivery Method Room Air Intake Visit Reasons: 3 mos HTN Intake Note: patient here for 3 month follow up on HTN. c/o congested and body aches, headaches since yesterday and she needs refills on her meds Library Circulation Department Chief Required: No Is last menstrual period known: No Post menopausal: No Patient : No Allergies No Known Allergies (No Known Allergies*) Allergy (Verified 03/10/25 12:31) Medication List - Last Reconciled 03/10/25 by Raciel Hansen CNP amlodipine 10 mg PO DAILY 30 days buspirone 10 mg PO TID 30 days cholecalciferol (vitamin D3) (Vitamin D3) 50 mcg PO DAILY 90 days diclofenac sodium 1% 2 grams topical QID PRN escitalopram oxalate 20 mg PO DAILY 30 days hydroxyzine pamoate 25 mg PO DAILY PRN lisinopril 40 mg PO DAILY 30 days lorazepam 0.5 mg PO NEEDED meclizine 25 mg PO TID PRN mirtazapine 15 - 30 mg PO BEDTIME Tobacco use date assessed: 03/10/25 Dental Screening Dental Screen Date: 03/10/25 Did you have a dental visit in the last 12 months?: No Did you have a dental problem in the last 6 months where you did not have access to dental care?: No Was dental information given to patient?: Patient has dentist HPI HPI Comments History of Present Illness Details 54-year-old female presents for hypertension follow-up. She admits to taking her medications as prescribed without adverse reactions. However, she rushed out of her house this morning and forget to take her medications. She reports headaches, nasal congestion, runny nose, productive cough with yellow phlegm, and generalized body aches. Her symptoms started yesterday and has progressively worsened. Her daughter his ill with respiratory symptoms and her coworkers have COVID-19. [facility] Medical History (Updated 03/10/25 @ 12:36 by Raciel Hansen CNP) Acid reflux Hiatal hernia Vertigo Knee pain BMI 33.0-33.9,adult Obesity Hypertension Anemia Frequency of urination Surgical History Hx of hand surgery History of bilateral tubal ligation Hx of cholecystectomy H/O bariatric surgery Hx of section Family History Family/Other History of breast cancer Brother Overdose Cardiovascular disease Mother HTN (hypertension) Cardiovascular disease Father Leukemia Maternal Grandmother HTN (hypertension) Other Mental health disorder Substance abuse Social History Household Members: Spouse Housing: House Do you presently have visiting nurse or other home services: No Alcohol intake: current Alcohol intake frequency: 0-2 drinks per day Patient Tobacco Use Status: Former Tobacco user e-Cigarette/Vaping Use: Never Used Second Hand Smoke Exposure: Yes Substance Use Type: Marijuana service: No Current occupational status: employed 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- [employer] Sexual orientation: Straight/Heterosexual Gender identity: Female Cognitive needs: No Hearing needs: No Vision needs: Yes Female Reproductive History Menstrual Age of Menarche: 10 Questionnaire Thrive Questionnaire Date Thrive assessed: 06/14/24 I am a: Patient What is your living situation today?: I have a steady place to live Within the past 12 months, did the food you bought not last and you didn't have the money to get more?: Never true Within the past 12 months, did you worry whether your food would run out before you got money to buy more?: I choose not to answer this question Do you have trouble paying for medicines?: I choose not to answer this question Do you have trouble getting transportation to medical appointments?: No Do you have trouble paying your heating and electricity bill?: Yes Do you have trouble taking care of your child, family member or friend?: No Do you have trouble with day-to-day activities such as bathing, preparing meals, shopping, managing finances, etc.?: No Are you currently unemployed and looking for a job?: No Are you interested in more education?: I choose not to answer this question Please select the resources that you would like help with: None THRIVE Score: 1 KAREEM-7 AMB Questionnaire KAREEM-7 Date KAREEM - 7 assessed: 08/26/25 Source: Developed by Drs. Zhang Persaud, Miroslava Jerome, Tito Reece and colleagues, with an educational nils from [employer]. Review of Systems Const Details: Const Denies chills, Denies fatigue, Denies fever(s), Reports headache(s) and Denies weakness ENT Reports as per HPI Card Denies chest pain, Denies lightheadedness, Denies dyspnea and Denies other (Palpitations) Resp Reports cough, Denies dyspnea, Denies wheezing and Denies other ( shortness of breath) GI Denies abdominal pain, Denies melena, Denies hematochezia, Denies change in bowel habits, Denies dyspepsia and Denies nausea Denies hematuria and Denies dysuria Musc Denies abnormal gait, Reports myalgias, Denies arthralgias, Denies numbness and Denies tingling Skin/Breast Denies rash, Denies unusual bruising and Denies wounds Neuro Denies abnormal gait, Denies dizziness, Denies headache(s), Denies memory loss, Denies numbness, Denies Sensory deficit (Neuro), Denies tingling and Denies weakness Endo Denies cold intolerance, Denies fatigue, Denies heat intolerance, Denies polydipsia and Denies polyuria Aller/Immun Denies wheezing Physical exam (Primary Care) Vital Signs: Last Vital Signs Temp 98.1 F 03/10/25 12:04 Pulse 62 03/10/25 12:04 Resp 16 03/10/25 12:04 BP 140/80 H 03/10/25 12:26 Pulse Ox 100 03/10/25 12:04 Oxygen Delivery Method Room Air 03/10/25 12:04 BMI result Body Mass Index 35.7 Tobacco/Smoking Status: Tobacco use Status Tobacco use date assessed 03/10/25 03/10/25 12:07 Patient Tobacco Use Status Former Tobacco user 03/10/25 11:54 e-Cigarette/Vaping Use Never Used 03/10/25 11:54 Thrive Assessment: Date of Thrive Assessment Date Thrive assessed 06/14/24 03/10/25 11:54 Const Other: General: no acute distress and well developed Nutritional Appearance: well nourished Orientation/consciousness: patient oriented x3 HENMT Head: Yes normocephalic and Yes atraumatic Eyes General: appearance normal, both eyes and all related structures Pupils: Equal, round and reactive pupils present EOM: EOMs intact bilaterally Resp Effort & Inspection: normal respiratory effort Auscultation: clear to auscultation bilaterally Cardio Rate: regular rate Rhythm: regular rhythm Heart sounds: S1 normal heart sound present, S2 normal heart sound present, no gallops, no murmurs and no rubs Extrem General: Yes normal to inspection, No edema and No calf tenderness Skin General: warm and dry. Normal skin color. Normal skin turgor Neuro General: patient oriented x3, gait normal and no focal neuro deficit Cranial nerves: Yes Equal, round and reactive pupils present Cognition (Neuro): normal cognition Gait exam (Neuro): Normal gait present Sensory Exam: No Sensory deficit (Neuro) Psych Appearance: grossly normal Affect: normal affect Attitude: cooperative Thought process: Normal thought process present Coding Level of Care Code Est Pt Level 4 (26929) Diagnoses Primary hypertension I10 Hypertension type: primary hypertension Viral upper respiratory illness J06.9 Assessment & Plan Assessment & Plan (1) Hypertension: Code(s): I10 - Essential (primary) hypertension Category: Medical Qualifiers: Hypertension type: primary hypertension Qualified Code(s): I10 - Essential (primary) hypertension Plan: Resting blood pressure is 140/80, slightly above goal of less than 140/80. Continue current treatment regimen. Low-sodium diet encouraged. Follow-up in 2-3 months for transfer of care with a new provider within the practice. Return sooner with symptoms or concerns. Verbalized understanding and agreed with the plan. (2) Viral upper respiratory illness: Code(s): J06.9 - Acute upper respiratory infection, unspecified Category: Medical Plan: Likely viral illness though possibly allergies. No exam evidence of bacterial infection Viral illness There is no antibiotic medication for viruses.? They must run their course.? Most average 5-7 days but 7-10 days is not uncommon and up to 14 days is still possible.? A cough is often the last symptom to resolve and this can last for weeks in some cases. Rest Hydrate well -? Drink plenty of fluids.? Especially water. Tylenol or ibuprofen for muscle aches, headache, fever/discomfort Benzonatate as prescribed for cough Cannot rule out COVID-19/RSV/Flu infection Nasal swab acquired and will be sent to the lab Return for new or worsening symptoms Verbalized understanding and agreed with treatment plan. Orders: Orders Vitamin D 25-OH Total Today E55.9 - Vitamin D deficiency, unspecified SARS-CoV2/FLU/RSV Today J06.9 - Acute upper respiratory infection, unspecified Medications: New benzonatate 100 mg PO BID PRN 10 caps 0RF cough
[2025-03-10 12:04] VITALS: BP 150/62; PULSE 62; RESP 16; TEMP 36.7; O2SAT 100; BMI 35.7
[2025-03-10 12:26] VITALS: BP 140/80
== END 2025-03-10 12:33 | disposition home or self-care (01) ==
LOC: HO.HMCFM 11:41
PROVIDERS: PCP Nurse Practitioner Family; Visit Provider Nurse Practitioner Family
DX: I10 Essential (primary) hypertension (principal); J06.9 Acute upper respiratory infection, unspecified

== ENCOUNTER 2025-03-10 12:59 | Outpatient (REF) | payer BC, SELFPAY | END 2025-03-10 13:00 | disposition home or self-care (01) | LOC: HO.WFDLDS 12:59 | PROVIDERS: Visit Provider Nurse Practitioner Family | DX: E55.9 Vitamin D deficiency, unspecified (principal) | CPT/HCPCS: 36415; 82306 ==